=== PATIENT | female | born 1950 | race Caucasian/White ===

== ENCOUNTER 2022-09-18 12:42 | Outpatient (CLI) | payer MEDICARE, SELFPAY ==
--- NOTE | ~2022-09-18 | XR_ITS ---
EXAMINATION: XR lumbar spine 2-3V DATE: 09/18/2022 13:12 INDICATION: Dorsalgia and right sciatic pain TECHNIQUE: Anteroposterior and lateral views of the lumbar spine, and cone-down lateral view of the l umbosacral junction were obtained. COMPARISON: None. FINDINGS: Bone alignment is normal. There is no fracture. The vertebral body heights are maintained. There is mild loss of intervertebral disc space height at L4-5 and L5-S1. Small degenerative osteophy donnie project from the anterior endplates of multiple vertebral bodies. There is moderate facet joint o steoarthritis of the lower lumbar spine. The bowel gas pattern is normal. Surgical clips in the right upper quadrant are likely from prior cholecystectomy. IMPRESSION: 1. Mild to moderate lumbar spondylosis without acute findings. Reviewed, dictated and finalized at location L. IO ASSOCIATE
[2022-09-18 13:16] LABS: Basophils Percent Auto 0.6 % (0.2-1.2); Eosinophils Absolute Auto 0.1 K/mm3 (0-0.3); Eosinophils Percent Auto 2.2 % (0-4.4); Hematocrit 42.9 % (37.0-47.0); Hemoglobin 13.5 g/dL (12.0-15.0); Immature Granulocyte Absolute 0.01 K/mm3 (0.00-0.031); Immature Granulocyte Percent A 0.2 % (0-0.5); Lymphocytes Absolute Auto 2.17 K/mm3 (0.9-3.2); Lymphocytes Percent Auto 33.5 % (18.3-44.2); Mean Corpuscular HGB Conc 31.5 g/dl (32-36); Mean Corpuscular Hemoglobin 27.9 pg (26-34); Mean Corpuscular Volume 88.6 fl (80-100); Mean Platelet Volume 8.8 fl (7.4-10.4); Monocytes Absolute Auto 0.5 K/mm3 (0.1-0.6); Neutrophils Absolute Auto 3.7 K/mm3 (1.3-6.7); Neutrophils Percent Auto 56.5 % (45.5-73.1); Platelet Count Result 268 k/mm3 (150-375); Red Blood Count 4.84 M/mm3 (4.2-5.4); Red Cell Distribution Width 12.4 % (11.5-14.5); White Blood Count 6.5 K/mm3 (4.5-10.0)
[2022-09-18 13:30] LABS: Alanine Aminotransferase 17 U/L (6-35); Albumin Level 4.2 g/dL (3.5-5.1); Alkaline Phosphatase 131 U/L (38-126); Anion Gap 6 mmol/L (8-16); Aspartate Amino Transferase 22 U/L (14-36); Bilirubin,Total 0.3 mg/dL (0.2-1.3); Blood Urea Nitrogen 12 mg/dL (7-17); Calcium 9.2 mg/dL (8.4-10.2); Carbon Dioxide 29 mmol/L (22-30); Chloride 106 mmol/L (98-107); Estimated Glomerular Filt Rate 44; Glucose 86 mg/dL (65-110); Potassium 4.2 mmol/L (3.4-5.0); Sodium 141 mmol/L (137-145)
== END 2022-09-18 12:43 | disposition home or self-care (01) ==
PROVIDERS: PCP Family Medicine; Visit Provider Nurse Practitioner Family
DX: F41.9 Anxiety disorder, unspecified (principal); K52.9 Noninfective gastroenteritis and colitis, unspecified; K31.84 Gastroparesis; K57.92 Diverticulitis of intestine, part unspecified, without perforation or abscess without bleeding; M47.896 Other spondylosis, lumbar region
CPT/HCPCS: 36415; 72100; 80053; 84443; 85025

== ENCOUNTER 2022-09-28 09:35 | Outpatient (CLI) | payer MEDICARE, SELFPAY ==
--- NOTE | ~2022-09-28 | MR_ITS ---
MRI of the lumbar spine Clinical History: Back pain Technique: Axial T2-weighted images, and sagittal T1-weighted, T2-weighted, and T2 fat-sat images wer e acquired. Findings: There is no fracture or subluxation of the lumbar spine. Vertebral bodies maintain normal h eight and alignment. No bone marrow signal abnormality identified. At L1-L2, there is no disc bulge or herniation. There is mild facet arthropathy. No spinal canal sten osis or neural foraminal narrowing. At L2-L3, there is facet arthropathy with minimal disc bulge. No spinal canal stenosis or definite ne ural foraminal narrowing. At L3-L4, there is minimal disc bulge and mild facet arthropathy. No spinal canal stenosis. There is mild bilateral neural foraminal narrowing. At L4-L5, there is mild disc bulge and facet arthropathy. Lateral recess stenosis. There is severe le ft neural foraminal narrowing and moderate to severe right neural foraminal narrowing. At L5-S1, there is disc bulge and facet arthropathy. No spinal canal stenosis. There is moderate bila teral neural foraminal narrowing. Paravertebral soft tissues are unremarkable. Impression: Mild degenerative spondylosis overall, as detailed above. Findings are probably worst at L4-L5. Reviewed, dictated and finalized at [facility]. DOWN NURSE Impression: Mild degenerative spondylosis overall, as detailed above. Findings are probably worst at L4-L5.
== END 2022-09-28 09:36 | disposition home or self-care (01) ==
PROVIDERS: PCP Family Medicine; Visit Provider Nurse Practitioner Family
DX: R32 Unspecified urinary incontinence (principal); M47.896 Other spondylosis, lumbar region
CPT/HCPCS: 72148

== ENCOUNTER 2022-10-01 15:34 | Outpatient (CLI) | payer MEDICARE, SELFPAY ==
[2022-10-01 16:11] LABS: Appearance Urine Clear (Clear); Bilirubin Urine Negative (Negative); Blood Urine Trace-intact (Negative); Color Urine Light Yellow (Yellow); Glucose Urine UA Negative (Negative); Ketones Urine Negative (Negative); Leukocyte Esterase Ur Negative LEU/UL (Negative); Nitrate Urine Negative (Negative); Protein Urine Negative (Negative); Urobilinogen Urine 0.2 mg/dL (<2.0); pH Urine 6.5 (5.0-9.0)
[2022-10-01 16:15] LABS: Cholesterol 262 mg/dL (0-200); HDL Direct 53 mg/dL; Triglycerides 236 mg/dL (<150)
[2022-10-01 16:17] LABS: RBC Urine 0-2 /hpf (0-2); WBC Urine 0-3 /hpf
[2022-10-01 16:25] LABS: Add Urine Microscopic? YES
[2022-10-01 16:26] LABS: LDL Cholesterol Direct 134 mg/dL
== END 2022-10-01 15:35 | disposition home or self-care (01) ==
PROVIDERS: PCP Family Medicine; Visit Provider Family Medicine
DX: I10 Essential (primary) hypertension (principal); R32 Unspecified urinary incontinence
CPT/HCPCS: 36415; 80061; 81001

== ENCOUNTER 2022-10-11 11:08 | Outpatient (CLI) | payer MEDICARE, SELFPAY ==
[2022-10-11 13:15] LABS: Creatine Kinase 39 U/L (30-135)
[2022-10-11 13:19] LABS: Alanine Aminotransferase 18 U/L (6-35)
[2022-10-12 16:54] LABS: Appearance Urine Clear (Clear); Bilirubin Urine Negative (Negative); Blood Urine Trace-intact (Negative); Color Urine Yellow (Yellow); Glucose Urine UA Negative (Negative); Ketones Urine Negative (Negative); Leukocyte Esterase Ur Trace LEU/UL (NEGATIVE); Nitrate Urine Negative (Negative); Protein Urine Negative (Negative); Urobilinogen Urine 0.2 mg/dL (<2.0)
[2022-10-12 17:02] LABS: Bacteria Urine Trace /hpf; WBC Urine 0-3 /hpf (0-3)
[2022-10-12 17:16] LABS: Add Urine Microscopic? YES
== END 2022-10-11 11:09 | disposition home or self-care (01) ==
PROVIDERS: PCP Family Medicine; Visit Provider Nurse Practitioner Family
DX: E78.5 Hyperlipidemia, unspecified (principal)
CPT/HCPCS: 36415; 81001; 82550; 84460

== ENCOUNTER 2023-01-08 07:25 | Outpatient (CLI) | payer MEDICARE, SELFPAY ==
--- NOTE | ~2023-01-08 | NM_ITS ---
EXAM: NM gastric emptying study DATE: 01/08/2023 12:05 INDICATION: Nausea and vomiting. TECHNIQUE: A gastric emptying study was performed using the methodology of Ad DILLON, et al. J Nucl Med 2007; 48:568-572. The patient was given a meal consisting of 2 scrambled eggs labeled with 1.019 mCi Tc-99m sulfur colloid, 2 slices of toast, two packages of jam, and approximately 120 mL of water . Simultaneous anterior and posterior 1-min images of the abdomen were obtained with the patient supi ne at multiple time points over a total period of 4 hours. The geometric mean of anterior and posteri or views was determined, and the percentage retention was calculated for each time point. COMPARISON: None. FINDINGS: Gastric retention of the radiotracer-labeled meal was 46%, 28%, and 6% at the 1-hour, 2-ho ur, and 4-hour time points, respectively. With this technique, apparent rapid gastric emptying is sug gested by <30% gastric retention at 1 hour. Delayed gastric emptying is defined by gastric retention of >90% at 1 hour, >60% retention at 2 hours, or >10% retention at 4 hours. IMPRESSION: 1. Normal gastric emptying. Reviewed, dictated and finalized at location A. IMPRESSION: 1. Normal gastric emptying.
== END 2023-01-08 07:26 | disposition home or self-care (01) ==
PROVIDERS: PCP Family Medicine; Visit Provider Family Medicine
DX: K31.84 Gastroparesis (principal)
CPT/HCPCS: 78264; A9541

== ENCOUNTER 2023-02-13 13:47 | Outpatient (CLI) | payer MEDICARE, SELFPAY ==
--- NOTE | ~2023-02-13 | XR_ITS ---
XR foot LT min 3V DATE: 02/13/2023 14:14 INDICATION: Foot pain TECHNIQUE: 4 views COMPARISON: None FINDINGS: There is osteopenia. There is mild posterior and prominent plantar calcaneal enthesopathy. There is mild to moderate osteoarthritis at the first metatarsophalangeal joint. Mild hallux valgus a nd bunion deformity. No recent fracture or dislocation, periosteal reaction or bone destruction is detected. IMPRESSION: Osteopenia Calcaneal enthesopathy Osteoarthritis at first metatarsophalangeal joint Hallux valgus and bunion deformity Reviewed, dictated and finalized at location []
--- NOTE | ~2023-02-13 | XR_ITS ---
XR foot RT min 3V DATE: 02/13/2023 14:14 INDICATION: Fall. Right foot pain. TECHNIQUE: 4 views COMPARISON: None FINDINGS: Osteopenia. Mild plantar and posterior calcaneal enthesopathy. Mild osteoarthritis at the first metatarsophalangeal joint. Mild hallux valgus and bunion deformity. No recent fracture or dislocation, periosteal reaction or bone destruction is detected. IMPRESSION: Mild plantar and posterior calcaneal enthesopathy Hallux valgus and bunion deformity Mild osteophyte is at first metatarsophalangeal joint Osteopenia Reviewed, dictated and finalized at location []
== END 2023-02-13 13:48 | disposition home or self-care (01) ==
LOC: ANHIMG 13:52
PROVIDERS: PCP Family Medicine; Visit Provider Physician Assistant Medical
DX: M85.872 Other specified disorders of bone density and structure, left ankle and foot (principal); M77.32 Calcaneal spur, left foot; M19.072 Primary osteoarthritis, left ankle and foot; M20.12 Hallux valgus (acquired), left foot; M19.071 Primary osteoarthritis, right ankle and foot; M77.31 Calcaneal spur, right foot; M85.871 Other specified disorders of bone density and structure, right ankle and foot
CPT/HCPCS: 73630

== ENCOUNTER 2023-02-21 14:59 | Outpatient (CLI) | payer MEDICARE, SELFPAY ==
[2023-02-21 17:53] LABS: Vitamin D 25 Hydroxy 31.1 ng/mL
[2023-02-21 18:25] LABS: Alanine Aminotransferase 25 U/L (6-35); Albumin Level 4.5 g/dL (3.5-5.1); Alkaline Phosphatase 107 U/L (38-126); Anion Gap 6 mmol/L (8-16); Aspartate Amino Transferase 33 U/L (14-36); Bilirubin,Total 0.4 mg/dL (0.2-1.3); Blood Urea Nitrogen 12 mg/dL (7-17); Calcium 9.5 mg/dL (8.4-10.2); Carbon Dioxide 32 mmol/L (22-30); Chloride 102 mmol/L (98-107); Estimated Glomerular Filt Rate 49; Glucose 92 mg/dL (65-110); Magnesium 2.4 mg/dL (1.6-2.3); Sodium 140 mmol/L (137-145)
== END 2023-02-21 15:00 | disposition home or self-care (01) ==
LOC: ANHLAB 15:02
PROVIDERS: PCP Family Medicine; Visit Provider Nurse Practitioner Family
DX: E78.5 Hyperlipidemia, unspecified (principal); R94.4 Abnormal results of kidney function studies; G25.81 Restless legs syndrome; M62.838 Other muscle spasm; E55.9 Vitamin D deficiency, unspecified
CPT/HCPCS: 36415; 80053; 82306; 82607; 83735

== ENCOUNTER 2023-05-16 08:00 | Outpatient (NON) | payer MEDICARE, SELFPAY | END 2023-05-16 08:01 | disposition home or self-care (01) | PROVIDERS: PCP Family Medicine; Visit Provider Internal Medicine Gastroenterology | DX: R13.10 Dysphagia, unspecified (principal) | CPT/HCPCS: 88305 ==

== ENCOUNTER 2023-05-16 10:20 | Day surgery (SDC) | payer MEDICARE, SELFPAY ==
[2023-05-01 11:36] VITALS: BMI 25.6
[2023-05-09 14:00] VITALS: BMI 25.2
[2023-05-09 15:14] VITALS: BMI 25.2
--- NOTE | 2023-05-16 07:31 | WPDANESEPPF ---
Anes - Initial Pre Proc Eval Procedure: Operation Date: 05/16/23 14:00 Proposed Procedures p Esophagogastroduodenoscopy - Reno Ricketts MD Date/Time: 05/16/23 07:31 Surgeon: Reno Ricketts MD Pre Op Diagnosis: Dysphagia Patient Data Age: 72 Gender: F Height: 1.7 m Weight: 73 kg Allergies Allergy/AdvReac Type Severity Reaction Status Date / Time metronidazole [From Flagyl] AdvReac Intermediate Vomiting Verified 05/16/23 10:43 nitrofurantoin AdvReac Intermediate Vomiting Verified 05/16/23 10:43 [From Macrobid] amoxicillin [From Augmentin] AdvReac Mild Vomiting Verified 05/16/23 10:43 clavulanic acid AdvReac Mild Vomiting Verified 05/16/23 10:43 [From Augmentin] Home Medications Medication Instructions Recorded Confirmed Type rosuvastatin 20 mg tablet (Crestor) 20 mg PO DAILY #90 tabs 01/28/23 05/16/23 Rx alprazolam 0.5 mg tablet (Xanax) 0.5 mg PO QHS PRN Anxiety 02/21/23 05/16/23 History loperamide 2 mg tablet (Imodium 2 mg PO QID PRN Diarrhea 02/21/23 05/16/23 History A-D) amitriptyline 25 mg tablet 25 mg PO QHS #30 tabs 02/26/23 05/16/23 Rx dicyclomine 10 mg capsule 10 - 20 mg PO .every 6 hours #120 02/27/23 05/16/23 Rx caps olanzapine 2.5 mg tablet 2.5 mg PO DAILY 04/24/23 05/16/23 History ropinirole 0.5 mg tablet 0.5 mg PO QHS #30 tabs 04/24/23 05/16/23 Rx fluvoxamine 25 mg tablet 25 mg PO HS 05/09/23 05/16/23 History Patient hx anesthesia problems: none Family hx anesthesia problems: none Results Review: All pre-operative results and documents have been reviewed as part of the pre-operative evaluation. [facility] Past Medical History Medical History Anxiety BMI 25.0-25.9,adult Cholecystectomy planned Depression Duodenal diverticulum Functional abdominal pain syndrome GERD (gastroesophageal reflux disease) History of depression Hx of migraines Hyperlipidemia IBS (irritable bowel syndrome) Surgical History Surgical History History of cholecystectomy Family History Family History Father Leukemia Anemia Hypertension Mother Heart disease Leukemia Sibling Heart disease Social History Social History Smoking status: Never smoker Second hand tobacco smoke exposure: No Alcohol intake: never Substance use: never Substance use type: does not use Lack of Transportation: No Lack of Food: Never True Current Housing: I Have Housing Concerned About Future Housing: No Difficulty Paying Gas/Electric Bills: No Difficulty Paying for Meds: No Currently Unemployed: No Education: High School Diploma/GED Difficulty w/ Childcare or Family Care: No Living arrangements: with family Occupation/Education: retired 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 Informed Consent: The patient's anesthetic plan and its attendant risks and benefits were discussed with the patient/family/POA. Questions were solicited and answers provided to the satisfaction of the patient/family/POA.
[2023-05-16 10:46] VITALS: BP 177/104; PULSE 91; RESP 16; TEMP 36.4; O2SAT 98
--- NOTE | 2023-05-16 11:35 | PM.HPGS ---
History of Present Illness History of Present Illness Consent: Risks, benefits, and alternatives have been discussed and questions answered. Patient agrees to proceed with procedure. Chief complaint: Dysphagia Narrative: Lucy Peña is a 72 year old female with increasing episodes of dysphagia over the last few months. Review of Systems Review of Systems: All systems reviewed & are unremarkable except as noted in HPI and below PMFSH Past Medical History Medical History Anxiety BMI 25.0-25.9,adult Cholecystectomy planned Depression Duodenal diverticulum Functional abdominal pain syndrome GERD (gastroesophageal reflux disease) History of depression Hx of migraines Hyperlipidemia IBS (irritable bowel syndrome) Surgical History Surgical History History of cholecystectomy Family History Family History Father Leukemia Anemia Hypertension Mother Heart disease Leukemia Sibling Heart disease Social History Social History Smoking status: Never smoker Second hand tobacco smoke exposure: No Alcohol intake: never Substance use: never Substance use type: does not use Lack of Transportation: No Lack of Food: Never True Current Housing: I Have Housing Concerned About Future Housing: No Difficulty Paying Gas/Electric Bills: No Difficulty Paying for Meds: No Currently Unemployed: No Education: High School Diploma/GED Difficulty w/ Childcare or Family Care: No Living arrangements: with family Occupation/Education: retired 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 Gender identity (if verbalized by the patient): Female Spiritual care concerns: No Meds Home Medications and Allergies Home Medications Medication Instructions Recorded Confirmed Type rosuvastatin 20 mg tablet (Crestor) 20 mg PO DAILY #90 tabs 01/28/23 05/16/23 Rx alprazolam 0.5 mg tablet (Xanax) 0.5 mg PO QHS PRN Anxiety 02/21/23 05/16/23 History loperamide 2 mg tablet (Imodium 2 mg PO QID PRN Diarrhea 02/21/23 05/16/23 History A-D) amitriptyline 25 mg tablet 25 mg PO QHS #30 tabs 02/26/23 05/16/23 Rx dicyclomine 10 mg capsule 10 - 20 mg PO .every 6 hours #120 02/27/23 05/16/23 Rx caps olanzapine 2.5 mg tablet 2.5 mg PO DAILY 04/24/23 05/16/23 History ropinirole 0.5 mg tablet 0.5 mg PO QHS #30 tabs 04/24/23 05/16/23 Rx fluvoxamine 25 mg tablet 25 mg PO HS 05/09/23 05/16/23 History Allergies Allergy/AdvReac Type Severity Reaction Status Date / Time metronidazole [From Flagyl] AdvReac Intermediate Vomiting Verified 05/16/23 10:43 nitrofurantoin AdvReac Intermediate Vomiting Verified 05/16/23 10:43 [From Macrobid] amoxicillin [From Augmentin] AdvReac Mild Vomiting Verified 05/16/23 10:43 clavulanic acid AdvReac Mild Vomiting Verified 05/16/23 10:43 [From Augmentin] Vital Signs Vital Signs - 24 hr 05/16/23 10:46 Temperature 36.4 C Pulse Rate 91 Respiratory Rate 16 Blood Pressure 177/104 H Pulse Oximetry 98 Oxygen Delivery Room Air Exam Const: General: alert Orientation/consciousness: patient oriented x3 Resp: Auscultation: clear to auscultation bilaterally Cardio: Rhythm: regular rhythm GI: GI Palp: Yes Soft to palpation and No Tenderness to palpation present (GI) Neuro: General: patient oriented x3 Assessment and Plan Assessment and plan (1) Dysphagia: Code(s): R13.10 - Dysphagia, unspecified Status: Acute Assessment and Plan: EGD with possible biopsy or dilatation or cautery.
[2023-05-16] MEDS: LACTATED RINGERS 1,000 ML 150 ML IV CONT (12:14)
[2023-05-16 12:30] VITALS: BP 121/63; PULSE 80; RESP 15; O2SAT 98
[2023-05-16 12:40] VITALS: BP 136/92; PULSE 67; RESP 14; O2SAT 99
[2023-05-16 12:50] VITALS: BP 99/67; PULSE 65; RESP 14; O2SAT 98
--- NOTE | 2023-05-16 13:09 | WPDANESPN ---
Anes - Prog Note Post-Op Date/Time: 05/16/23 13:09 Cardiovascular status: normal Respiratory status: normal Airway patency: baseline Mental status: baseline Post-Op hydration status: normal Vital Signs: Last Vital Signs Temp 36.4 C 05/16/23 10:46 Pulse 65 05/16/23 12:50 Resp 14 05/16/23 12:50 BP 99/67 L 05/16/23 12:50 Pulse Ox 98 05/16/23 12:50 O2 Del Method Room Air 05/16/23 12:50 Pain Score (VAS): 0 I/O: Intake & Output 05/15/23 05/16/23 05/16/23 23:59 07:59 15:59 Intake Total 800 Balance 800 Post-procedural complaints: none Patient Feedback: Patient satisfied with anesthetic care. Other Findings: Patient vital signs back to baseline. Patient denies nausea and vomiting. Patient's pain under control. Patient OK for discharge.
== END 2023-05-16 13:12 | disposition home or self-care (01) ==
PROVIDERS: PCP Family Medicine; Visit Provider Internal Medicine Gastroenterology
PROC: 0DJ08ZZ Inspection of Upper Intestinal Tract, Via Natural or Artificial Opening Endoscopic (ICD-10-PCS; CPT 43235; principal; 2023-05-16 12:00)
DX: K22.2 Esophageal obstruction (principal); R13.19 Other dysphagia; K29.70 Gastritis, unspecified, without bleeding; K44.9 Diaphragmatic hernia without obstruction or gangrene
CPT/HCPCS: 43249; 43239

== ENCOUNTER → 2023-06-10 13:53 | Outpatient (CLI) | payer MEDICARE, SELFPAY ==
--- NOTE | ~2023-06-10 | MM_ITS ---
EXAMINATION: MM diagnostic becca BI w cresencio HISTORY: Left breast mass TECHNIQUE: Craniocaudal, mediolateral, and mediolateral oblique 3-D tomosynthesis images of the breas ts were performed and synthetic 2-D images were generated. CAD analysis was submitted and interpreted . COMPARISON: 01/30/2022, 08/15/2020, 08/18/2019; ultrasound, 02/09/2022 FINDINGS: No suspicious mass, calcification, or architectural distortion are identified in either zacarias ast to suggest malignancy. There has been no suspicious interval change. A low-density mass of the l ower inner left breast has been previously characterized as a cyst. IMPRESSION: 1. No mammographic evidence of malignancy. 2. Recommend routine screening mammography in one year. BI-RADS Category 2: Benign finding(s). Reviewed, dictated and finalized at location A.
== END ==
PROVIDERS: PCP Family Medicine; Visit Provider Nurse Practitioner Family
DX: R92.8 Other abnormal and inconclusive findings on diagnostic imaging of breast (principal)
CPT/HCPCS: 77062; 77066; G0279

== ENCOUNTER 2023-06-20 12:40 | Outpatient (CLI) | payer MEDICARE, SELFPAY ==
[2023-06-20 15:21] LABS: Vitamin D 25 Hydroxy 26.6 ng/mL
[2023-06-20 19:30] LABS: Anion Gap 6 mmol/L (8-16); Blood Urea Nitrogen 15 mg/dL (7-17); Calcium 10.1 mg/dL (8.4-10.2); Carbon Dioxide 29 mmol/L (22-30); Chloride 104 mmol/L (98-107); Cholesterol 177 mg/dL (0-200); Estimated Glomerular Filt Rate 55; Glucose 86 mg/dL (65-110); HDL Direct 90 mg/dL; Potassium 4.5 mmol/L (3.4-5.0); Sodium 139 mmol/L (137-145); Triglycerides 112 mg/dL (<150)
[2023-06-20 19:41] LABS: LDL Cholesterol Direct 65 mg/dL
[2023-06-20 20:45] LABS: Vitamin B12 > 1000.0 pg/mL (239-931)
== END 2023-06-20 12:41 | disposition home or self-care (01) ==
PROVIDERS: PCP Family Medicine; Visit Provider Nurse Practitioner Family
DX: R94.4 Abnormal results of kidney function studies (principal); E55.9 Vitamin D deficiency, unspecified; E53.8 Deficiency of other specified B group vitamins; E78.5 Hyperlipidemia, unspecified
CPT/HCPCS: 36415; 80048; 80061; 82306; 82607

== ENCOUNTER 2023-08-26 07:21 | Outpatient (CLI) | payer MEDICARE, SELFPAY ==
--- NOTE | ~2023-08-26 | CT_ITS ---
EXAMINATION: CT abdomen pelvis w con INDICATION: Left lower quadrant pain TECHNIQUE: Computed tomographic images of the abdomen and pelvis were obtained after the administrati on of 100 cc of Omnipaque 350 intravenous contrast. The dose-length product (DLP) was 521.25 mGy-cm. Automated exposure control and iterative reconstruction technique were employed. COMPARISON: None available FINDINGS: Minimal dependent atelectasis is present in the lung bases. The heart size is normal. There is a sliding hiatal hernia containing fat The gallbladder is surgically absent. There is mild enlarg ement of the common bile duct and central intrahepatic ducts which is likely due to post cholecystect zuleyka state. A small calcification in the otherwise normal liver likely represents old granulomatous di sease. The spleen, pancreas, and adrenal glands are normal. There are peripelvic cysts of the otherwi se normal kidneys. Colonic diverticulosis is present without evidence of diverticulitis. No pathologi nikunj enlarged abdominal or pelvic lymph nodes are identified. No free intraperitoneal gas or evidenc e of bowel obstruction. There is severe lumbar spondylosis. There is a tiny umbilical hernia containi ng fat. IMPRESSION: 1. No CT correlate for the patient's symptoms. 2. Diverticulosis without evidence of diverticulitis. Reviewed, dictated and finalized at location B. PTURE CONSERVATOR
[2023-08-26 07:54] LABS: Estimated Glomerular Filt Rate 49
== END 2023-08-26 07:22 | disposition home or self-care (01) ==
PROVIDERS: PCP Family Medicine; Visit Provider Internal Medicine Gastroenterology
DX: K57.92 Diverticulitis of intestine, part unspecified, without perforation or abscess without bleeding (principal)
CPT/HCPCS: 74177; Q9967

== ENCOUNTER 2023-10-11 10:23 | Outpatient (CLI) | payer MEDICARE, SELFPAY ==
[2023-10-11 11:03] LABS: Basophils Percent Auto 0.4 % (0.2-1.2); Eosinophils Absolute Auto 0.1 K/mm3 (0-0.3); Eosinophils Percent Auto 0.6 % (0-4.4); Hematocrit 50.5 % (37.0-47.0); Hemoglobin 16.3 g/dL (12.0-15.0); Immature Granulocyte Absolute 0.03 K/mm3 (0.00-0.031); Immature Granulocyte Percent A 0.3 % (0-0.5); Lymphocytes Absolute Auto 2.38 K/mm3 (0.9-3.2); Lymphocytes Percent Auto 21.5 % (18.3-44.2); Mean Corpuscular HGB Conc 32.3 g/dl (32-36); Mean Corpuscular Hemoglobin 29.2 pg (26-34); Mean Corpuscular Volume 90.5 fl (80-100); Mean Platelet Volume 9.1 fl (7.4-10.4); Monocytes Absolute Auto 0.6 K/mm3 (0.1-0.6); Monocytes Percent Auto 5.6 % (2.6-8.5); Neutrophils Absolute Auto 7.9 K/mm3 (1.3-6.7); Neutrophils Percent Auto 71.6 % (45.5-73.1); Platelet Count Result 331 k/mm3 (150-375); Red Blood Count 5.58 M/mm3 (4.2-5.4); Red Cell Distribution Width 12.2 % (11.5-14.5); White Blood Count 11.1 K/mm3 (4.5-10.0)
[2023-10-11 11:20] LABS: Alanine Aminotransferase 38 U/L (6-35); Albumin Level 4.3 g/dL (3.5-5.1); Alkaline Phosphatase 122 U/L (38-126); Anion Gap 6 mmol/L (8-16); Aspartate Amino Transferase 38 U/L (14-36); Bilirubin,Total 0.5 mg/dL (0.2-1.3); Blood Urea Nitrogen 15 mg/dL (7-17); Calcium 10.5 mg/dL (8.4-10.2); Carbon Dioxide 29 mmol/L (22-30); Chloride 100 mmol/L (98-107); Estimated Glomerular Filt Rate 40; Glucose 147 mg/dL (65-110); Hemoglobin A1C 6.2 % (<5.7); Potassium 4.4 mmol/L (3.4-5.0); Sodium 135 mmol/L (137-145)
[2023-10-11 11:37] LABS: Free T4 Free Thyroxine 1.71 ng/mL (0.78-2.19)
[2023-10-11 13:42] LABS: Folic Acid 5.7 ng/mL (2.76->20)
== END 2023-10-11 10:24 | disposition home or self-care (01) ==
PROVIDERS: PCP Family Medicine
DX: F33.2 Major depressive disorder, recurrent severe without psychotic features (principal); Z79.899 Other long term (current) drug therapy
CPT/HCPCS: 36415; 80053; 82607; 82746; 83036; 84439; 84443; 85025

== ENCOUNTER 2023-10-29 13:56 | Outpatient (CLI) | payer MEDICARE, SELFPAY ==
[2023-10-29 14:25] LABS: Basophils Percent Auto 0.5 % (0.2-1.2); Eosinophils Absolute Auto 0.1 K/mm3 (0-0.3); Eosinophils Percent Auto 1.1 % (0-4.4); Hematocrit 44.6 % (37.0-47.0); Immature Granulocyte Absolute 0.02 K/mm3 (0.00-0.031); Immature Granulocyte Percent A 0.3 % (0-0.5); Lymphocytes Absolute Auto 1.68 K/mm3 (0.9-3.2); Lymphocytes Percent Auto 22.5 % (18.3-44.2); Mean Corpuscular HGB Conc 31.4 g/dl (32-36); Mean Corpuscular Hemoglobin 29.3 pg (26-34); Mean Corpuscular Volume 93.3 fl (80-100); Monocytes Absolute Auto 0.5 K/mm3 (0.1-0.6); Monocytes Percent Auto 7.1 % (2.6-8.5); Neutrophils Absolute Auto 5.1 K/mm3 (1.3-6.7); Neutrophils Percent Auto 68.5 % (45.5-73.1); Platelet Count Result 309 k/mm3 (150-375); Red Blood Count 4.78 M/mm3 (4.2-5.4); Red Cell Distribution Width 12.7 % (11.5-14.5); White Blood Count 7.5 K/mm3 (4.5-10.0)
[2023-10-29 14:35] LABS: Alanine Aminotransferase 30 U/L (6-35); Albumin Level 4.1 g/dL (3.5-5.1); Alkaline Phosphatase 89 U/L (38-126); Anion Gap 6 mmol/L (8-16); Aspartate Amino Transferase 39 U/L (14-36); Bilirubin,Total 0.4 mg/dL (0.2-1.3); Blood Urea Nitrogen 13 mg/dL (7-17); Carbon Dioxide 26 mmol/L (22-30); Chloride 105 mmol/L (98-107); Estimated Glomerular Filt Rate 55; Glucose 115 mg/dL (65-110); Potassium 4.1 mmol/L (3.4-5.0); Sodium 137 mmol/L (137-145)
== END 2023-10-29 13:57 | disposition home or self-care (01) ==
PROVIDERS: PCP Family Medicine; Visit Provider Family Medicine
DX: D72.829 Elevated white blood cell count, unspecified (principal); R74.8 Abnormal levels of other serum enzymes; N18.30 Chronic kidney disease, stage 3 unspecified
CPT/HCPCS: 36415; 80048; 80076; 85025

== ENCOUNTER 2023-11-06 09:04 | Day surgery (SDC) | payer MEDICARE, SELFPAY ==
[2023-10-29 06:14] VITALS: BMI 25.9
[2023-10-29 11:37] VITALS: BMI 24.8
--- NOTE | 2023-10-29 11:51 | PC.NURSE ---
DURING PREOP INTERVIEW, PT STATES SHE'S BEEN HAVING CHEST PAIN OFF AND ON. DENIES SOB WITH CP. INSTRUCTED PT TO CALL HER PCP TODAY REGARDING CP. I WILL CALL ANESTHESIOLOGIST REGARDING PT C/O CP.
--- NOTE | 2023-10-29 12:03 | SUR.PREOP ---
CALLED DR REECE REGARDING PT'S C/O OF INTERMITTENT CP. DR REECE STATED PT TO HAVE CP INVESTIGATED PRIOR TO EGD BEING PERFORMED. CALLED PT BACK, SHE IS ON HER WAY TO DR PORTILLO'S OFFICE NOW FOR AN EKG. WILL FOLLOW UP.
--- NOTE | 2023-10-30 13:42 | PC.NURSE ---
SPOKE WITH DR CHOI REGARDING PT'S RECENT C/O CP. HE REVIEWED PT'S CHART. OK TO PROCEED WITH EGD. PT NOTIFIED.
[2023-11-06 10:18] VITALS: BP 165/103; PULSE 80; RESP 18; TEMP 36.8; O2SAT 99; BMI 25.9
--- NOTE | 2023-11-06 10:36 | PM.HPGS ---
History of Present Illness History of Present Illness Consent: Risks, benefits, and alternatives have been discussed and questions answered. Patient agrees to proceed with procedure. Chief complaint: Dysphagia unspecified Narrative: Lucy Peña is a 73 year old female presents for EGD. Patient has a history of acid reflux. Found to have rather severe stricture ring at the time of previous EGD in May 2023. Advised to take pantoprazole. It is uncertain if she continue this medication. She did not have heart several weeks ago which time Prilosec 20mg p.o. daily was started. Patient has recurrent difficulty swallowing with food catching the substernal portion the chest. This occurs more frequently with solid foods such as chicken. Is any weight loss. Family history is noncontributory. Patient returns today for follow-up EGD and additional dilatation. Review of Systems Review of Systems: Review of systems noncontributory. [facility] Past Medical History Medical History (Updated 11/06/23 @ 10:38 by Zeferino Del Toro MD) Anxiety BMI 25.0-25.9,adult Cholecystectomy planned CKD (chronic kidney disease) stage 3, GFR 30-59 ml/min Depression Duodenal diverticulum Elevated liver enzymes Elevated white blood cell count Epigastric pain Functional abdominal pain syndrome GERD (gastroesophageal reflux disease) History of depression Hx of migraines Hyperlipidemia IBS (irritable bowel syndrome) Surgical History Surgical History History of cholecystectomy Family History Family History Father Leukemia Anemia Hypertension Mother Heart disease Leukemia Sibling Heart disease Social History Social History Smoking status: Never smoker Second hand tobacco smoke exposure: No Alcohol intake: never Substance use: never Substance use type: does not use Do You Feel Safe in your Home?: Yes Lack of Transportation: No Lack of Food: Never True Current Housing: I Have Housing Concerned About Future Housing: No Difficulty Paying Gas/Electric Bills: No Difficulty Paying for Meds: No Currently Unemployed: No Education: Trade/Vocational Certificate Difficulty w/ Childcare or Family Care: No Living arrangements: with family Occupation/Education: retired 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 Gender identity (if verbalized by the patient): Female Spiritual care concerns: No Meds Home Medications and Allergies Home Medications Medication Instructions Recorded Confirmed Type alprazolam 0.5 mg tablet (Xanax) 0.5 mg PO QHS PRN Anxiety 02/21/23 11/06/23 History loperamide 2 mg tablet (Imodium 2 mg PO QID PRN Diarrhea 02/21/23 11/06/23 History A-D) olanzapine 2.5 mg tablet 2.5 mg PO DAILY 04/24/23 11/06/23 History fluvoxamine 25 mg tablet 25 mg PO HS 05/09/23 11/06/23 History dicyclomine 10 mg capsule See Rx Instructions .Route 08/16/23 11/06/23 Rx .COMPLEX #720 caps ropinirole 0.5 mg tablet 0.5 mg PO QHS #90 tabs 08/16/23 11/06/23 Rx rosuvastatin 20 mg tablet (Crestor) 20 mg PO DAILY #90 tabs 08/16/23 11/06/23 Rx lisinopril 5 mg tablet See Rx Instructions .Route 10/03/23 11/06/23 Rx .COMPLEX #90 tabs ondansetron HCl 4 mg tablet 4 mg PO Q8H PRN nausea and 10/30/23 11/06/23 Rx vomiting #20 tabs Allergies Allergy/AdvReac Type Severity Reaction Status Date / Time Sulfa (Sulfonamide Allergy Intermediate Swelling Verified 11/06/23 10:16 Antibiotics) metronidazole [From Flagyl] AdvReac Intermediate Vomiting Verified 11/06/23 10:16 nitrofurantoin AdvReac Intermediate Vomiting Verified 11/06/23 10:16 [From Macrobid] amoxicillin [From Augmentin] AdvReac Mild Vomiting Verified 11/06/23 10:16 clavulanic acid AdvReac Mild Vomiting Verified 11/06/23 10:16 [From Augmen
[2023-11-06] MEDS: LACTATED RINGERS 1,000 ML 150 ML IV CONT (10:37)
[2023-11-06 11:19] VITALS: BP 98/55; PULSE 71; RESP 18; O2SAT 99
[2023-11-06 11:29] VITALS: BP 116/67; PULSE 68; RESP 16; O2SAT 100
--- NOTE | 2023-11-06 11:37 | WPDANESPN ---
Anes - Prog Note Post-Op Date/Time: 11/06/23 11:37 Cardiovascular status: normal Respiratory status: normal Airway patency: baseline Mental status: baseline Post-Op hydration status: normal Vital Signs: Last Vital Signs Temp 36.8 C 11/06/23 10:18 Pulse 68 11/06/23 11:29 Resp 16 11/06/23 11:29 BP 116/67 11/06/23 11:29 Pulse Ox 100 11/06/23 11:29 O2 Del Method Room Air 11/06/23 11:29 Pain Score (VAS): 0 I/O: Intake & Output 11/05/23 11/06/23 11/06/23 23:59 07:59 15:59 Intake Total 350 Balance 350 Patient Feedback: Patient satisfied with anesthetic care.
[2023-11-06 11:39] VITALS: BP 161/83; PULSE 67; RESP 16; O2SAT 99
== END 2023-11-06 11:48 | disposition home or self-care (01) ==
PROVIDERS: PCP Family Medicine; Visit Provider Internal Medicine Gastroenterology
PROC: 0DJ08ZZ Inspection of Upper Intestinal Tract, Via Natural or Artificial Opening Endoscopic (ICD-10-PCS; CPT 43235; principal; 2023-11-06 11:30)
DX: K22.2 Esophageal obstruction (principal); K57.10 Diverticulosis of small intestine without perforation or abscess without bleeding
CPT/HCPCS: 43450

== ENCOUNTER 2023-11-11 07:12 | Outpatient (CLI) | payer MEDICARE, SELFPAY ==
--- NOTE | ~2023-11-11 | US_ITS ---
EXAMINATION: US abdomen complete DATE: 11/11/2023 09:22 INDICATION: Abnormal levels of other serum enzymes TECHNIQUE: Multiple grayscale and Doppler ultrasound images of the abdomen were obtained. COMPARISON: CT, 08/26/2023 FINDINGS: Bowel gas obscures visualization of the pancreas. The visualized portions of the pancreas a re unremarkable. The liver is normal with normal echogenicity and echotexture. No surface nodularity. Normal hepatopetal flow in the main portal vein. Changes of cholecystectomy are noted. The common bi le duct is chronically dilated, likely due to post cholecystectomy state, and measures 1.4 cm. The vi sualized portions of the aorta and inferior vena cava are normal. The spleen is normal in appearance and measures 9.9 cm. The right kidney measures 9.5 x 4.3 x 5.2 cm. The left kidney measures 10.4 x 5.0 x 4.8 cm. The kidneys demonstrate normal parenchymal echogenicit y. There is no hydronephrosis. IMPRESSION: 1. No sonographic correlate for the patient's symptoms. Reviewed, dictated and finalized at location B. S RECORD CLERK
== END 2023-11-11 07:13 | disposition home or self-care (01) ==
PROVIDERS: PCP Family Medicine; Visit Provider Family Medicine
DX: R74.8 Abnormal levels of other serum enzymes (principal); R10.11 Right upper quadrant pain
CPT/HCPCS: 76700

== ENCOUNTER 2024-04-01 10:17 | Outpatient (CLI) | payer MEDICARE, SELFPAY ==
--- NOTE | ~2024-04-01 | MR_ITS ---
EXAMINATION: MR brain/brain stem wo con DATE: 04/01/2024 11:14 INDICATION: R42 - Dizziness and giddiness TECHNIQUE: Magnetic resonance imaging (MRI) of the brain and brainstem was performed without intraven ous contrast. Sequences included sagittal and axial T1-weighted SE, axial diffusion-weighted FS EPI A SSET, axial T2*-weighted GRE, axial T2-weighted FLAIR Propeller, and axial T2-weighted Propeller. Maricel arent diffusion coefficient (ADC) maps were created. COMPARISON: None. FINDINGS: No abnormal restricted diffusion to suggest acute ischemic infarct. No MRI evidence of hemorrhage or extra-axial collection. No suspicious foci of susceptibility to suggest prior intraparenchymal hemorr oliver. Scattered foci of white matter hyperintensity, likely representing mild small vessel ischemic d isease. No evidence of advanced or lobar predominant parenchymal volume loss. The basilar cisterns ar e patent. Flow voids are preserved. Paranasal sinuses are within normal limits. Globes and orbital co ntents are within normal limits. IMPRESSION: Unremarkable MR brain findings. Reviewed, dictated and finalized at location K.
== END 2024-04-01 10:18 | disposition home or self-care (01) ==
LOC: ANHIMG 10:20
PROVIDERS: PCP Family Medicine; Visit Provider Nurse Practitioner Adult Health
DX: R42 Dizziness and giddiness (principal); R41.3 Other amnesia
CPT/HCPCS: 70551

== ENCOUNTER 2024-04-29 06:46 | Outpatient (CLI) | payer MEDICARE, SELFPAY ==
--- NOTE | ~2024-04-29 | US_ITS ---
EXAMINATION: US carotid duplex BI DATE: 04/29/2024 08:13 INDICATION: Dizziness and giddiness. TECHNIQUE: Grayscale, color Doppler, and pulsed Doppler images of the cervical carotid arteries were obtained. The degree of vessel stenosis is placed in one of the following categories: normal, <50%, 5 0-69%, >=70% but less than near-occlusion, near-occlusion, or total occlusion. Note that percent sten osis relative to normal distal artery lumen diameter is indirectly measured from velocity measurement s as described by Guru, et al. Radiology 2003; 229:340-346. COMPARISON: None. FINDINGS: RIGHT: The right common carotid artery (CCA) peak systolic velocity (PSV) is 57 cm/s. The right internal car otid artery (ICA) PSV is 73 cm/s. The right ICA end-diastolic velocity (EDV) is 30 cm/s. The right IC A/CCA PSV ratio is 1.3. Grayscale and color Doppler images yield an estimate of <50% diameter reducti on from plaque in the ICA. There is antegrade flow in the right vertebral artery. LEFT: The left CCA PSV is 64 cm/s. The left ICA PSV is 58 cm/s. The left ICA EDV is 25 cm/s. The left ICA/C CA PSV ratio is 0.9. Grayscale and color Doppler images yield an estimate of <50% diameter reduction from plaque in the ICA. There is antegrade flow in the left vertebral artery. IMPRESSION: 1. <50% stenosis in the right internal carotid artery. 2. <50% stenosis in the left internal carotid artery. Reviewed, dictated and finalized at location A.
--- NOTE | ~2024-04-29 | XR_ITS ---
XR hip RT min 2V 04/29/2024 07:38 Indication: Right hip pain Procedure: 2 views right hip Comparison: No prior studies for comparison. Findings: Moderate osteoarthritis of the right hip. No fracture, subluxation or dislocation. There is a loose body adjacent to the joint space. No foreign bodies. No acute fracture. Impression: 1: Moderate osteoarthritis of the right hip. Reviewed, dictated and finalized at location B. Impression: 1: Moderate osteoarthritis of the right hip.
--- NOTE | ~2024-04-29 | MR_ITS ---
EXAMINATION: MR lumbar spine wo con DATE: 04/29/2024 07:17 INDICATION: Spondylosis without myelopathy or radiculopathy. TECHNIQUE: Magnetic resonance imaging (MRI) of the lumbar spine was performed without intravenous con trast. Sequences included sagittal T2-weighted FSE, sagittal T2-weighted FS FSE, sagittal T1-weighted FSE, and axial T2-weighted FSE. COMPARISON: Lumbar spine MRI 09/28/2022 FINDINGS: There is 2 mm retrolisthesis of L2 on L3 and L3 on L4. There are Schmorl's nodes at most le vels. There is mild chronic anterior wedging of T11-L1 vertebral bodies. There is mildly decreased di sc height at L2-L3, moderately decreased disc height at L3-L4, and severely decreased disc height at L4-L5 and L5-S1. The distal spinal cord signal intensity is normal. The conus medullaris is at L1. Th e following disc levels are specifically discussed: L1-L2: The disc is bulging. There is moderate right and mild left facet joint osteoarthritis. There i s mild bilateral neural foraminal stenosis. There is mild central canal stenosis. L2-L3: The disc is bulging. There is severe bilateral facet joint osteoarthritis. There is mild bilat eral neural foraminal stenosis. There is mild central canal stenosis. L3-L4: The disc is bulging. There is severe bilateral facet joint osteoarthritis. There is moderate r ight and mild left neural foraminal stenosis. There is mild central canal stenosis. L4-L5: The disc is bulging with superimposed left subarticular zone extrusion. There is severe bilate ral facet joint osteoarthritis. There is moderate bilateral neural foraminal stenosis. There is mild central canal stenosis. There is severe stenosis of left lateral recess. L5-S1: The disc is bulging and has an annular fissure. There is severe bilateral facet joint osteoart hritis. There is mild bilateral neural foraminal stenosis. There is mild central canal stenosis. IMPRESSION: 1. Severe lumbar spondylosis, stable from 09/28/2022. Reviewed, dictated and finalized at location A.
--- NOTE | ~2024-04-29 | XR_ITS ---
EXAMINATION: XR lumbar spine 6V w bending DATE: 04/29/2024 07:38 INDICATION: Spondylosis without myelopathy or radiculopathy. TECHNIQUE: 7 views of lumbar spine including upright and flexion and extension views were obtained. COMPARISON: Lumbar spine MRI 04/29/2024 FINDINGS: There is 4 degrees levocurvature of thoracolumbar spine. The spine is hypermobile with flex ion. There is mild chronic anterior wedging of T12-L2 vertebral bodies. There is mildly decreased dis c height at L2-L3, moderately decreased disc height at L3-L4, severely decreased disc height at L4-L5 , and moderately decreased disc height at L5-S1. There is multilevel severe facet joint osteoarthriti s. IMPRESSION: 1. Severe lumbar spondylosis. Reviewed, dictated and finalized at location A.
== END 2024-04-29 06:47 | disposition home or self-care (01) ==
PROVIDERS: PCP Family Medicine; Visit Provider Neurological Surgery
DX: R42 Dizziness and giddiness (principal); M47.816 Spondylosis without myelopathy or radiculopathy, lumbar region; M25.559 Pain in unspecified hip; M16.11 Unilateral primary osteoarthritis, right hip; I65.23 Occlusion and stenosis of bilateral carotid arteries
CPT/HCPCS: 72114; 72148; 73502; 93880

== ENCOUNTER 2024-07-16 11:14 | Observation (INO) | payer MEDICARE, SELFPAY ==
[2024-07-16] VITALS (16 sets, daily range): BP systolic 135–165; BP diastolic 71–90; PULSE 77–100; RESP 11–21; TEMP 36.4–37.1; O2SAT 93–100; BMI 25.0
--- NOTE | ~2024-07-16 | CT_ITS ---
EXAMINATION: CTA brain carotid DATE: 07/17/2024 09:59 INDICATION: Slurred speech. Dizziness. TECHNIQUE: Computed tomographic angiography (CTA) of the head was performed without and with 100 mL O mnipaque-350 intravenous contrast. CTA of the neck was performed with intravenous contrast. Automated exposure control and iterative reconstruction technique were employed. The dose-length product was 1 384.53 mGy-cm. Maximum intensity projection and volume rendered 3D-reconstructions were created by rivera lucero technologist on a separate workstation. COMPARISON: Head CT 07/16/2024, brain MRI 07/17/2024 FINDINGS: HEAD CTA: There is diffuse brain volume loss. There are scattered areas of low attenuation in the cer ebral white matter, which is within normal limits for the patient's age. There is no intracranial hem orrhage, acute infarction, or abnormal intracranial mass lesion. The ventricles are normal in size. T he paranasal sinuses are clear. The orbits are normal. The mastoid air cells are normal. Left vertebr al artery is dominant. There is no significant stenosis of basilar artery or the posterior cerebral a rteries. The posterior communicating arteries are normal. There is no significant stenosis of the int racranial internal carotid arteries or anterior or middle cerebral arteries. Anterior communicating a rtery is normal. There is no aneurysm. NECK CTA: There is mild scarring at the lung apices. There are no pathologically enlarged lymph nodes . There is no significant stenosis of the vertebral arteries. There is plaque in the proximal interna l carotid. There is undulation of the wall of right cervical internal carotid artery which may be fib romuscular dysplasia. There is 0% stenosis of the proximal right internal carotid artery relative to normal distal artery lumen diameter (NASCET criteria). There is 0% stenosis of the proximal left inte rnal carotid artery relative to normal distal artery lumen diameter. There is moderate cervical spond ylosis. IMPRESSION: 1. Normal aging brain. No aneurysm or significant intracranial arterial stenosis. 2. 0% stenosis of the proximal internal carotid arteries relative to normal distal artery lumen diame ters (NASCET criteria). Reviewed, dictated and finalized at location A. C LEADER IMPRESSION: 1. Normal aging brain. No aneurysm or significant intracranial arterial stenosi s. 2. 0% stenosis of the proximal internal carotid arteries relative to normal dis jelani artery lumen diameters (NASCET criteria).
--- NOTE | ~2024-07-16 | XR_ITS ---
XR chest 1V portable 07/16/2024 12:05 Indication: Dizziness and weakness Procedure: AP portable chest Comparison: . No prior studies for comparison. Findings: Heart size normal. No focal air space disease, pulmonary edema, pleural effusion or suspect ed pneumothorax. There is left basilar atelectasis. Impression: 1: Left basilar atelectasis. Reviewed, dictated and finalized at location B. ICS INSTRUCTOR Impression: 1: Left basilar atelectasis.
--- NOTE | ~2024-07-16 | CT_ITS ---
EXAMINATION: CT cervical spine wo con DATE: 07/16/2024 12:14 INDICATION: Neck injury. Fall. TECHNIQUE: Computed tomography (CT) of the cervical spine was performed without intravenous contrast. Automated exposure control and iterative reconstruction technique were employed. The dose-length pro duct was 150.54 mGy-cm. COMPARISON: None FINDINGS: Alignment is normal. Vertebral body heights are normal. There is severely decreased disc he ight at C5-C6 and C6-C7. The following disc levels are specifically discussed: C2-C3: There is no uncovertebral joint osteoarthritis. There is mild right facet joint osteoarthritis . There is no neural foraminal stenosis. There is no central canal stenosis. C3-C4: There is no uncovertebral joint osteoarthritis. There is no facet joint osteoarthritis. There is no neural foraminal stenosis. There is no central canal stenosis. C4-C5: There is no uncovertebral joint osteoarthritis. There is moderate right and mild left facet alessandra int osteoarthritis. There is no neural foraminal stenosis. There is no central canal stenosis. C5-C6: There is severe bilateral uncovertebral joint osteoarthritis. There is moderate right and mild left facet joint osteoarthritis. There is mild bilateral neural foraminal stenosis. There is mild ce ntral canal stenosis. C6-C7: There is severe bilateral uncovertebral joint osteoarthritis. There is mild bilateral facet alessandra int osteoarthritis. There is mild bilateral neural foraminal stenosis. There is mild central canal st enosis. C7-T1: There is no uncovertebral joint osteoarthritis. There is severe right and moderate left facet joint osteoarthritis. There is mild bilateral neural foraminal stenosis. There is no central canal st enosis. IMPRESSION: 1. No fracture. 2. Severe cervical spondylosis. Reviewed, dictated and finalized at location A. RVISOR METER REPAIR SHOP
--- NOTE | ~2024-07-16 | MR_ITS ---
EXAMINATION: MR brain/brain stem wo/w con DATE: 07/17/2024 09:45 INDICATION: Slurred speech. Weakness. TECHNIQUE: Magnetic resonance imaging (MRI) of the brain and brainstem was performed without and with 14 mL MultiHance intravenous contrast. COMPARISON: Brain MRI 04/01/2024, head CT 07/16/2024 FINDINGS: There is diffuse brain volume loss. There are scattered areas of nonspecific increased T2-w eighted signal intensity in the cerebral white matter, which is within normal limits for the patient' s age. There is no intracranial hemorrhage, acute infarction, or abnormal intracranial mass lesion. T he ventricles are normal in size. The orbits are normal. The paranasal sinuses are clear. The mastoid air cells are normal. IMPRESSION: 1. Normal aging brain. Reviewed, dictated and finalized at location A. OR STORE MANAGER IMPRESSION: 1. Normal aging brain.
--- NOTE | ~2024-07-16 | CT_ITS ---
EXAMINATION: CT brain wo con DATE: 07/16/2024 12:14 INDICATION: Head injury. Fall. TECHNIQUE: Computed tomography (CT) of the head was performed without intravenous contrast. The mA wa s adjusted according to patient size. Iterative reconstruction technique was employed. The dose-lengt h product was 605.33 mGy-cm. COMPARISON: Brain MRI 04/01/2024 FINDINGS: There is no intracranial hemorrhage, acute infarction, or abnormal intracranial mass lesion . There are scattered areas of low attenuation in the cerebral white matter, which is within normal l imits for the patient's age. The ventricles are normal in size. The paranasal sinuses are clear. The orbits are normal. The mastoid air cells are normal. IMPRESSION: 1. Normal aging brain. Reviewed, dictated and finalized at location A. NSED MARRIAGE AND FAMILY THERAPIST IMPRESSION: 1. Normal aging brain.
--- NOTE | ~2024-07-16 | XR_ITS ---
XR hip RT 2V w AP pelvis 07/16/2024 12:22 Indication: Hip pain Procedure: AP pelvis and 2 views each hip Comparison: 04/29/2024 Findings: There is osteoarthritis of the hips, right greater than left. Pelvic rings intact. There is lower lumbar spondylosis. No significant soft tissue abnormality. No foreign bodies. Impression: 1: Bilateral osteoarthritis of the hips, right greater than left. Reviewed, dictated and finalized at location B. SON INSPECTION LABORATORY ASSISTANT Impression: 1: Bilateral osteoarthritis of the hips, right greater than left.
--- NOTE | 2024-07-16 11:40 | ECG_ITS ---
Test Date: 2024-07-16 12:28:51 Measurements Intervals [place] Rate: 84 P: 14 NE: 151 QRS: 15 QRSD: 86 T: 40 QT: 375 QTc: 445 Interpretive Statements SINUS RHYTHM EARLY PRECORDIAL R/S TRANSITION NONSPECIFIC ST-T WAVE ABNORMALITY- DIFFUSE LEADS BORDERLINE ECG No previous ECG available for comparison Electronically Signed On 07-16-2024 12:47:35 SERVICE STATION MANAGER by Kofi Borges D.O.
[2024-07-16 11:50] LABS: Basophils Percent Auto 0.4 % (0.2-1.2); Eosinophils Absolute Auto 0.1 K/mm3 (0-0.3); Eosinophils Percent Auto 1.1 % (0-4.4); Hematocrit 42.8 % (37.0-47.0); Hemoglobin 13.8 g/dL (12.0-15.0); Immature Granulocyte Absolute 0.02 K/mm3 (0.00-0.031); Immature Granulocyte Percent A 0.3 % (0-0.5); Lymphocytes Absolute Auto 1.46 K/mm3 (0.9-3.2); Lymphocytes Percent Auto 20.8 % (18.3-44.2); Mean Corpuscular HGB Conc 32.2 g/dl (32-36); Mean Corpuscular Hemoglobin 28.7 pg (26-34); Mean Platelet Volume 8.9 fl (7.4-10.4); Monocytes Absolute Auto 0.5 K/mm3 (0.1-0.6); Monocytes Percent Auto 7.7 % (2.6-8.5); Neutrophils Absolute Auto 4.9 K/mm3 (1.3-6.7); Neutrophils Percent Auto 69.7 % (45.5-73.1); Platelet Count Result 273 k/mm3 (150-375); Red Blood Count 4.81 M/mm3 (4.2-5.4); Red Cell Distribution Width 12.4 % (11.5-14.5)
[2024-07-16 12:00] LABS: Alanine Aminotransferase 75 U/L (6-35); Albumin Level 4.2 g/dL (3.5-5.1); Alkaline Phosphatase 219 U/L (38-126); Anion Gap 8 mmol/L (4-12); Aspartate Amino Transferase 63 U/L (14-36); Bilirubin,Total 0.4 mg/dL (0.2-1.3); Blood Urea Nitrogen 8 mg/dL (7-17); Calcium 9.6 mg/dL (8.4-10.2); Carbon Dioxide 27 mmol/L (22-30); Chloride 101 mmol/L (98-107); Estimated CRCL calculation 34 ml/min; Estimated Glomerular Filt Rate 40; Glucose 96 mg/dL (65-110); Potassium 4.1 mmol/L (3.4-5.0); Sodium 136 mmol/L (137-145)
[2024-07-16 12:23] LABS: Add Urine Microscopic? YES; Appearance Urine Clear (Clear); Bacteria Urine None Seen /hpf; Bilirubin Urine Negative (Negative); Blood Urine Negative (Negative); Color Urine Yellow (Yellow); Glucose Urine UA Negative (Negative); Ketones Urine Negative (Negative); Leukocyte Esterase Ur Trace LEU/UL (Negative); Need Manual Microscopic Reviewed; Nitrate Urine Negative (Negative); Protein Urine Negative (Negative); RBC Urine 0-2 /hpf (0-2); Specific Grav Ur 1.016 (1.001-1.035); Squamous Epithelial Cell Urine Occasional /hpf (Few); Urobilinogen Urine 0.2 mg/dL (<2.0); WBC Urine 0-5 /hpf (0-3); pH Urine 5.5 (5.0-9.0)
--- NOTE | 2024-07-16 15:00 | ADMGEN ---
This patient, Lucy Peña, was admitted to Medical Room 340-01. Patient/family oriented to hospital policies and general routines including ID bracelet, bed and alarms, visiting hours, pain management, procedures, bathroom and other care routines, personal items, smoking policy, room service/diet, and visiting hours. Information on how to activate the Rapid Response Team has been discussed. Patient/Family are encouraged to report perceived risks to care and to ask questions if they do not understand what they are told or what they should do.
--- NOTE | 2024-07-16 16:16 | PM.IMHP ---
H&P: HPI History of Present Illness Date/Time: 07/16/24 16:16 Chief Complaint: Frequent Falls, Dizziness Narrative: 73 y/o F presents here with dizziness and frequent falls with PMH of chronic pain, anxiety, CKD, depression, GERD, migraines, HLD, IBS, and vertigo. The patient presents here from home for further evaluation of frequent falls and dizziness. Patient initially started having dizziness early summer for which she sought evaluation through her PCP. She was started on PT and meclizine with no relief from the dizziness. Then had a brain MRI done on 04/01 which showed no CVA. PCP concern for polypharmacy given patient is on gabapentin, Xanax, amitriptyline, Flexeril, and ropinirole. Patient attributes frequent falls that have been ongoing since onset of dizziness to the dizziness and the right hip pain. She is also following with neuro surgery due to initial belief hip pain was related to her spine. Imaging has previously showed right hip moderate osteoarthritis on XR and lumbar spondylosis on an MRI of the lumbar spine. Neurosurgery does not believe the lumbar spine are in is the etiology of her symptoms and more so attributes it to her hip. Neurosurgery referred her to Ortho, however she has previously seen them for this issue without relief. Previously underwent steroid injections and they would help for 1-2 days and then pain would return. She is currently seeing pain management. She is not currently prescribed narcotics given volume of sedatives she is prescribed. Her last PCP visit was on 07/09/2024. At visit on 07/08 and the patient and her were advised to go to the ER for a more efficient evaluation of her leg given the severity of the pain, however they forewent an evaluation at that time. Patient and her requested to see Dr. Barrett for a 2nd opinion on prescription narcotics, current PCP not willing to prescribe given she is seeing pain management. During this visit the patient reported that she was having new slurred speech, repeat MRI outpatient was ordered but not completed. Patient then had an appointment with Nena VYAS on 07/09. At this visit they discovered possible correlation of initiation of gabapentin and dizziness, they are attempting to discontinue this medication post visit. Last dose of gabapentin was evening. Most recent fall was this morning. She reports 2 due to dizziness/RLE giving out . No head strike or LOC. No significant pain post-fall. Patient also is reporting slurred speech - first noted a month to 1.5 months ago, has been intermittent. No new numbness, vision changes, worsening dysphagia (has moderate amount at baseline), or headache. Family currently uncomfortable with patient being sent home. Initial VS at presentation: 90.7? F, HR 100, RR 18, 136/78, and 97% on RA. ED workup showed: No leukocytosis, no anemia, sodium 136, creatinine 1.3 and GFR 40 (previously 1.0 and GFR 55 on 10/29/2023), and UA showed trace leuk esterase. Review of Systems Review of Systems: All systems reviewed & are unremarkable except as noted in HPI and below PMFSH Past Medical History Medical History Anxiety Cholecystectomy planned CKD (chronic kidney disease) stage 3, GFR 30-59 ml/min Depression Duodenal diverticulum Elevated liver enzymes Elevated white blood cell count Encounter for Medicare annual wellness exam Epigastric pain Functional abdominal pain syndrome GERD (gastroesophageal reflux disease) History of depression Hx of migraines Hyperlipidemia IBS (irritable bowel syndrome) Lumbar back pain with radiculopathy affecting right lower extremity Memory loss RLS (restless legs syndrome) Screening for malignant neoplasm of skin Slurred speech Vertigo Surgical History Surgical History History of cholecystectomy Hx of colonoscopy Family History Family History Father Leukemia Anemia Hypertension Mother Heart disease Leukemia Sibling Heart disease Social History Social History Smoking status: Never smoker Second hand tobacco smoke exposure: No Alcohol intake: never Substance use: never Substance use type: does not use Do You Feel Safe in your Home?: Yes Lack of Transportation: No Lack of Food: Never True Current Housing: I Have Housing Concerned About Future Housing: No Difficulty Paying Gas/Electric Bills: No Difficulty Paying for Meds: No Currently Unemployed: No Education: High School Diploma/GED Difficulty w/ Childcare or Family Care: No Living arrangements: with family Occupation/Education: retired 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 Gender identity (if verbalized by the patient): Female Spiritual care concerns: No Meds Home Medications and Allergies Home Medications Medication Instructions Recorded Confirmed Type alprazolam 0.5 mg tablet (Xanax) 0.5 mg PO QHS PRN Anxiety 02/21/23 07/16/24 History loperamide 2 mg tablet (Imodium 2 mg PO QID PRN Diarrhea 02/21/23 07/16/24 History A-D) olanzapine 2.5 mg tablet 2.5 mg PO DAILY 04/24/23 07/16/24 History fluvoxamine 25 mg tablet 25 mg PO HS 05/09/23 07/16/24 History rosuvastatin 20 mg tablet (Crestor) 20 mg PO DAILY #90 tabs 01/16/24 07/16/24 Rx meclizine 25 mg tablet 25 mg PO BID PRN dizziness #60 tabs 03/24/24 07/16/24 Rx vonoprazan 20 mg tablet (Voquezna) 20 mg PO DAILY #90 tabs 04/29/24 07/16/24 Rx ondansetron HCl 4 mg tablet 4 mg PO Q8H PRN nausea and 05/27/24 07/16/24 Rx vomiting #20 tabs ropinirole 0.5 mg tablet 0.5 mg PO QHS #90 tabs 06/28/24 07/16/24 Rx cyclobenzaprine 10 mg tablet 10 mg PO TID PRN muscle spasm #30 06/29/24 07/16/24 Rx tabs amitriptyline 50 mg tablet See Rx Instructions PO QHS #30 tabs 07/08/24 07/16/24 Rx lisinopril 5 mg tablet 5 mg PO DAILY 07/16/24 07/16/24 History Allergies Allergy/AdvReac Type Severity Reaction Status Date / Time Sulfa (Sulfonamide Allergy Intermediate Swelling Verified 07/16/24 15:47 Antibiotics) metronidazole [From Flagyl] AdvReac Intermediate Vomiting Verified 07/16/24 15:47 nitrofurantoin AdvReac Intermediate Vomiting Verified 07/16/24 15:47 [From Macrobid] amoxicillin [From Augmentin] AdvReac Mild Vomiting Verified 07/16/24 15:47 clavulanic acid AdvReac Mild Vomiting Verified 07/16/24 15:47 [From Augmentin] Vital Signs Vital Signs - 24 hr 07/16/24 11:21 07/16/24 11:35 07/16/24 11:48 Temperature 98.7 F Pulse Rate 100 93 Respiratory Rate 18 20 Blood Pressure 136/78 Pulse Oximetry 97 96 Oxygen Delivery Room Air 07/16/24 12:26 07/16/24 12:32 07/16/24 12:45 Temperature Pulse Rate 83 Respiratory Rate 17 15 21 H Blood Pressure Pulse Oximetry 96 95 93 Oxygen Delivery 07/16/24 12:46 07/16/24 13:13 07/16/24 13:21 Temperature Pulse Rate 84 82 Respiratory Rate 11 L 14 14 Blood Pressure 135/85 Pulse Oximetry 97 94 94 Oxygen Delivery 07/16/24 13:30 07/16/24 13:30 07/16/24 13:45 Temperature Pulse Rate 89 81 81 Respiratory Rate 21 H 14 11 L Blood Pressure 139/77 161/85 H Pulse Oximetry 96 95 98 Oxygen Delivery 07/16/24 13:46 07/16/24 14:34 07/16/24 15:18 Temperature 97.5 F L Pulse Rate 81 86 82 Respiratory Rate 12 16 16 Blood Pressure 165/90 H Pulse Oximetry 100 100 96 Oxygen Delivery 07/16/24 15:22 Temperature Pulse Rate Respiratory Rate Blood Pressure Pulse Oximetry Oxygen Delivery Room Air Exam Const: General: comfortable and no acute distress Other: , female, nontoxic appearance HENMT: Face/Nose/Sinus: Normal nares present Mouth: Yes moist mucous membranes Eyes: General: appearance normal, both eyes and all related structures Sclera: sclerae normal Pupils: Equal, round and reactive pupils present EOM: EOMs intact bilaterally Resp: Effort & Inspection: normal respiratory effort Auscultation: clear to auscultation bilaterally Cardio: Rate: regular rate Rhythm: regular rhythm Other: S1-S2 present without murmur, rub, ectopy GI: Other: Abdomen soft, nondistended, nontender. Skin: General skin exam: normal color and no rashes or lesions noted Wounds: no wounds Neuro: Speech: normal speech Motor exam (neuro): 5/5 motor strength present throughout Sensory Exam: normal sensation Other: A&O x4. No discernible dysarthria. No focal weakness on exam, no facial droop, no gaze deviation. Extrem: General: normal to inspection Psych: Mental Status: mental status grossly normal Affect: normal affect Other: Good insight and judgment, pleasant H&P: Results Labs Labs: Short CBC 07/16/24 Range/Units 11:44 WBC 7.0 (4.5-10.0) K/mm3 Hgb 13.8 (12.0-15.0) g/dL Hct 42.8 (37.0-47.0) % Plt Count 273 (150-375) k/mm3 BMP 07/16/24 11:44 Sodium 136 L Potassium 4.1 Chloride 101 Carbon Dioxide 27 BUN 8 D Creatinine 1.30 H Glucose 96 Calcium 9.6 Liver Function 07/16/24 Range/Units 11:44 Total Bilirubin 0.4 (0.2-1.3) mg/dL AST 63 H (14-36) U/L ALT 75 H (6-35) U/L Alkaline Phosphatase 219 H (38-126) U/L Albumin 4.2 (3.5-5.1) g/dL Urine 07/16/24 Range/Units 11:59 Urine Color Yellow (Yellow) Urine Appearance Clear (Clear) Urine pH 5.5 (5.0-9.0) Ur Specific [place] 1.016 (1.001-1.035) Urine Protein Negative (Negative) mg/dL Urine Glucose (UA) Negative (Negative) mg/dL Assessment and Plan Assessment and plan (1) Slurred speech: Code(s): R47.81 - Slurred speech Status: Acute Assessment and Plan: Ongoing dizziness since early summer with normal brain MRI in March of 2024. Now accompanied by slurred speech that started 1-1.5 months ago, intermittent. Also reports long standing hx of dysphagia (has not worsened) but has never been evaluated, speech evaluation ordered. - Head CT: normal aging brain - C-spine CT: severe cervical spondylosis - currently A/Ox4 with no focal deficits on exam - MRI brain w/ and w/o - will continue to hold gabapentin and no additional narcotics given concern for polypharmacy (2) Arthritis of right hip: Code(s): M16.11 - Unilateral primary osteoarthritis, right hip Status: Chronic Assessment and Plan: - hip/pelvis XR: Bilateral osteoarthritis of the hips, right greater than left. - plan for outpatient follow-up with ortho - PT/OT eval and treat (3) CKD (chronic kidney disease) stage 3, GFR 30-59 ml/min: Qualifiers: Chronic kidney disease stage 3 subtype: stage 3a (GFR 45-59) Qualified Code(s): N18.31 - Chronic kidney disease, stage 3a Code(s): N18.30 - Chronic kidney disease, stage 3 unspecified Status: Chronic Assessment and Plan: - creatinine 1.3 and GFR 40, previously 1.0 and GFR 55. - creatinine range in 2023: 1-1.3 - hx of CKD stage 3 - trend renal function - trend electrolytes, correct as needed (4) Hypertension: Qualifiers: Hypertension type: primary hypertension Qualified Code(s): I10 - Essential (primary) hypertension Code(s): I10 - Essential (primary) hypertension Status: Chronic Assessment and Plan: - chronic, currently 165/90 - continue home medications: Lisinopril 5 mg - monitor Plan Diet: Heart healthy GI Prophylaxis: Not currently indicated DVT Prophylaxis: SCDs Lines: Peripheral Code Status: Full code Quality VTE Prophylaxis VTE prophylaxis: mechanical ordered Hospitalist MIPS Advance Care Plan I have confirmed that the patient's Advanced Care Plan is present, code status is documented, or surrogate decision maker is listed in patient medical record.: Yes Medication Reconciliation I have utilized all available resources to obtain, update and review the patients current medications (includes all prescriptions, OTC, herbals, cannabis, and nutritional supplements).: Yes
--- NOTE | 2024-07-16 18:26 | ED_ITS ---
HPI - Fall General Chief Complaint: Fall Stated Complaint: frequent fall, dizzy, and headache x 2 weeks Time Seen by Provider: 07/16/24 11:41 History of Present Illness HPI Narrative: Patient has had vertigo essentially for months, has seen a doctor for this who tried taking her off of medication as he suspects polypharmacy, has also tried meclizine without improvement, while at rest here she is not having any dizziness but it is worse when she tries to get up and walk. D this she has fallen multiple times, including twice yesterday. She has also had had issues with bad right hip which contributes to Related Data Home Medications Medication Instructions Recorded Confirmed alprazolam 0.5 mg tablet (Xanax) 0.5 mg PO QHS PRN Anxiety 02/21/23 07/16/24 loperamide 2 mg tablet (Imodium 2 mg PO QID PRN Diarrhea 02/21/23 07/16/24 A-D) olanzapine 2.5 mg tablet 2.5 mg PO DAILY 04/24/23 07/16/24 fluvoxamine 25 mg tablet 25 mg PO HS 05/09/23 07/16/24 lisinopril 5 mg tablet 5 mg PO DAILY 07/16/24 07/16/24 Allergies Allergy/AdvReac Type Severity Reaction Status Date / Time Sulfa (Sulfonamide Allergy Intermediate Swelling Verified 07/16/24 15:47 Antibiotics) metronidazole [From Flagyl] AdvReac Intermediate Vomiting Verified 07/16/24 15:47 nitrofurantoin AdvReac Intermediate Vomiting Verified 07/16/24 15:47 [From Macrobid] amoxicillin [From Augmentin] AdvReac Mild Vomiting Verified 07/16/24 15:47 clavulanic acid AdvReac Mild Vomiting Verified 07/16/24 15:47 [From Augmentin] Review of Systems 2 Review of Systems: All systems reviewed & are unremarkable except as noted in HPI and below PMFSH Past Medical History Medical History (Updated 07/16/24 @ 18:39 by Claritza Becker MD) Anxiety Cholecystectomy planned CKD (chronic kidney disease) stage 3, GFR 30-59 ml/min Depression Duodenal diverticulum Elevated liver enzymes Elevated white blood cell count Encounter for Medicare annual wellness exam Epigastric pain Functional abdominal pain syndrome GERD (gastroesophageal reflux disease) History of depression Hx of migraines Hyperlipidemia IBS (irritable bowel syndrome) Lumbar back pain with radiculopathy affecting right lower extremity Memory loss RLS (restless legs syndrome) Screening for malignant neoplasm of skin Slurred speech Vertigo Surgical History Surgical History History of cholecystectomy Hx of colonoscopy Family History Family History Father Leukemia Anemia Hypertension Mother Heart disease Leukemia Sibling Heart disease Social History Social History Smoking status: Never smoker Second hand tobacco smoke exposure: No Alcohol intake: never Substance use: never Substance use type: does not use Do You Feel Safe in your Home?: Yes Lack of Transportation: No Lack of Food: Never True Current Housing: I Have Housing Concerned About Future Housing: No Difficulty Paying Gas/Electric Bills: No Difficulty Paying for Meds: No Currently Unemployed: No Education: High School Diploma/GED Difficulty w/ Childcare or Family Care: No Living arrangements: with family Occupation/Education: retired 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 EYES: EOMI, conjunctiva normal ENT: Hearing grossly intact LUNGS: Nonlabored breathing. HEART: [Regular rate and rhythm] ABD: [Soft], [nontender to palpation] EXT: Some pain with motion of right hip SKIN: [No rashes or lesions.] NEURO: [Alert and oriented x 3. No gross focal sensory or strength deficits. Clear speech, symmetrical face, antalgic gait] PSYCH: Normal affect Course Vital Signs Vital signs: Vital Signs Temperature 98.7 F 07/16/24 11:21 Pulse Rate 100 07/16/24 11:21 Respiratory Rate 18 07/16/24 11:21 Blood Pressure 136/78 07/16/24 11:21 Pulse Oximetry 97 07/16/24 11:21 Oxygen Delivery Room Air 07/16/24 11:21 Temperature 97.5 F L 07/16/24 15:18 Pulse Rate 82 07/16/24 15:18 Respiratory Rate 16 07/16/24 15:18 Blood Pressure 165/90 H 07/16/24 15:18 Pulse Oximetry 96 07/16/24 15:18 Oxygen Delivery Room Air 07/16/24 15:22 MDM - Fall MDM Narrative Medical decision making narrative: Patient presents with chronic dizziness and right hip pain, however this has been worsened to the point where she is falling more often, and yesterday had fallen twice and hit her head. CT head/C-spine thankfully without acute abnormality, I did also obtain hip in chest x-rays which are also unremarkable for acute abnormality. Basic labs are normal, I did discuss with the patient as the symptoms are chronic I do not know admitting her would be beneficial, after some discussion given her many falls, did feel she may need to come in for possible PT/OT and review to see Neurology. Will also obtain MRI brain. I did discuss this with the neurologist. Discussed this with the hospitalist for admission. Lab Data 07/16/24 11:44 07/16/24 11:44 Labs: Lab Results 07/16/24 07/16/24 Range/Units 11:44 11:59 WBC 7.0 (4.5-10.0) K/mm3 RBC 4.81 (4.2-5.4) M/mm3 Hgb 13.8 (12.0-15.0) g/dL Hct 42.8 (37.0-47.0) % MCV 89.0 (80-100) fl MCH 28.7 (26-34) pg MCHC 32.2 (32-36) g/dl RDW 12.4 (11.5-14.5) % Plt Count 273 (150-375) k/mm3 MPV 8.9 (7.4-10.4) fl Immature Gran % (Auto) 0.3 (0-0.5) % Neut % (Auto) 69.7 (45.5-73.1) % Lymph % (Auto) 20.8 (18.3-44.2) % Cecil % (Auto) 7.7 (2.6-8.5) % Eos % (Auto) 1.1 (0-4.4) % Baso % (Auto) 0.4 (0.2-1.2) % Lymph # (Auto) 1.46 (0.9-3.2) K/mm3 Cecil # (Auto) 0.5 (0.1-0.6) K/mm3 Eos # (Auto) 0.1 (0-0.3) K/mm3 Baso # (Auto) 0.0 (0.0-0.1) K/mm3 Abs Immat Gran (auto) 0.02 (0.00-0.031) K/mm3 Absolute Neuts (auto) 4.9 (1.3-6.7) K/mm3 Absolute Nucleated RBC 0.000 (0.0-0.012) K/mm3 Nucleated RBC % 0.0 (0.0-0.2) % Sodium 136 L (137-145) mmol/L Potassium 4.1 (3.4-5.0) mmol/L Chloride 101 (98-107) mmol/L Carbon Dioxide 27 (22-30) mmol/L Anion Gap 8 (4-12) mmol/L BUN 8 D (7-17) mg/dL Creatinine 1.30 H (0.7-1.0) mg/dL Estim Creat Clear Calc 34 ml/min Estimated GFR 40 L (59 - ) Glucose 96 (65-110) mg/dL Calcium 9.6 (8.4-10.2) mg/dL Total Bilirubin 0.4 (0.2-1.3) mg/dL AST 63 H (14-36) U/L ALT 75 H (6-35) U/L Alkaline Phosphatase 219 H (38-126) U/L Total Protein 8.0 (6.3-8.2) g/dL Albumin 4.2 (3.5-5.1) g/dL Urine Color Yellow (Yellow) Urine Appearance Clear (Clear) Urine pH 5.5 (5.0-9.0) Ur Specific Jordan 1.016 (1.001-1.035) Urine Protein Negative (Negative) mg/dL Urine Glucose (UA) Negative (Negative) mg/dL Urine Ketones Negative (Negative) mg/dL Ur Blood (Man) Negative (Negative) Urine Nitrate Negative (Negative) Urine Bilirubin Negative (Negative) Urine Urobilinogen 0.2 (<2.0) mg/dL Add Ur Microanalysis Reviewed Leukocyte Esterase Rfl Trace H (Negative) KEVIN/UL Urine RBC 0-2 (0-2) /hpf Urine WBC 0-5 (0-3) /hpf Ur Squamous Epith Cells Occasional (Few) /hpf Urine Bacteria None seen /hpf Urine Casts 11-20 Discharge Plan Discharge Clinical Impression: Falls frequently, Dizziness Patient Disposition: Still a Patient Condition: Stable
[2024-07-16] MEDS: AMITRIPTYLINE HCL 25 MG TABLET PO (20:36)
[2024-07-16] MEDS: rOPINIRole HCL 0.5 MG TABLET PO (20:36)
--- NOTE | 2024-07-17 | ECHO_ITS ---
Patient Info Name: Lucy Peña Age: 73 years : 1950 Gender: Female Ht: 67 in Wt: 160 lbs BSA: 1.86 m2 HR: 74 bpm BP: 115 / 68 mmHg Heart Rhythm: Sinus Rhythm Technical Quality: Good Exam Date: 07/17/2024 11:24 AM Exam Location: Echo Lab Patient Status: Outpatient Admit Date: 07/16/2024 Staff Ordering Physician: Chitra Masters APRN Streetcar Repairer Helper: Nenita Osorio RDCS Attending Provider: Chitra Masters APRN Referring Physician: Guerrero LANDIS; Exam Type: CA echo doppler color flow Study Info Indications - dizziness/falls Complete two-dimensional, color flow and Doppler transthoracic echocardiogram is performed. Summary 1. Left ventricular chamber dimension is normal. 2. Left ventricular systolic function is normal, estimated at 60-65%. 3. There is mildly increased left ventricular wall thickness. 4. The left ventricular diastolic function is grade I diastolic dysfunction. 5. Right ventricular systolic function is normal. 6. No significant valvular disease. Left Ventricle Left ventricular chamber dimension is normal. Left ventricular systolic function is normal, estimated at 60-65%. There is mildly increased left ventricular wall thickness. The left ventricular diastolic function is grade I diastolic dysfunction. Right Ventricle Right ventricular chamber dimension is normal. Right ventricular systolic function is normal. Left Atria Left atrial chamber dimension is normal. Right Atria Right atrial chamber dimension is normal. Atrial Septum Intact interatrial septum visualized by color flow imaging. Aortic Valve The aortic valve is probable trileaflet. There is no aortic valve stenosis. There is no aortic valve regurgitation. Pulmonic Valve The pulmonic valve is not well visualized. Mitral Valve There is trace mitral valve regurgitation. Tricuspid Valve There is trace tricuspid valve regurgitation. Pericardium/Pleural There is no pericardial effusion. Inferior Vena Cava Inferior vena cava is not well visualized. Aorta The aortic root size at the sinus of Valsalva is normal. Left Ventricular Outflow Tract Name Value Normal LVOT 2D LVOT Diameter 1.9 cm LVOT Doppler LVOT Peak Gradient 3 mmHg LVOT Mean Gradient 2 mmHg LVOT VTI 17 cm LVOT VTI/AV VTI Ratio 1.3 LVOT Stroke Volume 50 ml LVOT CO 3.7 l/min LVOT CI 2.0 l/min/m2 Mitral Valve Name Value Normal MV Doppler MV Decel Alpine 193 cm/s2 MV PHT 60 ms MV Area (PHT) 3.7 cm2 4.0-5.0 MV Diastolic Function MV E Peak Velocity 40 cm/s MV A Peak Velocity 83 cm/s MV E/A 0.5 MV Decel Time 206 ms MV Annular TDI MV E/e' (Septal) 13.3 <=8.0 MV E/e' (Lateral) 8.1 <=8.0 MV E/e' (Average) 10.7 Tricuspid Valve Name Value Normal TV Regurgitation Doppler TR Peak Velocity 276 cm/s TR Peak Gradient 30 mmHg Estimated PAP/RSVP RV Systolic Pressure 40 mmHg <36 Aortic Valve Name Value Normal AV Doppler AV Peak Velocity 75 cm/s AV Peak Gradient 2 mmHg AV Mean Gradient 1 mmHg AV VTI 14 cm AV Area (Cont Eq VTI) 3.7 cm2 >=3.0 AV Area (Cont Eq Cooper) 3.2 cm2 AV Regurgitation 2D LVOT Area 2.9 cm2 Ventricles Name Value Normal LV Dimensions 2D/MM IVS Diastolic Thickness (2D) 0.9 cm 0.6-1.0 LVID Diastole (2D) 3.7 cm 3.8-5.2 LVIW Diastolic Thickness (2D) 1.0 cm 0.6-0.9 LVID Systole (2D) 2.4 cm 2.2-3.5 LVOT Diameter 1.9 cm LV Mass (2D Cubed) 102.57 g 67.00-162.00 LV Mass Index (2D Cubed) 55 g/m2 43-95 Relative Wall Thickness (2D) 0.54 LV Fractional Shortening/Ejection Fraction 2D/MM LV Fractional Shortening (2D) 36 % 27-45 LV EF (2D Teicholz) 67 % 54-74 LV Diastolic Volume (4C MOD) 50 ml LV EF (4C MOD) 63 % LV Diastolic Volume (2C MOD) 59 ml LV EF (2C MOD) 60 % LV Diastolic Volume (BP MOD) 54 ml 46-106 LV Diastolic Volume Index (BP MOD) 29 ml/m2 29-61 LV Systolic Volume (BP MOD) 21 ml 14-42 LV Systolic Volume Index (BP MOD) 11 ml/m2 8-24 LV EF (BP MOD) 61 % 54-74 LV Diastolic Length (4C) 6.7 cm LV Systolic Length (4C) 5.1 cm LV Stroke Volume (4C MOD) 32 ml Atria Name Value Normal LA Dimensions LA Volume (4C A-L) 31 ml LA Volume (BP A-L) 31 ml RA Dimensions RA Area (4C) 6.2 cm2 <=18.0 Report Signatures
[2024-07-17 05:28] VITALS: BP 115/68; PULSE 73; RESP 16; TEMP 36.1; O2SAT 94
[2024-07-17 06:17] LABS: Hemoglobin 12.8 g/dL (12.0-15.0); Mean Corpuscular HGB Conc 31.2 g/dl (32-36); Mean Corpuscular Hemoglobin 28.3 pg (26-34); Mean Corpuscular Volume 90.7 fl (80-100); Platelet Count Result 234 k/mm3 (150-375); Red Blood Count 4.52 M/mm3 (4.2-5.4); Red Cell Distribution Width 12.5 % (11.5-14.5); White Blood Count 6.2 K/mm3 (4.5-10.0)
[2024-07-17 06:38] LABS: Anion Gap 6 mmol/L (4-12); Blood Urea Nitrogen 5 mg/dL (7-17); Calcium 9.1 mg/dL (8.4-10.2); Carbon Dioxide 29 mmol/L (22-30); Chloride 103 mmol/L (98-107); Estimated CRCL calculation 40 ml/min; Estimated Glomerular Filt Rate 49; Glucose 95 mg/dL (65-110); Potassium 3.8 mmol/L (3.4-5.0); Sodium 138 mmol/L (137-145)
[2024-07-17 07:47] VITALS: O2SAT 94
[2024-07-17] MEDS: LOPERAMIDE HCL 2 MG CAPSULE PO ×2 (08:18→14:59)
[2024-07-17] MEDS: OLANZapine 2.5 MG TABLET PO (08:18)
[2024-07-17] MEDS: ROSUVASTATIN 20 MG TABLET PO (08:18)
[2024-07-17] MEDS: MECLIZINE HCL 25 MG TABLET PO (08:18)
[2024-07-17] MEDS: lisinopriL 5 MG TABLET PO (08:18)
--- NOTE | 2024-07-17 12:07 | PCSTNOTE ---
Patient sitting independently on the side of her bed upon clinician arrival. She was alert and cooperative for this bedside swallow evaluation. Patient voiced her primary concern is that she is having trouble with her memory and keeping her train of thought. She denies any trouble with swallowing, although indicated she had esophageal stretch (a couple times). Patient observed with several drinks from straw with water, coke from a can, bites of applesauce and jello and one saltine cracker. Shraddha demonstrated no coughing throughout this evaluation time. Clear voice quality noted post swallows and she reports no history of upper respiratory congestion or pneumonia. No further treatment from is recommended. As can be judged by bedside evaluation, patient presents with normal swallow function. Please refer to the Bedside Swallow Evaluation in the EMR. Please note, silent aspiration cannot be ruled out at bedside.
[2024-07-17 12:27] LABS: Hepatitis B Surface Antigen Negative (Negative)
[2024-07-17 12:32] LABS: HAV RESULT Negative (Negative); Hepatitis B Core IgM Result Negative (Negative)
[2024-07-17 12:44] LABS: Hepatitis C Virus Antibody Negative (Negative)
[2024-07-17 13:59] VITALS: BP 121/68; PULSE 82; RESP 18; TEMP 35.9; O2SAT 91
--- NOTE | 2024-07-17 14:08 | P.DS_ITS ---
DS: Admitting Diagnosis Discharge Date 07/17/2024 Admitting Diagnosis Dizziness/Falls/Vertigo DS: Discharge Diagnosis Discharge Diagnosis (1) Slurred speech: Code(s): R47.81 - Slurred speech Status: Acute (2) Arthritis of right hip: Code(s): M16.11 - Unilateral primary osteoarthritis, right hip Status: Chronic (3) CKD (chronic kidney disease) stage 3, GFR 30-59 ml/min: Qualifiers: Chronic kidney disease stage 3 subtype: stage 3a (GFR 45-59) Qualified Code(s): N18.31 - Chronic kidney disease, stage 3a Code(s): N18.30 - Chronic kidney disease, stage 3 unspecified Status: Chronic (4) Hypertension: Qualifiers: Hypertension type: primary hypertension Qualified Code(s): I10 - Essential (primary) hypertension Code(s): I10 - Essential (primary) hypertension Status: Chronic Plan disposition: discharged home DS: Summary Hospital Course Reason for hospitalization: Dizziness/Falls/Vertigo Hospital Course: Medical Chart admission information 73 y/o F presents here with dizziness and frequent falls with PMH of chronic pain, anxiety, CKD, depression, GERD, migraines, HLD, IBS, and vertigo. The patient was admitted for further evaluation of frequent falls and dizziness. Patient initially started having dizziness early summer for which she sought evaluation through her PCP. She was started on PT and meclizine with no relief from the dizziness. Then had a brain MRI done on 04/01 which showed no CVA. PCP concern for polypharmacy given patient is on gabapentin, Xanax, amitriptyline, Flexeril, and ropinirole. Patient attributes frequent falls that have been ongoing since onset of dizziness to the dizziness and the right hip pain. She is also following with neuro surgery due to initial belief hip pain was related to her spine. Imaging has previously showed right hip moderate osteoarthritis on XR and lumbar spondylosis on an MRI of the lumbar spine. Neurosurgery does not believe the lumbar spine are in is the etiology of her symptoms and more so attributes it to her hip. Neurosurgery referred her to Ortho, however she has previously seen them for this issue without relief. Previously underwent steroid injections and they would help for 1-2 days and then pain would return. She is currently seeing pain management. She is not currently prescribed narcotics given volume of sedatives she is prescribed. Her last PCP visit was on 07/09/2024. At visit on 07/08 and the patient and her were advised to go to the ER for a more efficient evaluation of her leg given the severity of the pain, however they forewent an evaluation at that time. Assumed Care/Discharged: patient negative chest x-ray, CT head showing normal aging brain as well as MRI, CT head showing normal aging brain with no aneurysms or intracranial arterial stenosis, hip x-ray did show bilateral osteoarthritis of hips right greater than the left, and cervical spine CT with no fracture but severe cervical spondylosis. an echocardiogram was performed to rule out any cardiac involvement which showed grade 1 diastolic dysfunction with LVEF 60-65%. no significant findings and patient's labs vitals remained stable orthostatics negative, during the admission no acute findings patient with no further events overnight encouraged to continue to use her meclizine and ordered her vestibular therapy outpatient recommended she follow-up with Neurosurgery and possibly ENT. she was ambulatory on own with no need for PT/ OT at this time was discharged home with recommended continued follow-up primary care physician. Status at Discharge Functional status at discharge: independent ambulation Overall status at discharge: patient is back to baseline Time Spent with Patient Time attestation: Total time spent providing and/or coordinating discharge services: Time spent: Greater than 30 minutes Exam Const: General: comfortable and no acute distress Other: , female, nontoxic appearance HENMT: Face/Nose/Sinus: Normal nares present Mouth: Yes moist mucous membranes Eyes: General: appearance normal, both eyes and all related structures Sclera: sclerae normal Pupils: Equal, round and reactive pupils present EOM: EOMs intact bilaterally Resp: Effort & Inspection: normal respiratory effort Auscultation: clear to auscultation bilaterally Cardio: Rate: regular rate Rhythm: regular rhythm Other: S1-S2 present without murmur, rub, ectopy GI: Other: Abdomen soft, nondistended, nontender. Skin: General skin exam: normal color and no rashes or lesions noted Wounds: no wounds Neuro: Cranial nerves: Yes Equal, round and reactive pupils present Speech: normal speech Motor exam (neuro): 5/5 motor strength present throughout Sensory Exam: normal sensation Other: A&O x4. No discernible dysarthria. No focal weakness on exam, no facial droop, no gaze deviation. Extrem: General: normal to inspection Psych: Mental Status: mental status grossly normal Affect: normal affect Other: Good insight and judgment, pleasant DS: Data Data Completed and Pending Labs on day of discharge: Labs from last 24 hours 07/17/24 05:34 WBC 6.2 RBC 4.52 Hgb 12.8 Hct 41.0 MCV 90.7 MCH 28.3 MCHC 31.2 L RDW 12.5 Plt Count 234 MPV 9.0 Sodium 138 Potassium 3.8 Chloride 103 Carbon Dioxide 29 Anion Gap 6 BUN 5 L Creatinine 1.10 H Estim Creat Clear Calc 40 Estimated GFR 49 L Glucose 95 Calcium 9.1 Lipase Pending Hepatitis A IgM Ab Negative Hep Bs Antigen Negative Hep B Core IgM Ab Negative Hepatitis C Ab Screen Negative Imaging Radiologist's impression: EXAMINATION: MR brain/brain stem wo/w con DATE: 07/17/2024 09:45 INDICATION: Slurred speech. Weakness. TECHNIQUE: Magnetic resonance imaging (MRI) of the brain and brainstem was performed without and with 14 mL MultiHance intravenous contrast. COMPARISON: Brain MRI 04/01/2024, head CT 07/16/2024 FINDINGS: There is diffuse brain volume loss. There are scattered areas of nonspecific increased T2-weighted signal intensity in the cerebral white matter, which is within normal limits for the patient's age. There is no intracranial hemorrhage, acute infarction, or abnormal intracranial mass lesion. The ventricles are normal in size. The orbits are normal. The paranasal sinuses are clear. The mastoid air cells are normal. IMPRESSION: 1. Normal aging brain. XR hip RT 2V w AP pelvis 07/16/2024 12:22 Indication: Hip pain Procedure: AP pelvis and 2 views each hip Comparison: 04/29/2024 Findings: There is osteoarthritis of the hips, right greater than left. Pelvic rings intact. There is lower lumbar spondylosis. No significant soft tissue abnormality. No foreign bodies. Impression: 1: Bilateral osteoarthritis of the hips, right greater than left. EXAMINATION: CT cervical spine wo con DATE: 07/16/2024 12:14 INDICATION: Neck injury. Fall. TECHNIQUE: Computed tomography (CT) of the cervical spine was performed without intravenous contrast. Automated exposure control and iterative reconstruction technique were employed. The dose-length product was 150.54 mGy-cm. COMPARISON: None FINDINGS: Alignment is normal. Vertebral body heights are normal. There is severely decreased disc height at C5-C6 and C6-C7. The following disc levels are specifically discussed: C2-C3: There is no uncovertebral joint osteoarthritis. There is mild right facet joint osteoarthritis. There is no neural foraminal stenosis. There is no central canal stenosis. C3-C4: There is no uncovertebral joint osteoarthritis. There is no facet joint osteoarthritis. There is no neural foraminal stenosis. There is no central canal stenosis. C4-C5: There is no uncovertebral joint osteoarthritis. There is moderate right and mild left facet joint osteoarthritis. There is no neural foraminal stenosis. There is no central canal stenosis. C5-C6: There is severe bilateral uncovertebral joint osteoarthritis. There is moderate right and mild left facet joint osteoarthritis. There is mild bilateral neural foraminal stenosis. There is mild central canal stenosis. C6-C7: There is severe bilateral uncovertebral joint osteoarthritis. There is mild bilateral facet joint osteoarthritis. There is mild bilateral neural foraminal stenosis. There is mild central canal stenosis. C7-T1: There is no uncovertebral joint osteoarthritis. There is severe right and moderate left facet joint osteoarthritis. There is mild bilateral neural foraminal stenosis. There is no central canal stenosis. IMPRESSION: 1. No fracture. 2. Severe cervical spondylosis. Discharge Plan Discharge Attending physician on discharge: David Stevens Discharging Clinician: Chitra Masters Anticipated Discharge Date/Time: 07/17/24 13:54 Patient Disposition: Home, Self-Care Activity: may shower and as tolerated Diet: as tolerated and regular Discharge Instructions: You are being discharged after evaluation for worsening dizziness and falls. A MRI and CT scan was performed that show a normal aging brain and no indication for stroke or masses. I would recommend continued use of meclizine as needed for vertigo. Certain medications including narcotics, sedatives, anti- depressants/anxiety and anti-psychotics can interact causing severe dizziness, loss of balance and lethargy I would recommend monitor medications and discontinue those if not needed. I have provided an order for Vestibular therapy that can be scheduled outpatient for time that is convenient for you but may help with your vertigo. Please follow-up with your primary care physician and if symptoms persist seek referral to neurology for further evaluation. An echo was performed which is ultrasound of your heart that showed no acute issues. How can you care for yourself at home? ? Keep track of any new symptoms or changes in your symptoms. ? Rest until you feel better. ? Be safe with medicines. Take your medicines exactly as prescribed. Call your doctor if you think you are having a problem with your medicine. ? Do not drive after taking a prescription pain medicine. ? Ensure to follow-up with primary care physician as indicated and provide updated medication list provided to you at discharge. When should you call for help? Call 911 anytime you think you may need emergency care. For example, call if: ? You passed out (lost consciousness). Call your doctor now or seek immediate medical care if: ? You have new symptoms like fever, difficulty breathing, Chest pain, vomiting, or rash. ? You have new or different pain. ? You are confused and are having trouble thinking clearly. ? Your symptoms are getting worse. Watch closely for changes in your health, and be sure to contact your doctor if: ? You do not get better as expected. Patient Instructions: Meclizine (By mouth), Fall Prevention for Older Adults (DC) Stand Alone Forms: General Discharge Information Follow-up/Referrals: Bc Barrett MD [Primary Care Provider] - 2 Weeks Discharge Medications: Continued olanzapine 2.5 mg tablet 2.5 mg PO DAILY meclizine 25 mg tablet 25 mg PO BID PRN (Reason: dizziness) Qty: 60 2RF amitriptyline 50 mg tablet See Rx Instructions PO QHS Qty: 30 6RF Rx Instructions: Take 1 orally every day at bedtime; loperamide [Imodium A-D] 2 mg tablet 2 mg PO QID PRN (Reason: Diarrhea) alprazolam [Xanax] 0.5 mg tablet 0.5 mg PO QHS PRN (Reason: Anxiety) lisinopril 5 mg tablet 5 mg PO DAILY rosuvastatin [Crestor] 20 mg tablet 20 mg PO DAILY Qty: 90 1RF Voquezna 20 mg tablet 20 mg PO DAILY Qty: 90 0RF ondansetron HCl 4 mg tablet 4 mg PO Q8H PRN (Reason: nausea and vomiting) Qty: 20 0RF ropinirole 0.5 mg tablet 0.5 mg PO QHS Qty: 90 0RF cyclobenzaprine 10 mg tablet 10 mg PO TID PRN (Reason: muscle spasm) Qty: 30 0RF fluvoxamine 25 mg tablet 25 mg PO HS Other Ambulatory Orders: PT Outpatient Eval and Treat (ONCE) Timeframe: 20240724 Location: Determined by Patient Ordered By: Chitra Masters Date of admission: 07/16/24 14:06 Primary Care Provider: Bc Barrett Admitting Provider: David Stevens Attending physician on admission: Chitra Masters Condition: Stable Quality VTE Prophylaxis VTE prophylaxis: mechanical ordered -Patient's previous records reviewed on admission -ER notes reviewed in detail on admission -discussed all findings and current treatment plan with patient/Family/POA -Consultations reviewed for recommendations -Patient's disposition for safe discharge discussed with heel caser Dictation performed by [employer] direct speech recognition software, t herefore sanitation worker cleaning machinery variants and typographical errors may occur. Hospitalist MIPS Heart Failure (Exclusion) Patient has history of Heart Transplant or Left Ventricular Assistive Device?: No IF YES, STOP HERE Heart Failure (Qualifier) Patient has current or prior documentation of LVEF less than or equal to 40%, or mod/servere depressed LVSF?: No IF NO, STOP HERE
[2024-07-17 16:35] LABS: Lipase 41 U/L (23-300)
== END 2024-07-17 16:45 | disposition home or self-care (01) ==
LOC: ANHED 14:44 → ANH3MED 14:51
PROVIDERS: Student in an Organized Health Care Education/Training Program; Admitting Provider Internal Medicine; Emergency Provider Emergency Medicine; PCP Family Medicine; Visit Provider Nurse Practitioner Family
DX: R42 Dizziness and giddiness (principal); R47.81 Slurred speech; R29.6 Repeated falls; M16.12 Unilateral primary osteoarthritis, left hip; I12.9 Hypertensive chronic kidney disease with stage 1 through stage 4 chronic kidney disease, or unspecified chronic kidney disease; N18.31 Chronic kidney disease, stage 3a; G89.29 Other chronic pain; F41.9 Anxiety disorder, unspecified; F32.A Depression, unspecified; K21.9 Gastro-esophageal reflux disease without esophagitis; G43.909 Migraine, unspecified, not intractable, without status migrainosus; E78.5 Hyperlipidemia, unspecified; R74.8 Abnormal levels of other serum enzymes; K58.9 Irritable bowel syndrome, unspecified; G25.81 Restless legs syndrome; Z79.899 Other long term (current) drug therapy
CPT/HCPCS: 36415; 70450; 70496; 70498; 70553; 71045; 72125; 73502; 80048; 80053; 80074; 81001; 83690; 85025; 85027; 92610; 93005; 93306; 97161; 97165; 99285; A9270; A9577; G0378; Q9967

== ENCOUNTER 2024-07-28 14:25 | Outpatient (CLI) | payer MEDICARE, SELFPAY ==
[2024-07-28 15:32] LABS: Alanine Aminotransferase 26 U/L (6-35); Albumin Level 4.4 g/dL (3.5-5.1); Alkaline Phosphatase 159 U/L (38-126); Anion Gap 7 mmol/L (4-12); Aspartate Amino Transferase 39 U/L (14-36); Bilirubin,Total 0.5 mg/dL (0.2-1.3); Blood Urea Nitrogen 10 mg/dL (7-17); Calcium 9.8 mg/dL (8.4-10.2); Carbon Dioxide 29 mmol/L (22-30); Chloride 101 mmol/L (98-107); Estimated Glomerular Filt Rate 40; Glucose 105 mg/dL (65-110); Potassium 4.9 mmol/L (3.4-5.0); Sodium 137 mmol/L (137-145)
[2024-07-28 16:00] LABS: Vitamin D 25 Hydroxy 35.6 ng/mL
== END 2024-07-28 14:26 | disposition home or self-care (01) ==
PROVIDERS: PCP Family Medicine; Visit Provider Family Medicine
DX: E55.9 Vitamin D deficiency, unspecified (principal); R74.8 Abnormal levels of other serum enzymes; I12.9 Hypertensive chronic kidney disease with stage 1 through stage 4 chronic kidney disease, or unspecified chronic kidney disease; N18.31 Chronic kidney disease, stage 3a
CPT/HCPCS: 36415; 80048; 80076; 82306; 84443

== ENCOUNTER 2024-09-10 14:05 | Outpatient (CLI) | payer MEDICARE, SELFPAY ==
--- NOTE | 2024-09-10 14:18 | ECG_ITS ---
Test Date: 2024-09-10 14:26:36 Measurements Intervals [place] Rate: 91 P: 31 MT: 127 QRS: 5 QRSD: 80 T: 22 QT: 355 QTc: 439 Interpretive Statements SINUS RHYTHM WITH OCCASIONAL VENTRICULAR PREMATURE COMPLEXES NONSPECIFIC T-WAVE ABNORMALITY Compared to ECG 07/16/2024 12:28:51 Ventricular premature complex(es) now present T-wave abnormality now present Electronically Signed On 09-14-2024 14:31:38 [employer]ENTER SUPERVISOR by Rajinder Dominguez M.D.
[2024-09-10 14:33] LABS: Albumin Level 4.2 g/dL (3.5-5.1); Estimated Glomerular Filt Rate 54; Glucose 126 mg/dL (65-110)
[2024-09-10 15:11] LABS: Hematocrit 44.4 % (37.0-47.0); Hemoglobin 14.4 g/dL (12.0-15.0)
== END 2024-09-10 14:06 | disposition home or self-care (01) ==
LOC: ANHLAB 14:07
PROVIDERS: PCP Family Medicine; Visit Provider Orthopaedic Surgery
DX: I12.9 Hypertensive chronic kidney disease with stage 1 through stage 4 chronic kidney disease, or unspecified chronic kidney disease (principal); N18.31 Chronic kidney disease, stage 3a; I49.3 Ventricular premature depolarization; E78.5 Hyperlipidemia, unspecified; E53.8 Deficiency of other specified B group vitamins; R74.8 Abnormal levels of other serum enzymes
CPT/HCPCS: 36415; 82040; 82565; 82947; 85014; 85018; 93005

== ENCOUNTER 2024-11-09 10:54 | Outpatient (CLI) | payer MEDICARE, SELFPAY ==
[2024-11-09 12:14] LABS: Basophils Percent Auto 0.5 % (0.2-1.2); Eosinophils Absolute Auto 0.1 K/mm3 (0-0.3); Eosinophils Percent Auto 1.2 % (0-4.4); Hematocrit 41.4 % (37.0-47.0); Hemoglobin 13.3 g/dL (12.0-15.0); Immature Granulocyte Absolute 0.02 K/mm3 (0.00-0.031); Immature Granulocyte Percent A 0.2 % (0-0.5); Lymphocytes Absolute Auto 2.43 K/mm3 (0.9-3.2); Lymphocytes Percent Auto 28.2 % (18.3-44.2); Mean Corpuscular HGB Conc 32.1 g/dl (32-36); Mean Corpuscular Hemoglobin 28.1 pg (26-34); Mean Corpuscular Volume 87.5 fl (80-100); Mean Platelet Volume 9.2 fl (7.4-10.4); Monocytes Absolute Auto 0.6 K/mm3 (0.1-0.6); Monocytes Percent Auto 6.4 % (2.6-8.5); Neutrophils Absolute Auto 5.5 K/mm3 (1.3-6.7); Neutrophils Percent Auto 63.5 % (45.5-73.1); Platelet Count Result 249 k/mm3 (150-375); Red Blood Count 4.73 M/mm3 (4.2-5.4); Red Cell Distribution Width 11.8 % (11.5-14.5); White Blood Count 8.6 K/mm3 (4.5-10.0)
[2024-11-09 12:25] LABS: Urine Cotinine NEGATIVE
[2024-11-09 12:28] LABS: Albumin Level 4.3 g/dL (3.5-5.1); Estimated Glomerular Filt Rate 40; Glucose 103 mg/dL (65-110)
--- OUTSIDE RECORDS SUMMARY | 2024-11-09 12:34 | XMS_ITS | CONTINUITY OF CARE DOCUMENT ---
Author Name reinaldo najera Address Unknown Organization [facility] Address [address] [place] [address] [address] [place] [address] Phone [phone] Care Team Providers Care Segmental Paver Installer Name Role Phone LISSETTE HAYNES MD Unavailable [phone] LISSETTE HAYNES MD Unavailable [phone] INSURANCE PROVIDERS Payer name Policy type / Coverage type [place] [employer] [facility] [id number]
--- OUTSIDE RECORDS SUMMARY | 2024-11-09 12:34 | XMS_ITS | Patient Health Record ---
Author Organization [facility] [employer] Address [address] [place] [address] Care Team Providers Care Documentation Supervisor Name Role Phone Parth Kumar Unavailable [phone] Migration, Provider Unavailable Unavailable Allergies No Known Allergies Reason For Referral No Information Medications Medication SIG (Take, Route, Frequency, Duration) Notes Start Date End Date Status Meclizine HCl 25 MG TAKE 1 TABLET BY VANNESA TH TWICE A DAY NEEDED FOR DIZZINESS Oral for 30 Days Active rOPINIRole HCl 0.5 MG TAKE 1 TABLET BY M OUTH AT BEDTIME Oral for 90 Days Active fluvoxaMINE Maleate 100 MG TAKE 1 TABLET BY MOUTH EVERY DAY Oral Once a day for 90 days Active Rosuvastatin Calcium 20 MG TAKE 1 TABLET BY MOUTH EVERY DAY Oral for 90 Days Active Voquezna 20 MG TAKE 1 TABLET BY VANNSEA TH EVERY DAY Oral for 30 Days Active ALPRAZolam 0.25 MG TAKE 1 TABLET BY VANNESA TH TWICE A DAY for 15 10/29/2024 Active Ondansetron HCl 4 MG TAKE 1 TABLET BY MO UTH EVERY 8 HOURS NEEDED FOR NAUSEA AND VOMITING Oral for 7 Days Active Amitriptyline HCl 25 MG TAKE 1-2 TABLETS BY MOUTH DAILY AT BEDTIME Oral for 90 Days Active OLANZapine 2.5 MG TAKE 1 TABLET BY VANNESA TH EVERY DAY WITH DINNER for 90 Active Lisinopril 5 MG TAKE 1 TABLET BY VANNESA TH EVERY DAY FOR HIGH BLOOD PRESSURE Oral for 90 Days Active Immunizations Vaccine Route Administration Date Status Comme nts Influenza, unspecified formulation Unknown 07/15/2023 A dministered Moderna Covid-19 Vaccine 1st dose Unknown 12/06/2020 Ad ministered Moderna Covid-19 Vaccine 1st dose Unknown 01/03/2021 Ad ministered Pfizer Biontech Covid-19 Vac cine 2nd dose Unknown 08/15/2021 Administered Social History Sex Assigned At : Social History Observation Description Sex Assigned At Female Problems Problem Type SNOMED Code ICD Code Onset Dates Problem Status W/U Status Risk Notes Problem Moderate recurrent major depression (36288801) Major depressive disorder, recurrent, moderate (F33.1) Active confirmed Problem Generalized anxiety disorder (62809673) Generalized anxiety disorder (F41.1) Active confirmed Vital Signs Heart Rate 106 /min 04/27/2024 Height-cm 170.18 cm 04/27/2024 Blood pressure diastolic 96 mm Hg 04/27/2024 Weight-kg 75.48 kg 04/27/2024 Height 67.00 in 04/27/2024 Blood pressure systolic 135 mm Hg 04/27/2024 Weight 166.4 lbs 04/27/2024 BMI 26.06 kg/m2 04/27/2024 Encounters Encounter Location Date Provider Diagnosis [place] [address] [address] 12/10/2023 Thena Stacy [place] [address] [address] 01/06/2024 Provider Migration Major depressive disorder, recurrent severe without psychotic features F33.2 [place] [address] [address] 04/27/[address] Generalized anxiety disorder F41.1 ; Major depressive disorder, recurrent, moderate F33.1 and Obsessive-compulsive disorder, unspecified F42.9 [place] [address] [address] 11/12/2023 Provider Migration [facility] [address] [address] 11/15/2023 Provider Migration [facility] [address] [address] 11/18/2023 Provider Migration [facility] [address] [address] 12/15/2023 Provider Migration [facility] [address] [place] [address] 01/25/2024 Provider Migration [facility] [email or web address] [facility] [address] [facility] [address] [place] [address] 01/26/2024 Provider Migration [facility] [employer] [facility] [address] [facility] [address] [facility] [address] [place] [address] 05/04/2024 Parth Kumar Assessments Encounter Date Diagnosis (ICD Code) Assessment Notes Treatment Notes Treatment Clinical Notes Section Notes 04/27/2024 Generalized anxiety disorder (ICD-10 - F41.1) 01/06/2024 Major depressive disorder, recurrent severe without psychotic features (ICD-10 - F33.2) 04/27/2024 Major depressive disorder, recurrent, moderate (ICD-10 - F33.1) 04/27/2024 Obsessive-compul sive disorder, unspecified (ICD-10 - F42.9) Plan Of Treatment No Information Insurance Providers Payer Name Payer Address Payer Phone Subscriber Number Group Number Insured Name Patient Relationship to Insured Coverage Start Date Coverage End Date [employer] Medicare Replacement/ Advantage - [employer]mo [address] [address] [place] [address] [id number] BRANDI VALERO Self - patient is the insured Medical (General) History Medical History History ICD Code Problems: Gastroesophageal reflux diseas e Generalized anxiety disorder Long-term drug therapy Mild memory disturbance Moderate recurrent major depression Severe recurrent major depression withou t psychotic features , Surgical History Surgery Date(Month/Year) Tonsilectomy/adenoids 09/09/1955 Removal of gallbladder (66628) 5
--- OUTSIDE RECORDS SUMMARY | 2024-11-09 12:34 | XMS_ITS | Continuity of Care Document ---
Author Organization [facility] Address [address] [facility] [address] [place] [address] Phone Care Team Providers Care Motor Vehicle Salesperson Name Role Phone Ruiz OD, Zeferino Unavailable Unavailable Advance Directives Directive Yes / No Effective Date File Name No Information Encounters Encounter Description Practice Location Reason(s) For Visit Diagnoses Date Provider Providers Copied on Encounter [facility], [address], [place], [place], [id number], [place] tel:[phone] [facility] No Information 1-200 5 Ruiz OD Zeferino. [address] , [address], [place], [address], [place]. tel:[phone] Family History Family Member Type Diagnosis Age At Onset No Information Payers Payer name Insurance type Covered constitution party ID Authoriza tion(s) No Information Social [...]
[2024-11-09 13:28] LABS: MRSA (PCR) NOT DETECTED (NOT DETECTE)
[2024-11-09 14:56] LABS: Hemoglobin A1C 5.8 % (<5.7)
== END 2024-11-09 10:55 | disposition home or self-care (01) ==
LOC: ANHSURGERY 11:01
PROVIDERS: PCP Family Medicine; Visit Provider Orthopaedic Surgery
DX: Z01.812 Encounter for preprocedural laboratory examination (principal); M16.11 Unilateral primary osteoarthritis, right hip
CPT/HCPCS: 80307; 82040; 82565; 82947; 83036; 85025; 87641

== ENCOUNTER 2024-11-25 12:32 | Outpatient (CLI) | payer MEDICARE, SELFPAY ==
--- NOTE | ~2024-11-25 | XR_ITS ---
AP view of the pelvis and AP and lateral views of the bilateral hips Clinical history: Pain Findings: No acute fracture or dislocation is seen. Osseous alignment is anatomic. There is moderate to advanced degenerative change of the right hip joint, joint space narrowing, sclerosis, osteophyte information. There is mild degenerative change of the left hip joint. Soft tissues are unremarkable. Impression: Moderate to advanced degenerative change of the right hip joint. Mild degenerative change of the left hip joint. Reviewed, dictated and finalized at location M. Impression: Moderate to advanced degenerative change of the right hip joint. Mild degenerative change of the left hip joint.
--- OUTSIDE RECORDS SUMMARY | 2024-11-25 13:58 | XMS_ITS | Continuity of Care Document ---
Author Organization [facility] Address [address] [place] [address] Phone Care Team Providers Care Post Production Assistant Name Role Phone Ruiz OD, Zeferino Unavailable Unavailable Advance Directives Directive Yes / No Effective Date File Name No Information Encounters Encounter Description Practice Location Reason(s) For Visit Diagnoses Date Provider Providers Copied on Encounter [facility], [address], [place], [place], [id number], [place] tel:[phone] [facility] No Information 1-200 5 Ruiz OD Zeferino. [address] , [address], [place], [address], [place]. tel:[phone] Family History Family Member Type Diagnosis Age [...]
--- OUTSIDE RECORDS SUMMARY | 2024-11-25 13:58 | XMS_ITS ---
Author Organization [facility] [employer] Address [address] [facility] [address] [place] [address] Care Team Providers Care Administrative Nursing Supervisor Name Role Phone Parth Dang Unavailable [phone] Allergies No Known Allergies REASON FOR VISIT follow up visit, medication evaluation, MIPS elevated BP, MIPS elevated BP, PSYCHOTHERAPY W/PATIENTW/E M Medications Medication SIG (Take, Route, Frequency, Duration) Notes Start Date End Date Status Voquezna 20 MG TAKE 1 TABLET BY VANNESA TH EVERY DAY Oral for 30 Days Active Ondansetron HCl 4 MG TAKE 1 TABLET BY MO UTH EVERY 8 HOURS NEEDED FOR NAUSEA AND VOMITING Oral for 7 Days Active Amitriptyline HCl 25 MG TAKE 1-2 TABLETS BY MOUTH DAILY AT BEDTIME Oral for 90 Days Active Meclizine HCl 25 MG TAKE 1 TABLET BY VANNESA TH TWICE A DAY NEEDED FOR DIZZINESS Oral for 30 Days Active rOPINIRole HCl 0.5 MG TAKE 1 TABLET BY M OUTH AT BEDTIME Oral for 90 Days Active Rosuvastatin Calcium 20 MG TAKE 1 TABLET BY MOUTH EVERY DAY Oral for 90 Days Active Lisinopril 5 MG TAKE 1 TABLET BY VANNESA TH EVERY DAY FOR HIGH BLOOD PRESSURE Oral for 90 Days Active fluvoxaMINE Maleate 100 MG TAKE 1 TABLET BY MOUTH EVERY DAY Oral Once a day for 90 days Active ALPRAZolam 0.25 MG TAKE 1 TABLET BY VANNESA TH TWICE A DAY Oral once a day for 30 days 04/27/2024 Active Social History Sex Assigned At : Social History Observation Description Sex Assigned At Female Problems Problem Type SNOMED Code ICD Code Onset Dates Problem Status W/U Status Risk Notes Problem Generalized anxiety disorder (65542306) Generalized anxiety disorder (F41.1) Active confirmed Problem Moderate recurrent major depression (02350069) Major depressive disorder, recurrent, moderate (F33.1) Active confirmed Vital Signs Blood pressure systolic 135 mm Hg 04/27/20 24 Blood pressure diastolic 96 mm Hg 024 Heart Rate 106 /min 04/27/2024 Height 67.00 in 04/27/2024 Weight 166.4 lbs 04/27/2024 BMI 26.06 kg/m2 04/27/2024 Height-cm 170.18 cm 04/27/2024 Weight-kg 75.48 kg 04/27/2024 Encounters Encounter Location Date Provider Diagnosis [facility] [place] [id number] [address] 04/27/2024 Parth Dang Generalized anxiety disorder F41.1 ; Major depressive disorder, recurrent, moderate F33.1 and Obsessive-compulsive disorder, unspecified F42.9 Assessments Encounter Date Diagnosis (ICD Code) Assessment Notes Treatment Notes Treatment Clinical Notes Section Notes 04/27/2024 Generalized anxiety disorder (ICD-10 - F41.1) 04/27/2024 Major depressive disorder, recurrent, moderate (ICD-10 - F33.1) 04/27/2024 Obsessive-compul sive disorder, unspecified (ICD-10 - F42.9) Plan Of Treatment Medication Medication Name Sig Start Date Stop Date Notes fluvoxaMINE Maleate 100 MG TAKE 1 TABLET BY MOUTH EVERY DAY Oral Once a day for 90 days ALPRAZolam 0.25 MG TAKE 1 TABLET BY VANNESA TH TWICE A DAY Oral once a day for 30 days 04/27/2024 Next Appt Details Follow Up: 6 Months, Reason: mdd, mahesh Progress Notes * BRANDI VALERO KDOB:1949 (74 yo F)Acc No.[id number]:04/27/2024 Patient: BRANDI ARELLANO Provider: Nataliia DANG MD :1950 A ge:73 Y S ex:Female Date:04/27/2024 Address:[address] [place], [place] [address] Subjective: * Chief Complaints: * 1 . Follow up visit, medication evaluation. 2. MIPS elevated BP. 3. MIPS elevated BP. 4. PSYCHOTHERAPY W/PATIENT W/E M. * HPI: D epression screening: PHQ-9 L ittle interest or pleasure in doing things S everal days, F eeling down, depressed, or hopeless S everal days, T rouble falling or staying asleep, or sleeping too much M ore than half the days, F eeling tired or having little energy M ore than half the days, P oor appetite or overeating S everal days, F eeling bad about yourself or that you are a failure, or have let yourself or your family down N ot at all, T rouble concentrating on things, such as reading the newspaper or watching television N ot at all, M oving or speaking so slowly that other people could have noticed; or the opposite, being so fidgety or restless that you have been moving around a lot more than usual N ot at all, T houghts that you would be better off or of hurting yourself in some way N ot at all, T otal Score 7 , I nterpretation M ild Depression. I ntervention D epression Screening Findings P ositve, F ollow-Up for Depression E motional support assessment, Management of mental health treatment, Psychiatric follow-up, S uicide Risk Assessment Performed 0 04/27/2024, A dditional Evaluation for Depression P sychiatric interview and evaluation, N blair of the standardized tool used for adult depression screening: P atient Health Questionnaire (PHQ-9). D epression Screening: MAHESH-7 (2018 Edition) F eeling nervous, anxious, or on edge?More than half the days, N ot being able to stop or control worrying S everal days,?Worrying too much about different things N ot at all, T rouble relaxing N ot at all, Being so restless that it is hard to sit still N ot at all, B ecoming easily annoyed or irritable S everal days, F eeling afraid as if something awful might happen N ot at all, Total MAHESH-7 Score 4 , I f you checked any problems, how difficult have they made it for you to do your work, take care of things at home, or get along with other people? N ot difficult at all, I nterpretation of Total ( 0 to 4) No Anxiety. C [place]-Suicide Severity Rating Scale: Suicide Risk (CSRS-screener) i n the past one month Have you wished you were or wished you could go to sleep and not wake up? N o, i n the past one month Have you actually had any thoughts of killing yourself? N o. H istory of Presenting Problem: having trouble walking due to pain right side hip and upper leg, unclear source of intermittent sharp shooting pain, is having x-rays and MRI on 04/29/24 to try to determine cause; has been an issue for over a year at this point, had imaging done about 1.5 years ago which did not show anything; saw a neurosurgeon who recommended new imagining; pt has difficulty getting into the truck, has not stopped doing things, but often has to cut activities short due to pain; has fallen 3 times because of the issue--her brother put up a handrail by the stairs, pt does not think that the falls are related to sedation is having pain pump implanted on 04/30/24 85 yo friend was just diagnosed with metastatic, pancreatic cancer; pt doesn't drive but her takes the friend places; would like to see son and his family more often (they live only 5 blocks away)--grandkids ages 21, 18, and 11 yo. P sychotherapy with Med eval: Therapy with Med eval P sychotherapy with Medication management Y es, P sychotherapy done Time Spent Minute 1 6 Min, T ype of therapy done S upportive Therapy. * Medical History: P tae: Gastroesophageal reflux disease, Generalized anxiety disorder, Long- term drug therapy, Mild memory disturbance, Moderate recurrent major depression, Severe recurrent major depression without psychotic features, ,. * Medications: T aking Lisinopril 5 MG Tablet TAKE 1 TABLET BY MOUTH EVERY DAY FOR HIGH BLOOD PRESSURE Oral , Taking Rosuvastatin Calcium 20 MG Tablet TAKE 1 TABLET BY MOUTH EVERY DAY Oral , Taking ALPRAZolam 0.25 MG Tablet TAKE 1 TABLET BY MOUTH TWICE A DAY Oral , Notes to Pharmacist: takes 0.5 mg qhs, Taking rOPINIRole HCl 0.5 MG Tablet TAKE 1 TABLET BY MOUTH AT BEDTIME Oral , Taking Meclizine HCl 25 MG Tablet TAKE 1 TABLET BY MOUTH TWICE A DAY NEEDED FOR DIZZINESS Oral , Taking Voquezna 20 MG Tablet TAKE 1 TABLET BY MOUTH EVERY DAY Oral , Taking Amitriptyline HCl 25 MG Tablet TAKE 1-2 TABLETS BY MOUTH DAILY AT BEDTIME Oral , Taking Ondansetron HCl 4 MG Tablet TAKE 1 TABLET BY MOUTH EVERY 8 HOURS NEEDED FOR NAUSEA AND VOMITING Oral , Taking fluvoxaMINE Maleate 100 MG Tablet TAKE 1 TABLET BY MOUTH EVERY DAY Oral , Discontinued OLANZapine 2.5 MG Tablet TAKE 1 TABLET BY MOUTH EVERY DAY WITH DINNER Oral , Discontinued Amoxicillin-Pot Clavulanate 875-125 MG Tablet Oral , Discontinued Mirtazapine 15 MG Tablet Oral , Discontinued Atorvastatin Calcium 10 MG Tablet Oral , Discontinued Ondansetron HCl 4 MG Tablet Oral , Discontinued Dicyclomine HCl 10 MG Capsule Oral , Discontinued Lisinopril 5 MG Tablet Oral , Discontinued Amitriptyline HCl 10 MG Tablet Oral , Discontinued Amitriptyline HCl 25 MG Tablet Oral , Discontinued VOQUEZNA 20 MG TABLET , Notes to Pharmacist: *Reorder from [facility] for eRx and Interaction Alerts*, Discontinued Dicyclomine HCl 20 MG Tablet Oral , Discontinued OLANZapine 2.5 MG Tablet Oral , Discontinued Metoclopramide HCl 10 MG Tablet Oral , Discontinued rOPINIRole HCl 0.25 MG Tablet Oral , Discontinued Pantoprazole Sodium 40 MG Tablet Delayed Release Oral , Discontinued Rosuvastatin Calcium 20 MG Tablet Oral , Discontinued Hjpsphfv-Nbxnyielg-Zhpeqijy 3.5-16295-9.1 Suspension Ophthalmic , Discontinued busPIRone HCl 5 MG Tablet Oral , Discontinued Colestipol HCl 1 GM Tablet Oral , Discontinued fluvoxaMINE Maleate 50 MG Tablet Oral , Discontinued rOPINIRole HCl 0.5 MG Tablet Oral , Discontinued buPROPion HCl ER (SR) 150 MG Tablet Extended Release 12 Hour Oral , Discontinued Sucralfate 1 GM Tablet Oral , Discontinued ALPRAZolam 0.25 MG Tablet TAKE 1 TABLET BY MOUTH TWICE A DAY , Discontinued fluvoxaMINE Maleate 100 MG Tablet TAKE 1 TABLET BY MOUTH EVERY DAY , Medication List reviewed and reconciled with the patient * Allergies: N .K.D.A. Objective: * Vitals: B P:135/96mm Hg, HR:106/min, Wt:166.4lbs, Wt-k.48 kg, Ht: 67.00 in, Ht-cm: 170.18 cm, BMI:26.06Index, Body Surface Area: 1.89. * Examination: P sychiatry: Appearance: w ell-groomed, well-nourished, .... Affect / mood: a ppropriate, full range. Attention: g ood. Attitude: c ooperative. Suicidal ideation: n one. Memory status: n o impairment noted. Degree of awareness of surroundings: w ithin normal limits.? Delusions: n o. Hallucinations: n o. Insight: g ood. Intellectual functioning: n o impairment noted. Judgement: g ood. Orientation: a wake, alert and oriented x 3. Perceptual disorders: n o perceptual disorder noted. Psychomotor activity: w ithin normal range. Speech / language: a ppropriate pitch/modulation, clear and coherent, normal rate, volume, and articulation (RVR), proper grammar used. Thought content: a ppropriate. Thought process: i ntact. Assessment: * Assessment: 1. G eneralized anxiety disorder - F41.1 (Primary) 2 . M ajor depressive disorder, recurrent, moderate - F33.1 3 . O bsessive-compulsive disorder, unspecified - F42.9 Plan: * Treatment: 2. M ajor depressive disorder, recurrent, moderate Refill fluvoxaMINE Maleate Tablet, 100 MG, TAKE 1 TABLET BY MOUTH EVERY DAY, Oral, Once a day, 90 days, 90, Refills 1. * Procedure Codes: 9 0833 PSYCHOTHERAPY W/PATIENT W/E&M SRVCS 30 MIN, 98976 BEHAV ASSMT W/SCORE & DOCD/STAND INSTRUMENT * Preventive Medicine: Counseling: B P Management: F IRST HYPERTENSIVE BP READING FOLLOW-UP PLAN: F ollow-up 1 month Follow up with your PCP, Sara TOVAR RECOMMENDATION: Sara tovar education, REFERRAL TO ALTERNATIVE / PRIMARY CARE PROVIDER: R eferral to general medical service Pt is already treated for hypertension by PCP, recommended f/u with PCP re: elevated bp. * Follow Up: 6 Months (Reason: mdd, mahesh) * Billing Information: * Visit Code: 72028 OFFICE OUTPATIENT VISIT 25 MINUTES DETAILED HISTORY AND EXAM/MODERATE MEDICAL DECISION MAKING. * Procedure Codes: 33982 PSYCHOTHERAPY W/PATIENT W/E&M SRVCS 30 MIN. 86239 BEHAV ASSMT W/SCORE & DOCD/STAND INSTRUMENT. * CER Sign off status: Completed true * Provider: Nataliia DANG MD Date: 0 04/27/2024 Generated for Piperi derrek/Darren/eTransmitting on: 0 11/25/2024 01:58 PM CDT History and Physical Notes * HPI (History of Present Illness) Category Sub-Category Detail Notes Category Not es History of Presenting Problem having trouble walking due to pain right side hip and upper leg, unclear source of intermittent sharp shooting pain, is having x-rays and MRI on 04/29/24 to try to determine cause; has been an issue for over a year at this point, had imaging done about 1.5 years ago which did not show anything; saw a neurosurgeon who recommended new imagining; pt has difficulty getting into the truck, has not stopped doing things, but often has to cut activities short due to pain; has fallen 3 times because of the issue--her brother put up a handrail by the stairs, pt does not think that the falls are related to sedation is having pain pump implanted on 04/30/24 85 yo friend was just diagnosed with metastatic, pancreatic cancer; pt doesn't drive but her takes the friend places; would like to see son and his family more often (they live only 5 blocks away)--grandkids ages 21, 18, and 11 yo Depression screening PHQ-9 Little interest or pleasure in doing things: Several days Feeling down, depressed, or hopeless: Se veral days Trouble falling or staying a sleep, or sleeping too much: More than half the days Feeling tired or having little energy: M ore than half the days Poor appetite or overeating: Several day s Feeling bad about yourself o r that you are a failure, or have let yourself or your family down: Not at all Trouble concentrating on thi ngs, such as reading the newspaper or watching television: Not at all Moving or speaking so slowly that other people could have noticed; or the opposite, being so fidgety or restless that you have been moving around a lot more than usual: Not at all Thoughts that you would be b rachel off or of hurting yourself in some way: Not at all Total Score: 7 Interpretation: Mild Depression Intervention Depression Screening Findings: P cass Follow-Up for Depression: Em otional support assessment, Management of mental health treatment, Psychiatric follow-up Suicide Risk Assessment Performed: 04/27 Additional Evaluation for Depression: Ps ychiatric interview and evaluation Name of the standardized too l used for adult depression screening:: Patient Health Questionnaire (PHQ-9) Depression Screening MAHESH-7 (2018 Edition) Feelin g nervous, anxious, or on edge: More than half the days Not being able to stop or control worryi ng: Several days Worrying too much about different things : Not at all Trouble relaxing: Not at all Being so restless that it is hard to sit still: Not at all Becoming easily annoyed or irritable: Se veral days Feeling afraid as if something awful gaston ht happen: Not at all Total MAHESH-7 Score: 4 If you checked any problems, how difficult have they made it for you to do your work, take care of things at home, or get along with other people?: Not difficult at all Interpretation of Total: (0 to 4) No Anx iety Psychotherapy with Med eval Therapy with Med jen l Psychotherapy with Medication management: Yes Psychotherapy done Time Spent Minute: 16 Min Type of therapy done: Supportive Therapy [place]-Suicide Severity Rating Scale Suicide Risk (CSRS-screener) in the past one month Have you wished you were or wished you could go to sleep and not wake up?: No in the past one month Have y ou actually had any thoughts of killing yourself?: No Examination Category Sub-Category Detail Notes Category Not es Psychiatry Appearance: well-groomed, well-nourished , ... Attitude: cooperative Psychomotor activity: within normal rang e Attention: good Degree of awareness of surroundings: wit hin normal limits Orientation: awake, alert and onofre ented x 3 Affect / mood: appropriate, full ra nge Speech / language: appropriate pitch/mo dulation, clear and coherent, normal rate, volume, and articulation (RVR), proper grammar used Insight: good Judgement: good Thought process: intact Thought content: appropriate Perceptual disorders: no perceptual diso rder noted Suicidal ideation: none Intellectual functioning: no impairment noted Memory status: no impairment noted Delusions: no Hallucinations: no
--- OUTSIDE RECORDS SUMMARY | 2024-11-25 13:58 | XMS_ITS | Patient Health Record ---
Author Organization [facility] [employer] Address [address] [place] [address] Care Team Providers Care Phototypesetter Operator Name Role Phone Parth Kumar Unavailable [phone] Migration, Provider Unavailable Unavailable Allergies No Known [...] Risk Notes Problem Moderate recurrent major depression (60801899) Major depressive disorder, recurrent, moderate (F33.1) Active confirmed Problem Generalized anxiety disorder (87658118) Generalized anxiety disorder (F41.1) Active confirmed Vital Signs Heart Rate 106 /min 04/27/2024 Height-cm 170.18 cm 04/27/2024 Blood pressure diastolic 96 mm Hg 04/27/2024 Weight-kg 75.48 kg 04/27/2024 Height 67.00 in 04/27/2024 Blood pressure systolic 135 mm Hg 04/27/2024 Weight 166.4 lbs 04/27/2024 BMI 26.06 kg/m2 04/27/2024 Encounters Encounter Location Date Provider Diagnosis [facility] [employer] [place] [address] [address] 12/10/2023 Thena Stacy [facility] [place] [address] [address] 01/06/2024 Provider Migration Major depressive disorder, recurrent severe without psychotic features F33.2 [facility] [place] [address] [address] 04/27/2024 Thena Stacy Generalized anxiety disorder F41.1 ; Major depressive disorder, recurrent, moderate F33.1 and Obsessive-compulsive disorder, unspecified F42.9 [facility] [place] [address] [address] 12/15/2023 Provider Migration [facility] [place] [address] [address] 01/25/2024 Provider Migration [facility] [place] [address] [facility] [address] [address] 01/26/2024 Provider Migration [facility] [place] [address] [address] 05/04/2024 Thena Stacy Assessments Encounter Date Diagnosis (ICD Code) Assessment [...] Medicare Replacement/ Advantage - Hmo [address] [address] [place] [address] [id number] BRANDI VALERO Self - patient is the insured Medical (General) History Medical History History ICD Code Problems: Gastroesophageal reflux diseas e Generalized anxiety disorder Long-term drug therapy Mild memory disturbance Moderate recurrent major depression Severe recurrent major depression withou t psychotic features , Surgical History Surgery Date(Month/Year) Tonsilectomy/adenoids 09/09/1955 Removal of gallbladder (79438) 5
--- OUTSIDE RECORDS SUMMARY | 2024-11-25 13:58 | XMS_ITS ---
Author Organization [facility] Address [address] [place] [address] Care Team Providers Care Manager Fine Name Role Phone StacyParth Unavailable [phone] REASON FOR VISIT Alprazolam Social History Sex Assigned At : Social History Observation Description Sex Assigned At Female Encounters Encounter Location Date Provider Diagnosis [facility] [place] [address] [facility] [address] [place] [address] 05/04/2024 Thena Stacy Plan Of Treatment No Information Progress Notes * BRANDI VALERO KDOB:1949 (73 yo F)Acc No.[id number]:05/04/2024 Patient: Nataliia GUZMANBRANDI BANDA :1950 A ge:73 Y S ex:Female Address:[place], [address] * true * Date: Generated for Printi ng/Faxing/eTransmitting on: 0 11/25/2024 01:58 PM CDT
--- OUTSIDE RECORDS SUMMARY | 2024-11-25 13:59 | XMS_ITS | Patient Health Record ---
Author Organization [facility] Address [address] [place] [address] Care Team Providers Care Thermoscrew Operator Name Role Phone Alexy VYAS, Oliver Primary Care Provider Last [employer] PARTNER, LISA Unavailable ALLERGIES Allergen (clinical drug ingredient) Drug/Non Drug Allergy documented on EMR Reaction Allergy Type Onset Date Status Substance with sulfonamide structure and antibacterial mechanism of action (substance) Sulfa Antibiotics Unknown Drug Allergy Active REASON FOR REFERRAL No Information MEDICATIONS Medication SIG (Take, Route, Frequency, Duration) Notes Start Date End Date Status OLANZapine 2.5 MG 1 tablet Orally Once a day Active Famotidine 40 MG TAKE 1 TABLET BY VANNESA TH EVERYDAY AT BEDTIME for 90 Active Colestipol HCl 1 GM TAKE 2 TABLETS BY ON CE DAILY FOR 30 DAYS for 90 Active Imodium A-D Active NexIUM Active Atorvastatin Calcium 10 MG 1 tablet Oral ly Once a day Active Xanax 0.5 MG 1 tablet Orally Twic e a day Active Sertraline HCl 100 MG 1 tablet Orally On ce a day Active Pepcid 20 MG 1 tablet at bedtime as needed Orally Once a day Active Zofran 4 MG 1 tablet Orally Once a day Active PLAN OF TREATMENT No Information Insurance Providers Payer Name Payer Address Payer Phone Subscriber Number Group Number Insured Name Patient Relationship to Insured Coverage Start Date Coverage End Date [employer] Medicare Advantage HMO-POS [address] [address] [place], [place] [id number] Lucy Peña Self - patient is the insured MEDICAL (GENERAL) HISTORY Medical History History ICD Code anxiety hypercholesterolemia gastroesophageal reflux disease (GERD) gallstones diverticulosis migraine headaches Surgical History Surgery Date(Month/Year) cholecystectomy 1995
--- OUTSIDE RECORDS SUMMARY | 2024-11-25 13:59 | XMS_ITS | CONTINUITY OF CARE DOCUMENT ---
Author Name reinaldo najera Address Unknown Organization [facility] Address [address] [place] [address] [address] [place] [address] Phone [phone] Care Team Providers Care Environmental Services Specialist Name Role Phone LISSETTE HAYNES MD Unavailable LISSETTE HAYNES MD Unavailable [phone] INSURANCE PROVIDERS Payer name Policy type / Coverage type [place] red republican ID [facility] [id number]
--- OUTSIDE RECORDS SUMMARY | 2024-11-25 13:59 | XMS_ITS ---
Author Organization [facility] As [facility] Address [address] [place] [address] Care Team Providers Care Converting Operator Name Role Phone Parth Kumar Unavailable [phone] Migration, Provider Unavailable Unavailable REASON FOR VISIT EMR-Epifanio Medications Medication SIG (Take, Route, Frequency, Duration) Notes Start Date End Date Status buPROPion HCl ER (SR) 150 MG Oral 12/10/2023 Active Amitriptyline HCl 10 MG Oral 12/10/2023 Active Amitriptyline HCl 25 MG Oral 12/10/2023 Active Amoxicillin-Pot Clavulanate 875-125 MG Oral 12/10/2023 Activ e VOQUEZNA 20 MG TABLET *Reorder f rom Medispan for eRx and Interaction Alerts* 12/10/2023 Active ALPRAZolam 0.25 MG Oral 12/10/2023 Active busPIRone HCl 5 MG Oral 12/10/2023 Active fluvoxaMINE Maleate 50 MG Oral 12/10/2023 Active Colestipol HCl 1 GM Oral 12/10/2023 Active rOPINIRole HCl 0.5 MG Oral 12/10/2023 Active rOPINIRole HCl 0.25 MG Oral 12/10/2023 Active Metoclopramide HCl 10 MG Oral 12/10/2023 Active fluvoxaMINE Maleate 100 MG Oral 12/10/2023 Active Watjcwwf-Frilafheq-Lep ameth 3.5-65925-5.1 Ophthalmic 12/10/2023 Active Sucralfate 1 GM Oral 12/10/2023 Act sharon Dicyclomine HCl 10 MG Oral 12/10/2023 Active Lisinopril 5 MG Oral 12/10/2023 Act sharon Ondansetron HCl 4 MG Oral 12/10/2023 Active Mirtazapine 15 MG Oral 12/10/2023 A ctive Atorvastatin Calcium 10 MG Oral 12/10/2023 Active Pantoprazole Sodium 40 MG Oral 12/10/2023 Active Dicyclomine HCl 20 MG Oral 12/10/2023 Active Rosuvastatin Calcium 20 MG Oral 12/10/2023 Active OLANZapine 2.5 MG Oral 12/10/2023 A ctive Social History Sex Assigned At : Social History Observation Description Sex Assigned At Female Encounters En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 * Surgical History: T onsilectomy/adenoids 09/09/1955Removal of gallbladder (40850) 09/09/1994 * Hospitalization/Major Diagno stic Procedure: * Family History: U nspecified Relation: Anxiety disorder , Alcohol abuse, Notes: Spouse , Depressive disorder , Substance abuse . M other: Depressive disorder . * Social History: M igrated Social History: M igrated Social History: Alcohol Intake: None 07/13/2021,Tobacco Years: Never smoker 07/13/2021. * Medications: T akingAmoxicillin-Pot Clavulanate 875-125 MG Tablet Oral ALPRAZolam 0.25 MG Tablet Oral Mirtazapine 15 MG Tablet Oral Atorvastatin Calcium 10 MG Tablet Oral Ondansetron HCl 4 MG Tablet Oral Dicyclomine HCl 10 MG Capsule Oral Lisinopril 5 MG Tablet Oral Amitriptyline HCl 10 MG Tablet Oral Amitriptyline HCl 25 MG Tablet Oral VOQUEZNA 20 MG TABLET , Notes to Pharmacist: *Reorder from [facility] for eRx and Interaction Alerts*Dicyclomine HCl 20 MG Tablet Oral OLANZapine 2.5 MG Tablet Oral Metoclopramide HCl 10 MG Tablet Oral rOPINIRole HCl 0.25 MG Tablet Oral fluvoxaMINE Maleate 100 MG Tablet Oral Pantoprazole Sodium 40 MG Tablet Delayed Release Oral Rosuvastatin Calcium 20 MG Tablet Oral Psahwvoj-Xdnglqzja-Kioazhrh 3.5-91716-9.1 Suspension Ophthalmic busPIRone HCl 5 MG Tablet Oral Colestipol HCl 1 GM Tablet Oral fluvoxaMINE Maleate 50 MG Tablet Oral rOPINIRole HCl 0.5 MG Tablet Oral buPROPion HCl ER (SR) 150 MG Tablet Extended Release 12 Hour Oral Sucralfate 1 GM Tablet Oral Taking Amoxicillin-Pot Clavulanate 875-125 MG Tablet Oral Taking ALPRAZolam 0.25 MG Tablet Oral Taking Mirtazapine 15 MG Tablet Oral Taking Atorvastatin Calcium 10 MG Tablet Oral Taking Ondansetron HCl 4 MG Tablet Oral Taking Dicyclomine HCl 10 MG Capsule Oral Taking Lisinopril 5 MG Tablet Oral Taking Amitriptyline HCl 10 MG Tablet Oral Taking Amitriptyline HCl 25 MG Tablet Oral Taking VOQUEZNA 20 MG TABLET , Notes to Pharmacist: *Reorder from [facility] for eRx and Interaction Alerts*Taking Dicyclomine HCl 20 MG Tablet Oral Taking OLANZapine 2.5 MG Tablet Oral Taking Metoclopramide HCl 10 MG Tablet Oral Taking rOPINIRole HCl 0.25 MG Tablet Oral Taking fluvoxaMINE Maleate 100 MG Tablet Oral Taking Pantoprazole Sodium 40 MG Tablet Delayed Release Oral Taking Rosuvastatin Calcium 20 MG Tablet Oral Taking Resvykit-Bmfviaalu-Dvfvekgo 3.5-96905-0.1 Suspension Ophthalmic Taking busPIRone HCl 5 MG Tablet Oral Taking Colestipol HCl 1 GM Tablet Oral Taking fluvoxaMINE Maleate 50 MG Tablet Oral Taking rOPINIRole HCl 0.5 MG Tablet Oral Taking buPROPion HCl ER (SR) 150 MG Tablet Extended Release 12 Hour Oral Taking Sucralfate 1 GM Tablet Oral Objective: * Vitals: * Physical Examination: Assessment: Plan: * Treatment: PDMP report request complete d on 03/31/2024 09:41:36 AM - Parth Kumar * Procedure Codes: * true * Date: Generated for Wiley anglin/Darren/Mian on: 0 11/25/2024 01:58 PM CDT
== END 2024-11-25 12:33 | disposition home or self-care (01) ==
PROVIDERS: PCP Family Medicine; Visit Provider Orthopaedic Surgery
DX: M16.0 Bilateral primary osteoarthritis of hip (principal)
CPT/HCPCS: 73521

== ENCOUNTER 2024-12-01 02:02 | Day surgery (SDC) | payer MEDICARE, SELFPAY ==
--- NOTE | 2024-11-09 10:52 | PC.NURSE ---
Report to the Outpatient Waiting Room, entrance under the green pavilion located off [facility], at time _8 am on date _12/01/24 . Planned Procedure Time: __10 am .? Time changes happen often and if your time is changed the preop area will call you the afternoon before. - You and your visitor will be asked to self-screen and do not enter if you have any COVID symptoms. Please call surgeon if you need to reschedule. - A mask is optional within the hospital at this time. Patients may have clear liquids (water, carbonated beverages, clear teas, apple juice) until 3 hours prior to surgery ( 7 am) with a maximum of 20 ounces. - No food from midnight until time of surgery and no smoking, or chewing tobacco (or any form of nicotine). No chewing gum, candy or mints. Take only the following medications with a SIP of water on the morning of surgery: __ALPRAZOLAM DO NOT STOP ANY OF YOUR OTHER PRESCRIPTION MEDICATIONS PRIOR TO SURGERY EXCEPT THE FOLLOWING Hold all vitamins and supplements for 3 days per anesthesiologist. Medications to discontinue per physician IBUPROFEN 7 DAYS PRE OP PER DR PATEL Date to take last dose___11/23/24 MAY TAKE TYLENOL IF NEEDED FOR PAIN Please no make-up, nail lao, hairspray, perfume, deodorant, or body powder the day of surgery.? No jewelry (including any body piercings) or valuables the day of surgery, leave them at home.? Please take a shower or bath the night before, or the morning of, surgery with an antibacterial soap.? Wear comfortable, loose fitting clothing.? Children are encouraged to wear pajamas. - Jewelry must be removed prior to entering the operating room.? Rings and piercings that are not removed may be cut off. - The hospital will not accept responsibility for valuables.? - Please leave all valuables, including medications, at home the day of surgery. If you are going home after surgery, a licensed special needs bus driver must drive you home.? - NO public transportation without another adult if you receive anesthesia. - We recommend that an adult stay with you for 24 hours following discharge. - We also recommend that you do not drive, make important decision, drink alcoholic beverages, or take any drugs that were not prescribed by your health care provider for at least 24 hours after your discharge time. Follow any additional instructions given to you from your surgeon. verbal and written instructions given to ___PATIENT and asked if any additional questions and then verbalized understanding. Patient advised to call surgeon office or pre surgery nurse liaison [phone] if any additional questions.
[2024-11-09 11:04] VITALS: BMI 24.0
[2024-11-09 11:45] VITALS: BP 151/90; PULSE 77; RESP 18; TEMP 36.8; O2SAT 99
[2024-12-01] VITALS (17 sets, daily range): BP systolic 93–152; BP diastolic 52–98; PULSE 75–100; RESP 12–24; TEMP 36.1–37; O2SAT 92–100; BMI 26.1
--- NOTE | ~2024-12-01 | XR_ITS ---
EXAMINATION: XR hip RT min 2V DATE: 12/01/2024 12:06 INDICATION: Total right hip arthroplasty. Postop. TECHNIQUE: 2 views of right hip were obtained. COMPARISON: Right hip radiographs 11/25/2024 FINDINGS: There is a total right hip arthroplasty in near-anatomic alignment. No fracture. There is g as in the soft tissues, consistent with recent surgery. IMPRESSION: 1. Total right hip arthroplasty in near-anatomic alignment. Reviewed, dictated and finalized at location A.
--- OUTSIDE RECORDS SUMMARY | 2024-12-01 02:06 | XMS_ITS ---
Author Organization [facility] [employer] Address [address] [place] [address] Care Team Providers Care Editorial Clerk Name Role Phone StacyParth Unavailable [phone] REASON FOR VISIT Alprazolam Social History Sex Assigned At : Social History Observation Description Sex Assigned At Female Encounters Encounter Location Date Provider Diagnosis [facility] [place] [address] [facility] [address] [place] [address] 05/04/2024 Thena Stacy Plan Of Treatment No Information Progress Notes * BRANDI VALERO KDOB:1949 (73 yo F)Acc No.[id number]:05/04/2024 Patient: Nataliia GUZMANBRANDI BANDA :1950 A ge:73 Y S ex:Female Address:[place], [address] * true * Date: Generated for Printi ng/Faxing/eTransmitting on: 0 12/01/2024 02:06 AM CDT
--- OUTSIDE RECORDS SUMMARY | 2024-12-01 02:07 | XMS_ITS | Patient Health Record ---
Author Organization [facility] Address [address] [place] [address] Care Team Providers Care Hosiery Mater Name Role Phone Alexy VYAS, Oliver Primary Care Provider Last WEBER SLUBBER HAND, LISA Unavailable [phone] ALLERGIES Allergen (clinical drug ingredient) Drug/Non Drug [...] [employer] Medicare Advantage HMO-POS [address] [address] [place], [place] [id number] Lucy Peña Self - patient is the insured MEDICAL (GENERAL) HISTORY Medical History History ICD Code anxiety hypercholesterolemia gastroesophageal reflux disease (GERD) gallstones diverticulosis migraine headaches Surgical History Surgery Date(Month/Year) cholecystectomy 1995
--- OUTSIDE RECORDS SUMMARY | 2024-12-01 02:07 | XMS_ITS ---
Author Organization [facility] [employer] Address [address] [place] [address] Care Team Providers Care Ladler Name Role Phone Parth Kumar Unavailable [phone] Migration, Provider Unavailable Unavailable REASON FOR VISIT [...] fluvoxaMINE Maleate 100 MG Oral 12/10/2023 Active Mapqtlvb-Xpokgkymb-Mib ameth 3.5-98557-6.1 Ophthalmic 12/10/2023 Active Sucralfate 1 GM Oral [...] Female Encounters Encounter [facility] Date [facility] [place] [address] [address] 01/26/2024 Provider Migration Plan Of Treatment No Information Progress Notes * BRANDI VALERO KDOB:1949 (73 yo F)Acc No.[id number]:01/26/2024 Patient: Nataliia BRANDI READ Benja :1950 A ge:73 Y S ex:Female Address:[address] [place] [address], [address] Subjective: * Chief Complaints: * E MR-Epifanio * Medical History: * 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 * Surgical History: T onsilectomy/adenoids 09/09/1955Removal of gallbladder (82297) 09/09/1994 * Hospitalization/Major Diagno stic Procedure: * [...] TABLET , Notes to Pharmacist: *Reorder from [facility] for eRx and Interaction Alerts*Dicyclomine HCl 20 MG Tablet Oral OLANZapine 2.5 MG Tablet Oral Metoclopramide HCl 10 MG Tablet Oral rOPINIRole HCl 0.25 MG Tablet Oral fluvoxaMINE Maleate 100 MG Tablet Oral Pantoprazole Sodium 40 MG Tablet Delayed Release Oral Rosuvastatin Calcium 20 MG Tablet Oral Jbybsznd-Zvtbjgaxr-Bbqpaixu 3.5-25496-5.1 Suspension Ophthalmic busPIRone HCl 5 MG Tablet [...] TABLET , Notes to Pharmacist: *Reorder from [facility] for eRx and Interaction Alerts*Taking Dicyclomine HCl 20 MG Tablet Oral Taking OLANZapine 2.5 MG Tablet Oral Taking Metoclopramide HCl 10 MG Tablet Oral Taking rOPINIRole HCl 0.25 MG Tablet Oral Taking fluvoxaMINE Maleate 100 MG Tablet Oral Taking Pantoprazole Sodium 40 MG Tablet Delayed Release Oral Taking Rosuvastatin Calcium 20 MG Tablet Oral Taking Jdfpaujt-Jafijdjbq-Cplwtoxx 3.5-23818-7.1 Suspension Ophthalmic Taking busPIRone HCl 5 MG [...] * Date: Generated for Wiley anglin/Darren/Mian on: 12/01/2024 02:06 AM CDT
--- OUTSIDE RECORDS SUMMARY | 2024-12-01 02:07 | XMS_ITS | CONTINUITY OF CARE DOCUMENT ---
Author Name reinaldo najera Address Unknown Organization [facility] Address [address] [place] [address] [address] [place] [address] Phone [phone] Care Team Providers Care Knife Setter Grinder Machine Name Role Phone LISSETTE HAYNES MD Unavailable [phone] LISSETTE HAYNES MD Unavailable INSURANCE PROVIDERS Payer name Policy type / Coverage type [place] red alliance party ID [facility] [id number]
--- OUTSIDE RECORDS SUMMARY | 2024-12-01 02:07 | XMS_ITS | Continuity of Care Document ---
Author Organization [facility] Address [address] [facility] [address] [place] [address] Phone Care Team Providers Care Belt And Link Assembly Supervisor Name Role Phone Ruiz OD, Zeferino Unavailable Unavailable Advance Directives Directive Yes / No Effective Date File Name No Information Encounters Encounter Description Practice Location Reason(s) For Visit Diagnoses Date Provider Providers Copied on Encounter [facility], [address], [place], [place], [id number], [place] tel:[phone] [facility] No Information 1-200 5 Ruiz OD Zeferino. [address] , [address], [place], [address], [place]. tel:[phone] Family History Family Member Type Diagnosis Age [...]
[2024-12-01] MEDS: ACETAMINOPHEN 500 MG TABLET 1000 MG PO (09:00)
[2024-12-01] MEDS: LACTATED RINGERS 1,000 ML 30 ML IV CONT ×2 (09:00→11:44)
[2024-12-01] MEDS: TRANEXAMIC ACID 1,000MG/ISO100 1,000 MG/100 ML BAG 200 MG IVPB (09:00)
--- NOTE | 2024-12-01 09:16 | WPDHPUPDATE1 ---
History and Physical Update Update Date/Time: 12/01/24 09:16 History and Physical has been reviewed, including an updated exam of the patient. There are NO changes in the patient's condition. Risks, benefits, and alternatives have been discussed and questions answered. Patient agrees to proceed with procedure.
--- NOTE | 2024-12-01 09:29 | P.PNAN_ITS ---
Anes - Initial Pre Proc Eval Procedure: Operation Date: 12/01/24 10:00 Proposed Procedures p Right Total Hip Arthroplasty - Nilo Song MD Date/Time: 12/01/24 09:29 Surgeon: Nilo Song MD Pre Op Diagnosis: primary oa right hip Patient Data Age: 74 Gender: F Height: 1.7 m Weight: 69.6 kg Last Vital Signs Temp 98.2 F 11/09/24 11:45 Pulse 77 11/09/24 11:45 Resp 18 11/09/24 11:45 BP 151/90 H 11/09/24 11:45 Pulse Ox 99 11/09/24 11:45 O2 Del Method Room Air 11/09/24 11:45 Allergies Allergy/AdvReac Type Severity Reaction Status Date / Time Sulfa (Sulfonamide Allergy Intermediate Swelling Verified 11/25/24 13:19 Antibiotics) metronidazole (From Flagyl) AdvReac Intermediate Vomiting Verified 11/25/24 13:19 nitrofurantoin (From AdvReac Intermediate Vomiting Verified 11/25/24 13:19 Macrobid) amoxicillin (From Augmentin) AdvReac Mild Vomiting Verified 11/25/24 13:19 clavulanic acid (From AdvReac Mild Vomiting Verified 11/25/24 13:19 Augmentin) Home Medications ?Medication ?Instructions ?Recorded ?Confirmed ?Type alprazolam 0.5 mg tablet (Xanax) 0.5 mg PO QHS PRN Anxiety 02/21/23 11/26/24 History loperamide 2 mg tablet (Imodium 2 mg PO QID PRN Diarrhea 02/21/23 11/26/24 History A-D) rosuvastatin 20 mg tablet (Crestor) 20 mg PO DAILY #90 tabs 07/28/24 11/26/24 Rx olanzapine 2.5 mg tablet 2.5 mg PO QHS 08/20/24 11/26/24 History lisinopril 5 mg tablet See Rx Instructions .Route 10/22/24 11/26/24 Rx .COMPLEX #90 tabs ondansetron HCl 4 mg tablet 4 mg PO Q8H PRN nausea and 10/22/24 11/26/24 Rx vomiting #20 tabs ibuprofen 400 mg tablet (IBU) 400 mg PO PRN PAIN 11/09/24 11/26/24 History ropinirole 0.5 mg tablet 0.5 mg PO QHS #90 tabs 11/12/24 11/26/24 Rx aspirin 81 mg tablet,delayed 81 mg PO BID 14 days #28 tabs 12/01/24 Rx release meloxicam 15 mg tablet 15 mg PO DAILY #30 tabs 12/01/24 Rx oxycodone-acetaminophen 5 mg-325 1 - 2 tablet PO Q4-6H PRN pain 7 12/01/24 Rx mg tablet days #30 tabs Laboratory Tests 12/01/24 08:39 Blood Type Pending Antibody Screen Pending ECG: Test Date: 2024-09-10 14:26:36 Measurements Intervals Shirley Rate: 91 P: 31 SD: 127 QRS: 5 QRSD: 80 T: 22 QT: 355 QTc: 439 Interpretive Statements SINUS RHYTHM WITH OCCASIONAL VENTRICULAR PREMATURE COMPLEXES NONSPECIFIC T-WAVE ABNORMALITY Compared to ECG 07/16/2024 12:28:51 Ventricular premature complex(es) now present T-wave abnormality now present Electronically Signed On 09-14-2024 14:31:38 FORGE SHOP SUPERVISOR by Rajinder Dominguez M.D. Patient hx anesthesia problems: none Family hx anesthesia problems: none Results Review: All pre-operative results and documents have been reviewed as part of the pre-operative evaluation. [facility] Past Medical History Medical History Lumbar back pain with radiculopathy affecting right lower extremity Slurred speech Memory loss Vertigo Elevated white blood cell count Elevated liver enzymes CKD (chronic kidney disease) stage 3, GFR 30-59 ml/min Epigastric pain Encounter for Medicare annual wellness exam IBS (irritable bowel syndrome) GERD (gastroesophageal reflux disease) Screening for malignant neoplasm of skin Duodenal diverticulum Functional abdominal pain syndrome RLS (restless legs syndrome) Hyperlipidemia Cholecystectomy planned History of depression Hx of migraines Depression Anxiety Surgical History Surgical History Hx of colonoscopy History of cholecystectomy Family History Family History Father Leukemia Anemia Hypertension Mother Heart disease Leukemia Sibling Heart disease Social History Social History Smoking status: Never smoker Second hand tobacco smoke exposure: No Additional smoking assessment comments: DENIES ANY FORM OF TOBACCO USE Alcohol intake: never Substance use: never Substance use type: does not use Do You Feel Safe in your Home?: Yes Lack of Transportation: No Lack of Food: Never True Current Housing: I Have Housing Concerned About Future Housing: No Difficulty Paying Gas/Electric Bills: No Difficulty Paying for Meds: No Currently Unemployed: No Education: High School Diploma/GED Difficulty w/ Childcare or Family Care: No Living arrangements: with family Occupation/Education: retired 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 Gender identity (if verbalized by the patient): Female Spiritual care concerns: No Anes - Eval Final PreProcedure Day of Procedure 12/01/24 09:29 Patient weight: normal Heart: regular rate and rhythm Lungs: clear to auscultation Airway: Mallampati scale class III (<3 thryomental distance) Neurological: alert and oriented Last oral intake: >/= 8 hours (solids) and 4 hours (liquid) ASA classification: III Emergent: no Anesthetic plan: proceed Anesthesia type and monitoring: general and standard monitoring Results Review: All pre-operative results and documents have been reviewed as part of the pre- operative evaluation. Informed Consent: The patient's anesthetic plan and its attendant risks and benefits were discussed with the patient/family/POA. Questions were solicited and answers provided to the satisfaction of the patient/family/POA.
[2024-12-01] MEDS: ceFAZolin 2 GM/D5W 50 ML 2 GM/50 ML BAG IVPB ×2 (09:58→17:00)
[2024-12-01] MEDS: SODIUM CHLORIDE 0.9% IV 37.7 ML, MORPHINE SULFATE INJ (*CRX) 2 MG, ROPivacaine HCL 1% 2... INFILTRATE (10:30)
[2024-12-01] MEDS: TRANEXAMIC ACID 1,000 MG/10 ML AMPUL 1000 MG IV PUSH (11:14)
[2024-12-01] MEDS: fentaNYL CITRATE INJ (*CRX) 100 MCG/2 ML VIAL 25 MCG IV PUSH ×4 (12:14→12:32)
--- NOTE | 2024-12-01 12:15 | P.OP_ITS ---
Procedure Note - Detailed Date of Procedure 12/01/24 Pre-op Diagnosis Right hip degenerative arthritis. Post-op Diagnosis Other (1. Degenerative arthritis right hip 2. Partial-thickness abductor muscle repair of the gluteus medius) Procedure Performed 1. Right Total Hip Arthroplasty 2. Abductor muscle repair Surgeon Nilo Song MD Blending Tank Tender Phoebe Vazquez PA-C Anesthesia General Findings The central partial tear of the gluteus medius repaired with Ethibond suture. Severe degenerative arthritis of the hip. Bone quality good. Less than 5? upper skagit femoral anteversion. Description of Procedure The patient was given preoperative antibiotics. A general anesthetic was administered. The patient was carefully placed in the lateral decubitus position on the PEG board. The shoulders and hips were carefully positioned for component and leg length positioning reference. The hip was prepped and draped in the usual sterile fashion. A longitudinal incision was created over the posterior aspect of the greater trochanter. Careful dissection was brought down through the deep fascia with electrocautery. A minimally invasive optimized posterior approach to the hip was performed. The short external rotators and capsule were taken down in an L-shaped capsulotomy. The tissue was tagged for later repair using number 2 high strength suture. The femoral neck was measured and taken in situ. The femoral head was removed. The acetabulum was carefully exposed. The inferior capsule was released. The labrum was resected. The acetabulum was sequentially reamed to one over the intended cup size. The cup was impacted into position with excellent press-fit. Typical anatomic landmarks, including the bony contact points as well as the inferior transverse acetabular ligament were used to confirm cup positioning with preoperative templating. Attention was turned to the femur, which was carefully exposed. The hip was reamed and then broached sequentially. Excellent press-fit was obtained with the broach. The hip was trialed. Measurements were utilized, including the lesser trochanter as well as the center of the femoral head and the tip of the trochanter, and excellent assessment of the offset and leg lengths were confirmed. The real component was impacted into position. Trialing confirmed appropriate leg length and offset with soft tissue balancing as well apparent feel of the leg, both at the knee and the heel. Soft tissues were assessed using the the iliotibial band. Reduction of the posterior capsule and external rotators were also used as a secondary assessment. The hip was copiously irrigated with pulsatile lavage periodically throughout the procedure. The real components were then assembled and reduced. The hip was stable throughout typical maneuvers, including extension, external rotation to 70 degrees, the position of sleep as well as flexion to 90 degrees with internal rotation past 35 degrees. The shake test confirmed stability without impingement. Osteophytes were removed as necessary. The short external rotators and capsule were repaired back to the posterior trochanter through drill holes. The deep fascia was repaired with running number 2 barbed suture, followed by 2-0 Stratafix suture and 3-0 Stratafix suture in the dermis. Steri-Strips were placed on the skin, followed by a sterile occlusive dressing. There were no complications. Meticulous hemostasis was maintained with the AquaMantys device. The patient was brought to the recovery room in stable condition. There were no complications. Physician transport assistant, Phoebe Vazquez PA-C, required for surgery; including patient positioning, draping, tissue retraction, maintaining instrument position, hip dislocation/ relocation, wound closure, and dressing placement. Implants The Hussain Insignia hip stem, high offset size 3 , was utilized with excellent press-fit. The 52 mm Trident II acetabular component was impacted with excellent press-fit stability. Standard polyethylene liner the +2.5, 36 mm Biolox ceramic femoral head was utilized. Estimated Blood Loss 150 Drains No Packing No Pathology None sent Complications No immediate complications Condition Stable Disposition PACU [facility] Billing Surgery - Charge Forward: Surgery Billing
--- NOTE | 2024-12-01 14:22 | ADMGEN ---
This patient, Lucy Peña, was admitted to 3 [facility] Surg Room 312-01. Patient/family oriented to hospital policies and general routines including ID bracelet, bed and alarms, visiting hours, pain management, procedures, bathroom and other care routines, personal items, smoking policy, room service/diet, and visiting hours. Information on how to activate the Rapid Response Team has been discussed. Patient/Family are encouraged to report perceived risks to care and to ask questions if they do not understand what they are told or what they should do.
[2024-12-01] MEDS: oxyCODONE/ACETAMINOPHEN (*CRX) 5-325 MG TABLET 1 TABLET PO ×2 (16:29→22:23)
[2024-12-01] MEDS: ACETAMINOPHEN 325 MG TABLET 650 MG PO ×2 (16:29→22:24)
[2024-12-01] MEDS: MELOXICAM 7.5 MG TABLET PO (16:30)
[2024-12-01] MEDS: ASPIRIN 81 MG ENTERIC TABLET PO (20:02)
[2024-12-01] MEDS: FAMOTIDINE 20 MG TABLET PO (20:02)
[2024-12-01] MEDS: OLANZapine 2.5 MG TABLET PO (20:02)
[2024-12-01] MEDS: ALPRAZolam (*CRX) 0.5 MG TABLET PO (22:23)
[2024-12-02] MEDS: ceFAZolin 2 GM/D5W 50 ML 2 GM/50 ML BAG IVPB (00:49)
[2024-12-02 03:23] VITALS: BP 162/75; PULSE 87; RESP 18; TEMP 36.4; O2SAT 100
[2024-12-02] MEDS: ACETAMINOPHEN 325 MG TABLET 650 MG PO (05:01)
[2024-12-02 05:56] LABS: Basophils Percent Auto 0.1 % (0.2-1.2); Hematocrit 30.1 % (37.0-47.0); Hemoglobin 9.8 g/dL (12.0-15.0); Immature Granulocyte Absolute 0.06 K/mm3 (0.00-0.031); Immature Granulocyte Percent A 0.5 % (0-0.5); Lymphocytes Absolute Auto 0.86 K/mm3 (0.9-3.2); Lymphocytes Percent Auto 7.6 % (18.3-44.2); Mean Corpuscular HGB Conc 32.6 g/dl (32-36); Mean Corpuscular Hemoglobin 28.5 pg (26-34); Mean Corpuscular Volume 87.5 fl (80-100); Mean Platelet Volume 9.4 fl (7.4-10.4); Monocytes Absolute Auto 0.8 K/mm3 (0.1-0.6); Monocytes Percent Auto 6.6 % (2.6-8.5); Neutrophils Absolute Auto 9.7 K/mm3 (1.3-6.7); Neutrophils Percent Auto 85.2 % (45.5-73.1); Platelet Count Result 171 k/mm3 (150-375); Red Blood Count 3.44 M/mm3 (4.2-5.4); Red Cell Distribution Width 12.1 % (11.5-14.5); White Blood Count 11.4 K/mm3 (4.5-10.0)
[2024-12-02 06:08] LABS: Anion Gap 8 mmol/L (4-12); Blood Urea Nitrogen 10 mg/dL (7-17); Calcium 8.9 mg/dL (8.4-10.2); Carbon Dioxide 23 mmol/L (22-30); Chloride 106 mmol/L (98-107); Estimated CRCL calculation 44 ml/min; Estimated Glomerular Filt Rate 56; Glucose 117 mg/dL (65-110); Potassium 4.3 mmol/L (3.4-5.0); Sodium 137 mmol/L (137-145)
[2024-12-02 07:23] VITALS: BP 143/79; PULSE 80; RESP 16; TEMP 37; O2SAT 97
--- NOTE | 2024-12-02 08:44 | PCPTNOTE ---
Attempted to see patient for PT, however patient was working with OT
[2024-12-02] MEDS: FAMOTIDINE 20 MG TABLET PO (09:08)
[2024-12-02] MEDS: ASPIRIN 81 MG ENTERIC TABLET PO (09:08)
[2024-12-02] MEDS: SENNA/DOCUSATE SODIUM TABLET 2 TAB PO (09:08)
[2024-12-02] MEDS: ROSUVASTATIN 20 MG TABLET PO (09:08)
[2024-12-02] MEDS: MELOXICAM 7.5 MG TABLET PO (09:08)
[2024-12-02] MEDS: lisinopriL 5 MG TABLET PO (09:08)
== END 2024-12-02 10:35 | disposition home or self-care (01) ==
LOC: ANHSURGERY 07:45 → ANH3MEDSUR 13:39
PROVIDERS: Physician Assistant Surgical; PCP Family Medicine; Visit Provider Orthopaedic Surgery
PROC: (CPT 27130; principal; 2024-12-01 10:00)
DX: M16.11 Unilateral primary osteoarthritis, right hip (principal); N18.30 Chronic kidney disease, stage 3 unspecified; E78.5 Hyperlipidemia, unspecified; Z79.899 Other long term (current) drug therapy
CPT/HCPCS: 27130; 36415; 73502; 80048; 85025; 86850; 86900; 86901; 97110; 97116; 97161; 97165; 97530; 97535; A9270; C1776; J0171; J0690; J1100; J1171; J1885; J2003; J2250; J2270; J2371; J2405; J2704; J2710; J2795; J3010; J7120

== ENCOUNTER 2024-12-14 11:44 | Emergency (ER) | payer MEDICARE, SELFPAY ==
[2024-12-14] VITALS (16 sets, daily range): BP systolic 124–173; BP diastolic 63–79; PULSE 83; RESP 18; TEMP 36.9; O2SAT 98–100
--- NOTE | ~2024-12-14 | CT_ITS ---
CT abdomen pelvis w con Ordering provider: Cj Iraheta MD History: 74 years Female with . colitis . Comparison: August 26, 2023 Technique: CT abdomen and pelvis with IV and without oral contrast. Automated exposure control and it erative reconstruction technique were employed. The dose-length product was 451.58 mGy-cm. 100 mL Omn ipaque 350 was given IV. Findings: VISUALIZED LOWER CHEST: Normal. UPPER ABDOMINAL ORGANS: Liver: Normal. Dilated intrahepatic bile ducts is noted. CBD measures 1.3 cm. Gallbladder: Status post cholecystectomy. Spleen: Normal. Stomach/duodenum: Normal. Pancreas: Atrophic. Adrenals: Normal. Kidneys: Normal. PELVIC ORGANS: The bladder is underfilled. Slightly thickened wall is seen. BOWEL AND MESENTERY: Colon: No evidence of diverticulitis. Slight thickening of the wall of the sigmoid colon is seen whic h may indicate colitis. Follow-up and further evaluation advised. No evidence of appendicitis. Small Bowel: Normal. No obstruction. Peritoneum/mesentery: No free air or free fluid. No mesenteric lymphadenopathy. RETROPERITONEUM: Mild atheromatous disease of the abdominal aorta. No retroperitoneal lymphadenopat hy. MUSCULOSKELETAL: Superficial soft tissues: The superficial soft tissues are normal. Bones: Age appropriate degenerative changes of the spine. Right hip arthroplasty. IMPRESSION: 1. No evidence of appendicitis, diverticulitis or intestinal obstruction. Slightly thickened wall of the sigmoid colon which may indicate colitis. Further evaluation advised. 2. Intrahepatic biliary dilatation with dilated CBD. Reviewed, dictated and finalized at location A. IMPRESSION: 1. No evidence of appendicitis, diverticulitis or intestinal obstruction. Slig htly thickened wall of the sigmoid colon which may indicate colitis. Further ev aluation advised. 2. Intrahepatic biliary dilatation with dilated CBD.
--- NOTE | 2024-12-14 12:43 | PC.NURSE ---
attempted to obtain iv access with appropriate size for CT w contrast, and lab work. unsuccessful attempt.
--- NOTE | 2024-12-14 12:57 | PC.NURSE ---
Regi DALY with vascular access at bedside at this time
[2024-12-14 13:29] LABS: Basophils Percent Auto 0.4 % (0.2-1.2); Eosinophils Percent Auto 0.3 % (0-4.4); Hemoglobin 11.5 g/dL (12.0-15.0); Immature Granulocyte Absolute 0.05 K/mm3 (0.00-0.031); Immature Granulocyte Percent A 0.5 % (0-0.5); Lymphocytes Absolute Auto 1.44 K/mm3 (0.9-3.2); Lymphocytes Percent Auto 14.6 % (18.3-44.2); Mean Corpuscular HGB Conc 31.9 g/dl (32-36); Mean Corpuscular Hemoglobin 27.8 pg (26-34); Mean Corpuscular Volume 87.2 fl (80-100); Mean Platelet Volume 9.4 fl (7.4-10.4); Monocytes Absolute Auto 0.5 K/mm3 (0.1-0.6); Monocytes Percent Auto 5.5 % (2.6-8.5); Neutrophils Absolute Auto 7.8 K/mm3 (1.3-6.7); Neutrophils Percent Auto 78.7 % (45.5-73.1); Platelet Count Result 423 k/mm3 (150-375); Red Blood Count 4.13 M/mm3 (4.2-5.4); Red Cell Distribution Width 12.9 % (11.5-14.5); White Blood Count 9.9 K/mm3 (4.5-10.0)
[2024-12-14 13:46] LABS: Lactic Acid Reflex 1.6 mmol/L (0.7-2.0)
[2024-12-14 13:49] LABS: Alanine Aminotransferase 15 U/L (6-35); Albumin Level 3.7 g/dL (3.5-5.1); Alkaline Phosphatase 120 U/L (38-126); Anion Gap 14 mmol/L (4-12); Aspartate Amino Transferase 24 U/L (14-36); Bilirubin,Total 0.5 mg/dL (0.2-1.3); Blood Urea Nitrogen 13 mg/dL (7-17); Calcium 9.7 mg/dL (8.4-10.2); Carbon Dioxide 20 mmol/L (22-30); Chloride 109 mmol/L (98-107); Estimated CRCL calculation 48 ml/min; Estimated Glomerular Filt Rate > 60; Glucose 102 mg/dL (65-110); Potassium 3.8 mmol/L (3.4-5.0); Sodium 143 mmol/L (137-145)
--- OUTSIDE RECORDS SUMMARY | 2024-12-14 14:10 | XMS_ITS | Patient Health Record ---
Author Organization [facility] Address [address] [place] [address] Care Team Providers Care Director Of Investigations Name Role Phone Alexy VYAS, Oliver Primary Care Provider Last WEBER TYPISTS SUPERVISOR, LISA Unavailable ALLERGIES Allergen (clinical drug ingredient) [...] [employer] Medicare Advantage HMO-POS [address] [address] [place], [place] [phone] [id number] Lucy Peña Self - patient is the insured MEDICAL (GENERAL) HISTORY Medical History History ICD Code anxiety hypercholesterolemia gastroesophageal reflux disease (GERD) gallstones diverticulosis migraine headaches Surgical History Surgery Date(Month/Year) cholecystectomy 1995
--- OUTSIDE RECORDS SUMMARY | 2024-12-14 14:10 | XMS_ITS | CONTINUITY OF CARE DOCUMENT ---
Author Name reinaldo najera Address Unknown Organization [facility] Address [address] [place] [address] [address] [place] [address] Phone [phone] Care Team Providers Care Manager Treasury Name Role Phone LISSETTE HAYNES MD Unavailable [phone] LISSETTE HAYNES MD Unavailable [phone] INSURANCE PROVIDERS Payer name Policy type / Coverage type [place] red republican ID [facility] [id number]
--- OUTSIDE RECORDS SUMMARY | 2024-12-14 14:10 | XMS_ITS | Continuity of Care Document ---
Author Organization [facility] Address [address] [facility] [address] [place] [address] Phone Care Team Providers Care Windows Server Administrator Name Role Phone Ruiz OD, Zeferino Unavailable Unavailable Advance Directives Directive Yes / No Effective Date File Name No Information Encounters Encounter Description Practice Location Reason(s) For Visit Diagnoses Date Provider Providers Copied on Encounter [facility], [address], [place], [place], [id number], [place] tel:[phone] [facility] No Information 1-200 5 Ruiz OD Zeferino. [address] , [address], [place], [address], [place]. tel:[phone] Family History Family Member Type Diagnosis Age [...]
--- NOTE | 2024-12-14 14:34 | PC.NURSE ---
patient used bedside commode and didn't collect a urine sample. patient educated that a urine sample is needed next time she is able to void.
[2024-12-14] MEDS: MORPHINE SULFATE (*CRX) 2 MG/ML INJ IV PUSH (14:40)
[2024-12-14] MEDS: ONDANSETRON INJ 4 MG/2 ML VIAL IV PUSH (14:41)
[2024-12-14 14:55] LABS: Add Urine Microscopic? YES; Appearance Urine Clear (Clear); Bacteria Urine None Seen /hpf; Bilirubin Urine Negative (Negative); Blood Urine Negative (Negative); Color Urine Yellow (Yellow); Glucose Urine UA Negative (Negative); Ketones Urine 2+ mg/dL (Negative); Leukocyte Esterase Ur Trace LEU/UL (Negative); Nitrate Urine Negative (Negative); Non Pathogenic Casts 0-2; Protein Urine Negative (Negative); RBC Urine 0-2 /hpf (0-2); Specific Grav Ur 1.013 (1.001-1.035); Squamous Epithelial Cell Urine None Seen /hpf (Few); pH Urine 8.5 (5.0-9.0)
--- NOTE | 2024-12-14 15:08 | ED.WEAKNESS ---
HPI - Weakness General Chief complaint: Weakness Stated complaint: weakness Time Seen by Provider: 12/14/24 11:58 Source: patient Mode of arrival: ambulatory Limitations: no limitations History of Present Illness HPI Narrative: 74-year-old with a history of irritable bowel syndrome, status post hip replacement 2 weeks ago here with the complaints of feeling extremely weak, she also states that she has been having diarrhea nonstop for last several days. She denies any recent antibiotic use. No history of fever or chills under denies any blood in the stool MD Complaint: generalized weakness Onset (ago): week(s) (2) Duration: constant Location: generalized Relieving factors: none Exacerbating factors: none Related Data Home Medications ?Medication ?Instructions ?Recorded ?Confirmed ?Last Taken ?Type alprazolam 0.5 mg tablet (Xanax) 0.5 mg PO QHS PRN Anxiety 02/21/23 12/01/24 12/01/24 History loperamide 2 mg tablet (Imodium 2 mg PO QID PRN Diarrhea 02/21/23 11/26/24 11/03/23 History A-D) olanzapine 2.5 mg tablet 2.5 mg PO QHS 08/20/24 11/26/24 Unknown History ibuprofen 400 mg tablet (IBU) 400 mg PO PRN PAIN 11/09/24 11/26/24 Unknown History Allergies Allergy/AdvReac Type Severity Reaction Status Date / Time Sulfa (Sulfonamide Allergy Intermediate Swelling Verified 12/01/24 14:31 Antibiotics) metronidazole (From Flagyl) AdvReac Intermediate Vomiting Verified 12/01/24 14:31 nitrofurantoin (From AdvReac Intermediate Vomiting Verified 12/01/24 14:31 Macrobid) amoxicillin (From Augmentin) AdvReac Mild Vomiting Verified 12/01/24 14:31 clavulanic acid (From AdvReac Mild Vomiting Verified 12/01/24 14:31 Augmentin) Review of Systems Review of Systems: All systems reviewed & are unremarkable except as noted in HPI and below Constitutional: Constitutional: Reports no additional constitutional complaints Eyes: Eyes: Reports no additional eye complaints ENT: Reports system reviewed and no additional complaints, except as documented Cardiovascular: Cardiovascular: Reports no additional cardiovascular complaints Respiratory: Respiratory: Reports no additional respiratory complaints Gastrointestinal: Gastrointestinal: Reports as per HPI Musculoskeletal: Musculoskeletal: Reports no additional musculoskeletal complaints Neurologic: Reports system reviewed and no additional complaints, except as documented [facility] Past Medical History Medical History Lumbar back pain with radiculopathy affecting right lower extremity Slurred speech Memory loss Vertigo Elevated white blood cell count Elevated liver enzymes CKD (chronic kidney disease) stage 3, GFR 30-59 ml/min Epigastric pain Encounter for Medicare annual wellness exam IBS (irritable bowel syndrome) GERD (gastroesophageal reflux disease) Screening for malignant neoplasm of skin Duodenal diverticulum Functional abdominal pain syndrome RLS (restless legs syndrome) Hyperlipidemia Cholecystectomy planned History of depression Hx of migraines Depression Anxiety Surgical History Surgical History Hx of colonoscopy History of cholecystectomy Family History Family History Father Leukemia Anemia Hypertension Mother Heart disease Leukemia Sibling Heart disease Social History Social History Smoking status: Never smoker Second hand tobacco smoke exposure: No Additional smoking assessment comments: DENIES ANY FORM OF TOBACCO USE Alcohol intake: never Substance use: never Substance use type: does not use Do You Feel Safe in your Home?: Yes Lack of Transportation: No Lack of Food: Never True Current Housing: I Have Housing Concerned About Future Housing: No Difficulty Paying Gas/Electric Bills: No Difficulty Paying for Meds: No Currently Unemployed: No Education: Decline to Answer Difficulty w/ Childcare or Family Care: No Living arrangements: with family Occupation/Education: retired 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 HEAD: Normocephalic, atraumatic. EYES: PERRLA and EOMI. ENT: Nares clear, no rhinorrhea or epistaxis. Mucous membranes moist. NECK: Supple. CHEST: Clear to auscultation. No respiratory distress. HEART: Regular rate and rhythm. No murmur heard. Normal peripheral pulses. ABDOMEN: Soft, mild tenderness in the mid abdomen , nondistended, normal active bowel sounds. EXTREMITIES: Normal range of motion. No edema. SKIN: Warm, dry, no rash. NEURO: No focal deficits. Alert and oriented x3. PSYCH: Normal mood and affect. Resume Course Course Emergency Course: Patient comfortably resting on stretcher in no discomfort she did receive 1 L of normal saline. I did inform her about her lab work, CT findings. Advised her to take antibiotic as prescribed. Vital Signs Vital signs: Vital Signs Temperature 36.9 C 12/14/24 11:44 Pulse Rate 83 12/14/24 11:44 Respiratory Rate 18 12/14/24 11:44 Blood Pressure 173/79 H 12/14/24 11:44 Pulse Oximetry 100 12/14/24 11:44 Temperature 36.9 C 12/14/24 11:44 Pulse Rate 83 12/14/24 11:44 Respiratory Rate 18 12/14/24 11:44 Blood Pressure 129/72 12/14/24 14:15 Pulse Oximetry 100 12/14/24 15:00 MDM - Weakness Differential Diagnosis Differential diagnosis: Likely hypoglycemia and sepsis Medical Records Attestation: I reviewed the patient's medical records. Lab Data Attestation: I reviewed the patient's lab results. 12/14/24 13:13 12/14/24 13:12 Labs: Lab Results 12/14/24 12/14/24 12/14/24 Range/Units 13:12 13:13 14:39 WBC 9.9 (4.5-10.0) K/mm3 RBC 4.13 L (4.2-5.4) M/mm3 Hgb 11.5 L (12.0-15.0) g/dL Hct 36.0 L (37.0-47.0) % MCV 87.2 (80-100) fl MCH 27.8 (26-34) pg MCHC 31.9 L (32-36) g/dl RDW 12.9 (11.5-14.5) % Plt Count 423 H D (150-375) k/mm3 MPV 9.4 (7.4-10.4) fl Immature Gran % (Auto) 0.5 (0-0.5) % Neut % (Auto) 78.7 H (45.5-73.1) % Lymph % (Auto) 14.6 L (18.3-44.2) % Swain % (Auto) 5.5 (2.6-8.5) % Eos % (Auto) 0.3 (0-4.4) % Baso % (Auto) 0.4 (0.2-1.2) % Lymph # (Auto) 1.44 (0.9-3.2) K/mm3 Swain # (Auto) 0.5 (0.1-0.6) K/mm3 Eos # (Auto) 0.0 (0-0.3) K/mm3 Baso # (Auto) 0.0 (0.0-0.1) K/mm3 Abs Immat Gran (auto) 0.05 H (0.00-0.031) K/mm3 Absolute Neuts (auto) 7.8 H (1.3-6.7) K/mm3 Absolute Nucleated RBC 0.000 (0.0-0.012) K/mm3 Nucleated RBC % 0.0 (0.0-0.2) % Sodium 143 (137-145) mmol/L Potassium 3.8 (3.4-5.0) mmol/L Chloride 109 H (98-107) mmol/L Carbon Dioxide 20 L (22-30) mmol/L Anion Gap 14 H (4-12) mmol/L BUN 13 (7-17) mg/dL Creatinine 0.90 (0.7-1.0) mg/dL Estim Creat Clear Calc 48 ml/min Estimated GFR > 60 (59 - ) Glucose 102 (65-110) mg/dL Lactic Acid 1.6 (0.7-2.0) mmol/L Calcium 9.7 (8.4-10.2) mg/dL Total Bilirubin 0.5 (0.2-1.3) mg/dL AST 24 (14-36) U/L ALT 15 (6-35) U/L Alkaline Phosphatase 120 (38-126) U/L Total Protein 7.0 (6.3-8.2) g/dL Albumin 3.7 (3.5-5.1) g/dL Urine Color Yellow (Yellow) Urine Appearance Clear (Clear) Urine pH 8.5 (5.0-9.0) Ur Specific [place] 1.013 (1.001-1.035) Urine Protein Negative (Negative) mg/dL Urine Glucose (UA) Negative (Negative) mg/dL Urine Ketones 2+ H (Negative) mg/dL Ur Blood (Man) Negative (Negative) Urine Nitrate Negative (Negative) Urine Bilirubin Negative (Negative) Urine Urobilinogen 1.0 (<2.0) mg/dL Leukocyte Esterase Rfl Trace H (Negative) KEVIN/UL Urine RBC 0-2 (0-2) /hpf Urine WBC 6-10 H (0-3) /hpf Ur Squamous Epith Cells None seen (Few) /hpf Urine Bacteria None seen /hpf Urine Casts 0-2 Imaging Data Radiologist's impression: ITS Impressions Abdomen/Pelvis CT 12/14/24 14:52 IMPRESSION: 1. No evidence of appendicitis, diverticulitis or intestinal obstruction. Slightly thickened wall of the sigmoid colon which may indicate colitis. Further evaluation advised. 2. Intrahepatic biliary dilatation with dilated CBD. Discharge Plan Discharge Clinical Impression: Colitis Patient Disposition: Home Condition: Stable Instructions: Colitis (ED) Patient Language: Syriac Prescriptions: New ciprofloxacin HCl 500 mg tablet 500 mg PO Q12H Qty: 14 0RF metronidazole 500 mg tablet 500 mg PO Q8H 7 Days Qty: 21 0RF ondansetron 4 mg tablet,disintegrating 4 mg PO Q6-8H PRN (Reason: nausea and vomiting) Qty: 14 0RF No Action loperamide [Imodium A-D] 2 mg tablet 2 mg PO QID PRN (Reason: Diarrhea) alprazolam [Xanax] 0.5 mg tablet 0.5 mg PO QHS PRN (Reason: Anxiety) olanzapine 2.5 mg tablet 2.5 mg PO QHS ibuprofen [IBU] 400 mg tablet 400 mg PO PRN aspirin 81 mg tablet,delayed release (DR/EC) 81 mg PO BID 14 Days Qty: 28 0RF meloxicam 15 mg tablet 15 mg PO DAILY Qty: 30 0RF Rx Instructions: Cut in half. Take 1/2 in morning and 1/2 at night. Take with food. Stop if stomach upset. rosuvastatin [Crestor] 20 mg tablet 20 mg PO DAILY Qty: 90 1RF ondansetron HCl 4 mg tablet 4 mg PO Q8H PRN (Reason: nausea and vomiting) Qty: 20 0RF lisinopril 5 mg tablet See Rx Instructions .ROUTE .COMPLEX Qty: 90 0RF Dose Instruction: TAKE 1 TABLET BY MOUTH EVERY DAY FOR HIGH BLOOD PRESSURE Rx Instructions: TAKE 1 TABLET BY MOUTH EVERY DAY FOR HIGH BLOOD PRESSURE ropinirole 0.5 mg tablet 0.5 mg PO QHS Qty: 90 2RF oxycodone-acetaminophen 5-325 mg tablet 1 - 2 tablet PO Q4-6H PRN (Reason: pain) 7 Days Qty: 30 0RF Follow-up/Referrals: Bc Barrett MD [Primary Care Provider] - Time of Disposition: 15:19
--- NOTE | 2024-12-14 15:38 | PC.NURSE ---
spoke with Damon, patients spouse about discharge and he will be here shortly to pick the patient up
== END 2024-12-14 16:04 | disposition home or self-care (01) ==
PROVIDERS: Emergency Provider Family Medicine; PCP Family Medicine
DX: K52.9 Noninfective gastroenteritis and colitis, unspecified (principal); Z98.890 Other specified postprocedural states; N18.30 Chronic kidney disease, stage 3 unspecified; E78.5 Hyperlipidemia, unspecified; K21.9 Gastro-esophageal reflux disease without esophagitis; K58.9 Irritable bowel syndrome, unspecified; G25.81 Restless legs syndrome; F32.A Depression, unspecified; F41.9 Anxiety disorder, unspecified; Z96.649 Presence of unspecified artificial hip joint; Z90.49 Acquired absence of other specified parts of digestive tract; R93.2 Abnormal findings on diagnostic imaging of liver and biliary tract
CPT/HCPCS: 36415; 74177; 80053; 81001; 83605; 85025; 87086; 87181; 96374; 96375; 99284; J2270; J2405; Q9967

== ENCOUNTER 2024-12-17 13:49 | Inpatient (IN) | payer MEDICARE, SELFPAY ==
--- NOTE | ~2024-12-17 | XR_ITS ---
XR hip RT 2V w AP pelvis 12/18/2024 16:29 Indication: Recent hip arthroplasty Procedure: AP pelvis and 2 views right hip Comparison: 12/01/2024 Findings: There is a right total hip arthroplasty. Prosthesis well seated. No underlying fracture or traumatic malalignment. No evidence for loosening. Pelvic rings are intact. Moderate lower lumbar spo ndylosis. Mild osteoarthritis of the left hip. Impression: 1: No acute bone or joint abnormality. Reviewed, dictated and finalized at location A. Impression: 1: No acute bone or joint abnormality.
--- NOTE | ~2024-12-17 | CT_ITS ---
CT abdomen pelvis w con Ordering provider: Sierra Juan PA-C History: 74 years Female with . colitis, worsening pain, n/v . Comparison: December 14, 2024 Technique: CT abdomen and pelvis with IV and without oral contrast. Automated exposure control and it erative reconstruction technique were employed. The dose-length product was 391.37 mGy-cm. 100 mL Omn ipaque 350 was given IV. Findings: VISUALIZED LOWER CHEST: Dependent atelectatic changes. UPPER ABDOMINAL ORGANS: Liver: Normal. CBD is dilated measuring 1.7 cm. Minimal dilatation of the intrahepatic bile ducts is noted. Gallbladder: Status post cholecystectomy. Spleen: Normal. Stomach/duodenum: Normal. Pancreas: Atrophic. Adrenals: Normal. Kidneys: Normal. PELVIC ORGANS: The bladder is normal. BOWEL AND MESENTERY: Colon: Mild sigmoid diverticulosis without diverticulitis. Slight thickening of the wall of the sigmo id colon is seen which may indicate colitis. Clinical correlation and follow-up advised. Residual con trast is seen in the colon. Normal appendix. Small Bowel: Normal. No obstruction. Peritoneum/mesentery: No free air or free fluid. No mesenteric lymphadenopathy. RETROPERITONEUM: Mild atheromatous disease of the abdominal aorta. Slight narrowing of the celiac ar tessa origin. No retroperitoneal lymphadenopathy. MUSCULOSKELETAL: Superficial soft tissues: The superficial soft tissues are normal. Bones: Age appropriate degenerative changes of the spine. Right hip arthroplasty. IMPRESSION: 1. No evidence of appendicitis, diverticulitis or intestinal obstruction. 2. Slight thickening of the sigmoid colon which may indicate colitis. Clinical correlation and follo w-up advised. Reviewed, dictated and finalized at location A. IMPRESSION: 1. No evidence of appendicitis, diverticulitis or intestinal obstruction. 2. Slight thickening of the sigmoid colon which may indicate colitis. Clinical correlation and follow-up advised.
[2024-12-17 13:50] VITALS: BP 185/105; PULSE 102; RESP 16; TEMP 36.4; O2SAT 100
--- OUTSIDE RECORDS SUMMARY | 2024-12-17 14:19 | XMS_ITS | CONTINUITY OF CARE DOCUMENT ---
Author Name reinaldo najera Address Unknown Organization [facility] Address [address] [place] [address] [address] [place] [address] Phone [phone] Care Team Providers Care Nutrition Program Instructor Name Role Phone LISSETTE HAYNES MD Unavailable [phone] LISSETTE HAYNES MD Unavailable [phone] INSURANCE PROVIDERS Payer name Policy type / Coverage type [place] red green party ID [facility] [id number]
--- OUTSIDE RECORDS SUMMARY | 2024-12-17 14:19 | XMS_ITS | Continuity of Care Document ---
Author Organization [facility] Address [address] [place] [address] Phone Care Team Providers Care Computer Tester Name Role Phone Ruiz OD, Zeferino Unavailable Unavailable Advance Directives Directive Yes / No Effective Date File Name No Information Encounters Encounter Description Practice Location Reason(s) For Visit Diagnoses Date Provider Providers Copied on Encounter [facility], [address], [place], [place], [address], [place] tel:[phone] [facility] No Information 1-200 5 Ruiz OD Zeferino. [address] , [address], [place], [address], [place]. tel:[phone] Family History Family Member Type Diagnosis Age [...]
[2024-12-17] MEDS: SODIUM CHLORIDE 0.9% IV 1,000 ML 999 ML IV CONT ×2 (14:32→15:21)
[2024-12-17 14:47] LABS: Basophils Absolute Auto 0.1 K/mm3 (0.0-0.1); Basophils Percent Auto 0.5 % (0.2-1.2); Eosinophils Absolute Auto 0.1 K/mm3 (0-0.3); Eosinophils Percent Auto 0.5 % (0-4.4); Hemoglobin 13.4 g/dL (12.0-15.0); Immature Granulocyte Absolute 0.05 K/mm3 (0.00-0.031); Immature Granulocyte Percent A 0.5 % (0-0.5); Lymphocytes Absolute Auto 2.03 K/mm3 (0.9-3.2); Lymphocytes Percent Auto 18.5 % (18.3-44.2); Mean Corpuscular HGB Conc 32.7 g/dl (32-36); Mean Corpuscular Hemoglobin 28.5 pg (26-34); Mean Corpuscular Volume 87.2 fl (80-100); Mean Platelet Volume 9.6 fl (7.4-10.4); Monocytes Absolute Auto 0.7 K/mm3 (0.1-0.6); Monocytes Percent Auto 6.7 % (2.6-8.5); Neutrophils Absolute Auto 8.1 K/mm3 (1.3-6.7); Neutrophils Percent Auto 73.3 % (45.5-73.1); Platelet Count Result 436 k/mm3 (150-375); Red Cell Distribution Width 13.6 % (11.5-14.5)
[2024-12-17 15:00] LABS: Alanine Aminotransferase 37 U/L (6-35); Albumin Level 4.8 g/dL (3.5-5.1); Alkaline Phosphatase 243 U/L (38-126); Anion Gap 19 mmol/L (4-12); Aspartate Amino Transferase 38 U/L (14-36); Bilirubin,Total 0.6 mg/dL (0.2-1.3); Blood Urea Nitrogen 10 mg/dL (7-17); Calcium 10.5 mg/dL (8.4-10.2); Carbon Dioxide 18 mmol/L (22-30); Chloride 106 mmol/L (98-107); Estimated CRCL calculation 38 ml/min; Estimated Glomerular Filt Rate 47; Glucose 110 mg/dL (65-110); Lactic Acid Reflex 1.9 mmol/L (0.7-2.0); Lipase 50 U/L (23-300); Potassium 3.4 mmol/L (3.4-5.0); Sodium 143 mmol/L (137-145)
--- OUTSIDE RECORDS SUMMARY | 2024-12-17 15:14 | XMS_ITS | Continuity of Care Document ---
Author Organization [facility] Address [address] [place] [address] Phone Care Team Providers Care Employee Relations Director Name Role Phone Ruiz OD, Zeferino Unavailable Unavailable Advance Directives Directive Yes / No Effective Date File Name No Information Encounters Encounter Description Practice Location Reason(s) For Visit Diagnoses Date Provider Providers Copied on Encounter [facility], [address], [place], [place], [address], [place] tel:[phone] [facility] No Information 1-200 5 Ruiz OD Zeferino. [address] , [address], [place], [address], [place]. tel:[phone] Family History Family Member Type Diagnosis Age [...]
--- OUTSIDE RECORDS SUMMARY | 2024-12-17 15:14 | XMS_ITS | CONTINUITY OF CARE DOCUMENT ---
Author Name reinaldo najera Address Unknown Organization [facility] Address [address] [place] [address] [address] [place] [address] Phone [phone] Care Team Providers Care Associate Financial Advisor Name Role Phone LISSETTE HAYNES MD Unavailable [phone] LISSETTE HAYNES MD Unavailable [phone] INSURANCE PROVIDERS Payer name Policy type / Coverage type [place] red constitution party ID [facility] [id number]
[2024-12-17] MEDS: ONDANSETRON INJ 4 MG/2 ML VIAL IV PUSH ×2 (15:21→17:15)
[2024-12-17] MEDS: FAMOTIDINE 20 MG/2 ML VIAL IV PUSH ×2 (15:22→22:14)
--- NOTE | 2024-12-17 15:22 | ED_ITS ---
HPI - Nausea/Vomiting/Diarrhea General Chief complaint: Nausea/Vomiting/Diarrhea Stated complaint: Vomiting, Diarrhea-Diagnosed Colitis Time Seen by Provider: 12/17/24 14:22 Source: patient Mode of arrival: ambulatory Limitations: no limitations History of Present Illness HPI Narrative: Patient is a 74-year-old female who presents the ED with report of generalized weakness, nausea, vomiting. Patient reports she had her right hip replaced [address] Song. She has been doing well with this. Scheduled to follow-up next week. Reports over last several days, she has been having nausea, vomiting, diarrhea, abdominal pain. She was seen in the ED here on 12/14 and diagnosed with colitis. Started on Cipro/Flagyl. Patient reports she has not been able to keep down the antibiotics at home as she has been having persistent nausea, vomiting. Has been having persistent diarrhea as well. Difficulty keeping down any food or drink. Reports worsening pain. Reports feeling very weak and dehydrated, having difficulty caring for herself at home. Went to see her primary care doctor today and was referred to the ED for further evaluation. Patient denies fevers. Denies rectal bleeding or melena. Denies urinary complaints. Denies focal weakness or numbness. Related Data Home Medications ?Medication ?Instructions ?Recorded ?Confirmed ?Last Taken ?Type alprazolam 0.5 mg tablet (Xanax) 0.5 mg PO QHS PRN Anxiety 02/21/23 12/01/24 12/01/24 History loperamide 2 mg tablet (Imodium 2 mg PO QID PRN Diarrhea 02/21/23 11/26/24 11/03/23 History A-D) olanzapine 2.5 mg tablet 2.5 mg PO QHS 08/20/24 11/26/24 Unknown History ibuprofen 400 mg tablet (IBU) 400 mg PO PRN PAIN 11/09/24 11/26/24 Unknown History Allergies Allergy/AdvReac Type Severity Reaction Status Date / Time Sulfa (Sulfonamide Allergy Intermediate Swelling Verified 12/17/24 14:36 Antibiotics) metronidazole (From Flagyl) AdvReac Intermediate Vomiting Verified 12/17/24 14:36 nitrofurantoin (From AdvReac Intermediate Vomiting Verified 12/17/24 14:36 Macrobid) amoxicillin (From Augmentin) AdvReac Mild Vomiting Verified 12/17/24 14:36 clavulanic acid (From AdvReac Mild Vomiting Verified 12/17/24 14:36 Augmentin) Review of Systems 2 Review of Systems: All systems reviewed & are unremarkable except as noted in HPI. All systems reviewed & are unremarkable except as noted in HPI and below PMFSH Past Medical History Medical History Skin lesion Other spondylosis, lumbosacral region Confusion Contusion of left hip Acute thigh pain Muscle spasm Muscle pain Hip pain Bilateral foot pain Back pain Diverticulitis Gastroparesis Chest pain Weakness generalized Lumbar back pain with radiculopathy affecting right lower extremity Slurred speech Memory loss Vertigo Elevated white blood cell count Elevated liver enzymes CKD (chronic kidney disease) stage 3, GFR 30-59 ml/min Epigastric pain Encounter for Medicare annual wellness exam IBS (irritable bowel syndrome) GERD (gastroesophageal reflux disease) Screening for malignant neoplasm of skin Duodenal diverticulum Functional abdominal pain syndrome RLS (restless legs syndrome) Hyperlipidemia Cholecystectomy planned History of depression Hx of migraines Depression Anxiety Surgical History Surgical History Hx of colonoscopy History of cholecystectomy Family History Family History Father Leukemia Anemia Hypertension Mother Heart disease Leukemia Sibling Heart disease Social History Social History Smoking status: Never smoker Second hand tobacco smoke exposure: No Additional smoking assessment comments: DENIES ANY FORM OF TOBACCO USE Alcohol intake: never Substance use: never Substance use type: does not use Do You Feel Safe in your Home?: Yes Lack of Transportation: No Lack of Food: Never True Current Housing: I Have Housing Concerned About Future Housing: No Difficulty Paying Gas/Electric Bills: No Difficulty Paying for Meds: No Currently Unemployed: No Education: Decline to Answer Difficulty w/ Childcare or Family Care: No Living arrangements: with family Occupation/Education: retired 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 HEAD: Normocephalic, atraumatic. ENT: MMs dry RESPIRATORY: Airway patent, respirations nonlabored. Clear to auscultation bilaterally, no rales, rhonchi, wheezing. CARDIOVASCULAR: Regular rate and rhythm without murmurs, rubs, or gallops. ABDOMINAL: Soft, diffuse tenderness in lower abdomen, no rebound, nondistended. Normoactive BS. MUSCULOSKELETAL: Moves all extremities. No gross deformities. SKIN: Warm, dry, normal color. NEURO: A&O X3. Speech clear. Cranial nerves II-XII grossly intact. Steady gait. No ataxic movements. PSYCHIATRIC: Appropriate mood and affect. Normal interaction. Course Vital Signs Vital signs: Vital Signs Temperature 97.5 F L 12/17/24 13:50 Pulse Rate 102 H 12/17/24 13:50 Respiratory Rate 16 12/17/24 13:50 Blood Pressure 185/105 H 12/17/24 13:50 Pulse Oximetry 100 12/17/24 13:50 Oxygen Delivery Room Air 12/17/24 13:50 Temperature 97.5 F L 12/17/24 13:50 Pulse Rate 84 12/17/24 18:29 Respiratory Rate 16 12/17/24 18:29 Blood Pressure 145/68 H 12/17/24 18:29 Pulse Oximetry 98 12/17/24 18:29 Oxygen Delivery Room Air 12/17/24 13:50 MDM - Nausea/Vomiting/Diarrhea MDM Narrative Medical decision making narrative: Patient presented to ED with persistent nausea, vomiting, weakness. Diagnosed with colitis a few days ago, having difficulty keeping down antibiotics. Reporting worsening symptoms, weakness, difficulty caring for self at home. Patient mildly tachycardic upon arrival. Afebrile. Cbc with blood cell count of 11. CMP with bicarb 18, anion gap of 19. Blood sugar within normal range. Lactic acid 1.9. Minimal ZEINA. Creatinine today 1.13. Baseline around 0.9. Fluids are ongoing. Normal magnesium. Very minimal transaminitis. Normal lipase. UA with 1+ ketones, no signs of infection. CT scan of abdomen/pelvis was obtained and showing persistent colitis. Patient given 2 L of fluid in the ED, in addition to to pain and nausea medicine, Pepcid. Patient reporting ongoing pain, ongoing nausea. States she still feels very weak, does not feel comfortable going home. At this point, will start maintenance fluids, discuss with hospitalist team for admission for continued hydration and IV antibiotics. Zosyn started in the ED. Discussed case with Dr. Herzog, hospitalist, accepted patient for admission. Patient and family in agreement with plan. Medical Records Attestation: I reviewed the patient's medical records. Lab Data Attestation: I reviewed the patient's lab results. 12/17/24 14:37 12/17/24 14:37 Labs: Lab Results 12/17/24 12/17/24 12/17/24 Range/Units 14:37 14:37 16:45 WBC 11.0 H (4.5-10.0) K/mm3 RBC 4.70 (4.2-5.4) M/mm3 Hgb 13.4 (12.0-15.0) g/dL Hct 41.0 (37.0-47.0) % MCV 87.2 (80-100) fl MCH 28.5 (26-34) pg MCHC 32.7 (32-36) g/dl RDW 13.6 (11.5-14.5) % Plt Count 436 H (150-375) k/mm3 MPV 9.6 (7.4-10.4) fl Immature Gran % (Auto) 0.5 (0-0.5) % Neut % (Auto) 73.3 H (45.5-73.1) % Lymph % (Auto) 18.5 (18.3-44.2) % [place] % (Auto) 6.7 (2.6-8.5) % Eos % (Auto) 0.5 (0-4.4) % Baso % (Auto) 0.5 (0.2-1.2) % Lymph # (Auto) 2.03 (0.9-3.2) K/mm3 [place] # (Auto) 0.7 H (0.1-0.6) K/mm3 Eos # (Auto) 0.1 (0-0.3) K/mm3 Baso # (Auto) 0.1 (0.0-0.1) K/mm3 Abs Immat Gran (auto) 0.05 H (0.00-0.031) K/mm3 Absolute Neuts (auto) 8.1 H (1.3-6.7) K/mm3 Absolute Nucleated RBC 0.000 (0.0-0.012) K/mm3 Nucleated RBC % 0.0 (0.0-0.2) % Sodium 143 (137-145) mmol/L Potassium 3.4 (3.4-5.0) mmol/L Chloride 106 (98-107) mmol/L Carbon Dioxide 18 L (22-30) mmol/L Anion Gap 19 H (4-12) mmol/L BUN 10 (7-17) mg/dL Creatinine 1.13 H (0.7-1.0) mg/dL Estim Creat Clear Calc 38 ml/min Estimated GFR 47 L (59 - ) Glucose 110 (65-110) mg/dL Lactic Acid 1.9 (0.7-2.0) mmol/L Calcium 10.5 H (8.4-10.2) mg/dL Magnesium 2.0 Cancelled (1.6-2.3) mg/dL Total Bilirubin 0.6 (0.2-1.3) mg/dL AST 38 H (14-36) U/L ALT 37 H (6-35) U/L Alkaline Phosphatase 243 H (38-126) U/L Total Protein 8.0 (6.3-8.2) g/dL Albumin 4.8 (3.5-5.1) g/dL Lipase 50 (23-300) U/L Urine Color Yellow (Yellow) Urine Appearance Clear (Clear) Urine pH 6.0 (5.0-9.0) Ur Specific [place] 1.008 (1.001-1.035) Urine Protein Negative (Negative) mg/dL Urine Glucose (UA) Negative (Negative) mg/dL Urine Ketones 1+ H (Negative) mg/dL Ur Blood (Man) Negative (Negative) Urine Nitrate Negative (Negative) Urine Bilirubin Negative (Negative) Urine Urobilinogen 0.2 (<2.0) mg/dL Leukocyte Esterase Rfl Negative (Negative) KEVIN/UL Imaging Data Attestation: I personally reviewed and interpreted this imaging study as follows: Radiologist's impression: ITS Impressions Abdomen/Pelvis CT 12/17/24 18:47 IMPRESSION: 1. No evidence of appendicitis, diverticulitis or intestinal obstruction. 2. Slight thickening of the sigmoid colon which may indicate colitis. Clinical correlation and follow-up advised. Discharge Plan Discharge Clinical Impression: Colitis, Dehydration, Generalized weakness Nausea and vomiting Qualifiers: Vomiting type: unspecified Qualified Code(s): R11.2 - Nausea with vomiting, unspecified Patient Disposition: Still a Patient Condition: Stable Patient Language: Kosovan Prescriptions: No Action loperamide [Imodium A-D] 2 mg tablet 2 mg PO QID PRN (Reason: Diarrhea) alprazolam [Xanax] 0.5 mg tablet 0.5 mg PO QHS PRN (Reason: Anxiety) olanzapine 2.5 mg tablet 2.5 mg PO QHS ibuprofen [IBU] 400 mg tablet 400 mg PO PRN aspirin 81 mg tablet,delayed release (DR/EC) 81 mg PO BID 14 Days Qty: 28 0RF meloxicam 15 mg tablet 15 mg PO DAILY Qty: 30 0RF Rx Instructions: Cut in half. Take 1/2 in morning and 1/2 at night. Take with food. Stop if stomach upset. ciprofloxacin HCl 500 mg tablet 500 mg PO Q12H Qty: 14 0RF metronidazole 500 mg tablet 500 mg PO Q8H 7 Days Qty: 21 0RF ondansetron 4 mg tablet,disintegrating 4 mg PO Q6-8H PRN (Reason: nausea and vomiting) Qty: 14 0RF rosuvastatin [Crestor] 20 mg tablet 20 mg PO DAILY Qty: 90 1RF ondansetron HCl 4 mg tablet 4 mg PO Q8H PRN (Reason: nausea and vomiting) Qty: 20 0RF lisinopril 5 mg tablet See Rx Instructions .ROUTE .COMPLEX Qty: 90 0RF Dose Instruction: TAKE 1 TABLET BY MOUTH EVERY DAY FOR HIGH BLOOD PRESSURE Rx Instructions: TAKE 1 TABLET BY MOUTH EVERY DAY FOR HIGH BLOOD PRESSURE ropinirole 0.5 mg tablet 0.5 mg PO QHS Qty: 90 2RF oxycodone-acetaminophen 5-325 mg tablet 1 - 2 tablet PO Q4-6H PRN (Reason: pain) 7 Days Qty: 30 0RF Follow-up/Referrals: Bc Barrett MD [Primary Care Provider] -
[2024-12-17 16:55] LABS: Add Urine Microscopic? NO; Appearance Urine Clear (Clear); Bilirubin Urine Negative (Negative); Blood Urine Negative (Negative); Color Urine Yellow (Yellow); Glucose Urine UA Negative (Negative); Ketones Urine 1+ mg/dL (Negative); Leukocyte Esterase Ur Negative LEU/UL (Negative); Nitrate Urine Negative (Negative); Protein Urine Negative (Negative); Specific Grav Ur 1.008 (1.001-1.035); Urobilinogen Urine 0.2 mg/dL (<2.0)
[2024-12-17] MEDS: MORPHINE SULFATE (*CRX) 2 MG/ML INJ IV PUSH (17:15)
[2024-12-17] MEDS: diphenhydrAMINE HCl INJ 50 MG/ML VIAL 25 MG IV PUSH (17:16)
[2024-12-17 18:29] VITALS: BP 145/68; PULSE 84; RESP 16; O2SAT 98
[2024-12-17] MEDS: MORPHINE SULFATE (*CRX) 4 MG/ML INJ 2 MG IV PUSH (19:05)
[2024-12-17] MEDS: PIPERACILLN/TAZ 3.375GM/NS50ML 3.375 GM/50 ML BAG IVPB (19:05)
[2024-12-17] MEDS: SODIUM CHLORIDE 0.9% IV 1,000 ML 100 ML IV CONT (20:35)
[2024-12-17 20:38] VITALS: PULSE 73; RESP 16; O2SAT 99
--- NOTE | 2024-12-17 20:42 | PC.NURSE ---
Requested pt home medication list. Pt verbalized she does not have one and does not know them.
[2024-12-17 21:49] VITALS: BMI 23.8
--- NOTE | 2024-12-17 21:50 | ADMGEN ---
This patient, Lucy Peña, was admitted to [facility] Surg Room 314-02. Patient/family oriented to hospital policies and general routines including ID bracelet, bed and alarms, visiting hours, pain management, procedures, bathroom and other care routines, personal items, smoking policy, room service/diet, and visiting hours. Information on how to activate the Rapid Response Team has been discussed. Patient/Family are encouraged to report perceived risks to care and to ask questions if they do not understand what they are told or what they should do.
[2024-12-17 22:00] VITALS: BP 166/68; PULSE 72; RESP 16; TEMP 36.7; O2SAT 100
[2024-12-18] MEDS: PIPERACILLIN/TAZ 2.25G/NS 50ML 2.25 GM/50 ML BAG IVPB ×4 (01:07→18:06)
[2024-12-18] MEDS: ONDANSETRON INJ 4 MG/2 ML VIAL IV PUSH ×5 (02:51→18:07)
[2024-12-18] MEDS: MORPHINE SULFATE (*CRX) 2 MG/ML INJ IV PUSH ×2 (02:51→17:17)
[2024-12-18 05:46] VITALS: BP 136/69; PULSE 71; RESP 12; TEMP 36.4; O2SAT 98
[2024-12-18] MEDS: SODIUM CHLORIDE 0.9% IV 1,000 ML 100 ML IV CONT ×2 (06:35→20:04)
--- NOTE | 2024-12-18 06:41 | P.HP_ITS ---
H&P: HPI History of Present Illness Date/Time: 12/18/24 06:41 Chief Complaint: 1. Fatigue 2.. Malaise Narrative: Lucy Peña there is asymmetry of female with a medical history significant for anxiety, hypertension, depression, restless leg syndrome, dyslipidemia Shortly after undergoing a right total hip arthroplasty 2/2 right hip degenerative arthritis, she developed symptoms of abdominal pain, which we do more for infected skin to be associated with nonbloody diarrhea, anorexia, malaise, and a restriction of ADLs Under Section of ADLs. For the outpatient setting, she was placed on a regimen of ciprofloxacin and Flagyl; despite taking her medications religiously she returns to the ED with concerns for increased fatigue, anorexia, nausea, unresectable abdominal pain. Patient denies fevers, chills, dizziness, flank pain, dysuria, hematuria or LOC She does not smoke she does chew tobacco, drink alcohol or consume recreational/illicit drugs Work-up findings: WBC 11; HGB 13; MCV 87; pCO2 46 Na 143; K 3.4; Cl 106; CO2 18; HGB 19 BUN 10, CR 1.13 and GFR 47 AST 38, ALT 37, ALP 243, lipase 50 UA: Unremarkable CTAP: 1. No evidence of appendicitis, diverticulitis or intestinal obstruction. 2. Slight thickening of the sigmoid colon which may indicate colitis Lucy Peña will be admitted, evaluated, and managed for malaise, fatigue and colitis Review of Systems Review of Systems: All systems reviewed & are unremarkable except as noted in HPI and below PMFSH Past Medical History Medical History Skin lesion Other spondylosis, lumbosacral region Confusion Contusion of left hip Acute thigh pain Muscle spasm Muscle pain Hip pain Bilateral foot pain Back pain Diverticulitis Gastroparesis Chest pain Weakness generalized Lumbar back pain with radiculopathy affecting right lower extremity Slurred speech Memory loss Vertigo Elevated white blood cell count Elevated liver enzymes CKD (chronic kidney disease) stage 3, GFR 30-59 ml/min Epigastric pain Encounter for Medicare annual wellness exam IBS (irritable bowel syndrome) GERD (gastroesophageal reflux disease) Screening for malignant neoplasm of skin Duodenal diverticulum Functional abdominal pain syndrome RLS (restless legs syndrome) Hyperlipidemia Cholecystectomy planned History of depression Hx of migraines Depression Anxiety Surgical History Surgical History Hx of colonoscopy History of cholecystectomy Family History Family History Father Leukemia Anemia Hypertension Mother Heart disease Leukemia Sibling Heart disease Social History Social History Smoking status: Never smoker Second hand tobacco smoke exposure: No Additional smoking assessment comments: DENIES ANY FORM OF TOBACCO USE Alcohol intake: never Substance use: never Substance use type: does not use Do You Feel Safe in your Home?: Yes Lack of Transportation: No Lack of Food: Never True Current Housing: I Have Housing Concerned About Future Housing: No Difficulty Paying Gas/Electric Bills: No Difficulty Paying for Meds: YES Currently Unemployed: No Education: High School Diploma/GED Difficulty w/ Childcare or Family Care: No Living arrangements: with family Occupation/Education: retired 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 Gender identity (if verbalized by the patient): Female Spiritual care concerns: No Meds Home Medications and Allergies Home Medications ?Medication ?Instructions ?Recorded ?Confirmed ?Type alprazolam 0.5 mg tablet (Xanax) 0.5 mg PO QHS PRN Anxiety 02/21/23 12/17/24 History loperamide 2 mg tablet (Imodium 2 mg PO QID PRN Diarrhea 02/21/23 12/17/24 History A-D) rosuvastatin 20 mg tablet (Crestor) 20 mg PO DAILY #90 tabs 07/28/24 12/17/24 Rx olanzapine 2.5 mg tablet 2.5 mg PO QHS 08/20/24 12/17/24 History lisinopril 5 mg tablet See Rx Instructions .Route 10/22/24 12/17/24 Rx .COMPLEX #90 tabs ondansetron HCl 4 mg tablet 4 mg PO Q8H PRN nausea and 10/22/24 12/17/24 Rx vomiting #20 tabs ibuprofen 400 mg tablet (IBU) 400 mg PO PRN PAIN 11/09/24 12/17/24 History ropinirole 0.5 mg tablet 0.5 mg PO QHS #90 tabs 11/12/24 12/17/24 Rx meloxicam 15 mg tablet 15 mg PO DAILY #30 tabs 12/01/24 12/17/24 Rx ciprofloxacin HCl 500 mg tablet 500 mg PO Q12H #14 tabs 12/14/24 12/17/24 Rx metronidazole 500 mg tablet 500 mg PO Q8H 7 days #21 tabs 12/14/24 12/17/24 Rx Allergies Allergy/AdvReac Type Severity Reaction Status Date / Time Sulfa (Sulfonamide Allergy Intermediate Swelling Verified 12/17/24 14:36 Antibiotics) metronidazole (From Flagyl) AdvReac Intermediate Vomiting Verified 12/17/24 14:36 nitrofurantoin (From AdvReac Intermediate Vomiting Verified 12/17/24 14:36 Macrobid) amoxicillin (From Augmentin) AdvReac Mild Vomiting Verified 12/17/24 14:36 clavulanic acid (From AdvReac Mild Vomiting Verified 12/17/24 14:36 Augmentin) Vital Signs Vital Signs - 24 hr 12/17/24 13:50 12/17/24 18:29 12/17/24 20:38 Temperature 97.5 F L Pulse Rate 102 H 84 73 Respiratory Rate 16 16 16 Blood Pressure 185/105 H 145/68 H Pulse Oximetry 100 98 99 Oxygen Delivery Room Air 12/17/24 21:49 12/17/24 22:00 12/18/24 05:46 Temperature 98.1 F 97.6 F Pulse Rate 72 71 Respiratory Rate 16 12 Blood Pressure 166/68 H 136/69 Pulse Oximetry 100 98 Oxygen Delivery Room Air Exam Const: General: comfortable HENMT: Ears: TM's normal bilaterally Face/Nose/Sinus: Normal nares present Eyes: General: appearance normal, both eyes and all related structures Sclera: sclerae normal Pupils: Equal, round and reactive pupils present Neck: Neck: supple Resp: Effort & Inspection: normal respiratory effort Cardio: Rate: regular rate GI: Inspection: distended GI Palp: Yes Soft to palpation Skin: General skin exam: normal color Neuro: General: gait normal Motor exam (neuro): 5/5 motor strength present throughout Extrem: General: normal to inspection Psych: Mental Status: mental status grossly normal Affect: Anxious affect present H&P: Results Labs Labs: Short CBC 12/17/24 Range/Units 14:37 WBC 11.0 H (4.5-10.0) K/mm3 Hgb 13.4 (12.0-15.0) g/dL Hct 41.0 (37.0-47.0) % Plt Count 436 H (150-375) k/mm3 BMP 12/17/24 14:37 Sodium 143 Potassium 3.4 Chloride 106 Carbon Dioxide 18 L BUN 10 Creatinine 1.13 H Glucose 110 Calcium 10.5 H Liver Function 12/17/24 Range/Units 14:37 Total Bilirubin 0.6 (0.2-1.3) mg/dL AST 38 H (14-36) U/L ALT 37 H (6-35) U/L Alkaline Phosphatase 243 H (38-126) U/L Albumin 4.8 (3.5-5.1) g/dL Urine 12/17/24 Range/Units 16:45 Urine Color Yellow (Yellow) Urine Appearance Clear (Clear) Urine pH 6.0 (5.0-9.0) Ur Specific [place] 1.008 (1.001-1.035) Urine Protein Negative (Negative) mg/dL Urine Glucose (UA) Negative (Negative) mg/dL Assessment and Plan Assessment and plan (1) Anxiety and depression: Code(s): F41.9 - Anxiety disorder, unspecified; F32.A - Depression, unspecified Status: Acute (2) Hypertension: Qualifiers: Hypertension type: primary hypertension Qualified Code(s): I10 - Essential (primary) hypertension Code(s): I10 - Essential (primary) hypertension Status: Chronic (3) Hyperlipidemia: Code(s): E78.5 - Hyperlipidemia, unspecified Status: Acute (4) Malaise and fatigue: Code(s): R53.81 - Other malaise; R53.83 - Other fatigue Status: Acute Plan Acute and principal conditions 1. Colitis 2. Dehydration 3. Acute renal insufficiency 4. Elevated liver enzymes 5. Intra-hepatic biliary dilatation, dilated CBD Rx: A. Zosyn; anti-emetics; IVFs B. Monitor renal and liver functions C. Advance diet as tolerated D. GI consult if failed to improved Chronic and stable condition 1. Dyslipidemia. 2. RLS 3. Depression with anxiety 4. Hypertension Miscellaneous care 1. Code status. Full 2. Nutrition. SCDs; advance as tolerated 3. VTE prophylaxis. sCDs; [facility] VTE Prophylaxis VTE prophylaxis: mechanical ordered and pharmacologic ordered Hospitalist [facility] Advance Care Plan I have confirmed that the patient's Advanced Care Plan is present, code status is documented, or surrogate decision maker is listed in patient medical record.: Yes Medication Reconciliation I have utilized all available resources to obtain, update and review the patients current medications (includes all prescriptions, OTC, herbals, can nabis, and nutritional supplements).: Yes The patient is not eligible for med reconciliation; the patient is in a emergent medical situation where delaying treatment would jeopardize the patients health.: Yes
[2024-12-18 07:48] LABS: Basophils Absolute Auto 0.1 K/mm3 (0.0-0.1); Basophils Percent Auto 0.6 % (0.2-1.2); Eosinophils Absolute Auto 0.2 K/mm3 (0-0.3); Eosinophils Percent Auto 2.1 % (0-4.4); Hematocrit 35.2 % (37.0-47.0); Hemoglobin 10.9 g/dL (12.0-15.0); Immature Granulocyte Absolute 0.03 K/mm3 (0.00-0.031); Immature Granulocyte Percent A 0.4 % (0-0.5); Lymphocytes Absolute Auto 2.29 K/mm3 (0.9-3.2); Lymphocytes Percent Auto 28.7 % (18.3-44.2); Mean Corpuscular Hemoglobin 28.2 pg (26-34); Mean Corpuscular Volume 91.2 fl (80-100); Monocytes Absolute Auto 0.7 K/mm3 (0.1-0.6); Monocytes Percent Auto 9.1 % (2.6-8.5); Neutrophils Absolute Auto 4.7 K/mm3 (1.3-6.7); Neutrophils Percent Auto 59.1 % (45.5-73.1); Platelet Count Result 276 k/mm3 (150-375); Red Blood Count 3.86 M/mm3 (4.2-5.4)
[2024-12-18 07:57] LABS: Alanine Aminotransferase 25 U/L (6-35); Albumin Level 3.5 g/dL (3.5-5.1); Alkaline Phosphatase 166 U/L (38-126); Anion Gap 10 mmol/L (4-12); Aspartate Amino Transferase 29 U/L (14-36); Bilirubin,Total 0.5 mg/dL (0.2-1.3); Blood Urea Nitrogen 6 mg/dL (7-17); Calcium 8.7 mg/dL (8.4-10.2); Carbon Dioxide 19 mmol/L (22-30); Chloride 112 mmol/L (98-107); Estimated CRCL calculation 44 ml/min; Estimated Glomerular Filt Rate 56; Glucose 94 mg/dL (65-110); Potassium 3.4 mmol/L (3.4-5.0); Sodium 141 mmol/L (137-145)
[2024-12-18 08:00] VITALS: BP 154/82; PULSE 73; RESP 18; TEMP 36.2; O2SAT 100
[2024-12-18] MEDS: ACETAMINOPHEN 325 MG TABLET 650 MG PO (08:17)
[2024-12-18] MEDS: FAMOTIDINE 20 MG/2 ML VIAL IV PUSH ×2 (08:17→20:04)
[2024-12-18] MEDS: ROSUVASTATIN 20 MG TABLET PO (08:17)
[2024-12-18] MEDS: HEPARIN SODIUM 5,000 UNITS/ML VIAL 5000 UNITS SUB-Q ×2 (08:17→20:05)
--- NOTE | 2024-12-18 12:00 | PM.IMPN ---
Progress Note: A&P Assessment and Plan (1) Colitis: Code(s): K52.9 - Noninfective gastroenteritis and colitis, unspecified Status: Acute Assessment and Plan: CT of the abdomen/pelvis shown colitis Continue Zosyn Continue pain and nausea medications Continue IVF for now (2) Dehydration: Code(s): E86.0 - Dehydration Status: Acute Assessment and Plan: Patient 2L NS while in the ER (3) Malaise and fatigue: Code(s): R53.81 - Other malaise; R53.83 - Other fatigue Status: Acute Assessment and Plan: see above plan of care (4) Hypertension: Qualifiers: Hypertension type: primary hypertension Qualified Code(s): I10 - Essential (primary) hypertension Code(s): I10 - Essential (primary) hypertension Status: Chronic Assessment and Plan: Blood pressure ranging 136/69 to 166/68 Continue Lisinopril (5) Hyperlipidemia: Code(s): E78.5 - Hyperlipidemia, unspecified Status: Acute Assessment and Plan: Continue rosuvastatin (6) Anxiety and depression: Code(s): F41.9 - Anxiety disorder, unspecified; F32.A - Depression, unspecified Status: Acute Assessment and Plan: Continue Xanax Time Spent With Patient Time with patient: 25 - 35 minutes Subjective Date/time seen: 12/18/24 12:00 Interval history: Interval history: This is a 74 year old female with significant past medical history of anxiety, hypertension, depression, restless leg syndrome, dyslipidemia who presented to the hospital with complaints of fatigue and malaise. She recently had a right total hip replacement and started having diarrhea shortly after. She was placed on Cipro and flagyl in the outpatient setting. She started to notice increased fatigue, nausea, abdominal pain and presented for further evaluation. Work up in the hospital included an abdomen pelvis CT which shown slight thickening of the sigmoid colon suggestive of colitis, no evidence of appendicitis, diverticulitis or intestinal obstruction. Initial labs showed a white blood cell count of 11.0, creatinine 1.13, EGFR 47, anion gap 19, bicarb 18, lactic acid was normal at 1.9, AST 38, ALT 37, alkaline phosphate 243. UA showed 1+ urine ketones otherwise negative. Patient was given 2 L of normal saline, Zofran, Benadryl, Pepcid, morphine, Zosyn while in the ED. Subjective: Patient reports nausea and vomiting today. She states that her diarrhea has subsided. She still reports epigastric abdominal pain. Labs reviewed. Review of Systems Review of Systems: All systems reviewed & are unremarkable except as noted in HPI and below Exam Narrative: General: In no acute distress, well nourished Head: atraumatic, no encephalopathy Eyes: PERRLA, sclera clear ENT: moist mucous membranes, nasal passages clear Neck: supple, no JVD, no adenopathy, trachea midline Cardiac: Normal S1 and S2. No murmur, gallops or friction rubs, peripheral pulses intact. Respiratory: Lungs clear to auscultation, no adventitious lung sounds, currently on room air Gastrointestinal: soft, non-distended, non-tender, normoactive bowel sounds. : voiding without difficulty. Extremities: moves all extremities well, no edema Skin: clean, dry, intact. No wounds or lesions. Neuro: Alert and oriented x4, cranial nerves intact, no neuro deficits. Psych: normal mood, normal affect, interactive Objective Data Vital Signs Vital Signs: Vital Signs - 24 hr 12/17/24 13:50 12/17/24 18:29 12/17/24 20:38 Temperature 97.5 F L Pulse Rate 102 H 84 73 Respiratory Rate 16 16 16 Blood Pressure 185/105 H 145/68 H Pulse Oximetry 100 98 99 Oxygen Delivery Room Air 12/17/24 21:49 12/17/24 22:00 12/18/24 05:46 Temperature 98.1 F 97.6 F Pulse Rate 72 71 Respiratory Rate 16 12 Blood Pressure 166/68 H 136/69 Pulse Oximetry 100 98 Oxygen Delivery Room Air Intake/Output Intake/Output: Intake & Output 12/15/24 12/16/24 12/17/24 12/18/24 23:59 23:59 23:59 23:59 Intake Total 2049 1099 Balance 2049 1100 Meds/Results Medications: Active Medications Generic Name Dose Route Start Last Admin Trade Name Freq PRN Reason Stop Dose Admin Acetaminophen 650 mg 12/17/24 19:17 12/18/24 08:17 Acetaminophen 325 Mg Tablet PO 650 mg Q4H PRN Administration Mild Pain (1-3) or Fever Alprazolam 0.5 mg 12/18/24 06:40 Alprazolam (*Crx) 0.5 Mg Tablet PO QHS PRN Anxiety Dextrose 12.5 gm 12/17/24 19:17 Dextrose 50% 25 Gm/50 Ml Syringe IV PUSH PRN PRN Hypoglycemia Protocol Famotidine 20 mg 12/17/24 21:00 12/18/24 08:17 Famotidine 20 Mg/2 Ml Vial IV PUSH 20 mg Q12HR EMILIANO Administration Glucagon 1 mg 12/17/24 19:17 Glucagon For Inj 1 Mg Vial IM PRN PRN Hypoglycemia Protocol Glucose 15 gm 12/17/24 19:17 Glucose Oral Gel 15 Gm Of Glucse In 37.5 Gm Tube PO PRN PRN Hypoglycemia Protocol Heparin Sodium (Porcine) 5,000 units 12/18/24 09:00 12/18/24 08:17 Heparin Sodium 5,000 Units/Ml Vial SUB-Q 5,000 units Q12HR EMILIANO Administration Sodium Chloride 1,000 mls @ 100 mls/hr 12/17/24 18:55 12/18/24 06:35 Normal Saline Iv IV CONT 100 mls/hr .Q10H EMILIANO Administration Dextrose 1,000 mls @ 100 mls/hr 12/17/24 19:17 Dextrose 5% 1,000 Ml IVPB PRN PRN Hypoglycemia Protocol Piperacillin Sod/Tazobactam Sod 2.25 gm in 50 mls @ 100 mls/hr 12/18/24 01:00 12/18/24 06:36 Zosyn 2.25 Gm/Ns 50 Ml IVPB 100 mls/hr Q6H EMILIANO Administration Sodium Chloride 1,000 mls @ 100 mls/hr 12/18/24 06:40 Normal Saline Iv IV CONT .Q10H EMILIANO Morphine Sulfate 2 mg 12/17/24 19:17 12/18/24 02:51 Morphine Sulfate (*Crx) 2 Mg/Ml Inj IV PUSH 2 mg Q2H PRN Administration Pain Rated 7-10 Ondansetron HCl 4 mg 12/17/24 19:17 12/18/24 09:57 Ondansetron Inj 4 Mg/2 Ml Vial IV PUSH 4 mg Q4H PRN Administration Nausea Ropinirole HCl 0.5 mg 12/18/24 21:00 Ropinirole Hcl 0.5 Mg Tablet PO QHS [facility] Rosuvastatin Calcium 20 mg 12/18/24 09:00 12/18/24 08:17 Rosuvastatin 20 Mg Tablet PO 20 mg DAILY EMILIANO Administration Radiology Results: ITS Impressions Abdomen/Pelvis CT 12/17/24 18:47 IMPRESSION: 1. No evidence of appendicitis, diverticulitis or intestinal obstruction. 2. Slight thickening of the sigmoid colon which may indicate colitis. Clinical correlation and follow-up advised. Labs Labs: Laboratory Results - last 24 hr 12/17/24 12/17/24 12/17/24 14:37 14:37 16:45 WBC 11.0 H RBC 4.70 Hgb 13.4 Hct 41.0 MCV 87.2 MCH 28.5 MCHC 32.7 RDW 13.6 Plt Count 436 H MPV 9.6 Immature Gran % (Auto) 0.5 Neut % (Auto) 73.3 H Lymph % (Auto) 18.5 [place] % (Auto) 6.7 Eos % (Auto) 0.5 Baso % (Auto) 0.5 Lymph # (Auto) 2.03 [place] # (Auto) 0.7 H Eos # (Auto) 0.1 Baso # (Auto) 0.1 Abs Immat Gran (auto) 0.05 H Absolute Neuts (auto) 8.1 H Absolute Nucleated RBC 0.000 Nucleated RBC % 0.0 Sodium 143 Potassium 3.4 Chloride 106 Carbon Dioxide 18 L Anion Gap 19 H BUN 10 Creatinine 1.13 H Estim Creat Clear Calc 38 Estimated GFR 47 L Glucose 110 Lactic Acid 1.9 Calcium 10.5 H Magnesium 2.0 Cancelled Total Bilirubin 0.6 AST 38 H ALT 37 H Alkaline Phosphatase 243 H Total Protein 8.0 Albumin 4.8 Lipase 50 Urine Color Yellow Urine Appearance Clear Urine pH 6.0 Ur Specific [place] 1.008 Urine Protein Negative Urine Glucose (UA) Negative Urine Ketones 1+ H Ur Blood (Man) Negative Urine Nitrate Negative Urine Bilirubin Negative Urine Urobilinogen 0.2 Leukocyte Esterase Rfl Negative 12/18/24 07:06 WBC 8.0 RBC 3.86 L Hgb 10.9 L Hct 35.2 L MCV 91.2 MCH 28.2 MCHC 31.0 L RDW 14.0 Plt Count 276 MPV 10.0 Immature Gran % (Auto) 0.4 Neut % (Auto) 59.1 Lymph % (Auto) 28.7 [place] % (Auto) 9.1 H Eos % (Auto) 2.1 Baso % (Auto) 0.6 Lymph # (Auto) 2.29 [place] # (Auto) 0.7 H Eos # (Auto) 0.2 Baso # (Auto) 0.1 Abs Immat Gran (auto) 0.03 Absolute Neuts (auto) 4.7 Absolute Nucleated RBC 0.000 Nucleated RBC % 0.0 Sodium 141 Potassium 3.4 Chloride 112 H Carbon Dioxide 19 L Anion Gap 10 BUN 6 L Creatinine 0.98 Estim Creat Clear Calc 44 Estimated GFR 56 L Glucose 94 Lactic Acid Calcium 8.7 Magnesium Total Bilirubin 0.5 AST 29 ALT 25 Alkaline Phosphatase 166 H Total Protein 6.0 L Albumin 3.5 Lipase Urine Color Urine Appearance Urine pH Ur Specific [place] Urine Protein Urine Glucose (UA) Urine Ketones Ur Blood (Man) Urine Nitrate Urine Bilirubin Urine Urobilinogen Leukocyte Esterase Rfl Quality VTE Prophylaxis VTE prophylaxis: mechanical ordered and pharmacologic ordered
[2024-12-18 12:49] VITALS: BMI 23.8
[2024-12-18] MEDS: POTASSIUM CHLORIDE 20 MEQ ER TABLET 40 MEQ PO (12:50)
--- NOTE | 2024-12-18 14:11 | P.PNOP_ITS ---
Progress Note: A&P Assessment and Plan (1) Status post total hip replacement, right: Onset Date: ~12/01/24 Code(s): Z96.641 - Presence of right artificial hip joint Status: Acute Assessment and Plan: 2.5 weeks after total hip arthroplasty. Patient hospitalized for dehydration and colitis. She has been having nausea, vomiting, and diarrhea since the surgery. She is no longer taking NSAIDs. Notes no pain in the hip. She is using her walker and partial weight bearing. PT/OT as needed. Patient is very weak and may not tolerate it at this time witch is okay. Questions answered. Continue walker and partial weight bearing due to abductor tendon repair. Stop NSAIDs due to bleeding. We will cancel her next appointment that was scheduled for Saturday. Patient is currently on antibiotics. No signs of infection at the hip joint. Will order a routine hip xray. Will continue to follow. Okay for discharge from orthopedic standpoint once patient is medically stable and cleared. Subjective Subjective Date/Time Seen: 12/18/24 14:11 Interval history: Patient was hospitalized due to colitis and dehydration. She had total hip arthroplasty on 12/01/24. She also had a Partial-thickness abductor muscle repair of the gluteus medius. She has been using a walker. No pain in the hip. She states she has had N/V/D since the surgery. She cannot keep anything down. She has been to the ER twice and her PCP once since surgery. We were not aware she was having any issues. Patient states she thought it was just her IBS flaring up on her. Review of Systems Review of Systems: All systems reviewed & are unremarkable except as noted in HPI and below Exam Narrative: Pleasant thin 74 y/o female. A&O x3. No clinical deformity. Uses a walker. Wound well healed. No drainage, erythema, ecchymosis, warmth. No rash or lesions. Slight swelling. No distal edema. Good early ROM. Light touch sensation intact. Dorsalis pedis pulse normal. Leg length appear equal. Objective Data Vital Signs Vital Signs: Vital Signs - 24 hr 12/17/24 18:29 12/17/24 20:38 12/17/24 21:49 Temperature Pulse Rate 84 73 Respiratory Rate 16 16 Blood Pressure 145/68 H Pulse Oximetry 98 99 Oxygen Delivery Room Air 12/17/24 22:00 12/18/24 05:46 12/18/24 08:00 Temperature 98.1 F 97.6 F Pulse Rate 72 71 Respiratory Rate 16 12 Blood Pressure 166/68 H 136/69 Pulse Oximetry 100 98 Oxygen Delivery Room Air Intake/Output Intake/Output: Intake & Output 12/15/24 12/16/24 12/17/24 12/18/24 23:59 23:59 23:59 23:59 Intake Total 2049 1149 Balance 2049 1149 Meds/Results Medications: Active Medications Generic Name Dose Route Start Last Admin Trade Name Freq PRN Reason Stop Dose Admin Acetaminophen 650 mg 12/17/24 19:17 12/18/24 08:17 Acetaminophen 325 Mg Tablet PO 650 mg Q4H PRN Administration Mild Pain (1-3) or Fever Alprazolam 0.5 mg 12/18/24 06:40 Alprazolam (*Crx) 0.5 Mg Tablet PO QHS PRN Anxiety Dextrose 12.5 gm 12/17/24 19:17 Dextrose 50% 25 Gm/50 Ml Syringe IV PUSH PRN PRN Hypoglycemia Protocol Famotidine 20 mg 12/17/24 21:00 12/18/24 08:17 Famotidine 20 Mg/2 Ml Vial IV PUSH 20 mg Q12HR EMILIANO Administration Glucagon 1 mg 12/17/24 19:17 Glucagon For Inj 1 Mg Vial IM PRN PRN Hypoglycemia Protocol Glucose 15 gm 12/17/24 19:17 Glucose Oral Gel 15 Gm Of Glucse In 37.5 Gm Tube PO PRN PRN Hypoglycemia Protocol Heparin Sodium (Porcine) 5,000 units 12/18/24 09:00 12/18/24 08:17 Heparin Sodium 5,000 Units/Ml Vial SUB-Q 5,000 units Q12HR EMILIANO Administration Dextrose 1,000 mls @ 100 mls/hr 12/17/24 19:17 Dextrose 5% 1,000 Ml IVPB PRN PRN Hypoglycemia Protocol Piperacillin Sod/Tazobactam Sod 2.25 gm in 50 mls @ 100 mls/hr 12/18/24 01:00 12/18/24 12:31 Zosyn 2.25 Gm/Ns 50 Ml IVPB 100 mls/hr Q6H EMILIANO Administration Sodium Chloride 1,000 mls @ 100 mls/hr 12/18/24 06:40 Normal Saline Iv IV CONT .Q10H [facility] Lisinopril 5 mg 12/19/24 09:00 Lisinopril 5 Mg Tablet PO QAM [facility] Loperamide HCl 2 mg 12/18/24 12:27 Loperamide Hcl 2 Mg Capsule PO PRN PRN Diarrhea Morphine Sulfate 2 mg 12/17/24 19:17 12/18/24 02:51 Morphine Sulfate (*Crx) 2 Mg/Ml Inj IV PUSH 2 mg Q2H PRN Administration Pain Rated 7-10 Olanzapine 2.5 mg 12/18/24 21:00 Olanzapine 2.5 Mg Tablet PO QHS EMILIANO Ondansetron HCl 4 mg 12/17/24 19:17 12/18/24 14:08 Ondansetron Inj 4 Mg/2 Ml Vial IV PUSH 4 mg Q4H PRN Administration Nausea Ropinirole HCl 0.5 mg 12/18/24 21:00 Ropinirole Hcl 0.5 Mg Tablet PO QHS [facility] Rosuvastatin Calcium 20 mg 12/18/24 09:00 12/18/24 08:17 Rosuvastatin 20 Mg Tablet PO 20 mg DAILY EMILIANO Administration Radiology Results: ITS Impressions Abdomen/Pelvis CT 12/17/24 18:47 IMPRESSION: 1. No evidence of appendicitis, diverticulitis or intestinal obstruction. 2. Slight thickening of the sigmoid colon which may indicate colitis. Clinical correlation and follow-up advised. Labs Labs: Laboratory Results - last 24 hr 12/17/24 12/17/24 12/17/24 14:37 14:37 16:45 WBC 11.0 H RBC 4.70 Hgb 13.4 Hct 41.0 MCV 87.2 MCH 28.5 MCHC 32.7 RDW 13.6 Plt Count 436 H MPV 9.6 Immature Gran % (Auto) 0.5 Neut % (Auto) 73.3 H Lymph % (Auto) 18.5 [place] % (Auto) 6.7 Eos % (Auto) 0.5 Baso % (Auto) 0.5 Lymph # (Auto) 2.03 [place] # (Auto) 0.7 H Eos # (Auto) 0.1 Baso # (Auto) 0.1 Abs Immat Gran (auto) 0.05 H Absolute Neuts (auto) 8.1 H Absolute Nucleated RBC 0.000 Nucleated RBC % 0.0 Sodium 143 Potassium 3.4 Chloride 106 Carbon Dioxide 18 L Anion Gap 19 H BUN 10 Creatinine 1.13 H Estim Creat Clear Calc 38 Estimated GFR 47 L Glucose 110 Lactic Acid 1.9 Calcium 10.5 H Magnesium 2.0 Cancelled Total Bilirubin 0.6 AST 38 H ALT 37 H Alkaline Phosphatase 243 H Total Protein 8.0 Albumin 4.8 Lipase 50 Urine Color Yellow Urine Appearance Clear Urine pH 6.0 Ur Specific [place] 1.008 Urine Protein Negative Urine Glucose (UA) Negative Urine Ketones 1+ H Ur Blood (Man) Negative Urine Nitrate Negative Urine Bilirubin Negative Urine Urobilinogen 0.2 Leukocyte Esterase Rfl Negative 12/18/24 07:06 WBC 8.0 RBC 3.86 L Hgb 10.9 L Hct 35.2 L MCV 91.2 MCH 28.2 MCHC 31.0 L RDW 14.0 Plt Count 276 MPV 10.0 Immature Gran % (Auto) 0.4 Neut % (Auto) 59.1 Lymph % (Auto) 28.7 [place] % (Auto) 9.1 H Eos % (Auto) 2.1 Baso % (Auto) 0.6 Lymph # (Auto) 2.29 [place] # (Auto) 0.7 H Eos # (Auto) 0.2 Baso # (Auto) 0.1 Abs Immat Gran (auto) 0.03 Absolute Neuts (auto) 4.7 Absolute Nucleated RBC 0.000 Nucleated RBC % 0.0 Sodium 141 Potassium 3.4 Chloride 112 H Carbon Dioxide 19 L Anion Gap 10 BUN 6 L Creatinine 0.98 Estim Creat Clear Calc 44 Estimated GFR 56 L Glucose 94 Lactic Acid Calcium 8.7 Magnesium Total Bilirubin 0.5 AST 29 ALT 25 Alkaline Phosphatase 166 H Total Protein 6.0 L Albumin 3.5 Lipase Urine Color Urine Appearance Urine pH Ur Specific [place] Urine Protein Urine Glucose (UA) Urine Ketones Ur Blood (Man) Urine Nitrate Urine Bilirubin Urine Urobilinogen Leukocyte Esterase Rfl
[2024-12-18 16:00] VITALS: BP 154/82; PULSE 73; RESP 18; TEMP 36.2; O2SAT 100
[2024-12-18] MEDS: ALPRAZolam (*CRX) 0.5 MG TABLET PO (20:04)
[2024-12-18] MEDS: rOPINIRole HCL 0.5 MG TABLET PO (20:04)
[2024-12-18] MEDS: OLANZapine 2.5 MG TABLET PO (20:04)
[2024-12-18 21:26] VITALS: BP 177/82; PULSE 75; RESP 18; TEMP 36.4; O2SAT 100
[2024-12-19] MEDS: PIPERACILLIN/TAZ 2.25G/NS 50ML 2.25 GM/50 ML BAG IVPB ×3 (01:47→12:31)
[2024-12-19] MEDS: SODIUM CHLORIDE 0.9% IV 1,000 ML 100 ML IV CONT (06:19)
[2024-12-19 06:45] LABS: Basophils Absolute Auto 0.1 K/mm3 (0.0-0.1); Basophils Percent Auto 0.7 % (0.2-1.2); Eosinophils Absolute Auto 0.2 K/mm3 (0-0.3); Eosinophils Percent Auto 2.2 % (0-4.4); Hematocrit 31.3 % (37.0-47.0); Hemoglobin 10.2 g/dL (12.0-15.0); Immature Granulocyte Absolute 0.03 K/mm3 (0.00-0.031); Immature Granulocyte Percent A 0.4 % (0-0.5); Lymphocytes Absolute Auto 1.87 K/mm3 (0.9-3.2); Lymphocytes Percent Auto 27.1 % (18.3-44.2); Mean Corpuscular HGB Conc 32.6 g/dl (32-36); Mean Corpuscular Hemoglobin 29.1 pg (26-34); Mean Corpuscular Volume 89.4 fl (80-100); Mean Platelet Volume 9.8 fl (7.4-10.4); Monocytes Absolute Auto 0.6 K/mm3 (0.1-0.6); Monocytes Percent Auto 8.1 % (2.6-8.5); Neutrophils Absolute Auto 4.2 K/mm3 (1.3-6.7); Neutrophils Percent Auto 61.5 % (45.5-73.1); Platelet Count Result 248 k/mm3 (150-375); White Blood Count 6.9 K/mm3 (4.5-10.0)
[2024-12-19 06:59] LABS: Alanine Aminotransferase 18 U/L (6-35); Alkaline Phosphatase 130 U/L (38-126); Anion Gap 8 mmol/L (4-12); Aspartate Amino Transferase 23 U/L (14-36); Bilirubin,Total 0.4 mg/dL (0.2-1.3); Blood Urea Nitrogen 4 mg/dL (7-17); Calcium 8.6 mg/dL (8.4-10.2); Carbon Dioxide 21 mmol/L (22-30); Chloride 111 mmol/L (98-107); Estimated CRCL calculation 43 ml/min; Estimated Glomerular Filt Rate 55; Glucose 88 mg/dL (65-110); Potassium 3.5 mmol/L (3.4-5.0); Sodium 140 mmol/L (137-145)
[2024-12-19 08:00] VITALS: BP 164/86; PULSE 78; RESP 16; TEMP 36.4; O2SAT 100
[2024-12-19] MEDS: FAMOTIDINE 20 MG/2 ML VIAL IV PUSH (09:11)
[2024-12-19] MEDS: ONDANSETRON INJ 4 MG/2 ML VIAL IV PUSH (09:11)
[2024-12-19] MEDS: ROSUVASTATIN 20 MG TABLET PO (09:11)
[2024-12-19] MEDS: ALPRAZolam (*CRX) 0.5 MG TABLET PO (09:11)
[2024-12-19] MEDS: lisinopriL 5 MG TABLET PO (09:11)
[2024-12-19] MEDS: HEPARIN SODIUM 5,000 UNITS/ML VIAL 5000 UNITS SUB-Q (09:11)
[2024-12-19] MEDS: LOPERAMIDE HCL 2 MG CAPSULE PO ×2 (12:30→13:41)
[2024-12-19 16:00] VITALS: BP 170/90; PULSE 70; RESP 16; TEMP 36.7; O2SAT 100
--- NOTE | 2024-12-19 16:32 | P.PNIM_ITS ---
Progress Note: A&P Assessment and Plan (1) Colitis: Code(s): K52.9 - Noninfective gastroenteritis and colitis, unspecified Status: Acute Assessment and Plan: * CT of the abdomen/pelvis shown colitis * Continue Zosyn * Continue pain and nausea medications * Continue IVF for now (2) Dehydration: Code(s): E86.0 - Dehydration Status: Acute Assessment and Plan: * Patient 2L NS while in the ER (3) Malaise and fatigue: Code(s): R53.81 - Other malaise; R53.83 - Other fatigue Status: Acute Assessment and Plan: * see above plan of care (4) Hypertension: Qualifiers: Hypertension type: primary hypertension Qualified Code(s): I10 - Essential (primary) hypertension Code(s): I10 - Essential (primary) hypertension Status: Chronic Assessment and Plan: * Blood pressure ranging 136/69 to 166/68 * Continue Lisinopril (5) Hyperlipidemia: Code(s): E78.5 - Hyperlipidemia, unspecified Status: Acute Assessment and Plan: * Continue rosuvastatin (6) Anxiety and depression: Code(s): F41.9 - Anxiety disorder, unspecified; F32.A - Depression, unspecified Status: Acute Assessment and Plan: * Continue Xanax Subjective Date/time seen: 12/19/24 16:32 Interval history: Interval history: This is a 74 year old female with significant past medical history of anxiety, hypertension, depression, restless leg syndrome, dyslipidemia who presented to the hospital with complaints of fatigue and malaise. She recently had a right total hip replacement and started having diarrhea shortly after. She was placed on Cipro and flagyl in the outpatient setting. She started to notice increased fatigue, nausea, abdominal pain and presented for further evaluation. Work up in the hospital included an abdomen pelvis CT which shown slight thickening of the sigmoid colon suggestive of colitis, no evidence of appendicitis, diverticulitis or intestinal obstruction. Initial labs showed a white blood cell count of 11.0, creatinine 1.13, EGFR 47, anion gap 19, bicarb 18, lactic acid was normal at 1.9, AST 38, ALT 37, alkaline phosphate 243. UA showed 1+ urine ketones otherwise negative. Patient was given 2 L of normal saline, Zofran, Benadryl, Pepcid, morphine, Zosyn while in the ED. Subjective: Patient reports nausea and vomiting today. She states that her diarrhea has subsided. She still reports epigastric abdominal pain. Labs reviewed. Review of Systems Review of Systems: All systems reviewed & are unremarkable except as noted in HPI and below Exam Narrative: General: In no acute distress, well nourished Cardiac: Normal S1 and S2. No murmur, gallops or friction rubs, peripheral pulses intact. Respiratory: Lungs clear to auscultation, no adventitious lung sounds, currently on room air Gastrointestinal: soft, non-distended, non-tender, normoactive bowel sounds. : voiding without difficulty. Extremities: moves all extremities well, no edema Skin: clean, dry, intact. No wounds or lesions. Neuro: Alert and oriented x4 Objective Data Vital Signs Vital Signs: Vital Signs - 24 hr 12/18/24 20:00 12/18/24 21:26 12/19/24 08:00 Temperature 97.6 F 97.6 F Pulse Rate 75 78 Respiratory Rate 18 16 Blood Pressure 177/82 H 164/86 H Pulse Oximetry 100 100 Oxygen Delivery Room Air 12/19/24 08:00 12/19/24 08:32 Temperature Pulse Rate Respiratory Rate Blood Pressure Pulse Oximetry Oxygen Delivery Room Air Room Air Intake/Output Intake/Output: Intake & Output 12/16/24 12/17/24 12/18/24 12/19/24 23:59 23:59 23:59 23:59 Intake Total 2049 1250 1340 Output Total 10 Balance 2049 1240 1340 Meds/Results Medications: Active Medications Generic Name Dose Route Start Last Admin Trade Name Cliffordq PRN Reason Stop Dose Admin Acetaminophen 650 mg 12/17/24 19:17 12/18/24 08:17 Acetaminophen 325 Mg Tablet PO 650 mg Q4H PRN Administration Mild Pain (1-3) or Fever Alprazolam 0.5 mg 12/18/24 21:00 12/19/24 09:11 Alprazolam (*Crx) 0.5 Mg Tablet PO 0.5 mg Q12HR EMILIANO Administration Dextrose 12.5 gm 12/17/24 19:17 Dextrose 50% 25 Gm/50 Ml Syringe IV PUSH PRN PRN Hypoglycemia Protocol Famotidine 20 mg 12/17/24 21:00 12/19/24 09:11 Famotidine 20 Mg/2 Ml Vial IV PUSH 20 mg Q12HR EMILIANO Administration Glucagon 1 mg 12/17/24 19:17 Glucagon For Inj 1 Mg Vial IM PRN PRN Hypoglycemia Protocol Glucose 15 gm 12/17/24 19:17 Glucose Oral Gel 15 Gm Of Glucse In 37.5 Gm Tube PO PRN PRN Hypoglycemia Protocol Heparin Sodium (Porcine) 5,000 units 12/18/24 09:00 12/19/24 09:11 Heparin Sodium 5,000 Units/Ml Vial SUB-Q 5,000 units Q12HR EMILIANO Administration Dextrose 1,000 mls @ 100 mls/hr 12/17/24 19:17 Dextrose 5% 1,000 Ml IVPB PRN PRN Hypoglycemia Protocol Piperacillin Sod/Tazobactam Sod 2.25 gm in 50 mls @ 100 mls/hr 12/18/24 01:00 12/19/24 12:31 Zosyn 2.25 Gm/Ns 50 Ml IVPB 100 mls/hr Q6H EMILIANO Administration Sodium Chloride 1,000 mls @ 100 mls/hr 12/18/24 06:40 12/19/24 06:19 Normal Saline Iv IV CONT 100 mls/hr .Q10H EMILIANO Administration Lisinopril 5 mg 12/19/24 09:00 12/19/24 09:11 Lisinopril 5 Mg Tablet PO 5 mg QAM EMILIANO Administration Loperamide HCl 2 mg 12/18/24 12:27 12/19/24 13:41 Loperamide Hcl 2 Mg Capsule PO 2 mg PRN PRN Administration Diarrhea Morphine Sulfate 2 mg 12/17/24 19:17 12/18/24 17:17 Morphine Sulfate (*Crx) 2 Mg/Ml Inj IV PUSH 2 mg Q2H PRN Administration Pain Rated 7-10 Olanzapine 2.5 mg 12/18/24 21:00 12/18/24 20:04 Olanzapine 2.5 Mg Tablet PO 2.5 mg QHS EMILIANO Administration Ondansetron HCl 4 mg 12/17/24 19:17 12/19/24 09:11 Ondansetron Inj 4 Mg/2 Ml Vial IV PUSH 4 mg Q4H PRN Administration Nausea Ropinirole HCl 0.5 mg 12/18/24 21:00 12/18/24 20:04 Ropinirole Hcl 0.5 Mg Tablet PO 0.5 mg QHS EMILIANO Administration Rosuvastatin Calcium 20 mg 12/18/24 09:00 12/19/24 09:11 Rosuvastatin 20 Mg Tablet PO 20 mg DAILY EMILIANO Administration Radiology Results: ITS Impressions Abdomen/Pelvis CT 12/17/24 18:47 IMPRESSION: 1. No evidence of appendicitis, diverticulitis or intestinal obstruction. 2. Slight thickening of the sigmoid colon which may indicate colitis. Clinical correlation and follow-up advised. Hip/Pelvis X-Ray 12/18/24 16:39 Impression: 1: No acute bone or joint abnormality. Labs Labs: Laboratory Results - last 24 hr 12/19/24 06:23 WBC 6.9 RBC 3.50 L Hgb 10.2 L Hct 31.3 L MCV 89.4 MCH 29.1 MCHC 32.6 RDW 14.0 Plt Count 248 MPV 9.8 Immature Gran % (Auto) 0.4 Neut % (Auto) 61.5 Lymph % (Auto) 27.1 [place] % (Auto) 8.1 Eos % (Auto) 2.2 Baso % (Auto) 0.7 Lymph # (Auto) 1.87 [place] # (Auto) 0.6 Eos # (Auto) 0.2 Baso # (Auto) 0.1 Abs Immat Gran (auto) 0.03 Absolute Neuts (auto) 4.2 Absolute Nucleated RBC 0.000 Nucleated RBC % 0.0 Sodium 140 Potassium 3.5 Chloride 111 H Carbon Dioxide 21 L Anion Gap 8 BUN 4 L Creatinine 0.99 Estim Creat Clear Calc 43 Estimated GFR 55 L Glucose 88 Calcium 8.6 Total Bilirubin 0.4 AST 23 ALT 18 Alkaline Phosphatase 130 H Total Protein 6.0 L Albumin 3.0 L Quality VTE Prophylaxis VTE prophylaxis: mechanical ordered and pharmacologic ordered
--- NOTE | 2024-12-19 16:48 | P.DS_ITS ---
DS: Admitting Diagnosis Discharge Date 12/19/24 Admitting Diagnosis malaise and fatigue colitis dehydration acute renal insufficiency elevated liver enzymes intra-hepatic biliary dilatation, dilated CBD DS: Discharge Diagnosis Discharge Diagnosis (1) Colitis: Code(s): K52.9 - Noninfective gastroenteritis and colitis, unspecified Status: Acute (2) Dehydration: Code(s): E86.0 - Dehydration Status: Acute (3) Malaise and fatigue: Code(s): R53.81 - Other malaise; R53.83 - Other fatigue Status: Acute (4) Hypertension: Qualifiers: Hypertension type: primary hypertension Qualified Code(s): I10 - Essential (primary) hypertension Code(s): I10 - Essential (primary) hypertension Status: Chronic (5) Hyperlipidemia: Code(s): E78.5 - Hyperlipidemia, unspecified Status: Acute (6) Anxiety and depression: Code(s): F41.9 - Anxiety disorder, unspecified; F32.A - Depression, unspecified Status: Acute (7) Mild protein-calorie malnutrition: Code(s): E44.1 - Mild protein-calorie malnutrition Status: Acute DS: Summary Hospital Course Reason for hospitalization: malaise and fatigue colitis dehydration acute renal insufficiency elevated liver enzymes intra-hepatic biliary dilatation, dilated CBD Hospital Course: Final diagnosis: Non infectious colitis, dehydration, transaminitis, mild protein calorie malnutrition Status at Discharge Cognitive/behavioral status at discharge: Alert oriented x4 Functional status at discharge: independent ambulation Overall status at discharge: patient is progressing back to baseline Time Spent with Patient Time attestation: Total time spent providing and/or coordinating discharge services: Time spent: Greater than 30 minutes Exam Narrative: General: In no acute distress, well nourished Cardiac: Normal S1 and S2. No murmur, gallops or friction rubs, peripheral pulses intact. Respiratory: Lungs clear to auscultation, no adventitious lung sounds, currently on room air Gastrointestinal: soft, non-distended, non-tender, normoactive bowel sounds. Reports nausea and diarrhea. Denies vomiting : voiding without difficulty. Extremities: moves all extremities well, no edema Skin: clean, dry, intact. No wounds or lesions. Neuro: Alert and oriented x4 DS: Data Data Completed and Pending Completed studies during hospitalization: Hip/pelvis x-ray Abdomen/pelvis CT Pending studies at discharge: None Labs on day of discharge: Labs from last 24 hours 12/19/24 06:23 WBC 6.9 RBC 3.50 L Hgb 10.2 L Hct 31.3 L MCV 89.4 MCH 29.1 MCHC 32.6 RDW 14.0 Plt Count 248 MPV 9.8 Immature Gran % (Auto) 0.4 Neut % (Auto) 61.5 Lymph % (Auto) 27.1 [place] % (Auto) 8.1 Eos % (Auto) 2.2 Baso % (Auto) 0.7 Lymph # (Auto) 1.87 [place] # (Auto) 0.6 Eos # (Auto) 0.2 Baso # (Auto) 0.1 Abs Immat Gran (auto) 0.03 Absolute Neuts (auto) 4.2 Absolute Nucleated RBC 0.000 Nucleated RBC % 0.0 Sodium 140 Potassium 3.5 Chloride 111 H Carbon Dioxide 21 L Anion Gap 8 BUN 4 L Creatinine 0.99 Estim Creat Clear Calc 43 Estimated GFR 55 L Glucose 88 Calcium 8.6 Total Bilirubin 0.4 AST 23 ALT 18 Alkaline Phosphatase 130 H Total Protein 6.0 L Albumin 3.0 L Procedures/Treatments: None Discharge Plan Discharge Attending physician on discharge: Juancarlos Miner Consulting providers: Hank Arriola; Phoebe Vazquez; Jv Powers; Steven Rodas Discharging Clinician: Darline Sanchez Anticipated Discharge Date/Time: 12/19/24 16:40 Patient Disposition: Home Activity: as tolerated Diet: as tolerated, bland and high fiber Discharge Instructions: * Continue to take Imodium for your diarrhea * Stay hydrated * Advance diet as tolerated. Start with bland foods that are high in fiber until you get back to your regular foods. * Continue taking your Cipro until finished with prescription. Take this medication with food. * Stop taking Flagyl * Follow up with your primary care doctor in 1 week. * Use Zofran as needed for nausea Patient Instructions: Antibiotic Form, Ciprofloxacin (By mouth), Ondansetron (By mouth), Dehydration (DC), High Fiber Diet (DC), Colitis (ED) Patient Language: Telugu Stand Alone Forms: General Discharge Information Follow-up/Referrals: Bc Barrett MD [Primary Care Provider] - 1 Week Discharge Medications: New ondansetron 4 mg tablet,disintegrating 4 mg PO Q6H PRN (Reason: nausea and vomiting) Qty: 30 0RF Continued loperamide [Imodium A-D] 2 mg tablet 2 mg PO QID PRN (Reason: Diarrhea) olanzapine 2.5 mg tablet 2.5 mg PO QHS ibuprofen [IBU] 400 mg tablet 400 mg PO PRN rosuvastatin [Crestor] 20 mg tablet 20 mg PO DAILY Qty: 90 1RF lisinopril 5 mg tablet See Rx Instructions .ROUTE .COMPLEX Qty: 90 0RF Dose Instruction: TAKE 1 TABLET BY MOUTH EVERY DAY FOR HIGH BLOOD PRESSURE Rx Instructions: TAKE 1 TABLET BY MOUTH EVERY DAY FOR HIGH BLOOD PRESSURE ropinirole 0.5 mg tablet 0.5 mg PO QHS Qty: 90 2RF Discontinued metronidazole 500 mg tablet 500 mg PO Q8H 7 Days Qty: 21 0RF No Action alprazolam [Xanax] 0.5 mg tablet 0.5 mg PO QHS PRN (Reason: Anxiety) Qty: 30 0RF sucralfate [Carafate] 1 gram tablet 1 g PO QID 30 Days Qty: 120 0RF pantoprazole 40 mg tablet,delayed release (DR/EC) 40 mg PO BID 30 Days Qty: 60 1RF Date of admission: 12/18/24 08:38 Primary Care Provider: Bc Barrett Admitting Provider: Bobby Herzog Attending physician on admission: Darline Sanchez Condition: Improved Quality VTE Prophylaxis VTE prophylaxis: mechanical ordered and pharmacologic ordered Hospitalist MIPS Heart Failure (Exclusion) Patient has history of Heart Transplant or Left Ventricular Assistive Device?: No IF YES, STOP HERE Heart Failure (Qualifier) Patient has current or prior documentation of LVEF less than or equal to 40%, or mod/servere depressed LVSF?: No IF NO, STOP HERE
--- NOTE | 2024-12-21 08:58 | P.CDI_ITS ---
CDI Query Clarification Request BMI: 23.8 Nutritional Diagnostic Statement: Please refer to the comprehensive nutrition assessment for further information. If you agree with diagnosis of Severe protein calorie malnutrition related to acute colitis, nausea, vomiting and diarrhea as evidenced by minimal PO intake >1 week; weight loss 8%/2 weeks. Please specify severity if known: * Mild * Moderate * Severe * Other/Unknown <Carola Michel RN - Last Filed: 12/21/24 08:59> Clarified Diagnosis Clarified Diagnosis: Mild <Darline Sanchez APRN - Last Filed: 12/24/24 16:33>
== END 2024-12-19 18:05 | disposition home or self-care (01) | DRG 392 ==
LOC: ANHED 19:17 → ANH3MEDSUR 20:20
PROVIDERS: Student in an Organized Health Care Education/Training Program; Admitting Provider Internal Medicine; Emergency Provider Physician Assistant; PCP Family Medicine; Visit Provider Nurse Practitioner Acute Care
DX: K52.9 Noninfective gastroenteritis and colitis, unspecified (principal); E86.0 Dehydration; E78.5 Hyperlipidemia, unspecified; M47.26 Other spondylosis with radiculopathy, lumbar region; I12.9 Hypertensive chronic kidney disease with stage 1 through stage 4 chronic kidney disease, or unspecified chronic kidney disease; N18.30 Chronic kidney disease, stage 3 unspecified; K21.9 Gastro-esophageal reflux disease without esophagitis; G25.81 Restless legs syndrome; F32.A Depression, unspecified; F41.9 Anxiety disorder, unspecified; Z90.49 Acquired absence of other specified parts of digestive tract; Z96.641 Presence of right artificial hip joint
CPT/HCPCS: 36415; 73502; 74177; 80053; 81003; 83605; 83690; 83735; 85025; 96361; 96365; 96366; 96375; 96376; 97161; 99285; A9270; G0378; J1200; J1644; J2270; J2405; J2543; J7030; Q9967

== ENCOUNTER 2024-12-24 10:38 | Outpatient (CLI) | payer MEDICARE, SELFPAY ==
[2024-12-24 11:22] LABS: Hematocrit 39.6 % (37.0-47.0); Mean Corpuscular HGB Conc 32.8 g/dl (32-36); Mean Corpuscular Hemoglobin 28.6 pg (26-34); Mean Platelet Volume 10.9 fl (7.4-10.4); Platelet Count Result 245 k/mm3 (150-375); Red Blood Count 4.55 M/mm3 (4.2-5.4); Red Cell Distribution Width 14.6 % (11.5-14.5); White Blood Count 10.1 K/mm3 (4.5-10.0)
--- OUTSIDE RECORDS SUMMARY | 2024-12-24 11:28 | XMS_ITS | Continuity of Care Document ---
Author Organization [facility] Address [address] [place] [address] Phone Care Team Providers Care Athletic Shoe Designer Name Role Phone Ruiz OD, Zeferino Unavailable Unavailable Advance Directives Directive Yes / No Effective Date File Name No Information Encounters Encounter Description Practice Location Reason(s) For Visit Diagnoses Date Provider Providers Copied on Encounter [facility], [address], [place], [place], [id number], [place] tel:[phone] [facility] No Information 1-200 5 Ruiz OD Zeferino. [address] , [address], [place], [address], [place]. tel:[phone] Family History Family Member Type Diagnosis Age [...]
--- OUTSIDE RECORDS SUMMARY | 2024-12-24 11:28 | XMS_ITS | CONTINUITY OF CARE DOCUMENT ---
Author Name reinaldo najera Address Unknown Organization [facility] Address [address] [place] [address] [address] [place] [address] Phone [phone] Care Team Providers Care Insurance Clerk Name Role Phone LISSETTE HAYNES MD Unavailable [phone] LISSETTE HAYNES MD Unavailable [phone] INSURANCE PROVIDERS Payer name Policy type / Coverage type [place] red republican ID [facility] [id number]
[2024-12-24 11:30] LABS: Alanine Aminotransferase 16 U/L (6-35); Albumin Level 4.2 g/dL (3.5-5.1); Alkaline Phosphatase 171 U/L (38-126); Anion Gap 14 mmol/L (4-12); Aspartate Amino Transferase 27 U/L (14-36); Bilirubin,Total 0.6 mg/dL (0.2-1.3); Blood Urea Nitrogen 14 mg/dL (7-17); Calcium 9.8 mg/dL (8.4-10.2); Carbon Dioxide 19 mmol/L (22-30); Chloride 107 mmol/L (98-107); Estimated Glomerular Filt Rate 12; Glucose 118 mg/dL (65-110); Potassium 3.7 mmol/L (3.4-5.0); Sodium 140 mmol/L (137-145)
== END 2024-12-24 10:39 | disposition home or self-care (01) ==
LOC: ANHLAB 10:40
PROVIDERS: PCP Family Medicine; Visit Provider Nurse Practitioner Family
DX: R11.2 Nausea with vomiting, unspecified (principal); K52.9 Noninfective gastroenteritis and colitis, unspecified
CPT/HCPCS: 36415; 80053; 85027

== ENCOUNTER 2024-12-24 13:04 | Inpatient (IN) | payer MEDICARE, SELFPAY ==
[2024-12-24] VITALS (10 sets, daily range): BP systolic 149–195; BP diastolic 65–92; PULSE 73–87; RESP 12–18; TEMP 36.4–37.3; O2SAT 97–100; BMI 23.0
--- NOTE | ~2024-12-24 | CT_ITS ---
Non-contrast CT scan of the Abdomen and Pelvis Clinical indication: Abdominal pain Technique: 2.5 mm axial scans were obtained through the abdomen and pelvis without intravenous or or al contrast. Dose reduction technique was used on this scan by utilizing automated exposure control a nd iterative reconstruction technique. The dose-length product (DLP) was 402.22 mGy-cm. COMPARISON: 12/17/2024 Findings: Images through the lung bases reveal no abnormalities. There is no evidence of renal or ureteral calculi. The kidneys and the ureters are nondilated. The liver, spleen, pancreas, and adrenals appear normal. Cholecystectomy clips are present. There is no aortic aneurysm. There is no evidence of bowel obstruction. Images through the pelvis were performed. There is no evidence of ascites or lymphadenopathy. Urinary bladder unremarkable. No pelvic mass evident. Impression: No significant abnormality seen. Reviewed, dictated and finalized at [facility]. Impression: No significant abnormality seen.
--- OUTSIDE RECORDS SUMMARY | 2024-12-24 13:23 | XMS_ITS | Continuity of Care Document ---
Author Organization formerly [facility] Address [address] [place] [address] Phone Care Team Providers Care Leasing Property Manager Name Role Phone Ruiz OD, Zeferino Unavailable Unavailable Advance Directives Directive Yes / No Effective Date File Name No Information Encounters Encounter Description Practice Location Reason(s) For Visit Diagnoses Date Provider Providers Copied on Encounter [facility], [address], [place], [place], [id number], [place] tel:[phone] [facility] No Information 1-200 5 Ruiz OD Zeferino. [address] , [address], [place], [address], [place]. tel:[phone] Family History Family Member Type Diagnosis Age [...]
--- OUTSIDE RECORDS SUMMARY | 2024-12-24 13:23 | XMS_ITS | CONTINUITY OF CARE DOCUMENT ---
Author Name reinaldo najera Address Unknown Organization [facility] Address [address] [place] [address] [address] [place] [address] Phone [phone] Care Team Providers Care Senior Managing Director Name Role Phone LISSETTE HAYNES MD Unavailable [phone] LISSETTE HAYNES MD Unavailable [phone] INSURANCE PROVIDERS Payer name Policy type / Coverage type [place] red democrat ID [facility] [id number]
--- OUTSIDE RECORDS SUMMARY | 2024-12-24 16:19 | XMS_ITS | CONTINUITY OF CARE DOCUMENT ---
Author Name reinaldo najera Address Unknown Organization [facility] Address [address] [place] [address] [address] [place] [address] Phone [phone] Care Team Providers Care Market Research Analyst Name Role Phone LISSETTE HAYNES MD Unavailable LISSETTE HAYNES MD Unavailable [phone] INSURANCE PROVIDERS Payer name Policy type / Coverage type [place] red republican ID [facility] [id number]
--- OUTSIDE RECORDS SUMMARY | 2024-12-24 16:19 | XMS_ITS | Continuity of Care Document ---
Author Organization [facility] Address [address] [place] [address] Phone Care Team Providers Care Rehabilitation Aide/Scheduler Name Role Phone Ruiz OD, Zeferino Unavailable Unavailable Advance Directives Directive Yes / No Effective Date File Name No Information Encounters Encounter Description Practice Location Reason(s) For Visit Diagnoses Date Provider Providers Copied on Encounter [facility], [address], [place], [place], [address], [place] tel:[phone] [facility] No Information 1-200 5 Ruiz OD Zeferino. [address] , [address], [place], [address], [place]. tel:[phone] Family History Family Member Type Diagnosis Age [...]
[2024-12-24 16:29] LABS: Basophils Percent Auto 0.3 % (0.2-1.2); Eosinophils Absolute Auto 0.1 K/mm3 (0-0.3); Eosinophils Percent Auto 0.7 % (0-4.4); Hemoglobin 12.2 g/dL (12.0-15.0); Immature Granulocyte Absolute 0.04 K/mm3 (0.00-0.031); Immature Granulocyte Percent A 0.4 % (0-0.5); Lymphocytes Percent Auto 15.6 % (18.3-44.2); Mean Corpuscular Hemoglobin 28.6 pg (26-34); Mean Corpuscular Volume 86.9 fl (80-100); Mean Platelet Volume 10.1 fl (7.4-10.4); Monocytes Absolute Auto 0.9 K/mm3 (0.1-0.6); Monocytes Percent Auto 8.4 % (2.6-8.5); Neutrophils Absolute Auto 7.6 K/mm3 (1.3-6.7); Neutrophils Percent Auto 74.6 % (45.5-73.1); Platelet Count Result 222 k/mm3 (150-375); Red Blood Count 4.26 M/mm3 (4.2-5.4); Red Cell Distribution Width 14.6 % (11.5-14.5); White Blood Count 10.2 K/mm3 (4.5-10.0)
--- NOTE | 2024-12-24 16:35 | ED_ITS ---
HPI - General Adult General Chief complaint: Recheck/Abnormal Lab/Rx Stated complaint: abnormal lab Time Seen by Provider: 12/24/24 15:54 History of Present Illness HPI narrative: 74-year-old female present to the emergency department for evaluation for nausea vomiting and soft stools. Patient was diagnosed with colitis few weeks ago but states she is still having persistent nausea and vomiting. Patient has had decreased p.o. intake over the course of this week. Patient states really since Saturday she has had almost nothing to eat or drink. Patient denies any current abdominal pain. Patient did have follow-up with primary care physician today was found to have a creatinine of 3.79. Patient's typical baseline is closer to 1. Patient has history of transaminitis, high cholesterol, anxiety depression, CKD Related Data Home Medications ?Medication ?Instructions ?Recorded ?Confirmed ?Last Taken ?Type loperamide 2 mg tablet (Imodium 2 mg PO QID PRN Diarrhea 02/21/23 12/24/24 11/03/23 History A-D) olanzapine 2.5 mg tablet 2.5 mg PO QHS 08/20/24 12/24/24 12/16/24 History ibuprofen 400 mg tablet (IBU) 400 mg PO PRN PAIN 11/09/24 12/24/24 Unknown History Allergies Allergy/AdvReac Type Severity Reaction Status Date / Time Sulfa (Sulfonamide Allergy Intermediate Swelling Verified 12/24/24 13:17 Antibiotics) metronidazole (From Flagyl) AdvReac Intermediate Vomiting Verified 12/24/24 13:17 nitrofurantoin (From AdvReac Intermediate Vomiting Verified 12/24/24 13:17 Macrobid) amoxicillin (From Augmentin) AdvReac Mild Vomiting Verified 12/24/24 13:17 clavulanic acid (From AdvReac Mild Vomiting Verified 12/24/24 13:17 Augmentin) Review of Systems 2 Review of Systems: All systems reviewed & are unremarkable except as noted in HPI and below PMFSH Past Medical History Medical History Skin lesion Other spondylosis, lumbosacral region Confusion Contusion of left hip Acute thigh pain Muscle spasm Muscle pain Hip pain Bilateral foot pain Back pain Diverticulitis Gastroparesis Chest pain Weakness generalized Lumbar back pain with radiculopathy affecting right lower extremity Slurred speech Memory loss Vertigo Elevated white blood cell count Elevated liver enzymes CKD (chronic kidney disease) stage 3, GFR 30-59 ml/min Epigastric pain Encounter for Medicare annual wellness exam IBS (irritable bowel syndrome) GERD (gastroesophageal reflux disease) Screening for malignant neoplasm of skin Duodenal diverticulum Functional abdominal pain syndrome RLS (restless legs syndrome) Hyperlipidemia Cholecystectomy planned History of depression Hx of migraines Depression Anxiety Surgical History Surgical History History of total right hip arthroplasty (~12/01/24) w/Abductor Muscle Repair Hx of colonoscopy History of cholecystectomy Family History Family History Father Leukemia Anemia Hypertension Mother Heart disease Leukemia Sibling Heart disease Social History Social History Smoking status: Never smoker Second hand tobacco smoke exposure: No Additional smoking assessment comments: DENIES ANY FORM OF TOBACCO USE Alcohol intake: never Substance use: never Substance use type: does not use Do You Feel Safe in your Home?: Yes Lack of Transportation: No Lack of Food: Never True Current Housing: I Have Housing Concerned About Future Housing: No Difficulty Paying Gas/Electric Bills: No Difficulty Paying for Meds: YES Currently Unemployed: No Education: High School Diploma/GED Difficulty w/ Childcare or Family Care: No Living arrangements: with family Occupation/Education: retired 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 HEAD: normocephalic, atraumatic. EYES: PERRLA/EOMI, conjunctivae clear. NOSE: Normal no drainage EARS:TMS clear with good light reflex. THROAT: Pharynx clear, no exudate. NECK: Supple. No adenopathy, no masses. RESPIRATORY: Airway patent, respirations nonlabored. Clear to auscultation bilaterally, no rales, rhonchi, wheezing. CARDIOVASCULAR: Regular rate and rhythm without murmurs rubs or gallops. ABDOMINAL: Soft, nontender, nondistended, normal bowel sounds MUSCULOSKELETAL: Moves all extremities. Strength/ROM intact, No edema, No calf tenderness. NEURO: Alert. Cranial nerves II through XII intact. Grossly intact SKIN: Warm, dry. Normal Color Course Vital Signs Vital signs: Vital Signs Temperature 97.5 F L 12/24/24 13:14 Pulse Rate 84 12/24/24 13:14 Respiratory Rate 18 12/24/24 13:14 Blood Pressure 151/90 H 12/24/24 13:14 Pulse Oximetry 100 12/24/24 13:14 Oxygen Delivery Room Air 12/24/24 13:14 Temperature 97.5 F L 12/24/24 13:14 Pulse Rate 84 12/24/24 21:28 Respiratory Rate 16 12/24/24 21:28 Blood Pressure 149/72 H 12/24/24 20:15 Pulse Oximetry 98 12/24/24 21:28 Oxygen Delivery Room Air 12/24/24 13:14 Medical Decision Making MDM Narrative Medical decision making narrative: 74-year-old female presents emergency department for evaluation for 3-4 days a decreased p.o. intake with associated nausea and vomiting. Patient had no retained urine in her bladder scan. Patient is currently afebrile but does have a leukocytosis of 10.2 and hemoglobin of 12.2. Patient does have a creatinine today at 3.53 which is higher than her baseline 1.0. UA was negative for infection but did have 6-10 white blood cells. Patient was treated with a L of IV fluids and started on maintenance fluids. Case was discussed with hospitalist patient was admitted for acute kidney injury. Differential Diagnosis Differential Diagnosis: Obstructive uropathy, acute kidney injury, dehydration Vital Signs Vital Signs: Vital Signs Temperature 97.5 F L 12/24/24 13:14 Pulse Rate 84 12/24/24 13:14 Respiratory Rate 18 12/24/24 13:14 Blood Pressure 151/90 H 12/24/24 13:14 Pulse Oximetry 100 12/24/24 13:14 Oxygen Delivery Room Air 12/24/24 13:14 Temperature 97.5 F L 12/24/24 13:14 Pulse Rate 84 12/24/24 21:28 Respiratory Rate 16 12/24/24 21:28 Blood Pressure 149/72 H 12/24/24 20:15 Pulse Oximetry 98 12/24/24 21:28 Oxygen Delivery Room Air 12/24/24 13:14 Lab Data Lab results reviewed: Yes I reviewed the patient's lab results. 12/24/24 16:19 12/24/24 16:19 Labs: Lab Results 12/24/24 Range/Units 16:19 WBC 10.2 H (4.5-10.0) K/mm3 RBC 4.26 (4.2-5.4) M/mm3 Hgb 12.2 (12.0-15.0) g/dL Hct 37.0 (37.0-47.0) % MCV 86.9 (80-100) fl MCH 28.6 (26-34) pg MCHC 33.0 (32-36) g/dl RDW 14.6 H (11.5-14.5) % Plt Count 222 (150-375) k/mm3 MPV 10.1 (7.4-10.4) fl Immature Gran % (Auto) 0.4 (0-0.5) % Neut % (Auto) 74.6 H (45.5-73.1) % Lymph % (Auto) 15.6 L (18.3-44.2) % [place] % (Auto) 8.4 (2.6-8.5) % Eos % (Auto) 0.7 (0-4.4) % Baso % (Auto) 0.3 (0.2-1.2) % Lymph # (Auto) 1.60 (0.9-3.2) K/mm3 [place] # (Auto) 0.9 H (0.1-0.6) K/mm3 Eos # (Auto) 0.1 (0-0.3) K/mm3 Baso # (Auto) 0.0 (0.0-0.1) K/mm3 Abs Immat Gran (auto) 0.04 H (0.00-0.031) K/mm3 Absolute Neuts (auto) 7.6 H (1.3-6.7) K/mm3 Absolute Nucleated RBC 0.000 (0.0-0.012) K/mm3 Nucleated RBC % 0.0 (0.0-0.2) % Sodium 140 (137-145) mmol/L Potassium 3.7 (3.4-5.0) mmol/L Chloride 107 (98-107) mmol/L Carbon Dioxide 21 L (22-30) mmol/L Anion Gap 12 (4-12) mmol/L BUN 15 (7-17) mg/dL Creatinine 3.53 H (0.7-1.0) mg/dL Estim Creat Clear Calc 13 ml/min Estimated GFR 13 L (59 - ) Glucose 107 (65-110) mg/dL Calcium 9.4 (8.4-10.2) mg/dL Magnesium 2.2 (1.6-2.3) mg/dL Total Bilirubin 0.5 (0.2-1.3) mg/dL AST 25 (14-36) U/L ALT 15 (6-35) U/L Alkaline Phosphatase 155 H (38-126) U/L Total Protein 7.0 (6.3-8.2) g/dL Albumin 3.8 (3.5-5.1) g/dL Discharge Plan Discharge Clinical Impression: Acute kidney injury superimposed on CKD Patient Disposition: Still a Patient Condition: Stable
[2024-12-24 16:42] LABS: Alanine Aminotransferase 15 U/L (6-35); Albumin Level 3.8 g/dL (3.5-5.1); Alkaline Phosphatase 155 U/L (38-126); Anion Gap 12 mmol/L (4-12); Aspartate Amino Transferase 25 U/L (14-36); Bilirubin,Total 0.5 mg/dL (0.2-1.3); Blood Urea Nitrogen 15 mg/dL (7-17); Calcium 9.4 mg/dL (8.4-10.2); Carbon Dioxide 21 mmol/L (22-30); Chloride 107 mmol/L (98-107); Estimated CRCL calculation 13 ml/min; Estimated Glomerular Filt Rate 13; Glucose 107 mg/dL (65-110); Potassium 3.7 mmol/L (3.4-5.0); Sodium 140 mmol/L (137-145)
[2024-12-24 17:10] LABS: Magnesium 2.2 mg/dL (1.6-2.3)
[2024-12-24] MEDS: ONDANSETRON INJ 4 MG/2 ML VIAL IV PUSH ×2 (17:31→21:42)
[2024-12-24] MEDS: LACTATED RINGERS 1,000 ML 999 ML IV CONT (17:31)
[2024-12-24] MEDS: hydrALAZINE HCL 20 MG/ML VIAL 10 MG IV PUSH (18:36)
[2024-12-24] MEDS: lisinopriL 5 MG TABLET PO (18:48)
[2024-12-24 19:35] LABS: Add Urine Microscopic? YES; Appearance Urine Clear (Clear); Bacteria Urine None Seen /hpf; Bilirubin Urine Negative (Negative); Blood Urine Negative (Negative); Color Urine Yellow (Yellow); Glucose Urine UA Negative (Negative); Ketones Urine 1+ mg/dL (Negative); Leukocyte Esterase Ur Negative LEU/UL (Negative); Need Manual Microscopic Reviewed; Nitrate Urine Negative (Negative); Protein Urine Trace mg/dL (Negative); RBC Urine 0-2 /hpf (0-2); Specific Grav Ur 1.012 (1.001-1.035); Squamous Epithelial Cell Urine Few /hpf (Few); Urobilinogen Urine 0.2 mg/dL (<2.0); pH Urine 5.5 (5.0-9.0)
[2024-12-24] MEDS: LACTATED RINGERS 1,000 ML 125 ML IV CONT (21:16)
--- NOTE | 2024-12-24 21:47 | ADMGEN ---
This patient, Lucy Peña, was admitted to 3 [facility] Surg Room 304-01. Patient/family oriented to hospital policies and general routines including ID bracelet, bed and alarms, visiting hours, pain management, procedures, bathroom and other care routines, personal items, smoking policy, room service/diet, and visiting hours. Information on how to activate the Rapid Response Team has been discussed. Patient/Family are encouraged to report perceived risks to care and to ask questions if they do not understand what they are told or what they should do.
[2024-12-24] MEDS: BELLADONNA ALK/PHENOB ELIX 10 ML, MAG HYDROX/ALUMINUM HYD/SIMETH 30 ML, LIDOCAINE 2% VI... PO (23:42)
[2024-12-24] MEDS: PANTOPRAZOLE SODIUM IV 40 MG VIAL IV PUSH (23:42)
[2024-12-25] MEDS: ONDANSETRON INJ 4 MG/2 ML VIAL IV PUSH ×4 (02:50→17:41)
[2024-12-25 05:20] VITALS: BP 173/81; PULSE 83; RESP 18; TEMP 36.6; O2SAT 99
[2024-12-25] MEDS: LACTATED RINGERS 1,000 ML 125 ML IV CONT (05:35)
[2024-12-25] MEDS: PANTOPRAZOLE SODIUM IV 40 MG VIAL IV PUSH ×2 (10:32→20:26)
[2024-12-25 11:38] VITALS: BMI 23.0
--- NOTE | 2024-12-25 13:28 | P.HP_ITS ---
H&P: HPI History of Present Illness Date/Time: 12/25/24 13:28 Chief Complaint: Abdominal pain Narrative: 74-year-old female past medical history of hypertension hyperlipidemia presented to the ER uncomfortable pain. Patient was managed for colitis and discharged from this hospital about 6 days ago however she reported she has been having constant vomiting possibly some, noted about 10 episodes in last 3 days has not able to eat keep anything down 2 per. Noted abdominal pain and described as sharp upper region radiation. Denies any chest pain or shortness of breath no diarrhea no dysuria no focal symptoms or lightheadedness or loss of consciousness. ER evaluation notable vital signs blood pressure 154/65, lateral WBC 10.2, creatinine 3.79, CT abdomen no acute changes. Patient was admitted for further evaluation and care. Review of Systems Review of Systems: All other systems reviewed and negative except as noted in history above. [facility] Past Medical History Medical History Skin lesion Other spondylosis, lumbosacral region Confusion Contusion of left hip Acute thigh pain Muscle spasm Muscle pain Hip pain Bilateral foot pain Back pain Diverticulitis Gastroparesis Chest pain Weakness generalized Lumbar back pain with radiculopathy affecting right lower extremity Slurred speech Memory loss Vertigo Elevated white blood cell count Elevated liver enzymes CKD (chronic kidney disease) stage 3, GFR 30-59 ml/min Epigastric pain Encounter for Medicare annual wellness exam IBS (irritable bowel syndrome) GERD (gastroesophageal reflux disease) Screening for malignant neoplasm of skin Duodenal diverticulum Functional abdominal pain syndrome RLS (restless legs syndrome) Hyperlipidemia Cholecystectomy planned History of depression Hx of migraines Depression Anxiety Surgical History Surgical History History of total right hip arthroplasty (~12/01/24) w/Abductor Muscle Repair Hx of colonoscopy History of cholecystectomy Family History Family History Father Leukemia Anemia Hypertension Mother Heart disease Leukemia Sibling Heart disease Social History Social History Smoking status: Never smoker Second hand tobacco smoke exposure: No Alcohol intake: never Substance use: never Substance use type: does not use Do You Feel Safe in your Home?: Yes Lack of Transportation: No Lack of Food: Never True Current Housing: I Have Housing Concerned About Future Housing: No Difficulty Paying Gas/Electric Bills: No Difficulty Paying for Meds: No Currently Unemployed: No Education: High School Diploma/GED Difficulty w/ Childcare or Family Care: No Living arrangements: with family Occupation/Education: retired 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 Gender identity (if verbalized by the patient): Female Spiritual care concerns: No Meds Home Medications and Allergies Home Medications ?Medication ?Instructions ?Recorded ?Confirmed ?Type loperamide 2 mg tablet (Imodium 2 mg PO QID PRN Diarrhea 02/21/23 12/24/24 History A-D) rosuvastatin 20 mg tablet (Crestor) 20 mg PO DAILY #90 tabs 07/28/24 12/24/24 Rx olanzapine 2.5 mg tablet 2.5 mg PO QHS 08/20/24 12/24/24 History lisinopril 5 mg tablet See Rx Instructions .Route 10/22/24 12/24/24 Rx .COMPLEX #90 tabs ibuprofen 400 mg tablet (IBU) 400 mg PO PRN PAIN 11/09/24 12/24/24 History ropinirole 0.5 mg tablet 0.5 mg PO QHS #90 tabs 11/12/24 12/24/24 Rx ondansetron 4 mg disintegrating 4 mg PO Q6H PRN nausea and 12/19/24 12/24/24 Rx tablet vomiting #30 tabs alprazolam 0.5 mg tablet (Xanax) 0.5 mg PO QHS PRN Anxiety #30 tabs 12/23/24 12/24/24 Rx pantoprazole 40 mg tablet,delayed 40 mg PO BID 1 month #60 tabs 12/24/24 12/24/24 Rx release sucralfate 1 gram tablet (Carafate) 1 g PO QID 1 month #120 tabs 12/24/24 0 12/24/24 Rx Allergies Allergy/AdvReac Type Severity Reaction Status Date / Time Sulfa (Sulfonamide Allergy Intermediate Swelling Verified 12/24/24 13:17 Antibiotics) metronidazole (From Flagyl) AdvReac Intermediate Vomiting Verified 12/24/24 13:17 nitrofurantoin (From AdvReac Intermediate Vomiting Verified 12/24/24 13:17 Macrobid) amoxicillin (From Augmentin) AdvReac Mild Vomiting Verified 12/24/24 13:17 clavulanic acid (From AdvReac Mild Vomiting Verified 12/24/24 13:17 Augmentin) Vital Signs Vital Signs - 24 hr 12/24/24 16:25 12/24/24 16:28 12/24/24 16:30 Temperature Pulse Rate 78 73 Respiratory Rate 14 16 Blood Pressure 195/92 H Pulse Oximetry 100 100 Oxygen Delivery 12/24/24 16:32 12/24/24 16:33 12/24/24 20:11 Temperature Pulse Rate 76 73 87 Respiratory Rate 12 14 15 Blood Pressure 179/88 H Pulse Oximetry 100 100 99 Oxygen Delivery 12/24/24 20:15 12/24/24 21:28 12/24/24 22:02 Temperature Pulse Rate 86 84 Respiratory Rate 15 16 Blood Pressure 149/72 H Pulse Oximetry 98 98 Oxygen Delivery Room Air 12/24/24 22:10 12/25/24 05:20 Temperature 99.1 F 97.9 F Pulse Rate 80 83 Respiratory Rate 18 18 Blood Pressure 154/65 H 173/81 H Pulse Oximetry 97 99 Oxygen Delivery Exam Narrative: General: alert and comfortable Eyes: EOMI, PERRLA ENNT External ears normal, Neck is supple, no masses, Respiratory systems: Clear to auscultation Cardiovascular S1, S2, normal rhythm, no murmur, rub, or gallop; no thrill or palpable murmurs on palpation. Gastrointestinal: soft, epigastric tenderness, and non-distended abdomen with no masses; BS present Skin: no rash, lesions, ulcerations, subcutaneous nodules or induration Musculoskeletal: no abnormality and no tenderness, normal ROM Neurologic: Alert and oriented x3, non focal Mental Status Exam: normal affect H&P: Results Labs Labs: Short CBC 12/24/24 Range/Units 16:19 WBC 10.2 H (4.5-10.0) K/mm3 Hgb 12.2 (12.0-15.0) g/dL Hct 37.0 (37.0-47.0) % Plt Count 222 (150-375) k/mm3 BMP 12/24/24 16:19 Sodium 140 Potassium 3.7 Chloride 107 Carbon Dioxide 21 L BUN 15 Creatinine 3.53 H Glucose 107 Calcium 9.4 Liver Function 12/24/24 Range/Units 16:19 Total Bilirubin 0.5 (0.2-1.3) mg/dL AST 25 (14-36) U/L ALT 15 (6-35) U/L Alkaline Phosphatase 155 H (38-126) U/L Albumin 3.8 (3.5-5.1) g/dL Urine 12/24/24 Range/Units 18:58 Urine Color Yellow (Yellow) Urine Appearance Clear (Clear) Urine pH 5.5 (5.0-9.0) Ur Specific [place] 1.012 (1.001-1.035) Urine Protein Trace (Negative) mg/dL Urine Glucose (UA) Negative (Negative) mg/dL Assessment and Plan Assessment and plan (1) Acute kidney injury superimposed on CKD: Code(s): N17.9 - Acute kidney failure, unspecified; N18.9 - Chronic kidney disease, unspecified Status: Acute Plan ZEINA on CKD Cr 3.79 baseline is normal from dehydration as patient has been vomiting profusely Continue IVF monitor Creatinine Abd pain with intractable vomiting PUD vs Esophageal stricture Patient has a history of esophageal stricture Continue PPI and Sucrafate NPO for now GI consulted HTN Hold Lisinopril, started on Amlodipine monitor and adjust with clinical course HLD continue Crestor DVT prophylaxis on Sq Lovenox Full code Surrogate decision maker [facility] Advance Care Plan I have confirmed that the patient's Advanced Care Plan is present, code status is documented, or surrogate decision maker is listed in patient medical record.: Yes Medication Reconciliation I have utilized all available resources to obtain, update and review the patients current medications (includes all prescriptions, OTC, herbals, cannabis, and nutritional supplements).: Yes
[2024-12-25] MEDS: SODIUM CHLORIDE 0.9% IV 1,000 ML 100 ML IV CONT (13:49)
[2024-12-25] MEDS: amLODIPine BESYLATE 5 MG TABLET PO (13:49)
[2024-12-25 14:30] VITALS: BP 174/70; PULSE 69; RESP 18; TEMP 36.1; O2SAT 100
[2024-12-25] MEDS: SUCRALFATE 1 GM TABLET PO ×2 (16:34→20:24)
[2024-12-25 16:51] LABS: Lipase 20 U/L (23-300)
[2024-12-25] MEDS: rOPINIRole HCL 0.5 MG TABLET PO (18:34)
[2024-12-25] MEDS: OLANZapine 2.5 MG TABLET PO (20:24)
[2024-12-25] MEDS: ALPRAZolam (*CRX) 0.5 MG TABLET PO (20:25)
[2024-12-25 22:00] VITALS: BP 172/79; PULSE 88; RESP 16; TEMP 36.5; O2SAT 100
[2024-12-26 05:19] VITALS: BP 161/77; PULSE 80; RESP 12; TEMP 37.2; O2SAT 95
[2024-12-26] MEDS: SUCRALFATE 1 GM TABLET PO ×4 (06:11→20:36)
[2024-12-26 06:48] LABS: Basophils Percent Auto 0.5 % (0.2-1.2); Eosinophils Absolute Auto 0.3 K/mm3 (0-0.3); Hematocrit 32.9 % (37.0-47.0); Hemoglobin 10.8 g/dL (12.0-15.0); Immature Granulocyte Absolute 0.03 K/mm3 (0.00-0.031); Immature Granulocyte Percent A 0.4 % (0-0.5); Lymphocytes Absolute Auto 1.84 K/mm3 (0.9-3.2); Mean Corpuscular HGB Conc 32.8 g/dl (32-36); Mean Corpuscular Volume 88.4 fl (80-100); Mean Platelet Volume 10.9 fl (7.4-10.4); Monocytes Absolute Auto 0.8 K/mm3 (0.1-0.6); Monocytes Percent Auto 9.7 % (2.6-8.5); Neutrophils Absolute Auto 5.4 K/mm3 (1.3-6.7); Neutrophils Percent Auto 64.4 % (45.5-73.1); Platelet Count Result 181 k/mm3 (150-375); Red Blood Count 3.72 M/mm3 (4.2-5.4); Red Cell Distribution Width 14.7 % (11.5-14.5); White Blood Count 8.4 K/mm3 (4.5-10.0)
[2024-12-26 07:04] LABS: Alanine Aminotransferase 11 U/L (6-35); Albumin Level 3.3 g/dL (3.5-5.1); Alkaline Phosphatase 138 U/L (38-126); Anion Gap 11 mmol/L (4-12); Aspartate Amino Transferase 24 U/L (14-36); Bilirubin,Total 0.5 mg/dL (0.2-1.3); Blood Urea Nitrogen 14 mg/dL (7-17); Carbon Dioxide 22 mmol/L (22-30); Chloride 109 mmol/L (98-107); Estimated CRCL calculation 14 ml/min; Estimated Glomerular Filt Rate 15; Glucose 85 mg/dL (65-110); Magnesium 1.9 mg/dL (1.6-2.3); Potassium 3.8 mmol/L (3.4-5.0); Sodium 142 mmol/L (137-145)
[2024-12-26] MEDS: ACETAMINOPHEN 325 MG TABLET 650 MG PO (08:34)
[2024-12-26] MEDS: amLODIPine BESYLATE 5 MG TABLET PO (08:37)
--- NOTE | 2024-12-26 09:55 | PM.IMPN ---
Progress Note: A&P Assessment and Plan (1) Acute kidney injury superimposed on CKD: Code(s): N17.9 - Acute kidney failure, unspecified; N18.9 - Chronic kidney disease, unspecified Status: Acute Plan ZEINA on CKD Cr 3.79 --> 3.14, baseline is normal from dehydration as patient has been vomiting profusely Continue IVF monitor Creatinine Abd pain with intractable vomiting PUD vs Esophageal stricture Patient has a history of esophageal stricture Continue PPI and Sucralfate NPO for now pending GI eval GI consulted HTN Hold Lisinopril, started on Amlodipine monitor and adjust with clinical course HLD continue Crestor DVT prophylaxis on Sq Lovenox Subjective Date/time seen: 12/26/24 09:55 Interval history: Patient noted she is still vomiting but noted improved abdominal pain GI eval pending Review of Systems Review of Systems: All other systems reviewed and negative except as noted in history above. Exam Narrative: General: alert and comfortable Eyes: EOMI, PERRLA ENNT External ears normal, Neck is supple, no masses, Respiratory systems: Clear to auscultation Cardiovascular S1, S2, normal rhythm, no murmur, rub, or gallop; no thrill or palpable murmurs on palpation. Gastrointestinal: soft, epigastric tenderness, and non-distended abdomen with no masses; BS present Skin: no rash, lesions, ulcerations, subcutaneous nodules or induration Musculoskeletal: no abnormality and no tenderness, normal ROM Neurologic: Alert and oriented x3, non focal Mental Status Exam: normal affect Objective Data Vital Signs Vital Signs: Vital Signs - 24 hr 12/25/24 14:30 12/25/24 22:00 12/26/24 05:19 Temperature 97.0 F L 97.7 F 98.9 F Pulse Rate 69 88 80 Respiratory Rate 18 16 12 Blood Pressure 174/70 H 172/79 H 161/77 H Pulse Oximetry 100 100 95 Intake/Output Intake/Output: Intake & Output 12/23/24 12/24/24 12/25/24 12/26/24 23:59 23:59 23:59 23:59 Intake Total 1000 1914.6 350 Output Total 110 Balance 890 1914.6 350 Meds/Results Medications: Active Medications Generic Name Dose Route Start Last Admin Trade Name Freq PRN Reason Stop Dose Admin Acetaminophen 650 mg 12/26/24 08:24 12/26/24 08:34 Acetaminophen 325 Mg Tablet PO 650 mg Q4H PRN Administration Pain Rated 1-3 Alprazolam 0.5 mg 12/25/24 13:23 12/25/24 20:25 Alprazolam (*Crx) 0.5 Mg Tablet PO 0.5 mg QHS PRN Administration Anxiety Amlodipine Besylate 5 mg 12/25/24 13:35 12/26/24 08:37 Amlodipine Besylate 5 Mg Tablet PO 5 mg DAILY EMILIANO Administration Enoxaparin Sodium 30 mg 12/26/24 09:00 Enoxaparin 30 Mg/0.3 Ml Syringe SUB-Q DAILY EMILIANO Sodium Chloride 1,000 mls @ 100 mls/hr 12/25/24 13:25 12/26/24 08:41 Normal Saline Iv IV CONT 0 mls/hr .Q10H EMILIANO Infusion Olanzapine 2.5 mg 12/25/24 21:00 12/25/24 20:24 Olanzapine 2.5 Mg Tablet PO 2.5 mg QHS EMILIANO Administration Ondansetron HCl 4 mg 12/24/24 17:39 12/25/24 17:41 Ondansetron Inj 4 Mg/2 Ml Vial IV PUSH 4 mg Q4H PRN Administration Nausea Pantoprazole Sodium 40 mg 12/26/24 09:20 Pantoprazole 40 Mg Tablet PO Q12HR EMILIANO Ropinirole HCl 0.5 mg 12/25/24 21:00 12/25/24 18:34 Ropinirole Hcl 0.5 Mg Tablet PO 0.5 mg QHS EMILIANO Administration Sucralfate 1 gm 12/25/24 16:30 12/26/24 06:11 Sucralfate 1 Gm Tablet PO 1 gm ACHS EMILIANO Administration Radiology Results: ITS Impressions Abdomen/Pelvis CT 12/25/24 11:03 Impression: No significant abnormality seen. Labs Labs: Laboratory Results - last 24 hr 12/25/24 12/26/24 16:20 05:36 WBC 8.4 RBC 3.72 L Hgb 10.8 L Hct 32.9 L MCV 88.4 MCH 29.0 MCHC 32.8 RDW 14.7 H Plt Count 181 MPV 10.9 H Immature Gran % (Auto) 0.4 Neut % (Auto) 64.4 Lymph % (Auto) 22.0 [place] % (Auto) 9.7 H Eos % (Auto) 3.0 Baso % (Auto) 0.5 Lymph # (Auto) 1.84 [place] # (Auto) 0.8 H Eos # (Auto) 0.3 Baso # (Auto) 0.0 Abs Immat Gran (auto) 0.03 Absolute Neuts (auto) 5.4 Absolute Nucleated RBC 0.000 Nucleated RBC % 0.0 Sodium 142 Potassium 3.8 Chloride 109 H Carbon Dioxide 22 Anion Gap 11 BUN 14 Creatinine 3.14 H Estim Creat Clear Calc 14 Estimated GFR 15 L Glucose 85 Calcium 9.0 Magnesium 1.9 Total Bilirubin 0.5 AST 24 ALT 11 Alkaline Phosphatase 138 H Total Protein 6.0 L Albumin 3.3 L Lipase 20 L
[2024-12-26] MEDS: PANTOPRAZOLE 40 MG TABLET PO ×2 (10:37→20:36)
[2024-12-26] MEDS: SODIUM CHLORIDE 0.9% IV 1,000 ML 100 ML IV CONT (13:17)
[2024-12-26] MEDS: busPIRone HCL 5 MG TABLET PO (13:17)
[2024-12-26 14:00] VITALS: BP 156/71; PULSE 80; RESP 12; TEMP 36.2; O2SAT 98
--- NOTE | 2024-12-26 14:26 | WPDGICN ---
Assessment and Plan Assessment and plan (1) Dysphagia: Qualifiers: Dysphagia type: esophageal phase Qualified Code(s): R13.19 - Other dysphagia Code(s): R13.10 - Dysphagia, unspecified Status: Acute Assessment and Plan: unable to eat much of anything for almost 2 weeks, this has caused weight loss, zeina and dehydration we need to assess with EGD to see if stricture, ulcer, etc will try to accommodate tomorrow if anesthesia is available fluids and medical treatment for now npo after midnight (2) Epigastric pain: Code(s): R10.13 - Epigastric pain Status: Acute (3) Nausea and vomiting: Qualifiers: Vomiting type: unspecified Qualified Code(s): R11.2 - Nausea with vomiting, unspecified Code(s): R11.2 - Nausea with vomiting, unspecified Status: Acute (4) Chronic diarrhea: Code(s): K52.9 - Noninfective gastroenteritis and colitis, unspecified Status: Acute Assessment and Plan: recent abx treatment ? colitis last colonoscopy 2019 (5) Acute kidney injury superimposed on CKD: Code(s): N17.9 - Acute kidney failure, unspecified; N18.9 - Chronic kidney disease, unspecified Status: Acute (6) History of esophageal stricture: Code(s): Z87.19 - Personal history of other diseases of the digestive system Status: Acute (7) Dehydration: Code(s): E86.0 - Dehydration Status: Acute (8) Weight loss: Code(s): R63.4 - Abnormal weight loss Status: Acute GI Consult Note Consult date/time: 12/26/24 14:26 Reason for consult: unable to eat, dehydration HPI: Lucy Peña is a 74 year old female with past medical surgical history of GERD, esophageal strictures s/p esophageal dilation last time about 1 year ago with [address] Ruelas (bx showed chronic esophagitis), chronic diarrhea. Recent visit to office with almost 2 weeks of unable to eath much of anything, also had ER visit where CT scan showed possible colitis and treated with abx. Her main problem is that she has not been able to keep almost anything down, she is having discomfort epigastric area and feeling like not even liquids going down. She came to ER and noted to be dehydrated with ZEINA, creatinine 3.7. Finally she was admitted to hospital but still can hold food down. She lost about 10 lb weight. Last colonoscopy 2019. Family member at bedside and asking if we could do EGD tong. Review of Systems Constitutional: Constitutional: Reports lethargy and Reports weight loss Eyes: Eyes: Denies blurry vision ENT: Reports Normal hearing present Cardiovascular: Cardiovascular: Denies chest pain Respiratory: Respiratory: Denies cough Gastrointestinal: Gastrointestinal: Reports abdominal pain, Reports nausea and Reports vomiting Genitourinary: Genitourinary: Denies dysuria Musculoskeletal: Musculoskeletal: Denies neck pain Integumentary/Breasts: Skin/Breast: Denies rash Neurologic: Denies Abnormal speech present Psychiatric: Psychiatric: Denies behavioral changes [facility] Past Medical History Medical History (Updated 12/26/24 @ 14:31 by Richmond Miranda MD) Weight loss Dehydration History of esophageal stricture Skin lesion Other spondylosis, lumbosacral region Confusion Contusion of left hip Acute thigh pain Muscle spasm Muscle pain Hip pain Bilateral foot pain Back pain Diverticulitis Gastroparesis Chest pain Weakness generalized Lumbar back pain with radiculopathy affecting right lower extremity Slurred speech Memory loss Vertigo Elevated white blood cell count Elevated liver enzymes CKD (chronic kidney disease) stage 3, GFR 30-59 ml/min Epigastric pain Encounter for Medicare annual wellness exam IBS (irritable bowel syndrome) GERD (gastroesophageal reflux disease) Screening for malignant neoplasm of skin Duodenal diverticulum Functional abdominal pain syndrome RLS (restless legs syndrome) Hyperlipidemia Cholecystectomy planned History of depression Hx of migraines Depression Anxiety Surgical History Surgical History History of total right hip arthroplasty (~12/01/24) w/Abductor Muscle Repair Hx of colonoscopy History of cholecystectomy Family History Family History Father Leukemia Anemia Hypertension Mother Heart disease Leukemia Sibling Heart disease Social History Social History Smoking status: Never smoker Second hand tobacco smoke exposure: No Alcohol intake: never Substance use: never Substance use type: does not use Do You Feel Safe in your Home?: Yes Lack of Transportation: No Lack of Food: Never True Current Housing: I Have Housing Concerned About Future Housing: No Difficulty Paying Gas/Electric Bills: No Difficulty Paying for Meds: No Currently Unemployed: No Education: High School Diploma/GED Difficulty w/ Childcare or Family Care: No Living arrangements: with family Occupation/Education: retired 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 Gender identity (if verbalized by the patient): Female Spiritual care concerns: No Meds Home Medications and Allergies Home Medications ?Medication ?Instructions ?Recorded ?Confirmed ?Type loperamide 2 mg tablet (Imodium 2 mg PO QID PRN Diarrhea 02/21/23 12/24/24 History A-D) rosuvastatin 20 mg tablet (Crestor) 20 mg PO DAILY #90 tabs 07/28/24 12/24/24 Rx olanzapine 2.5 mg tablet 2.5 mg PO QHS 08/20/24 12/24/24 History lisinopril 5 mg tablet See Rx Instructions .Route 10/22/24 12/24/24 Rx .COMPLEX #90 tabs ibuprofen 400 mg tablet (IBU) 400 mg PO PRN PAIN 11/09/24 12/24/24 History ropinirole 0.5 mg tablet 0.5 mg PO QHS #90 tabs 11/12/24 12/24/24 Rx ondansetron 4 mg disintegrating 4 mg PO Q6H PRN nausea and 12/19/24 12/24/24 Rx tablet vomiting #30 tabs alprazolam 0.5 mg tablet (Xanax) 0.5 mg PO QHS PRN Anxiety #30 tabs 12/23/24 12/24/24 Rx pantoprazole 40 mg tablet,delayed 40 mg PO BID 1 month #60 tabs 12/24/24 12/24/24 Rx release sucralfate 1 gram tablet (Carafate) 1 g PO QID 1 month #120 tabs 12/24/24 12/24/24 Rx Allergies Allergy/AdvReac Type Severity Reaction Status Date / Time Sulfa (Sulfonamide Allergy Intermediate Swelling Verified 12/24/24 13:17 Antibiotics) metronidazole (From Flagyl) AdvReac Intermediate Vomiting Verified 12/24/24 13:17 nitrofurantoin (From AdvReac Intermediate Vomiting Verified 12/24/24 13:17 Macrobid) amoxicillin (From Augmentin) AdvReac Mild Vomiting Verified 12/24/24 13:17 clavulanic acid (From AdvReac Mild Vomiting Verified 12/24/24 13:17 Augmentin) Vital Signs Vital Signs - 24 hr 12/25/24 14:30 12/25/24 22:00 12/26/24 05:19 Temperature 97.0 F L 97.7 F 98.9 F Pulse Rate 69 88 80 Respiratory Rate 18 16 12 Blood Pressure 174/70 H 172/79 H 161/77 H Pulse Oximetry 100 100 95 12/26/24 14:00 Temperature 97.1 F L Pulse Rate 80 Respiratory Rate 12 Blood Pressure 156/71 H Pulse Oximetry 98 Exam Const: General: comfortable and no acute distress HENMT: Face/Nose/Sinus: Normal nares present Eyes: General: appearance normal, both eyes and all related structures Neck: Neck: supple Resp: Auscultation: clear to auscultation bilaterally Cardio: Rate: regular rate Rhythm: regular rhythm GI: Inspection: non-distended GI Palp: Yes Soft to palpation and No Guarding due to palpation present (GI) Auscultation: normal bowel sounds Skin: General skin exam: normal color Neuro: Speech: normal speech Extrem: General: normal to inspection Psych: Mental Status: mental status grossly normal Results Labs 12/26/24 05:36 12/26/24 05:36 Labs: Short CBC 12/26/24 Range/Units 05:36 WBC 8.4 (4.5-10.0) K/mm3 Hgb 10.8 L (12.0-15.0) g/dL Hct 32.9 L (37.0-47.0) % Plt Count 181 (150-375) k/mm3 BMP 12/26/24 05:36 Sodium 142 Potassium 3.8 Chloride 109 H Carbon Dioxide 22 BUN 14 Creatinine 3.14 H Glucose 85 Calcium 9.0 Liver Function 12/26/24 Range/Units 05:36 Total Bilirubin 0.5 (0.2-1.3) mg/dL AST 24 (14-36) U/L ALT 11 (6-35) U/L Alkaline Phosphatase 138 H (38-126) U/L Albumin 3.3 L (3.5-5.1) g/dL
[2024-12-26] MEDS: ONDANSETRON INJ 4 MG/2 ML VIAL IV PUSH (17:21)
[2024-12-26] MEDS: rOPINIRole HCL 0.5 MG TABLET PO (20:36)
[2024-12-26] MEDS: ALPRAZolam (*CRX) 0.5 MG TABLET PO (20:36)
[2024-12-26] MEDS: OLANZapine 2.5 MG TABLET PO (20:36)
[2024-12-26 21:24] VITALS: PULSE 85; RESP 20; O2SAT 95
[2024-12-26 21:41] VITALS: BP 181/77; PULSE 83; RESP 18; TEMP 36.6; O2SAT 99
[2024-12-27] MEDS: SODIUM CHLORIDE 0.9% IV 1,000 ML 100 ML IV CONT ×2 (02:41→13:15)
[2024-12-27 06:00] VITALS: BP 154/69; PULSE 83; RESP 18; TEMP 36.1; O2SAT 97
[2024-12-27] MEDS: ONDANSETRON INJ 4 MG/2 ML VIAL IV PUSH ×2 (09:03→22:18)
[2024-12-27] MEDS: SUCRALFATE 1 GM TABLET PO ×3 (11:09→21:16)
[2024-12-27] MEDS: HYOSCYAMINE SULFATE 0.125 MG TABLET PO (11:09)
--- NOTE | 2024-12-27 11:42 | PM.IMPN ---
Progress Note: A&P Assessment and Plan (1) Acute kidney injury superimposed on CKD: Code(s): N17.9 - Acute kidney failure, unspecified; N18.9 - Chronic kidney disease, unspecified Status: Acute Plan ZEINA on CKD Cr 3.79 --> 3.14, baseline is normal from dehydration as patient has been vomiting profusely Continue IVF monitor Creatinine Abd pain with intractable vomiting PUD vs Esophageal stricture Patient has a history of esophageal stricture Continue PPI and Sucralfate FOr EGD today GI following HTN Hold Lisinopril, started on Amlodipine monitor and adjust with clinical course HLD continue Crestor DVT prophylaxis on Sq Lovenox Subjective Date/time seen: 12/27/24 11:42 Interval history: Comfortable at bedside for EGD tomorrow Review of Systems Review of Systems: All other systems reviewed and negative except as noted in history above. Exam Narrative: General: alert and comfortable Eyes: EOMI, PERRLA ENNT External ears normal, Neck is supple, no masses, Respiratory systems: Clear to auscultation Cardiovascular S1, S2, normal rhythm, no murmur, rub, or gallop; no thrill or palpable murmurs on palpation. Gastrointestinal: soft, epigastric tenderness, and non-distended abdomen with no masses; BS present Skin: no rash, lesions, ulcerations, subcutaneous nodules or induration Musculoskeletal: no abnormality and no tenderness, normal ROM Neurologic: Alert and oriented x3, non focal Mental Status Exam: normal affect Objective Data Vital Signs Vital Signs: Vital Signs - 24 hr 12/26/24 14:00 12/26/24 21:24 12/26/24 21:41 Temperature 97.1 F L 97.8 F Pulse Rate 80 85 83 Respiratory Rate 12 20 18 Blood Pressure 156/71 H 181/77 H Pulse Oximetry 98 95 99 Oxygen Delivery Room Air Fraction of Inspired Oxygen 21 12/27/24 06:00 Temperature 97.0 F L Pulse Rate 83 Respiratory Rate 18 Blood Pressure 154/69 H Pulse Oximetry 97 Oxygen Delivery Fraction of Inspired Oxygen Intake/Output Intake/Output: Intake & Output 12/24/24 12/25/24 12/26/24 12/27/24 23:59 23:59 23:59 23:59 Intake Total 1000 1914.6 2818 820 Output Total 110 Balance 890 1914.6 2818 820 Meds/Results Medications: Active Medications Generic Name Dose Route Start Last Admin Trade Name Cliffordq PRN Reason Stop Dose Admin Acetaminophen 650 mg 12/26/24 08:24 12/26/24 08:34 Acetaminophen 325 Mg Tablet PO 650 mg Q4H PRN Administration Pain Rated 1-3 Alprazolam 0.5 mg 12/25/24 13:23 12/26/24 20:36 Alprazolam (*Crx) 0.5 Mg Tablet PO 0.5 mg QHS PRN Administration Anxiety Amlodipine Besylate 5 mg 12/25/24 13:35 12/27/24 09:34 Amlodipine Besylate 5 Mg Tablet PO Not Given DAILY EMILIANO Enoxaparin Sodium 30 mg 12/26/24 09:00 12/27/24 09:34 Enoxaparin 30 Mg/0.3 Ml Syringe SUB-Q Not Given DAILY EMILIANO Sodium Chloride 1,000 mls @ 100 mls/hr 12/25/24 13:25 12/27/24 02:41 Normal Saline Iv IV CONT 100 mls/hr .Q10H EMILIANO Administration Olanzapine 2.5 mg 12/25/24 21:00 12/26/24 20:36 Olanzapine 2.5 Mg Tablet PO 2.5 mg QHS EMILIANO Administration Ondansetron HCl 4 mg 12/24/24 17:39 12/27/24 09:03 Ondansetron Inj 4 Mg/2 Ml Vial IV PUSH 4 mg Q4H PRN Administration Nausea Pantoprazole Sodium 40 mg 12/26/24 09:20 12/27/24 09:34 Pantoprazole 40 Mg Tablet PO Not Given Q12HR EMILIANO Ropinirole HCl 0.5 mg 12/25/24 21:00 12/26/24 20:36 Ropinirole Hcl 0.5 Mg Tablet PO 0.5 mg QHS EMILIANO Administration Sucralfate 1 gm 12/25/24 16:30 12/27/24 11:09 Sucralfate 1 Gm Tablet PO 1 gm ACHS EMILIANO Administration Radiology Results: ITS Impressions Abdomen/Pelvis CT 12/25/24 11:03 Impression: No significant abnormality seen.
[2024-12-27 14:00] VITALS: BP 168/76; PULSE 84; RESP 20; TEMP 36.6; O2SAT 98
--- NOTE | 2024-12-27 14:24 | WPDGIPROGNO ---
Progress Note: A&P Assessment and Plan (1) Dysphagia: Qualifiers: Dysphagia type: esophageal phase Qualified Code(s): R13.19 - Other dysphagia Code(s): R13.10 - Dysphagia, unspecified Status: Acute Assessment and Plan: egd tomorrow probably stricture again more recommendations after scope (2) Epigastric pain: Code(s): R10.13 - Epigastric pain Status: Acute (3) History of esophageal stricture: Code(s): Z87.19 - Personal history of other diseases of the digestive system Status: Acute (4) Weight loss: Code(s): R63.4 - Abnormal weight loss Status: Acute (5) Chronic diarrhea: Code(s): K52.9 - Noninfective gastroenteritis and colitis, unspecified Status: Acute Subjective Date/time seen: 12/27/24 14:24 Interval history: still with difficulty swallowing, also lower abdominal cramping Review of Systems Review of Systems: All systems reviewed & are unremarkable except as noted in HPI and below Exam Const: General: comfortable and no acute distress HENMT: Face/Nose/Sinus: Normal nares present Eyes: General: appearance normal, both eyes and all related structures Neck: Neck: supple Resp: Auscultation: clear to auscultation bilaterally Cardio: Rate: regular rate Rhythm: regular rhythm GI: Inspection: non-distended GI Palp: Yes Soft to palpation and No Guarding due to palpation present (GI) Auscultation: normal bowel sounds Skin: General skin exam: normal color Neuro: Speech: normal speech Extrem: General: normal to inspection Psych: Mental Status: mental status grossly normal Objective Data Vital Signs Vital Signs: Vital Signs - 24 hr 12/26/24 21:24 12/26/24 21:41 12/27/24 06:00 Temperature 97.8 F 97.0 F L Pulse Rate 85 83 83 Respiratory Rate 20 18 18 Blood Pressure 181/77 H 154/69 H Pulse Oximetry 95 99 97 Oxygen Delivery Room Air Fraction of Inspired Oxygen 12/27/24 14:00 Temperature 97.8 F Pulse Rate 84 Respiratory Rate 20 Blood Pressure 168/76 H Pulse Oximetry 98 Oxygen Delivery Fraction of Inspired Oxygen Intake/Output Intake/Output: Intake & Output 12/24/24 12/25/24 12/26/24 12/27/24 23:59 23:59 23:59 23:59 Intake Total 1000 1914.6 2818 820 Output Total 110 Balance 890 1914.6 2818 820 Meds/Results Medications: Active Medications Generic Name Dose Route Start Last Admin Trade Name Freq PRN Reason Stop Dose Admin Acetaminophen 650 mg 12/26/24 08:24 12/26/24 08:34 Acetaminophen 325 Mg Tablet PO 650 mg Q4H PRN Administration Pain Rated 1-3 Alprazolam 0.5 mg 12/25/24 13:23 12/26/24 20:36 Alprazolam (*Crx) 0.5 Mg Tablet PO 0.5 mg QHS PRN Administration Anxiety Amlodipine Besylate 5 mg 12/25/24 13:35 12/27/24 09:34 Amlodipine Besylate 5 Mg Tablet PO Not Given DAILY EMILIANO Enoxaparin Sodium 30 mg 12/26/24 09:00 12/27/24 09:34 Enoxaparin 30 Mg/0.3 Ml Syringe SUB-Q Not Given DAILY EMILIANO Sodium Chloride 1,000 mls @ 100 mls/hr 12/25/24 13:25 12/27/24 02:41 Normal Saline Iv IV CONT 100 mls/hr .Q10H EMILIANO Administration Olanzapine 2.5 mg 12/25/24 21:00 12/26/24 20:36 Olanzapine 2.5 Mg Tablet PO 2.5 mg QHS EMILIANO Administration Ondansetron HCl 4 mg 12/24/24 17:39 12/27/24 09:03 Ondansetron Inj 4 Mg/2 Ml Vial IV PUSH 4 mg Q4H PRN Administration Nausea Pantoprazole Sodium 40 mg 12/26/24 09:20 12/27/24 09:34 Pantoprazole 40 Mg Tablet PO Not Given Q12HR EMILIANO Ropinirole HCl 0.5 mg 12/25/24 21:00 12/26/24 20:36 Ropinirole Hcl 0.5 Mg Tablet PO 0.5 mg QHS EMILIANO Administration Sucralfate 1 gm 12/25/24 16:30 12/27/24 11:09 Sucralfate 1 Gm Tablet PO 1 gm ACHS EMILIANO Administration Radiology Results: ITS Impressions Abdomen/Pelvis CT 12/25/24 11:03 Impression: No significant abnormality seen.
[2024-12-27 21:16] VITALS: BP 163/72; PULSE 87; RESP 16; TEMP 37.4; O2SAT 95
[2024-12-27] MEDS: OLANZapine 2.5 MG TABLET PO (21:16)
[2024-12-27] MEDS: rOPINIRole HCL 0.5 MG TABLET PO (21:16)
[2024-12-27] MEDS: PANTOPRAZOLE 40 MG TABLET PO (21:16)
[2024-12-27] MEDS: ALPRAZolam (*CRX) 0.5 MG TABLET PO (21:16)
[2024-12-28] MEDS: SODIUM CHLORIDE 0.9% IV 1,000 ML 100 ML IV CONT (01:59)
[2024-12-28 05:37] VITALS: BP 157/78; PULSE 82; RESP 14; TEMP 37; O2SAT 97
[2024-12-28 06:16] LABS: Alanine Aminotransferase 9 U/L (6-35); Albumin Level 3.4 g/dL (3.5-5.1); Alkaline Phosphatase 115 U/L (38-126); Anion Gap 14 mmol/L (4-12); Aspartate Amino Transferase 23 U/L (14-36); Bilirubin,Total 0.5 mg/dL (0.2-1.3); Blood Urea Nitrogen 12 mg/dL (7-17); Calcium 8.5 mg/dL (8.4-10.2); Carbon Dioxide 21 mmol/L (22-30); Chloride 106 mmol/L (98-107); Estimated CRCL calculation 20 ml/min; Estimated Glomerular Filt Rate 21; Glucose 81 mg/dL (65-110); Magnesium 1.5 mg/dL (1.6-2.3); Potassium 3.5 mmol/L (3.4-5.0); Sodium 141 mmol/L (137-145)
[2024-12-28 06:19] LABS: Basophils Percent Auto 0.3 % (0.2-1.2); Eosinophils Absolute Auto 0.7 K/mm3 (0-0.3); Eosinophils Percent Auto 8.5 % (0-4.4); Hematocrit 34.4 % (37.0-47.0); Hemoglobin 11.1 g/dL (12.0-15.0); Immature Granulocyte Absolute 0.03 K/mm3 (0.00-0.031); Immature Granulocyte Percent A 0.3 % (0-0.5); Lymphocytes Absolute Auto 1.62 K/mm3 (0.9-3.2); Lymphocytes Percent Auto 18.5 % (18.3-44.2); Mean Corpuscular HGB Conc 32.3 g/dl (32-36); Mean Corpuscular Hemoglobin 28.5 pg (26-34); Mean Corpuscular Volume 88.2 fl (80-100); Mean Platelet Volume 10.1 fl (7.4-10.4); Monocytes Absolute Auto 0.7 K/mm3 (0.1-0.6); Monocytes Percent Auto 8.5 % (2.6-8.5); Neutrophils Absolute Auto 5.6 K/mm3 (1.3-6.7); Neutrophils Percent Auto 63.9 % (45.5-73.1); Platelet Count Result 183 k/mm3 (150-375); Red Cell Distribution Width 14.6 % (11.5-14.5); White Blood Count 8.7 K/mm3 (4.5-10.0)
--- NOTE | 2024-12-28 07:04 | P.CDI_ITS ---
CDI Query Clarification Request BMI: 23.0 Nutritional Diagnostic Statement: Please refer to the comprehensive nutrition assessment for further information. If you agree with diagnosis of Severe protein calorie malnutrition related to acute colitis, nausea, vomiting as evidenced by weight loss -6%/2 weeks; intakes <50% needs >1 week; moderate muscle wasting. Please specify severity if known: * Mild * Moderate * Severe * Other/Unknown <Carola Michel RN - Last Filed: 12/28/24 07:05> Clarified Diagnosis Clarified Diagnosis: * Severe <Chucky Benoit MD - Last Filed: 12/28/24 07:52>
[2024-12-28] MEDS: amLODIPine BESYLATE 5 MG TABLET PO (08:42)
[2024-12-28] MEDS: PANTOPRAZOLE 40 MG TABLET PO (08:42)
[2024-12-28 09:30] VITALS: BP 191/90; PULSE 81; RESP 16; TEMP 36.1; O2SAT 100
[2024-12-28] MEDS: LACTATED RINGERS 1,000 ML 150 ML IV CONT (09:46)
--- NOTE | 2024-12-28 10:06 | P.PNAN_ITS ---
Anes - Initial Pre Proc Eval Procedure: Operation Date: 12/28/24 16:00 Proposed Procedures p Esophagogastroduodenoscopy - Richmond Miranda MD Date/Time: 12/28/24 10:06 Surgeon: Chucky Benoit MD Pre Op Diagnosis: Acute kidney injury, n/v Patient Data Age: 74 Gender: F Height: 1.7 m Weight: 66.6 kg Last Vital Signs Temp 36.1 C L 12/28/24 09:30 Pulse 81 12/28/24 09:30 Resp 16 12/28/24 09:30 BP 191/90 H 12/28/24 09:30 Pulse Ox 100 12/28/24 09:30 O2 Del Method Room Air 12/28/24 09:30 FiO2 21 12/26/24 21:24 Allergies Allergy/AdvReac Type Severity Reaction Status Date / Time Sulfa (Sulfonamide Allergy Intermediate Swelling Verified 12/28/24 09:38 Antibiotics) metronidazole (From Flagyl) AdvReac Intermediate Vomiting Verified 12/28/24 09:38 nitrofurantoin (From AdvReac Intermediate Vomiting Verified 12/28/24 09:38 Macrobid) amoxicillin (From Augmentin) AdvReac Mild Vomiting Verified 12/28/24 09:38 clavulanic acid (From AdvReac Mild Vomiting Verified 12/28/24 09:38 Augmentin) Home Medications ?Medication ?Instructions ?Recorded ?Confirmed ?Type loperamide 2 mg tablet (Imodium 2 mg PO QID PRN Diarrhea 02/21/23 12/24/24 History A-D) rosuvastatin 20 mg tablet (Crestor) 20 mg PO DAILY #90 tabs 07/28/24 12/24/24 Rx olanzapine 2.5 mg tablet 2.5 mg PO QHS 08/20/24 12/24/24 History lisinopril 5 mg tablet See Rx Instructions .Route 10/22/24 12/24/24 Rx .COMPLEX #90 tabs ibuprofen 400 mg tablet (IBU) 400 mg PO PRN PAIN 11/09/24 12/24/24 History ropinirole 0.5 mg tablet 0.5 mg PO QHS #90 tabs 11/12/24 12/24/24 Rx ondansetron 4 mg disintegrating 4 mg PO Q6H PRN nausea and 12/19/24 12/24/24 Rx tablet vomiting #30 tabs alprazolam 0.5 mg tablet (Xanax) 0.5 mg PO QHS PRN Anxiety #30 tabs 12/23/24 12/24/24 Rx pantoprazole 40 mg tablet,delayed 40 mg PO BID 1 month #60 tabs 12/24/24 12/24/24 Rx release sucralfate 1 gram tablet (Carafate) 1 g PO QID 1 month #120 tabs 12/24/24 12/24/24 Rx Laboratory Tests 12/28/24 05:32 WBC 8.7 K/mm3 (4.5-10.0) RBC 3.90 L M/mm3 (4.2-5.4) Hgb 11.1 L g/dL (12.0-15.0) Hct 34.4 L % (37.0-47.0) MCV 88.2 fl (80-100) MCH 28.5 pg (26-34) MCHC 32.3 g/dl (32-36) RDW 14.6 H % (11.5-14.5) Plt Count 183 k/mm3 (150-375) MPV 10.1 fl (7.4-10.4) Immature Gran % (Auto) 0.3 % (0-0.5) Neut % (Auto) 63.9 % (45.5-73.1) Lymph % (Auto) 18.5 % (18.3-44.2) [place] % (Auto) 8.5 % (2.6-8.5) Eos % (Auto) 8.5 H % (0-4.4) Baso % (Auto) 0.3 % (0.2-1.2) Lymph # (Auto) 1.62 K/mm3 (0.9-3.2) [place] # (Auto) 0.7 H K/mm3 (0.1-0.6) Eos # (Auto) 0.7 H K/mm3 (0-0.3) Baso # (Auto) 0.0 K/mm3 (0.0-0.1) Abs Immat Gran (auto) 0.03 K/mm3 (0.00-0.031) Absolute Neuts (auto) 5.6 K/mm3 (1.3-6.7) Absolute Nucleated RBC 0.000 K/mm3 (0.0-0.012) Nucleated RBC % 0.0 % (0.0-0.2) Sodium 141 mmol/L (137-145) Potassium 3.5 mmol/L (3.4-5.0) Chloride 106 mmol/L (98-107) Carbon Dioxide 21 L mmol/L (22-30) Anion Gap 14 H mmol/L (4-12) BUN 12 mg/dL (7-17) Creatinine 2.26 H mg/dL (0.7-1.0) Estim Creat Clear Calc 20 ml/min Estimated GFR 21 L (59 - ) Glucose 81 mg/dL (65-110) Calcium 8.5 mg/dL (8.4-10.2) Magnesium 1.5 L mg/dL (1.6-2.3) Total Bilirubin 0.5 mg/dL (0.2-1.3) AST 23 U/L (14-36) ALT 9 U/L (6-35) Alkaline Phosphatase 115 U/L (38-126) Total Protein 6.0 L g/dL (6.3-8.2) Albumin 3.4 L g/dL (3.5-5.1) Patient hx anesthesia problems: none Family hx anesthesia problems: none Results Review: All pre-operative results and documents have been reviewed as part of the pre- operative evaluation. [facility] Past Medical History Medical History Weight loss Dehydration History of esophageal stricture Skin lesion Other spondylosis, lumbosacral region Confusion Contusion of left hip Acute thigh pain Muscle spasm Muscle pain Hip pain Bilateral foot pain Back pain Diverticulitis Gastroparesis Chest pain Weakness generalized Lumbar back pain with radiculopathy affecting right lower extremity Slurred speech Memory loss Vertigo Elevated white blood cell count Elevated liver enzymes CKD (chronic kidney disease) stage 3, GFR 30-59 ml/min Epigastric pain Encounter for Medicare annual wellness exam IBS (irritable bowel syndrome) GERD (gastroesophageal reflux disease) Screening for malignant neoplasm of skin Duodenal diverticulum Functional abdominal pain syndrome RLS (restless legs syndrome) Hyperlipidemia Cholecystectomy planned History of depression Hx of migraines Depression Anxiety Surgical History Surgical History History of total right hip arthroplasty (~12/01/24) w/Abductor Muscle Repair Hx of colonoscopy History of cholecystectomy Family History Family History Father Leukemia Anemia Hypertension Mother Heart disease Leukemia Sibling Heart disease Social History Social History Smoking status: Never smoker Second hand tobacco smoke exposure: No Alcohol intake: never Substance use: never Substance use type: does not use Do You Feel Safe in your Home?: Yes Lack of Transportation: No Lack of Food: Never True Current Housing: I Have Housing Concerned About Future Housing: No Difficulty Paying Gas/Electric Bills: No Difficulty Paying for Meds: No Currently Unemployed: No Education: High School Diploma/GED Difficulty w/ Childcare or Family Care: No Living arrangements: with family Occupation/Education: 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 Informed Consent: The patient's anesthetic plan and its attendant risks and benefits were discussed with the patient/family/POA. Questions were solicited and answers provided to the satisfaction of the patient/family/POA.
[2024-12-28 10:50] VITALS: BP 127/59; PULSE 77; RESP 25; O2SAT 100
--- NOTE | 2024-12-28 10:56 | PCNFU ---
Nutrition Follow-Up Complete: Severe protein calorie malnutrition related to acute colitis, nausea, vomiting as evidenced by weight loss -6%/2 weeks; intakes <50% needs >1 week; moderate muscle wasting Goal:Diet advancement as medically able Improve PO intake when diet is advanced Pt not meeting goals at this time Pt current nutrition is NPO for EGD today. Nutrition recommendation: resume diet post procedure Last recorded weight is 66.6 kg. Bowel Motility: +BM 12/26 Labs Reviewed: Hgb:11.1, HCT:34.4, Alb:3.4, GFR:21, Cr:2.26 Meds Noted: protonix, lovenox Skin: WNL Additional Notes: Pt was on clear liquids, NPO today for EGD. Recommend to resume diet post procedure, advance diet as medically possible. Monitoring diet orders, intakes, weights, labs, plan of care FOllow up in 1 day
[2024-12-28 11:00] VITALS: BP 144/70; PULSE 75; RESP 22; O2SAT 100
[2024-12-28 11:10] VITALS: BP 162/73; PULSE 77; RESP 15; O2SAT 99
[2024-12-28] MEDS: SUCRALFATE 1 GM TABLET PO (12:22)
--- NOTE | 2024-12-28 13:27 | PM.DS ---
DS: Admitting Diagnosis Discharge Date 12/28/2024 Admitting Diagnosis Abdominal pain DS: Discharge Diagnosis Discharge Diagnosis (1) Acute kidney injury superimposed on CKD: Code(s): N17.9 - Acute kidney failure, unspecified; N18.9 - Chronic kidney disease, unspecified Status: Acute DS: Summary Hospital Course Hospital Course: 74-year-old female past medical history of hypertension hyperlipidemia presented to the ER uncomfortable pain. Patient was managed for colitis and discharged from this hospital about 6 days ago however she reported she has been having constant vomiting possibly some, noted about 10 episodes in last 3 days has not able to eat keep anything down 2 per. Noted abdominal pain and described as sharp upper region radiation. Denies any chest pain or shortness of breath no diarrhea no dysuria no focal symptoms or lightheadedness or loss of consciousness. ER evaluation notable vital signs blood pressure 154/65, lateral WBC 10.2, creatinine 3.79, CT abdomen no acute changes. Patient was admitted for further evaluation and care. Patient was made NPO and started on IVF adn Protonix and Sucralfate. GI was consulted. Patient underwent EGD today which showed esophageal ring, hiatal hernia, Gastritis and diverticulosis. Patient underwent balloon dilation of the esophagus. Cr has improved markedly from 3.79 to 2.26, since oral intake has been established renal function will contineu to improve and she will follow up with PCP. F/u with PCP in 3-5 days, f/u [facility] as instructed Time Spent with Patient Time attestation: Total time spent providing and/or coordinating discharge services: DS: Data Data Completed and Pending Pending studies at discharge: Pending at discharge 12/28/24 10:45 Surgical [PTH] Routine Labs on day of discharge: Labs from last 24 hours 12/28/24 05:32 WBC 8.7 RBC 3.90 L Hgb 11.1 L Hct 34.4 L MCV 88.2 MCH 28.5 MCHC 32.3 RDW 14.6 H Plt Count 183 MPV 10.1 Immature Gran % (Auto) 0.3 Neut % (Auto) 63.9 Lymph % (Auto) 18.5 [place] % (Auto) 8.5 Eos % (Auto) 8.5 H Baso % (Auto) 0.3 Lymph # (Auto) 1.62 [place] # (Auto) 0.7 H Eos # (Auto) 0.7 H Baso # (Auto) 0.0 Abs Immat Gran (auto) 0.03 Absolute Neuts (auto) 5.6 Absolute Nucleated RBC 0.000 Nucleated RBC % 0.0 Sodium 141 Potassium 3.5 Chloride 106 Carbon Dioxide 21 L Anion Gap 14 H BUN 12 Creatinine 2.26 H Estim Creat Clear Calc 20 Estimated GFR 21 L Glucose 81 Calcium 8.5 Magnesium 1.5 L Total Bilirubin 0.5 AST 23 ALT 9 Alkaline Phosphatase 115 Total Protein 6.0 L Albumin 3.4 L Discharge Plan Discharge Attending physician on discharge: Chucky Benoit Consulting providers: Richmond Miranda Discharging Clinician: Chucky Benoit Anticipated Discharge Date/Time: 12/28/24 13:10 Patient Disposition: Home Activity: as tolerated Diet: as tolerated Patient Instructions: Antibiotic Form Patient Language: Slovak Stand Alone Forms: General Discharge Information Follow-up/Referrals: Richmond Miranda MD [Physician] - (F/u with GI as instructed ) Bc Barrett MD [Primary Care Provider] - (F/u with PCP in 3-5 days ) Discharge Medications: Continued alprazolam [Xanax] 0.5 mg tablet 0.5 mg PO QHS PRN (Reason: Anxiety) Qty: 30 0RF sucralfate [Carafate] 1 gram tablet 1 g PO QID 30 Days Qty: 120 0RF pantoprazole 40 mg tablet,delayed release (DR/EC) 40 mg PO BID 30 Days Qty: 60 1RF loperamide [Imodium A-D] 2 mg tablet 2 mg PO QID PRN (Reason: Diarrhea) olanzapine 2.5 mg tablet 2.5 mg PO QHS ondansetron 4 mg tablet,disintegrating 4 mg PO Q6H PRN (Reason: nausea and vomiting) Qty: 30 0RF rosuvastatin [Crestor] 20 mg tablet 20 mg PO DAILY Qty: 90 1RF lisinopril 5 mg tablet See Rx Instructions .ROUTE .COMPLEX Qty: 90 0RF Dose Instruction: TAKE 1 TABLET BY MOUTH EVERY DAY FOR HIGH BLOOD PRESSURE Rx Instructions: TAKE 1 TABLET BY MOUTH EVERY DAY FOR HIGH BLOOD PRESSURE ropinirole 0.5 mg tablet 0.5 mg PO QHS Qty: 90 2RF Discontinued ibuprofen [IBU] 400 mg tablet 400 mg PO PRN Date of admission: 12/25/24 12:04 Primary Care Provider: Bc Barrett Admitting Provider: Chucky Benoti Attending physician on admission: Chucky Benoit Condition: Stable
[2024-12-28 14:00] VITALS: BP 165/73; PULSE 80; RESP 18; TEMP 36.4; O2SAT 99
== END 2024-12-28 14:40 | disposition home or self-care (01) | DRG 391 ==
LOC: ANHED 16:17 → ANH3MEDSUR 20:42
PROVIDERS: Internal Medicine Gastroenterology; Admitting Provider Internal Medicine; Emergency Provider Emergency Medicine; PCP Family Medicine; Visit Provider Internal Medicine
PROC: 0DJ08ZZ Inspection of Upper Intestinal Tract, Via Natural or Artificial Opening Endoscopic (ICD-10-PCS; principal; 2024-12-28 16:00)
DX: K22.2 Esophageal obstruction (principal); E43 Unspecified severe protein-calorie malnutrition; N17.9 Acute kidney failure, unspecified; K29.70 Gastritis, unspecified, without bleeding; K52.9 Noninfective gastroenteritis and colitis, unspecified; K57.10 Diverticulosis of small intestine without perforation or abscess without bleeding; K44.9 Diaphragmatic hernia without obstruction or gangrene; N18.30 Chronic kidney disease, stage 3 unspecified; E78.00 Pure hypercholesterolemia, unspecified; E78.5 Hyperlipidemia, unspecified; K57.30 Diverticulosis of large intestine without perforation or abscess without bleeding; K21.9 Gastro-esophageal reflux disease without esophagitis; G25.81 Restless legs syndrome; M47.27 Other spondylosis with radiculopathy, lumbosacral region; F32.A Depression, unspecified; F41.9 Anxiety disorder, unspecified; Z96.641 Presence of right artificial hip joint; Z68.23 Body mass index [BMI] 23.0-23.9, adult
CPT/HCPCS: 36415; 74176; 80053; 81001; 83690; 83735; 85025; 87086; 87186; 88305; 88342; 96361; 96374; 96375; 96376; 99285; A9270; C1726; G0378; J0360; J2003; J2405; J2470; J2704; J7030; J7120

== ENCOUNTER 2025-01-11 12:51 | Outpatient (CLI) | payer MEDICARE, SELFPAY ==
--- OUTSIDE RECORDS SUMMARY | 2025-01-11 13:13 | XMS_ITS | Continuity of Care Document ---
Author Organization [facility] Address [address] [place] [address] Phone Care Team Providers Care Workforce Planning Analyst Name Role Phone Ruiz OD, Zeferino Unavailable Unavailable Advance Directives Directive Yes / No Effective Date File Name No Information Encounters Encounter Description Practice Location Reason(s) For Visit Diagnoses Date Provider Providers Copied on Encounter [facility], [address], [place], [place], [address], [place] tel:[phone] [facility] No Information 1-200 5 Ruiz OD Zeferino. [address] , [address], [place], [address], [place]. tel:[phone] Family History Family Member Type Diagnosis Age At Onset No Information Payers Payer name Insurance type Covered libertarian ID Authoriza tion(s) No Information Social History [...]
--- OUTSIDE RECORDS SUMMARY | 2025-01-11 13:13 | XMS_ITS | Patient Health Record ---
Author Organization [facility] [employer] Address [address] [place] [address] Care Team Providers Care Industrial Controller Name Role Phone Parth Kumar Unavailable [phone] Migration, Provider Unavailable Unavailable Allergies No Known [...] Active Immunizations Vaccine Route Administration Date Status Lucina menard Pfizer Biontech Covid-19 Vac cine 2nd dose Unknown 08/15/2021 Administered Moderna Covid-19 Vaccine 1st dose Unknown 12/06/2020 Ad ministered Moderna Covid-19 Vaccine 1st dose Unknown 01/03/2021 Ad ministered Influenza, unspecified formulation Unknown 07/15/2023 A dministered Social History Sex Assigned At : Social History Observation Description Sex Assigned At Female Problems Problem Type SNOMED Code ICD Code Onset Dates Problem Status W/U Status Risk Notes Problem Major depressive disorder, recurrent, moderate (F33.1) Active confirmed Problem Generalized anxiety disorder (05781591) Generalized anxiety disorder (F41.1) Active confirmed Vital Signs Heart Rate 106 /min 04/27/2024 Height-cm 170.18 cm 04/27/2024 Blood pressure diastolic 96 mm Hg 04/27/2024 Weight-kg 75.48 kg 04/27/2024 Height 67.00 in 04/27/2024 Blood pressure systolic 135 mm Hg 04/27/2024 Weight 166.4 lbs 04/27/2024 BMI 26.06 kg/m2 04/27/2024 Encounters Encounter Location Date Provider Diagnosis [facility] [employer] [address] [address] 04/27/2024 Thena Stacy Generalized anxiety disorder F41.1 ; Major depressive disorder, recurrent, moderate F33.1 and Obsessive-compulsive disorder, unspecified F42.9 [facility] [employer] [address] [address] 01/25/2024 Provider Migration [facility] [employer] [address] [address] 01/26/2024 Provider Migration [facility] [employer] [address] [address] 05/04/2024 Thena Stacy Assessments Encounter Date Diagnosis [...] Medicare Replacement/ Advantage - Hmo [address] [address] [place] [address] [id number] BRANDI VALERO Self - patient is the insured Medical (General) History Medical History History ICD Code Problems: Gastroesophageal reflux diseas e Generalized anxiety disorder Long-term drug therapy Mild memory disturbance Moderate recurrent major depression Severe recurrent major depression withou t psychotic features , Surgical History Surgery Date(Month/Year) Tonsilectomy/adenoids 09/09/1955 Removal of gallbladder (42918) 5
--- OUTSIDE RECORDS SUMMARY | 2025-01-11 13:13 | XMS_ITS | CONTINUITY OF CARE DOCUMENT ---
Author Name reinaldo najera Address Unknown Organization [facility] Address [address] [place] [address] [address] [place] [address] Phone [phone] Care Team Providers Care Tungsten Refiner Name Role Phone LISSETTE HAYNES MD Unavailable [phone] LISSETTE HAYNSE MD Unavailable [phone] INSURANCE PROVIDERS Payer name Policy type / Coverage type [place] red constitution party ID [facility] [id number]
[2025-01-11 13:55] LABS: Anion Gap 9 mmol/L (4-12); Blood Urea Nitrogen 10 mg/dL (7-17); Calcium 9.2 mg/dL (8.4-10.2); Carbon Dioxide 31 mmol/L (22-30); Chloride 103 mmol/L (98-107); Estimated Glomerular Filt Rate 54; Glucose 109 mg/dL (65-110); Potassium 2.8 mmol/L (3.4-5.0); Sodium 143 mmol/L (137-145)
== END 2025-01-11 12:52 | disposition home or self-care (01) ==
PROVIDERS: PCP Family Medicine; Visit Provider Nurse Practitioner Family
DX: N18.9 Chronic kidney disease, unspecified (principal)
CPT/HCPCS: 36415; 80048

== ENCOUNTER 2025-01-14 11:18 | Outpatient (CLI) | payer MEDICARE, SELFPAY ==
--- OUTSIDE RECORDS SUMMARY | 2025-01-14 11:21 | XMS_ITS | CONTINUITY OF CARE DOCUMENT ---
Author Name reinaldo najera Address Unknown Organization [facility] Address [address] [place] [address] [address] [place] [address] Phone [phone] Care Team Providers Care Airconditioning Plant Operator Name Role Phone LISSETTE HAYNES MD Unavailable [phone] LISSETTE HAYNES MD Unavailable [phone] INSURANCE PROVIDERS Payer name Policy type / Coverage type [place] red republican ID [facility] [id number]
--- OUTSIDE RECORDS SUMMARY | 2025-01-14 11:21 | XMS_ITS | Patient Health Record ---
Author Organization [facility] Address [address] [place] [address] Care Team Providers Care Hide Cleaner Name Role Phone Alexy VYAS, Oliver Primary Care Provider Last WEBER STRAIN TECHNICIAN, LISA Unavailable [phone] ALLERGIES Allergen (clinical drug ingredient) Drug/Non [...] [employer] Medicare Advantage HMO-POS [address] [address] [place], [place] [id number] Lucy Peña Self - patient is the insured MEDICAL (GENERAL) HISTORY Medical History History ICD Code anxiety hypercholesterolemia gastroesophageal reflux disease (GERD) gallstones diverticulosis migraine headaches Surgical History Surgery Date(Month/Year) cholecystectomy 1995
--- OUTSIDE RECORDS SUMMARY | 2025-01-14 11:21 | XMS_ITS | Continuity of Care Document ---
Author Organization [facility] Address [address] [place] [address] Phone Care Team Providers Care Rail Car Repairer Name Role Phone Ruiz OD, Zeferino Unavailable Unavailable Advance Directives Directive Yes / No Effective Date File Name No Information Encounters Encounter Description Practice Location Reason(s) For Visit Diagnoses Date Provider Providers Copied on Encounter [facility], [address], [place], [place], [address], [place] tel:[phone] [facility] No Information 1-200 5 Ruiz OD Zeferino. [address] , [address], [place], [address], [place]. tel:[phone] Family History Family Member Type Diagnosis Age [...]
--- OUTSIDE RECORDS SUMMARY | 2025-01-14 11:21 | XMS_ITS | Patient Health Record ---
Author Organization [facility] [employer] Address [address] [place] [address] Care Team Providers Care Public Policy Professor Name Role Phone Parth Kumar Unavailable [phone] Migration, Provider Unavailable Unavailable Allergies No Known [...] Risk Notes Problem Moderate recurrent major depression (12786157) Major depressive disorder, recurrent, moderate (F33.1) Active confirmed Problem Generalized anxiety disorder (49818479) Generalized anxiety disorder (F41.1) Active confirmed Vital Signs Heart Rate 106 /min 04/27/2024 Height-cm 170.18 cm 04/27/2024 Blood pressure diastolic 96 mm Hg 04/27/2024 Weight-kg 75.48 kg 04/27/2024 Height 67.00 in 04/27/2024 Blood pressure systolic 135 mm Hg 04/27/2024 Weight 166.4 lbs 04/27/2024 BMI 26.06 kg/m2 04/27/2024 Encounters Encounter Location Date Provider Diagnosis [facility] [employer] [address] [address] 04/27/2024 Thena Stacy Generalized anxiety disorder F41.1 ; Major depressive disorder, recurrent, moderate F33.1 and Obsessive-compulsive disorder, unspecified F42.9 [facility] [employer] [address] [address] 01/25/2024 Provider Migration [facility] [employer] [address] [address] 01/26/2024 Provider Migration [facility] [employer] [address] [address] 05/04/2024 Thena Stacy Assessments Encounter Date Diagnosis [...] Medicare Replacement/ Advantage - Hmo [address] [address] [place] [id number] BRANDI VALERO Self - patient is the insured Medical (General) History Medical History History ICD Code Problems: Gastroesophageal reflux diseas e Generalized anxiety disorder Long-term drug therapy Mild memory disturbance Moderate recurrent major depression Severe recurrent major depression withou t psychotic features , Surgical History Surgery Date(Month/Year) Tonsilectomy/adenoids 09/09/1955 Removal of gallbladder (95386) 5
[2025-01-14 12:04] LABS: Potassium 3.8 mmol/L (3.4-5.0)
== END 2025-01-14 11:19 | disposition home or self-care (01) ==
PROVIDERS: PCP Family Medicine; Visit Provider Nurse Practitioner Family
DX: E87.6 Hypokalemia (principal)
CPT/HCPCS: 36415; 84132

== ENCOUNTER 2025-01-24 22:04 | Emergency (ER) | payer MEDICARE, SELFPAY ==
--- NOTE | ~2025-01-24 | XR_ITS ---
XR hip RT min 2V Ordering provider: Claritza Becker MD History: . POST-REDUCTION . Comparison: None. FINDINGS: BONES: No acute fracture or dislocation. Status post reduction. HIP JOINT SPACES: Right hip arthroplasty. SACROILIAC JOINT SPACES/LUMBAR SPINE: The sacroiliac joint spaces are normal. Mild degenerative hensley es of the visualized lower lumbar spine. PUBIC SYMPHYSIS: Normal. SOFT TISSUES: Air is projected over the right inguinal area which may indicate inguinal hernia. IMPRESSION: No acute osseous abnormality pelvis and right hip. Status post reduction. Reviewed, dictated and finalized at location A.
--- NOTE | ~2025-01-24 | XR_ITS ---
XR hip RT 2V w AP pelvis Ordering provider: Claritza Becker MD History: . rct R hip surgery, felt pop . Comparison: None. FINDINGS: BONES: No acute fracture.. HIP JOINT SPACES: Superior dislocation of the right hip arthroplasty femoral head. SACROILIAC JOINT SPACES/LUMBAR SPINE: The sacroiliac joint spaces are normal. Mild degenerative hensley es of the visualized lower lumbar spine. PUBIC SYMPHYSIS: Normal. SOFT TISSUES: Normal. IMPRESSION: No acute osseous abnormality pelvis. Dislocated right hip arthroplasty. Reviewed, dictated and finalized at location A.
[2025-01-24 22:07] VITALS: BP 143/72; PULSE 77; RESP 16; TEMP 36.7; O2SAT 100
--- OUTSIDE RECORDS SUMMARY | 2025-01-24 22:23 | XMS_ITS | Continuity of Care Document ---
Author Organization [facility] Address [address] [place] [address] Phone Care Team Providers Care Sports Administrator Name Role Phone Ruiz OD, Zeferino Unavailable Unavailable Advance Directives Directive Yes / No Effective Date File Name No Information Encounters Encounter Description Practice Location Reason(s) For Visit Diagnoses Date Provider Providers Copied on Encounter [facility], [address], [place], [place], [id number], [place] tel:[phone] [facility] No Information 1-200 5 Ruiz OD Zeferino. [address] , [address], [place], [address], [place]. tel:[phone] Family History Family Member Type Diagnosis Age [...]
--- OUTSIDE RECORDS SUMMARY | 2025-01-24 22:23 | XMS_ITS | Patient Health Record ---
Author Organization [facility] As [facility] Address [address] [place] [address] Care Team Providers Care Real Estate Office Manager Name Role Phone Parth Kumar Unavailable [phone] Migration, Provider Unavailable Unavailable Allergies No Known [...] Risk Notes Problem Moderate recurrent major depression (01583496) Major depressive disorder, recurrent, moderate (F33.1) Active confirmed Problem Generalized anxiety disorder (90655642) Generalized anxiety disorder (F41.1) Active confirmed Vital Signs Heart Rate 106 /min 04/27/2024 Height-cm 170.18 cm 04/27/2024 Blood pressure diastolic 96 mm Hg 04/27/2024 Weight-kg 75.48 kg 04/27/2024 Height 67.00 in 04/27/2024 Blood pressure systolic 135 mm Hg 04/27/2024 Weight 166.4 lbs 04/27/2024 BMI 26.06 kg/m2 04/27/2024 Encounters Encounter Location Date Provider Diagnosis [facility] [address] [address] 04/27/2024 Thena Stacy Generalized anxiety disorder F41.1 ; Major depressive disorder, recurrent, moderate F33.1 and Obsessive-compulsive disorder, unspecified F42.9 [facility] [address] [address] 01/25/2024 Provider Migration [facility] [address] [address] 01/26/2024 Provider Migration [facility] [address] [address] 05/04/2024 Thena Stacy Assessments Encounter Date Diagnosis [...] Medicare Replacement/ Advantage - Hmo [address] [address] [place] [address] [id number] BRANDI VALERO Self - patient is the insured Medical (General) History Medical History History ICD Code Problems: Gastroesophageal reflux diseas e Generalized anxiety disorder Long-term drug therapy Mild memory disturbance Moderate recurrent major depression Severe recurrent major depression withou t psychotic features , Surgical History Surgery Date(Month/Year) Tonsilectomy/adenoids 09/09/1955 Removal of gallbladder (08052) 5
--- OUTSIDE RECORDS SUMMARY | 2025-01-24 22:23 | XMS_ITS | Patient Health Record ---
Author Organization [facility] Address [address] [place] [address] Care Team Providers Care Central Office Equipment Installer Name Role Phone Alexy VYAS, Oliver Primary Care Provider Last WEBER CONDITIONER TUMBLER OPERATOR, LISA Unavailable ALLERGIES Allergen (clinical drug ingredient) [...] [employer] Medicare Advantage HMO-POS [address] [address] [place], [place] [phone] [id number] Lucy Peña Self - patient is the insured MEDICAL (GENERAL) HISTORY Medical History History ICD Code anxiety hypercholesterolemia gastroesophageal reflux disease (GERD) gallstones diverticulosis migraine headaches Surgical History Surgery Date(Month/Year) cholecystectomy 1995
--- OUTSIDE RECORDS SUMMARY | 2025-01-24 22:23 | XMS_ITS | CONTINUITY OF CARE DOCUMENT ---
Author Name reinaldo najera Address Unknown Organization [facility] Address [address] [place] [address] [address] [place] [address] Phone [phone] Care Team Providers Care Donkey Doctor Name Role Phone LISSETTE HAYNES MD Unavailable LISSETTE HAYNES MD Unavailable [phone] INSURANCE PROVIDERS Payer name Policy type / Coverage type [place] red libertarian ID [facility] [id number]
[2025-01-24] MEDS: MORPHINE SULFATE (*CRX) 4 MG/ML INJ IV PUSH (22:49)
[2025-01-24 23:01] LABS: Basophils Percent Auto 0.3 % (0.2-1.2); Eosinophils Absolute Auto 0.1 K/mm3 (0-0.3); Eosinophils Percent Auto 1.4 % (0-4.4); Hematocrit 34.9 % (37.0-47.0); Hemoglobin 11.4 g/dL (12.0-15.0); Immature Granulocyte Absolute 0.03 K/mm3 (0.00-0.031); Immature Granulocyte Percent A 0.3 % (0-0.5); Lymphocytes Absolute Auto 2.66 K/mm3 (0.9-3.2); Lymphocytes Percent Auto 26.4 % (18.3-44.2); Mean Corpuscular HGB Conc 32.7 g/dl (32-36); Mean Corpuscular Hemoglobin 28.9 pg (26-34); Mean Corpuscular Volume 88.6 fl (80-100); Mean Platelet Volume 9.4 fl (7.4-10.4); Monocytes Absolute Auto 0.8 K/mm3 (0.1-0.6); Monocytes Percent Auto 7.5 % (2.6-8.5); Neutrophils Absolute Auto 6.5 K/mm3 (1.3-6.7); Neutrophils Percent Auto 64.1 % (45.5-73.1); Platelet Count Result 336 k/mm3 (150-375); Red Blood Count 3.94 M/mm3 (4.2-5.4); Red Cell Distribution Width 13.7 % (11.5-14.5); White Blood Count 10.1 K/mm3 (4.5-10.0)
[2025-01-24 23:13] LABS: Anion Gap 10 mmol/L (4-12); Blood Urea Nitrogen 10 mg/dL (7-17); Calcium 9.8 mg/dL (8.4-10.2); Carbon Dioxide 21 mmol/L (22-30); Chloride 109 mmol/L (98-107); Estimated CRCL calculation 35 ml/min; Estimated Glomerular Filt Rate 42; Glucose 134 mg/dL (65-110); Potassium 4.4 mmol/L (3.4-5.0); Sodium 140 mmol/L (137-145)
[2025-01-24 23:55] VITALS: BP 127/65; PULSE 84; RESP 18; O2SAT 100
[2025-01-25] VITALS (12 sets, daily range): BP systolic 119–149; BP diastolic 66–78; PULSE 76–95; RESP 15–20; TEMP 36.6–37.2; O2SAT 80–100
--- NOTE | 2025-01-25 00:40 | PC.NURSE ---
Pt was given Propofol 10 mg via IV by EDP @ 0006.
--- NOTE | 2025-01-25 00:52 | ED_ITS ---
HPI - Extremity Injury (Lower) General Chief Complaint: Extremity Injury, Lower Stated Complaint: hip pain Time Seen by Provider: 01/24/25 22:07 History of Present Illness HPI Narrative: Patient presenting with pain in right hip after she fell a pop, when she was stepping up to use the toilet. Just had hip surgery with prosthetic hip 1 month ago Related Data Home Medications Medication Instructions Recorded Confirmed Last Taken Type loperamide 2 mg tablet (Imodium 2 mg PO QID PRN Diarrhea 02/21/23 01/06/25 11/03/23 History A-D) olanzapine 2.5 mg tablet 2.5 mg PO QHS 08/20/24 01/06/25 12/16/24 History Allergies Allergy/AdvReac Type Severity Reaction Status Date / Time Sulfa (Sulfonamide Allergy Intermediate Swelling Verified 01/24/25 22:13 Antibiotics) metronidazole (From Flagyl) AdvReac Intermediate Vomiting Verified 01/24/25 22:13 nitrofurantoin (From AdvReac Intermediate Vomiting Verified 01/24/25 22:13 Macrobid) amoxicillin (From Augmentin) AdvReac Mild Vomiting Verified 01/24/25 22:13 clavulanic acid (From AdvReac Mild Vomiting Verified 01/24/25 22:13 Augmentin) Review of Systems 2 Review of Systems: All systems reviewed & are unremarkable except as noted in HPI and below PMFSH Past Medical History Medical History Colitis Mild protein-calorie malnutrition Chronic anxiety Weight loss Dehydration History of esophageal stricture Skin lesion Other spondylosis, lumbosacral region Confusion Contusion of left hip Acute thigh pain Muscle spasm Muscle pain Hip pain Bilateral foot pain Back pain Diverticulitis Gastroparesis Chest pain Weakness generalized Lumbar back pain with radiculopathy affecting right lower extremity Slurred speech Memory loss Vertigo Elevated white blood cell count Elevated liver enzymes CKD (chronic kidney disease) stage 3, GFR 30-59 ml/min Epigastric pain Encounter for Medicare annual wellness exam IBS (irritable bowel syndrome) GERD (gastroesophageal reflux disease) Screening for malignant neoplasm of skin Duodenal diverticulum Functional abdominal pain syndrome RLS (restless legs syndrome) Hyperlipidemia Cholecystectomy planned History of depression Hx of migraines Depression Anxiety Surgical History Surgical History History of total right hip arthroplasty (~12/01/24) w/Abductor Muscle Repair Hx of colonoscopy History of cholecystectomy Family History Family History Father Leukemia Anemia Hypertension Mother Heart disease Leukemia Sibling Heart disease Social History Social History Smoking status: Never smoker Second hand tobacco smoke exposure: No Alcohol intake: never Substance use: never Substance use type: does not use Do You Feel Safe in your Home?: Yes Lack of Transportation: No Lack of Food: Never True Current Housing: I Have Housing Concerned About Future Housing: No Difficulty Paying Gas/Electric Bills: No Difficulty Paying for Meds: No Currently Unemployed: No Education: High School Diploma/GED Difficulty w/ Childcare or Family Care: No Living arrangements: with family Occupation/Education: retired 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 EYES: EOMI, conjunctiva normal ENT: Hearing grossly intact LUNGS: Nonlabored breathing. HEART: [Regular rate and rhythm], DP pulses ABD: [Soft], [nontender to palpation] EXT: RLE foreshortened SKIN: [No rashes or lesions.] NEURO: [Alert and oriented x 3. No gross focal sensory or strength deficits.] PSYCH: Normal affect Course Vital Signs Vital signs: Vital Signs Temperature 98.1 F 01/24/25 22:07 Pulse Rate 77 01/24/25 22:07 Respiratory Rate 16 01/24/25 22:07 Blood Pressure 143/72 H 01/24/25 22:07 Pulse Oximetry 100 01/24/25 22:07 Oxygen Delivery Room Air 01/24/25 22:07 Temperature 98.3 F 01/25/25 00:34 Pulse Rate 82 01/25/25 00:35 Respiratory Rate 19 01/25/25 00:35 Blood Pressure 143/78 H 01/25/25 00:35 Pulse Oximetry 93 01/25/25 00:35 Oxygen Delivery Room Air 01/25/25 00:34 Oxygen Flow Rate 4 01/25/25 00:09 Procedures Orthopedic Joint Reduction Joint #1: Orthopedic Joint Reduction Date: 01/25/25 Orthopedic Joint Reduction Time: 00:10 Side: right Joint Reduction Location: hip Analgesia: procedural sedation Pre-Procedure Neuro Vascular Exam: normal Technique used: traction/counter-traction Post-reduction neuro exam: intact and no change Post-reduction vascular: intact and no change Post Reduction X-Ray Obtained: Yes Post Reduction X-Ray Results: reduced Additional Comments: Patient did become hypoxic after reduction but easily came up with applied O2 and BVM. Procedural Sedation Procedural Sedation #1: Procedural Sedation Date: 01/25/25 Procedure: hip reduction Provider Performed: sedation and procedure Informed Consent Obtained: yes Equipment in Room: bag and mask, capnography, director cardiac, crash cart, oxygen and pulse oximeter Plan for Sedation: moderate sedation ASA Class: II Mallampati Classification: class II Explanation to Patient/Family: Risk/Benefits/Alternatives and Pt/Family agreed with plan Pt. Educated on Procedural Sedation: Yes Re-evaluated immediately prior: Yes Preparation: director cardiac applied, pulse oximeter, capnometry used, supplemental O2 applied, suction/airway equipment at bedside and IV secured IV Propofol dose (mg): 100 Patient Tolerated Procedure: well Complications: hypoxia Interventions: oxygen applied and assist by BVM Total Sedation Time (min): 10 MDM - Extremity Injury (Lower) MDM Narrative Medical decision making narrative: Patient presents with hip pain, but on x-ray on my independent interpretation unfortunately does show dislocation of prosthetic hip. I did leave a message for her orthopedic surgeon, verbal consent obtained for reduction with procedural sedation. With assistance from TAMIKO Sultana, hip reduced easily under propofol sedation, repeat x-ray on my independent interpretation shows successful reduction, patient feeling much better, stable for discharge with strict precautions and instructions to avoid dislocation again. Lab Data 01/24/25 22:56 01/24/25 22:56 Labs: Lab Results 01/24/25 Range/Units 22:56 WBC 10.1 H (4.5-10.0) K/mm3 RBC 3.94 L (4.2-5.4) M/mm3 Hgb 11.4 L (12.0-15.0) g/dL Hct 34.9 L (37.0-47.0) % MCV 88.6 (80-100) fl MCH 28.9 (26-34) pg MCHC 32.7 (32-36) g/dl RDW 13.7 (11.5-14.5) % Plt Count 336 D (150-375) k/mm3 MPV 9.4 (7.4-10.4) fl Immature Gran % (Auto) 0.3 (0-0.5) % Neut % (Auto) 64.1 (45.5-73.1) % Lymph % (Auto) 26.4 (18.3-44.2) % George % (Auto) 7.5 (2.6-8.5) % Eos % (Auto) 1.4 (0-4.4) % Baso % (Auto) 0.3 (0.2-1.2) % Lymph # (Auto) 2.66 (0.9-3.2) K/mm3 George # (Auto) 0.8 H (0.1-0.6) K/mm3 Eos # (Auto) 0.1 (0-0.3) K/mm3 Baso # (Auto) 0.0 (0.0-0.1) K/mm3 Abs Immat Gran (auto) 0.03 (0.00-0.031) K/mm3 Absolute Neuts (auto) 6.5 (1.3-6.7) K/mm3 Absolute Nucleated RBC 0.000 (0.0-0.012) K/mm3 Nucleated RBC % 0.0 (0.0-0.2) % Sodium 140 (137-145) mmol/L Potassium 4.4 (3.4-5.0) mmol/L Chloride 109 H (98-107) mmol/L Carbon Dioxide 21 L (22-30) mmol/L Anion Gap 10 (4-12) mmol/L BUN 10 (7-17) mg/dL Creatinine 1.26 H (0.7-1.0) mg/dL Estim Creat Clear Calc 35 ml/min Estimated GFR 42 L (59 - ) Glucose 134 H (65-110) mg/dL Calcium 9.8 (8.4-10.2) mg/dL Discharge Plan Discharge Clinical Impression: Hip dislocation, right Patient Disposition: Home Condition: Stable Instructions: Hip Dislocation (ED) Additional Instructions: Please follow-up with your orthopedic surgeon, and come back to the hospital for any further issues. DO NOT bend over, cross your legs, lift your knees higher than your hips, sit in a low chair, or any other movements that would cause your hip to pop back out. Patient Language: Cook Islander Prescriptions: No Action alprazolam [Xanax] 0.5 mg tablet 0.5 mg PO QHS PRN (Reason: Anxiety) Qty: 30 0RF pantoprazole 40 mg tablet,delayed release (DR/EC) 40 mg PO BID 30 Days Qty: 60 1RF loperamide [Imodium A-D] 2 mg tablet 2 mg PO QID PRN (Reason: Diarrhea) olanzapine 2.5 mg tablet 2.5 mg PO QHS ondansetron 4 mg tablet,disintegrating 4 mg PO Q6H PRN (Reason: nausea and vomiting) Qty: 30 0RF rosuvastatin [Crestor] 20 mg tablet 20 mg PO DAILY Qty: 90 1RF ropinirole 0.5 mg tablet 0.5 mg PO QHS Qty: 90 2RF losartan 25 mg tablet 25 mg PO DAILY Qty: 30 0RF potassium chloride 20 mEq/15 mL liquid 10 meq PO DAILY Qty: 473 0RF Follow-up/Referrals: Bc Barrett MD [Primary Care Provider] - Nilo Song MD [Physician] - 1 Day
== END 2025-01-25 01:50 | disposition home or self-care (01) ==
PROVIDERS: Emergency Provider Emergency Medicine; PCP Family Medicine
DX: T84.020A Dislocation of internal right hip prosthesis, initial encounter (principal); N18.9 Chronic kidney disease, unspecified; E78.5 Hyperlipidemia, unspecified; K31.84 Gastroparesis; K58.9 Irritable bowel syndrome, unspecified; K21.9 Gastro-esophageal reflux disease without esophagitis; G25.81 Restless legs syndrome; F41.9 Anxiety disorder, unspecified; F32.A Depression, unspecified; Z90.49 Acquired absence of other specified parts of digestive tract; Y83.1 Surgical operation with implant of artificial internal device as the cause of abnormal reaction of the patient, or of later complication, without mention of misadventure at the time of the procedure
CPT/HCPCS: 27265; 36415; 73502; 80048; 85025; 96374; 96375; 99285; J2270; J7030

== ENCOUNTER 2025-02-04 09:58 | Emergency (ER) | payer MEDICARE, SELFPAY ==
--- NOTE | ~2025-02-04 | CT_ITS ---
CLINICAL INDICATION: Abdominal pain COMPARISON: Examination was compared with multiple prior studies performed most recently on 12/25/2024 and dating back to 08/26/2023. TECHNIQUE: Multiple contiguous axial images of the abdomen and pelvis were performed following the ad ministration of with 100 mL Omnipaque-350 intravenous contrast The dose-length product (DLP) was 285.32 mGy-cm. Automated exposure control and iterative reconstruction technique were employed. FINDINGS/OBSERVATIONS: Visualized lower thorax: The bilateral lung bases are clear. The heart is of normal size, without pericardial effusion. Liver: The liver demonstrates homogeneous enhancement and is not enlarged. Gallbladder and biliary system: The gallbladder is surgically absent. Pancreas: Fatty atrophy of the pancreas, without ductal dilatation. The atrophic pancreas enhances homogeneously Spleen: The spleen enhances homogeneously and is not enlarged. Kidneys: The bilateral kidneys enhance symmetrically without hydronephrosis or renal calculi. Adrenal glands: Unremarkable. Gastrointestinal tract: Colonic diverticulosis without surrounding inflammatory change. Fecal stasis within the rectum. Mural thickening within the distal stomach, likely secondary to underdistention. Appendix: The air-filled appendix is of normal caliber (axial series, images 89 through 112) Vasculature: Unremarkable. Lymph nodes: No pathologically enlarged or morphologically suspicious lymph nodes within the retroperitoneum or at the root of the mesentery. Pelvic structures: The bladder is decompressed, limiting its evaluation The uterus is retroverted and antral flexed. Body wall and musculoskeletal: Age appropriate degenerative disease within the lower thoracic and lumbosacral spines. No acute compression fracture. No lytic or blastic lesions. IMPRESSION: No acute findings within the abdomen or pelvis, as detailed above. Reviewed, dictated and finalized at location A.
--- OUTSIDE RECORDS SUMMARY | 2025-02-04 10:03 | XMS_ITS | Patient Health Record ---
Author Organization [facility] Address [address] [place] [address] Care Team Providers Care Tank Truck Driver Name Role Phone Alexy VYAS, Oliver Primary Care Provider Last WEBER PHOTOGRAMMETRIC TECHNICIAN, LISA Unavailable Allergies Allergen (clinical drug ingredient) Drug/Non Drug Allergy documented on EMR Reaction Allergy Type Onset Date Status Substance with sulfonamide structure and antibacterial mechanism of action (substance) Sulfa Antibiotics Unknown Drug Allergy Active Reason For Referral No Information Medications Medication [...] 1 tablet Orally Once a day Active Plan Of Treatment No Information Insurance Providers Payer Name Payer Address Payer Phone Subscriber Number Group Number Insured Name Patient Relationship to Insured Coverage Start Date Coverage End Date [employer] Medicare Advantage HMO-POS [address] [address] [place], [place] [id number] Lucy Peña Self - patient is the insured Medical (General) History Medical History History ICD Code anxiety hypercholesterolemia gastroesophageal reflux disease (GERD) gallstones diverticulosis migraine headaches Surgical History Surgery Date(Month/Year) cholecystectomy 1995
--- OUTSIDE RECORDS SUMMARY | 2025-02-04 10:03 | XMS_ITS | Continuity of Care Document ---
Author Organization [facility] Address [address] [place] [address] Phone Care Team Providers Care Heavy Duty Mechanic Farm Equipment Name Role Phone Ruiz OD, Zeferino Unavailable Unavailable Advance Directives Directive Yes / No Effective Date File Name No Information Encounters Encounter Description Practice Location Reason(s) For Visit Diagnoses Date Provider Providers Copied on Encounter [facility], [address], [place], [place], [id number], [place] tel:[phone] [facility] No Information 1-200 5 Ruiz OD Zeferino. [address] , [address], [place], [address], [place]. tel:[phone] Family History Family Member Type Diagnosis Age [...]
--- OUTSIDE RECORDS SUMMARY | 2025-02-04 10:03 | XMS_ITS | Patient Health Record ---
Author Organization [facility] As [employer] Address [address] [place] [address] Care Team Providers Care Strategic Debriefing Specialist Name Role Phone Parth Kumar Unavailable [phone] Allergies No Known Allergies Reason For Referral [...] (F33.1) Active confirmed Problem Generalized anxiety disorder (80229133) Generalized anxiety disorder (F41.1) Active confirmed Vital Signs Heart Rate 106 /min 04/27/2024 Height-cm 170.18 cm 04/27/2024 Blood pressure diastolic 96 mm Hg 04/27/2024 Weight-kg 75.48 kg 04/27/2024 Height 67.00 in 04/27/2024 Blood pressure systolic 135 mm Hg 04/27/2024 Weight 166.4 lbs 04/27/2024 BMI 26.06 kg/m2 04/27/2024 Encounters Encounter Location Date Provider Diagnosis [facility] [facility] [address] [address] 04/27/2024 Thena Stacy Generalized anxiety disorder F41.1 ; Major depressive disorder, recurrent, moderate F33.1 and Obsessive-compulsive disorder, unspecified F42.9 [facility] [address] [address] 05/04/2024 Thena Stacy Assessments Encounter Date Diagnosis [...] Medicare Replacement/ Advantage - Hmo [address] [address] [place] [address] [id number] BRANDI VALERO Self - patient is the insured Medical (General) History Medical History History ICD Code Problems: Gastroesophageal reflux diseas e Generalized anxiety disorder Long-term drug therapy Mild memory disturbance Moderate recurrent major depression Severe recurrent major depression withou t psychotic features , Surgical History Surgery Date(Month/Year) Tonsilectomy/adenoids 09/09/1955 Removal of gallbladder (04243) 5
[2025-02-04 10:11] VITALS: BP 141/85; PULSE 90; RESP 12; TEMP 36.7; O2SAT 100
[2025-02-04 10:38] LABS: Basophils Absolute Auto 0.1 K/mm3 (0.0-0.1); Basophils Percent Auto 0.6 % (0.2-1.2); Eosinophils Absolute Auto 0.3 K/mm3 (0-0.3); Eosinophils Percent Auto 2.6 % (0-4.4); Hematocrit 38.8 % (37.0-47.0); Hemoglobin 12.4 g/dL (12.0-15.0); Immature Granulocyte Absolute 0.03 K/mm3 (0.00-0.031); Immature Granulocyte Percent A 0.3 % (0-0.5); Lymphocytes Absolute Auto 1.44 K/mm3 (0.9-3.2); Lymphocytes Percent Auto 13.6 % (18.3-44.2); Mean Corpuscular Volume 90.9 fl (80-100); Mean Platelet Volume 9.7 fl (7.4-10.4); Monocytes Absolute Auto 0.6 K/mm3 (0.1-0.6); Neutrophils Absolute Auto 8.1 K/mm3 (1.3-6.7); Neutrophils Percent Auto 76.9 % (45.5-73.1); Platelet Count Result 313 k/mm3 (150-375); Red Blood Count 4.27 M/mm3 (4.2-5.4); Red Cell Distribution Width 13.6 % (11.5-14.5); White Blood Count 10.6 K/mm3 (4.5-10.0)
[2025-02-04 10:47] LABS: Alanine Aminotransferase 17 U/L (6-35); Albumin Level 4.5 g/dL (3.5-5.1); Alkaline Phosphatase 93 U/L (38-126); Anion Gap 13 mmol/L (4-12); Aspartate Amino Transferase 34 U/L (14-36); Blood Urea Nitrogen 13 mg/dL (7-17); Calcium 10.3 mg/dL (8.4-10.2); Carbon Dioxide 24 mmol/L (22-30); Chloride 104 mmol/L (98-107); Estimated Glomerular Filt Rate 53; Glucose 113 mg/dL (65-110); Lipase 26 U/L (23-300); Potassium 3.5 mmol/L (3.4-5.0); Sodium 141 mmol/L (137-145)
[2025-02-04 11:14] LABS: Add Urine Microscopic? YES; Appearance Urine Cloudy (Clear); Bacteria Urine None Seen /hpf; Bilirubin Urine 3+ (Negative); Blood Urine Trace (Negative); Color Urine Dark Yellow (Yellow); Glucose Urine UA Negative (Negative); Hyaline Casts Urine Present /lpf; Ketones Urine 2+ mg/dL (Negative); Leukocyte Esterase Ur 2+ LEU/UL (Negative); Mucus Urine Present /lpf; Need Manual Microscopic Reviewed; Nitrate Urine Negative (Negative); Non Pathogenic Casts >20; Protein Urine 2+ mg/dL (Negative); RBC Urine 21-50 /hpf (0-2); Specific Grav Ur 1.026 (1.001-1.035); Squamous Epithelial Cell Urine Moderate /hpf (Few); WBC Urine 21-50 /hpf (0-3)
[2025-02-04] MEDS: SODIUM CHLORIDE 0.9% IV 1,000 ML 999 ML IV CONT (11:18)
[2025-02-04] MEDS: FAMOTIDINE 20 MG/2 ML VIAL IV PUSH (11:19)
[2025-02-04] MEDS: PROCHLORPERAZINE EDISYLATE 10 MG/2 ML VIAL IV PUSH (11:19)
[2025-02-04] MEDS: PANTOPRAZOLE SODIUM IV 40 MG VIAL IV PUSH (11:19)
--- NOTE | 2025-02-04 12:05 | ED.GENADULT ---
HPI - General Adult General Chief complaint: Nausea/Vomiting/Diarrhea Stated complaint: dry heaves for 2 weeks Time Seen by Provider: 02/04/25 10:27 History of Present Illness HPI narrative: Patient is a 74-year-old female who presents emergency department chief complaint epigastric nausea vomiting patient reports that she had an endoscopy that showed that she had gastritis and is currently on Protonix Carafate the patient reports he has not been able to eat or drink anything Related Data Home Medications ?Medication ?Instructions ?Recorded ?Confirmed ?Last Taken ?Type loperamide 2 mg tablet (Imodium 2 mg PO QID PRN Diarrhea 02/21/23 01/27/25 11/03/23 History A-D) olanzapine 2.5 mg tablet 2.5 mg PO QHS 08/20/24 01/27/25 12/16/24 History Allergies Allergy/AdvReac Type Severity Reaction Status Date / Time Sulfa (Sulfonamide Allergy Intermediate Swelling Verified 01/27/25 14:07 Antibiotics) metronidazole (From Flagyl) AdvReac Intermediate Vomiting Verified 01/27/25 14:07 nitrofurantoin (From AdvReac Intermediate Vomiting Verified 01/27/25 14:07 Macrobid) amoxicillin (From Augmentin) AdvReac Mild Vomiting Verified 01/27/25 14:07 clavulanic acid (From AdvReac Mild Vomiting Verified 01/27/25 14:07 Augmentin) Review of Systems Review of Systems: A 10 system review of systems was completed on the patient and is negative except for what is stated in the HPI. Nursing and ancillary documentation was reviewed. [facility] Past Medical History Medical History RLS (restless legs syndrome) Colitis Mild protein-calorie malnutrition Chronic anxiety Weight loss Dehydration History of esophageal stricture Skin lesion Other spondylosis, lumbosacral region Confusion Contusion of left hip Acute thigh pain Muscle spasm Muscle pain Hip pain Bilateral foot pain Back pain Diverticulitis Gastroparesis Chest pain Weakness generalized Lumbar back pain with radiculopathy affecting right lower extremity Slurred speech Memory loss Vertigo Elevated white blood cell count Elevated liver enzymes CKD (chronic kidney disease) stage 3, GFR 30-59 ml/min Epigastric pain Encounter for Medicare annual wellness exam IBS (irritable bowel syndrome) GERD (gastroesophageal reflux disease) Screening for malignant neoplasm of skin Duodenal diverticulum Functional abdominal pain syndrome Hyperlipidemia Cholecystectomy planned History of depression Hx of migraines Depression Anxiety Surgical History Surgical History History of total right hip arthroplasty (~12/01/24) w/Abductor Muscle Repair Hx of colonoscopy History of cholecystectomy Family History Family History Father Leukemia Anemia Hypertension Mother Heart disease Leukemia Sibling Heart disease Social History Social History Smoking status: Never smoker Second hand tobacco smoke exposure: No Alcohol intake: never Substance use: never Substance use type: does not use Do You Feel Safe in your Home?: Yes Lack of Transportation: No Lack of Food: Never True Current Housing: I Have Housing Concerned About Future Housing: No Difficulty Paying Gas/Electric Bills: No Difficulty Paying for Meds: No Currently Unemployed: No Education: High School Diploma/GED Difficulty w/ Childcare or Family Care: No Living arrangements: with family Occupation/Education: retired 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 HEAD: Normocephalic, atraumatic. EYES: PERRLA and EOMI. ENT: Nares clear, no rhinorrhea or epistaxis. Mucous membranes moist. NECK: Supple. CHEST: Clear to auscultation. No respiratory distress. HEART: Regular rate and rhythm. No murmur heard. Normal peripheral pulses. ABDOMEN: Soft, nontender, nondistended, normal active bowel sounds. EXTREMITIES: Normal range of motion. No edema. SKIN: Warm, dry, no rash. NEURO: No focal deficits. Alert and oriented x3. PSYCH: Normal mood and affect. Course Vital Signs Vital signs: Vital Signs Temperature 36.7 C 02/04/25 10:11 Pulse Rate 90 02/04/25 10:11 Respiratory Rate 12 02/04/25 10:11 Blood Pressure 141/85 H 02/04/25 10:11 Pulse Oximetry 100 02/04/25 10:11 Oxygen Delivery Room Air 02/04/25 10:11 Temperature 36.7 C 02/04/25 10:11 Pulse Rate 89 02/04/25 12:47 Respiratory Rate 18 02/04/25 12:47 Blood Pressure 176/92 H 02/04/25 12:47 Pulse Oximetry 99 02/04/25 12:47 Oxygen Delivery Room Air 02/04/25 10:11 Medical Decision Making MDM Narrative Medical decision making narrative: Differential diagnosis includes gastritis, dehydration electrolyte abnormality, UTI, pyelonephritis CT scan of the abdomen pelvis showed no acute abnormalities urinalysis showed 21-50 white blood cells and 21-50 red blood cells and 2+ leukocyte esterase she also had 2+ ketones electrolytes showed a BUN of 13 and creatinine 1.02 this is actually improved from her previous hospitalization patient hydrated patient is now able to tolerate some p.o. intake without vomiting in the emergency department the patient did have evidence of urinary tract infection and will be started on oral antibiotics Vital Signs Vital Signs: Vital Signs Temperature 36.7 C 02/04/25 10:11 Pulse Rate 90 02/04/25 10:11 Respiratory Rate 12 02/04/25 10:11 Blood Pressure 141/85 H 02/04/25 10:11 Pulse Oximetry 100 02/04/25 10:11 Oxygen Delivery Room Air 02/04/25 10:11 Temperature 36.7 C 02/04/25 10:11 Pulse Rate 89 02/04/25 12:47 Respiratory Rate 18 02/04/25 12:47 Blood Pressure 176/92 H 02/04/25 12:47 Pulse Oximetry 99 02/04/25 12:47 Oxygen Delivery Room Air 02/04/25 10:11 Lab Data 02/04/25 10:31 02/04/25 10:31 Labs: Lab Results 02/04/25 02/04/25 02/04/25 Range/Units 10:31 10:56 12:49 WBC 10.6 H (4.5-10.0) K/mm3 RBC 4.27 (4.2-5.4) M/mm3 Hgb 12.4 (12.0-15.0) g/dL Hct 38.8 (37.0-47.0) % MCV 90.9 (80-100) fl MCH 29.0 (26-34) pg MCHC 32.0 (32-36) g/dl RDW 13.6 (11.5-14.5) % Plt Count 313 (150-375) k/mm3 MPV 9.7 (7.4-10.4) fl Immature Gran % (Auto) 0.3 (0-0.5) % Neut % (Auto) 76.9 H (45.5-73.1) % Lymph % (Auto) 13.6 L (18.3-44.2) % Bledsoe % (Auto) 6.0 (2.6-8.5) % Eos % (Auto) 2.6 (0-4.4) % Baso % (Auto) 0.6 (0.2-1.2) % Lymph # (Auto) 1.44 (0.9-3.2) K/mm3 Bledsoe # (Auto) 0.6 (0.1-0.6) K/mm3 Eos # (Auto) 0.3 (0-0.3) K/mm3 Baso # (Auto) 0.1 (0.0-0.1) K/mm3 Abs Immat Gran (auto) 0.03 (0.00-0.031) K/mm3 Absolute Neuts (auto) 8.1 H (1.3-6.7) K/mm3 Absolute Nucleated RBC 0.000 (0.0-0.012) K/mm3 Nucleated RBC % 0.0 (0.0-0.2) % Sodium 141 (137-145) mmol/L Potassium 3.5 (3.4-5.0) mmol/L Chloride 104 (98-107) mmol/L Carbon Dioxide 24 (22-30) mmol/L Anion Gap 13 H (4-12) mmol/L BUN 13 (7-17) mg/dL Creatinine 1.02 H (0.7-1.0) mg/dL Estim Creat Clear Calc Not Reportable Estimated GFR 53 L (59 - ) Glucose 113 H (65-110) mg/dL Lactic Acid 1.2 (0.7-2.0) mmol/L Calcium 10.3 H (8.4-10.2) mg/dL Magnesium 2.0 (1.6-2.3) mg/dL Total Bilirubin 1.0 (0.2-1.3) mg/dL AST 34 (14-36) U/L ALT 17 (6-35) U/L Alkaline Phosphatase 93 (38-126) U/L Total Protein 8.0 (6.3-8.2) g/dL Albumin 4.5 (3.5-5.1) g/dL Lipase 26 (23-300) U/L Urine Color Dark yellow (Yellow) Urine Appearance Cloudy H (Clear) Urine pH 6.0 (5.0-9.0) Ur Specific Jefferson 1.026 (1.001-1.035) Urine Protein 2+ H (Negative) mg/dL Urine Glucose (UA) Negative (Negative) mg/dL Urine Ketones 2+ H (Negative) mg/dL Ur Blood (Man) Trace (Negative) Urine Nitrate Negative (Negative) Urine Bilirubin 3+ H (Negative) Urine Urobilinogen 1.0 (<2.0) mg/dL Add Ur Microanalysis Reviewed Leukocyte Esterase Rfl 2+ H (Negative) KEVIN/UL Urine RBC 21-50 H (0-2) /hpf Urine WBC 21-50 H (0-3) /hpf Ur Squamous Epith Cells Moderate (Few) /hpf Urine Bacteria None seen /hpf Urine Casts >20 Hyaline Casts Present (None) /lpf Urine Mucus Present /lpf Discharge Plan Discharge Clinical Impression: Nausea and vomiting, Acute UTI Patient Disposition: Home Condition: Stable Instructions: Antibiotic Form, Urinary Tract Infection in Women (ED), Acute Nausea and Vomiting (ED) Patient Language: Australian Prescriptions: New cephalexin 500 mg capsule 500 mg PO Q12H 7 Days Qty: 14 0RF No Action alprazolam [Xanax] 0.5 mg tablet 0.5 mg PO QHS PRN (Reason: Anxiety) Qty: 30 0RF loperamide [Imodium A-D] 2 mg tablet 2 mg PO QID PRN (Reason: Diarrhea) olanzapine 2.5 mg tablet 2.5 mg PO QHS ondansetron 4 mg tablet,disintegrating 4 mg PO Q6H PRN (Reason: nausea and vomiting) Qty: 30 0RF rosuvastatin [Crestor] 20 mg tablet 20 mg PO DAILY Qty: 90 1RF losartan 25 mg tablet 25 mg PO DAILY Qty: 30 0RF pantoprazole 40 mg tablet,delayed release (DR/EC) See Rx Instructions .ROUTE .COMPLEX Qty: 180 3RF Dose Instruction: TAKE 1 TABLET BY MOUTH TWICE DAILY Rx Instructions: TAKE 1 TABLET BY MOUTH TWICE DAILY sucralfate [Carafate] 1 gram tablet 1 g PO QID 30 Days Qty: 120 2RF ropinirole 1 mg tablet 1 mg PO QHS Qty: 30 2RF Follow-up/Referrals: Bc Barrett MD [Primary Care Provider] - Time of Disposition: 13:54
[2025-02-04 12:47] VITALS: BP 176/92; PULSE 89; RESP 18; O2SAT 99
[2025-02-04 13:04] LABS: Lactic Acid Reflex 1.2 mmol/L (0.7-2.0)
[2025-02-04 14:17] VITALS: BP 183/80; PULSE 78; RESP 18; O2SAT 99
== END 2025-02-04 14:18 | disposition home or self-care (01) ==
PROVIDERS: Emergency Provider Emergency Medicine; PCP Family Medicine
DX: N39.0 Urinary tract infection, site not specified (principal); R11.2 Nausea with vomiting, unspecified; N18.30 Chronic kidney disease, stage 3 unspecified; E78.5 Hyperlipidemia, unspecified; K58.9 Irritable bowel syndrome, unspecified; K21.9 Gastro-esophageal reflux disease without esophagitis; G25.81 Restless legs syndrome; F41.9 Anxiety disorder, unspecified; F32.A Depression, unspecified; Z96.641 Presence of right artificial hip joint; Z90.49 Acquired absence of other specified parts of digestive tract; Z79.899 Other long term (current) drug therapy
CPT/HCPCS: 36415; 74177; 80053; 81001; 83605; 83690; 83735; 85025; 96361; 96374; 96375; 99284; J0780; J2470; J7030; Q9967

== ENCOUNTER 2025-02-08 14:26 | Outpatient (CLI) | payer MEDICARE, SELFPAY ==
[2025-02-08 15:27] LABS: Basophils Percent Auto 0.5 % (0.2-1.2); Eosinophils Percent Auto 0.4 % (0-4.4); Hematocrit 36.5 % (37.0-47.0); Hemoglobin 11.6 g/dL (12.0-15.0); Immature Granulocyte Absolute 0.02 K/mm3 (0.00-0.031); Immature Granulocyte Percent A 0.3 % (0-0.5); Lymphocytes Absolute Auto 1.75 K/mm3 (0.9-3.2); Lymphocytes Percent Auto 23.7 % (18.3-44.2); Mean Corpuscular HGB Conc 31.8 g/dl (32-36); Mean Corpuscular Hemoglobin 28.7 pg (26-34); Mean Corpuscular Volume 90.3 fl (80-100); Mean Platelet Volume 10.4 fl (7.4-10.4); Monocytes Absolute Auto 0.6 K/mm3 (0.1-0.6); Monocytes Percent Auto 7.8 % (2.6-8.5); Neutrophils Percent Auto 67.3 % (45.5-73.1); Platelet Count Result 260 k/mm3 (150-375); Red Blood Count 4.04 M/mm3 (4.2-5.4); Red Cell Distribution Width 13.3 % (11.5-14.5); White Blood Count 7.4 K/mm3 (4.5-10.0)
[2025-02-08 15:58] LABS: Vitamin D 25 Hydroxy 26.2 ng/mL
[2025-02-08 16:35] LABS: Alanine Aminotransferase 15 U/L (6-35); Albumin Level 4.1 g/dL (3.5-5.1); Alkaline Phosphatase 99 U/L (38-126); Anion Gap 10 mmol/L (4-12); Aspartate Amino Transferase 28 U/L (14-36); Bilirubin,Total 0.5 mg/dL (0.2-1.3); Blood Urea Nitrogen 8 mg/dL (7-17); Carbon Dioxide 26 mmol/L (22-30); Chloride 104 mmol/L (98-107); Cholesterol 118 mg/dL (0-200); Estimated Glomerular Filt Rate 53; Glucose 113 mg/dL (65-110); HDL Direct 55 mg/dL; Potassium 2.8 mmol/L (3.4-5.0); Sodium 140 mmol/L (137-145); Triglycerides 115 mg/dL (<150)
[2025-02-08 16:38] LABS: LDL Cholesterol Direct 31 mg/dL
== END 2025-02-08 14:27 | disposition home or self-care (01) ==
PROVIDERS: PCP Family Medicine; Referring Provider Nurse Practitioner Family; Visit Provider Nurse Practitioner Adult Health
DX: E78.5 Hyperlipidemia, unspecified (principal); I10 Essential (primary) hypertension; E55.9 Vitamin D deficiency, unspecified; R53.1 Weakness; G25.81 Restless legs syndrome
CPT/HCPCS: 36415; 80053; 80061; 82306; 82607; 83735; 85025

== ENCOUNTER 2025-02-12 12:01 | Outpatient (CLI) | payer MEDICARE, SELFPAY ==
--- OUTSIDE RECORDS SUMMARY | 2025-02-12 12:04 | XMS_ITS | CONTINUITY OF CARE DOCUMENT ---
Author Name reinaldo najera Address Unknown Organization [facility] Address [id number] [place] [address] [address] [place] [address] Phone [phone] Care Team Providers Care Polystyrene Molding Machine Tender Name Role Phone LISSETTE HAYNES MD Unavailable [phone] LISSETTE HAYNES MD Unavailable [phone] INSURANCE PROVIDERS Payer name Policy type / Coverage type Ferdinand red constitution party ID [facility] [id number]
--- OUTSIDE RECORDS SUMMARY | 2025-02-12 12:04 | XMS_ITS | Continuity of Care Document ---
Author Organization [facility] Address [address] [place] [address] Phone Care Team Providers Care Parts Picker Name Role Phone Ruiz OD, Zeferino Unavailable Unavailable Advance Directives Directive Yes / No Effective Date File Name No Information Encounters Encounter Description Practice Location Reason(s) For Visit Diagnoses Date Provider Providers Copied on Encounter [facility], [address], [place], [place], [id number], [place] tel:[phone] [facility] No Information 1-200 5 Ruiz OD Zeferino. [address] , [address], [place], [address], [place]. tel:[phone] Family History Family Member Type Diagnosis Age [...]
[2025-02-12 15:37] LABS: Potassium 3.6 mmol/L (3.4-5.0)
== END 2025-02-12 12:02 | disposition home or self-care (01) ==
PROVIDERS: PCP Family Medicine; Visit Provider Nurse Practitioner Family
DX: E87.6 Hypokalemia (principal)
CPT/HCPCS: 36415; 84132

== ENCOUNTER 2025-03-19 18:09 | Emergency (ER) | payer MEDICARE, SELFPAY ==
--- NOTE | ~2025-03-19 | XR_ITS ---
XR chest 1V Ordering provider: Patricia Cintron MD History: 74 years Female with . infection . Comparison: July 16, 2024 FINDINGS: MEDIASTINUM: The cardiac silhouette is not enlarged. LUNGS: No infiltrates, effusions or pneumothorax. OTHER: No free air under the diaphragm. Degenerative changes of the spine. IMPRESSION: No acute cardiopulmonary pathology. Reviewed, dictated and finalized at location A.
[2025-03-19 18:11] VITALS: BP 149/92; PULSE 107; RESP 16; TEMP 36.4; O2SAT 99
--- OUTSIDE RECORDS SUMMARY | 2025-03-19 18:12 | XMS_ITS | Continuity of Care Document ---
Author Organization [facility] Address [address] [place] [address] Phone Care Team Providers Care Replanting Machine Crew Name Role Phone Ruiz OD, Zeferino Unavailable Unavailable Advance Directives Directive Yes / No Effective Date File Name No Information Encounters Encounter Description Practice Location Reason(s) For Visit Diagnoses Date Provider Providers Copied on Encounter [facility], [address], [place], [place], [id number], [place] tel:[phone] [facility] No Information 1-200 5 Ruiz OD Zeferino. [address] , [address], [place], [address], [place]. tel:[phone] Family History Family Member Type Diagnosis Age [...]
--- OUTSIDE RECORDS SUMMARY | 2025-03-19 18:12 | XMS_ITS ---
Author Organization [facility] Address [address] [facility] [address] [place] [address] Care Team Providers Care Sales Activity Manager Name Role Phone Parth Kumar Unavailable [phone] Selvin Holm Unavailable [phone] Results Component Value Reference Range Notes UDT Reviewed date:03/11/2025 03:27:33 PM Interpretation: Performing Lab: Notes/Report: THC p 0 - 50 ng/ml Cocaine n 0 - 300 ng/ml Amphetamine n 0 - 1000 ng/ml Buprenorphine (BUP) n 0 - 10 ng/ml Secobarbital (Bar) n 0 - 300 ng/ml Oxazepam (BZO) p 0 - 300 ng/ml 8-qcriaupmwv-1,0-knhvhizo-5,3-diphenylpyrrolidine (MITCH P) n 0 - 300 ng/ml Methamphetamine (MET) n 0 - 1000 ng/ml Methylenedioxymethamphetamine (MDMA) n 0 - 500 ng/ml Morphine (MOP 300/RSZ9902) n 0 - 300 ng/ml Methadone (MTD) n 0 - 300 ng/ml Phencyclidine (PCP) n 0 - 25 ng/ml Nortriptyline (TCA) n 0 - 1000 ng/ml Oxycodone n 0 - 300 ng/ml x n 0 - 300 ng/ml REASON FOR VISIT UDS Only Medications Medication SIG (Take, Route, Frequency, Duration) Notes Start Date End Date Status Meclizine HCl 25 MG TAKE 1 TABLET BY VANNESA TH TWICE A DAY NEEDED FOR DIZZINESS Oral; Duration: 30 Days Active Ondansetron HCl 4 MG TAKE 1 TABLET BY MO UTH EVERY 8 HOURS NEEDED FOR NAUSEA AND VOMITING Oral; Duration: 7 Days Active rOPINIRole HCl 0.5 MG 2 tablet Oral Once a day; Duration: 90 days Active Rosuvastatin Calcium 20 MG TAKE 1 TABLET BY MOUTH EVERY DAY Oral Once a day; Duration: 90 days Active Lisinopril 5 MG TAKE 1 TABLET BY VANNESA TH EVERY DAY FOR HIGH BLOOD PRESSURE Oral Once a day; Duration: 90 days Active Escitalopram Oxalate 5 MG 1 tablet Orall y Once a day 03/08/2025 Active hydrOXYzine HCl 10 MG 1 tablet as needed Orally twice a day; Duration: 30 days As needed 03/08/2025 Active Escitalopram Oxalate 5 MG 1 tablet Orall y Once a day; Duration: 30 days 03/08/2025 Active ALPRAZolam 0.25 MG 1 tablet Orally Twice a day; Duration: 15 days As needed Active Social History Sex Assigned At : Social History Observation Description Sex Assigned At Female Encounters [facility] [address] [facility] [address] [place] [address] 03/11/2025 Selvin Holm Plan Of Treatment Next Appt Details Provider Name:Chitra Wang , 04/02/2025 01:15:00 PM, [facility], [facility] [address], [place], [address], Progress Notes * BRANDI VALERO KDOB:1949 (74 yo F)Acc No.[id number]:03/11/2025 Progress Note Patient: Nataliia LEÓNBRANDI KAUR Provider: Jeffrey HOLM MD :1950 A ge:74 Y S ex:Female Date:03/11/2025 [facility] Subjective: * Chief Complaints: * 1 . UDS Only. * HPI: H istory of Presenting Problem: Pt was seen today and Urine drug screen was done. 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 Modified On:02/08/2025U Status:confirmed I10 Essential hypertensi on Modified On:03/17/2025 Status:confirmed * Medical History: * Medications: T aking ALPRAZolam 0.25 MG Tablet 1 tablet Orally Twice a day As needed, Taking Escitalopram Oxalate 5 MG Tablet 1 tablet Orally Once a day , Taking hydrOXYzine HCl 10 MG Tablet 1 tablet as needed Orally twice a day As needed, Taking Escitalopram Oxalate 5 MG Tablet 1 tablet Orally Once a day , Taking Lisinopril 5 MG Tablet TAKE 1 TABLET BY MOUTH EVERY DAY FOR HIGH BLOOD PRESSURE Oral Once a day , Taking Rosuvastatin Calcium 20 MG Tablet TAKE 1 TABLET BY MOUTH EVERY DAY Oral Once a day , Taking rOPINIRole HCl 0.5 MG Tablet 2 tablet Oral Once a day , Taking Ondansetron HCl 4 MG Tablet TAKE 1 TABLET BY MOUTH EVERY 8 HOURS NEEDED FOR NAUSEA AND VOMITING Oral , Taking Meclizine HCl 25 MG Tablet TAKE 1 TABLET BY MOUTH TWICE A DAY NEEDED FOR DIZZINESS Oral Objective: * Vitals: Assessment: Plan: * Treatment: Value Reference Range T HC p 0 - 50 ng/ml * C ocaine n 0 - 300 ng/ml * A mphetamine n 0 - 1000 ng/ml * B uprenorphine (BUP) n 0 - 10 ng/ml * S ecobarbital (Bar) n 0 - 300 ng/ml * O xazepam (BZO) p 0 - 300 ng/ml * 2 -ethylidene-1,8-tkidpzsz-3,3-diphenylpyrrolidine (EDDP) n 0 - 300 ng/ml * M ethamphetamine (MET) n 0 - 1000 ng/ml * M ethylenedioxymethamphetamine (MDMA) n 0 - 500 ng/ml * M orphine (MOP 300/[id number]) n 0 - 300 ng/ml * M ethadone (MTD) n 0 - 300 ng/ml * P hencyclidine (PCP) n 0 - 25 ng/ml * N ortriptyline (TCA) n 0 - 1000 ng/ml * O xycodone n 0 - 300 ng/ml * x n 0 - 300 ng/ml * Labs: * L ab: UDT (Collection Date & Time - 03/11/2025 01:15 PM) Value Reference Range T HC p 0 - 50 ng/ml * C ocaine n 0 - 300 ng/ml * A mphetamine n 0 - 1000 ng/ml * B uprenorphine (BUP) n 0 - 10 ng/ml * S ecobarbital (Bar) n 0 - 300 ng/ml * O xazepam (BZO) p 0 - 300 ng/ml * 2 -ethylidene-1,2-zhudecjg-3,3-diphenylpyrrolidine (EDDP) n 0 - 300 ng/ml * M ethamphetamine (MET) n 0 - 1000 ng/ml * M ethylenedioxymethamphetamine (MDMA) n 0 - 500 ng/ml * M orphine (MOP 300/[id number]) n 0 - 300 ng/ml * M ethadone (MTD) n 0 - 300 ng/ml * P hencyclidine (PCP) n 0 - 25 ng/ml * N ortriptyline (TCA) n 0 - 1000 ng/ml * O xycodone n 0 - 300 ng/ml * x n 0 - 300 ng/ml * Procedure Codes: 8 0306 DRUG TST PRSMV READ INSTRMNT ASSTD DIR OPT OBS * Billing Information: * Visit Code: * Procedure Codes: 62764 DRUG TST PRSMV READ INSTRMNT ASSTD DIR OPT OBS. * Electronic signature of Flex Holm MD on 03/19/2025 at 06:12 PM CDT Sign off status: Pending * Provider: Jeffrey HOLM MD Date: 0 03/11/2025 Generated for Piperi ng/Shekharg/eTransmitting on: 03/19/2025 06:12 PM CDT History and Physical Notes * HPI (History of Present Illness) Category Sub-Category Detail Notes Category Not es History of Presenting Problem Pt was seen today an d Urine drug screen was done
--- OUTSIDE RECORDS SUMMARY | 2025-03-19 18:12 | XMS_ITS | Patient Health Record ---
Author Organization [facility] Address [address] [place] [address] Care Team Providers Care Instructional Technology Instructor Name Role Phone Alexy VYAS, Oliver Primary Care Provider Last WEBER ELEVATOR SUPERVISOR, LISA Unavailable [phone] Allergies Allergen (clinical drug ingredient) Drug/Non Drug [...] [employer]vantage HMO-POS [address] [address] [place], [place] [phone] [id number] Lucy Peña Self - patient is the insured Medical (General) History Medical History History ICD Code anxiety hypercholesterolemia gastroesophageal reflux disease (GERD) gallstones diverticulosis migraine headaches Surgical History Surgery Date(Month/Year) cholecystectomy 1995
--- OUTSIDE RECORDS SUMMARY | 2025-03-19 18:12 | XMS_ITS | Patient Health Record ---
Author Organization [facility] [facility] Address [address] [place] [address] Care Team Providers Care Reheater Name Role Phone Parth Kumar Unavailable [phone] NuraHowardSelvin Unavailable [phone] Sangeeta Melgar Unavailable [phone] Sukumar Carballo Unavailable [phone] Allergies No Known Allergies Results Component Value Reference Range Notes UDT Reviewed date:03/11/2025 03:27:33 PM Interpretation: Performing Lab: Notes/Report: THC p 0 - 50 ng/ml Cocaine n 0 - 300 ng/ml Amphetamine n 0 - 1000 ng/ml Buprenorphine (BUP) n 0 - 10 ng/ml Secobarbital (Bar) n 0 - 300 ng/ml Oxazepam (BZO) p 0 - 300 ng/ml 8-dmgmugzojb-7,6-ftykjxam-3, 3-dipheny lpyrrolidine (EDDP) n 0 - 300 ng/ml Methamphetamine (MET) n 0 - 1000 ng/ml Methylenedioxymethamphetamine (MDMA) n 0 - 500 ng/ml Morphine (MOP 300/VPI6559) n 0 - 300 ng/ml Methadone (MTD) n 0 - 300 ng/ml Phencyclidine (PCP) n 0 - 25 ng/ml Nortriptyline (TCA) n 0 - 1000 ng/ml Oxycodone n 0 - 300 ng/ml x n 0 - 300 ng/ml UDT Reviewed date:02/08/2025 04:20:35 PM Interpretation: Performing Lab: Notes/Report: THC p 0 - 50 ng/ml Cocaine n 0 - 300 ng/ml Amphetamine n 0 - 1000 ng/ml Buprenorphine (BUP) n 0 - 10 ng/ml Secobarbital (Bar) n 0 - 300 ng/ml Oxazepam (BZO) p 0 - 300 ng/ml 9-nxfdtwliam-4,6-rmegqsap-2, 3-dipheny lpyrrolidine (EDDP) n 0 - 300 ng/ml Methamphetamine (MET) n 0 - 1000 ng/ml Methylenedioxymethamphetamine (MDMA) n 0 - 500 ng/ml Morphine (MOP 300/HML9527) n 0 - 300 ng/ml Methadone (MTD) n 0 - 300 ng/ml Phencyclidine (PCP) n 0 - 25 ng/ml Nortriptyline (TCA) n 0 - 1000 ng/ml Oxycodone n 0 - 300 ng/ml x n 0 - 300 ng/ml DRUG MONITOR, BENZO, QN, URI NE ([id number]) Reviewed date:02/24/2025 08:20:49 AM Interpretation: Performing Lab:[facility], [facility] [facility] [place], [id number] Hank Evans Notes/Report: FASTING: UNKNOWN Alphahydroxyalprazolam 135 <25 ng/mL Alphahydroxymidazolam NEGATIVE <50 ng/mL Alphahydroxytriazolam NEGATIVE <50 ng/mL Aminoclonazepam NEGATIVE <25 ng/mL Hydroxyethylflurazepam NEGATIVE <50 ng/mL Lorazepam NEGATIVE <50 ng/mL Nordiazepam NEGATIVE <50 ng/mL Oxazepam NEGATIVE <50 ng/mL Temazepam NEGATIVE <50 ng/mL Benzodiazepines Comments See Benzodiazepines Notes, LDT Notes DRUG MONITOR, MARIJUANA META B, QN, URINE ([id number]) Reviewed date:02/24/2025 08:20:36 AM Interpretation: Performing Lab:[facility] [employer], [employer] [id number] Hank Evans, Director - [address] [facility] Notes/Report: FASTING: UNKNOWN Marijuana Metabolite 1562 <5 ng/mL Marijuana Comments See Alex martinez Notes, LDT Notes Notes and Comments This drug testing is for medical treatment only. Analysis was performed as non-forensic testing and these results should be used only by healthcare providers to render diagnosis or treatment, or to monitor progress of medical conditions. Benzodiazepines Notes: aOH Alprazolam detected is consistent with the use of the drug Alprazolam. Marijuana Notes: Marijuana Metabolite detected is consistent with exposure to Marijuana (THC) and/or hemp derived products. Some jurisdictions do not include hemp within the definition of Marijuana. LDT Notes: Confirmation tests were developed and their analytical performance characteristics have been determined by [facility]. It has not been cleared or approved by the FDA. This assay has been validated pursuant to the CLIA regulations and is used for clinical purposes. Healthcare Providers needing Interpretation assistance, please contact us at [phone] ( ) M-F, 8am to 10pm EST Reason For Referral No Information Medications Medication SIG (Take, Route, Frequency, Duration) Notes Start Date End Date Status ALPRAZolam 0.25 MG 1 tablet Orally Twice a day; Duration: 15 days As needed Active Lisinopril 5 MG TAKE 1 TABLET BY MOUTH EVERY DAY FOR HIGH BLOOD PRESSURE Oral Once a day; Duration: 90 days Active Meclizine HCl 25 MG TAKE 1 TABLET BY MOUTH TWICE A DAY NEEDED FOR DIZZINESS Oral; Duration: 30 Days Active rOPINIRole HCl 0.5 MG 2 tablet Oral Once a day; Duration: 90 days Active Rosuvastatin Calcium 20 MG TAKE 1 TABLET BY MOUTH EVERY DAY Oral Once a day; Duration: 90 days Active Mirtazapine 7.5 MG 0.5 tablet once a day for 15 days, 1 tablet once a day for 15 days Orally daily; Duration: 30 days please cut in half or provide a pill splitter Active Ondansetron HCl 4 MG TAKE 1 TABLET BY MOUTH EVERY 8 HOURS NEEDED FOR NAUSEA AND VOMITING Oral; Duration: 7 Days Active Immunizations Vaccine Route Administration Date Status Comme nts Influenza, unspecified formulation Unknown 07/15/2023 A dministered Moderna Covid-19 Vaccine 1st dose Unknown 12/06/2020 Ad ministered Moderna Covid-19 Vaccine 1st dose Unknown 01/03/2021 Ad ministered Pfizer Biontech Covid-19 Vac cine 2nd dose Unknown 08/15/2021 Administered Social History Tobacco Use: Social History Observation Description Date Details (start date - stop date) Never Smoker NA - NA Sex Assigned At : Social History Observation Description Sex Assigned At Female Household Question Answer Notes Marital status: Number of adults in household: uday de la cruz with Level of education: finished high school Tobacco Control (Standard) Question Answer Notes Tobacco use: Nonsmoker AUDIT (2018 Edition) Question Answer Notes How often do you have a drink containing alcohol ? Never Total Score 0 Interpretation Alcohol Education Problems Problem Type SNOMED Code ICD Code Onset Dates Problem Status W/U Status Risk Notes Problem Moderate recurrent major depression (57057611) Major depressive disorder, recurrent, moderate (F33.1) Active confirmed Problem Severe recurrent major depression without psychotic features (18943283) Major depressive disorder, recurrent severe without psychotic features (F33.2) 01/06/20 24 Active confirmed Problem Generalized anxiety disorder (95551679) Generalized anxiety disorder (F41.1) Active confirmed Problem Insomnia disorder related to another mental disorder (69994700) Insomnia due to other mental disorder (F51.05) Active confirmed Problem Obsessive-compu lsive disorder (626766746) Obsessive-compu lsive disorder, unspecified (F42.9) Active confirmed Problem Essential hypertension (96379476) Essential hypertension (I10) Active confirmed on lisinopril , history of non compliance . Vital Signs Heart Rate 101 /min 03/16/2025 Height-cm 170.18 cm 03/16/2025 Blood pressure diastolic 90 mm Hg 03/16/2025 Weight-kg 59.42 kg 03/16/2025 Height 67.00 in 03/16/2025 Blood pressure systolic 146 mm Hg 03/16/2025 Weight 131 lbs 03/16/2025 BMI 20.52 kg/m2 03/16/2025 Encounters Encounter Location Date Provider Diagnosis [facility] [address] [facility] [place] [address] 03/11/2025 Selvin Lyman [facility] [employer] [address] [place] [address] 04/27/2024 Thena Stacy Generalized anxiety disorder F41.1 ; Major depressive disorder, recurrent, moderate F33.1 and Obsessive-compulsive disorder, unspecified F42.9 [facility] [address] [place] [address] 02/08/2025 Sukumar Clubb Generalized anxiety disorder F41.1 ; Major depressive disorder, recurrent severe without psychotic features F33.2 ; Insomnia due to other mental disorder F51.05 ; History of falling Z91.81 ; Encounter for screening for depression Z13.31 and Benign essential HTN I10 [facility] [employer] [facility], [address] [place] [address] 03/08/2025 Sukumar Clubb Major depressive disorder, recurrent severe without psychotic features F33.2 ; Generalized anxiety disorder F41.1 ; Insomnia due to other mental disorder F51.05 ; History of falling Z91.81 ; Encounter for screening for depression Z13.31 ; Encounter for screening for cardiovascular disorders Z13.6 and Benign essential HTN I10 [facility] [employer] [facility], [address] [place] [address] 03/16/2025 Sukumar Clubb Major depressive disorder, recurrent severe without psychotic features F33.2 ; Generalized anxiety disorder F41.1 ; Insomnia due to other mental disorder F51.05 ; History of falling Z91.81 ; Non-compliance Z91.199 and Essential hypertension I10 [facility] [employer] [facility], [address] [place] [address] 03/18/2025 Sangeeta Melgar [facility] [employer] [facility] [address] [place] [address] 05/04/2024 Parth Kumar [facility], [address] [place] [address] 02/17/2025 Sukumar Clubb Major depressive disorder, recurrent severe without psychotic features F33.2 [facility] [employer] [facility], [address] [place] [address] 02/22/2025 Sukumar Clubb Major depressive disorder, recurrent severe without psychotic features F33.2 and Major depressive disorder, recurrent, moderate F33.1 [facility] [employer] [facility] [address] [place] [address] 03/06/2025 Sukumar Clubb Major depressive disorder, recurrent, moderate F33.1 [facility] [employer] [facility] [address] [place] [address] 03/14/2025 Sukumar Clubb [facility] [employer] [facility], [address] [place] [address] 03/15/2025 Sukumar Clubb [facility] [employer] [facility] [address] [address] 03/17/2025 Sukumar Pierre Part Assessments Encounter Date Diagnosis (ICD Code) Assessment Notes Treatment Notes Treatment Clinical Notes Section Notes 04/27/2024 Generalized anxiety disorder (ICD-10 - F41.1) 02/17/2025 Major depressive disorder, recurrent severe without psychotic features (ICD-10 - F33.2) 02/08/2025 Major depressive disorder, recurrent severe without psychotic features (ICD-10 - F33.2) 02/08/2025 Generalized anxiety disorder (ICD-10 - F41.1) 02/22/2025 Major depressive disorder, recurrent severe without psychotic features (ICD-10 - F33.2) 03/06/2025 Major depressive disorder, recurrent, moderate (ICD-10 - F33.1) 03/08/2025 Major depressive disorder, recurrent severe without psychotic features (ICD-10 - F33.2) 03/08/2025 Generalized anxiety disorder (ICD-10 - F41.1) 03/16/2025 Major depressive disorder, recurrent severe without psychotic features (ICD-10 - F33.2) 04/27/2024 Major depressive disorder, recurrent, moderate (ICD-10 - F33.1) 03/16/2025 Generalized anxiety disorder (ICD-10 - F41.1) provided a list of therapists in the area. provided number to the walk-in clinic for therapy services. 03/16/2025 Insomnia due to other mental disorder (ICD-10 - F51.05) 03/08/2025 Insomnia due to other mental disorder (ICD-10 - F51.05) 02/08/2025 Insomnia due to other mental disorder (ICD-10 - F51.05) 02/22/2025 Major depressive disorder, recurrent, moderate (ICD-10 - F33.1) 04/27/2024 Obsessive-compuls sharon disorder, unspecified (ICD-10 - F42.9) 02/08/2025 History of falling (ICD-10 - Z91.81) 03/16/2025 History of falling (ICD-10 - Z91.81) 03/08/2025 History of falling (ICD-10 - Z91.81) 03/08/2025 Encounter for screening for depression (ICD-10 - Z13.31) 03/16/2025 Non-compliance (ICD-10 - Z91.199) hx of abruptly stopping medications r/t side effects. 02/08/2025 Encounter for screening for depression (ICD-10 - Z13.31) 03/16/2025 Essential hypertension (ICD-10 - I10) on lisinopril, history of non compliance. 03/08/2025 Encounter for screening for cardiovascular disorders (ICD-10 - Z13.6) 02/08/2025 Benign essential HTN (ICD-10 - I10) 03/08/2025 Benign essential HTN (ICD-10 - I10) 02/08/2025 Other Notes: referral to the local chapter or national office of the Alzheimer's Association ( ; http://www.alz.org ), the Alzheimer's Disease Education and Referral Center (ADEAR) ( ; http://www.kayden.nih .gov/Alzheimers/), , Mirtazapine material was printed Major Depressive Disorder Assessment: Patient reports severe depression (05/19) with symptoms including decreased concentration, decreased energy, difficulty sleeping, isolative behavior, and loss of appetite. This depressive episode began in early November, coinciding with her hip replacement surgery. Patient denies suicidal thoughts or history of self-abuse behavior. The severity of symptoms and their impact on daily functioning suggest a diagnosis of Major Depressive Disorder. Plan: - Discontinue olanzapine 2.5mg due to increased fall risk - Start mirtazapine 7.5mg at bedtime for depression, sleep, and appetite improvement - Follow up in 3 weeks to 1 month to assess response to new medication regimen - Provide patient education on mirtazapine (printed information given) Generalized Anxiety Disorder Assessment: Patient reports severe anxiety (9/10) with a lifelong history of anxiety symptoms. Currently experiencing increased anxiety related to recent hip surgery complications and hospitalization . Patient has been taking alprazolam for anxiety management for approximately 10 years but reports recent overuse due to heightened anxiety. 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 This appears to be a new onset of insomnia, likely related to recent medical issues and anxiety. Plan: - Initiate mirtazapine 7.5mg at bedtime to address insomnia symptoms Weight Loss Assessment: Patient reports significant weight loss of approximately 15 pounds following hip replacement surgery. This is likely multifactorial, related to decreased appetite from depression, anxiety, and possible post-surgical complications. Plan: - Initiate mirtazapine 7.5mg at bedtime to help improve appetite - Monitor weight at follow-up appointment Fall Risk Assessment: Patient reports two falls in the past year, both resulting in injury. Recent hip replacement and use of olanzapine increase fall risk. Plan: - Discontinue olanzapine 2.5mg to reduce fall risk - Advise caution and use of assistive devices as needed The note is transcribed using speech recognition software. It is a reflection of a visit with the patient. It might have some inaccuracy, including medication names and transcribing errors, though efforts have been made to correct them. 03/08/2025 Other Escitalopram material was printed, Hydroxyzine material was printed 1. Anxiety and Depression - Patient rates anxiety at 5/10 and depression at 7/10. - Plan: a. Discontinue fluvoxamine b. Start escitalopram (Lexapro) 5 mg PO daily after washout period. - Option to start at half tablet (2.5 mg) for the first week to mitigate side effects. - Informed patient that full effect may take a 6-8 weeks and need dose adjustments. c. Hydroxyzine: - Can be taken twice daily as needed for short-term anxiety management. - Advised to drink plenty of water due to potential dry mouth side effect. d. Continue alprazolam as previously prescribed. - patient wanting a refill, but last UDS + for THC, repeat urine drug screen, if negative, then will send in refill. e. Provided list of therapists accepting new patients in the area, including [place]. f. Follow up as scheduled. 2. Side Effects - Patient reports feeling weird, including dizziness, lightheadedness , and feeling spacey or detached. - Plan: a. Monitor and assess these symptoms during follow-up appointments. b. Adjust medication as needed based on side effect profile. c. discussed the option of decreasing fluvoxamine to 25 mg tablet to mitigate side effects, patient denied. 3. Sleep - Patient denies sleep difficulties. - Plan: a. Continue trazodone 50 mg. b. Monitor sleep patterns and adjust medication if needed. 03/16/2025 Other 1. Major Depressive Disorder with Anxiety - Recent medication trials (olanzapine, mirtazapine, fluvoxamine, escitalopram) unsuccessful due to side effects. - Plan: a. Start mirtazapine (Remeron) 3.75 mg PO at bedtime for 15 days, then increase to 7.5 mg PO at bedtime. b. Discontinue escitalopram (Lexapro). c. Recommend calling for therapy appointment. (provided number for walk in and a packet of local therapists accepting new patients) 2. Gastrointestinal Issues - Patient reports GI issues, including nausea and vomiting, interfering with medication adherence and nutrition. - Plan: a. Advise taking medication with food or Ensure to minimize GI side effects. b. Advise follow-up with gastroenterology for ongoing GI issues. c. Encourage use of meal replacement drinks (e.g., Ensure) to maintain nutrition. Plan Of Treatment Next Appt Details Provider Name:Chitra Wang , 04/02/2025 01:15:00 PM, [address], [place], [address], Insurance Providers Payer Name Payer Address Payer Phone Subscriber Number Group Number Insured Name Patient Relationship to Insured Coverage Start Date Coverage End Date [employer] Medicare Replacement/ Advantage - Hmo [address] [address] [place] [address] [id number] BRANDI VALERO Self - patient is the insured Medical (General) History Medical History History ICD Code Problems: Gastroesophageal reflux diseas e Generalized anxiety disorder Long-term drug therapy Mild memory disturbance Moderate recurrent major depression Severe recurrent major depression withou t psychotic features hyperlipidemia diverticulosis hypertension Surgical History Surgery Date(Month/Year) Tonsilectomy/adenoids 09/09/1955 Removal of gallbladder (76699) 5 hip replacement- right 2024 Hospitalization History Reason Date(Month/Year) abdominal pain, vomiting surgeries
--- OUTSIDE RECORDS SUMMARY | 2025-03-19 18:12 | XMS_ITS ---
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 Name Role Phone Parth Kumar Unavailable [phone] Sangeeta Melgar [phone] REASON FOR VISIT CANCELLED Social History Sex Assigned At : Social History Observation Description Sex Assigned At Female Encounters Encounter Location Date Provider Diagnosis [facility] [employer] [facility], [address] [address] 03/18/2025 Sangeeta Melgar Plan Of Treatment Next Appt Details Provider Name:Chitra Wang , 04/02/2025 01:15:00 PM, [address], [place] [address], [place], [address], Progress Notes * BRANDI VALERO KDOB:1949 (74 yo F)Acc No.[id number]:03/18/2025 Patient: Nataliia BRANDI READ Provider: Daphney Melgar :1950 A ge:74 Y S ex:Female Date:03/18/2025 Address:[address] [facility] Data: * Chief Complaints: * 1 . CANCELLED. * Medical History: * Vitals: Assessment: Plan: * Treatment: * Procedure Codes: N S NO SHOW * Billing Information: * Visit Code: * Procedure Codes: NS NO SHOW. * Sign off status: Completed Signatures: No Ad Hoc Signature Added true * Provider: Daphney Melgar Date: 03/18/2025 Generated for Wiley anglin/Darren/Mian on: 03/19/2025 06:12 PM CDT
[2025-03-19 20:52] LABS: Hematocrit 42.6 % (37.0-47.0); Hemoglobin 13.8 g/dL (12.0-15.0); Immature Granulocyte Percent A 0.3 % (0-0.5); Lymphocytes Absolute Auto 2.67 K/mm3 (0.9-3.2); Mean Corpuscular HGB Conc 32.4 g/dl (32-36); Mean Corpuscular Hemoglobin 28.4 pg (26-34); Mean Corpuscular Volume 87.7 fl (80-100); Nucleated Red Blood Cells Absolute Auto 0.000 K/mm3 (0.0-0.012); Nucleated Red Blood Cells Perc 0.0 % (0.0-0.2); Platelet Count Result 293 k/mm3 (150-375); Red Blood Count 4.86 M/mm3 (4.2-5.4); White Blood Count 11.6 K/mm3 (4.5-10.0)
[2025-03-19 21:16] LABS: Add Urine Microscopic? YES; Appearance Urine Clear (Clear); Glucose Urine UA Negative (Negative); Leukocyte Esterase Ur 1+ LEU/UL (Negative); Need Manual Microscopic Reviewed; Nitrate Urine Negative (Negative); Non Pathogenic Casts 0-2; Specific Grav Ur 1.026 (1.001-1.035)
[2025-03-19 21:19] LABS: Alanine Aminotransferase 21 U/L (6-35); Albumin Level 4.4 g/dL (3.5-5.1); Alkaline Phosphatase 84 U/L (38-126); Anion Gap 14 mmol/L (4-12); Aspartate Amino Transferase 33 U/L (14-36); Bilirubin,Total 0.5 mg/dL (0.2-1.3); Blood Urea Nitrogen 15 mg/dL (7-17); Calcium 10.2 mg/dL (8.4-10.2); Carbon Dioxide 22 mmol/L (22-30); Chloride 104 mmol/L (98-107); Estimated CRCL calculation 50 ml/min; Estimated Glomerular Filt Rate > 60; Glucose 109 mg/dL (65-110); Lipase 38 U/L (23-300); Magnesium 2.2 mg/dL (1.6-2.3); Potassium 2.8 mmol/L (3.4-5.0); Sodium 140 mmol/L (137-145); Total Protein 7.5 g/dL (6.3-8.2)
--- OUTSIDE RECORDS SUMMARY | 2025-03-19 21:54 | XMS_ITS | Continuity of Care Document ---
Author Organization [facility] Address [address] [place] [address] Phone Care Team Providers Care Funder Name Role Phone Ruiz OD, Zeferino Unavailable Unavailable Advance Directives Directive Yes / No Effective Date File Name No Information Encounters Encounter Description Practice Location Reason(s) For Visit Diagnoses Date Provider Providers Copied on Encounter [facility], [address], [place], [place], [id number], [place] tel:[phone] [facility] No Information 1-200 5 Ruiz OD Zeferino. [address] , [address], [place], [address], [place]. tel:[phone] Family History Family Member Type Diagnosis Age [...]
--- NOTE | 2025-03-19 21:59 | ED_ITS ---
HPI - Anxiety General Chief Complaint: Anxiety Stated Complaint: mult complaints Time Seen by Provider: 03/19/25 21:45 History of Present Illness HPI narrative: Patient is a 74-year-old female who presents emergency department this evening complaining generalized weakness. States that she has not been eating for the past 3 weeks as she is scared of getting sick. Patient states that this all started with colitis and even after she resolved the colitis she still was too scared to eat. She has followed up with multiple physicians including her primary care physician and GI and recently had an upper scope which revealed no acute process. She was informed that her fear of eating in the sick is all in head. Patient states that she is going to follow up with psychiatrist on Saturday undergoing start her on a new medication for her severe anxiety. Denies any additional symptoms or concerns at this time. Related Data Home Medications ?Medication ?Instructions ?Recorded ?Confirmed ?Last Taken ?Type loperamide 2 mg tablet (Imodium 2 mg PO QID PRN Diarrhea 02/21/23 02/23/25 11/03/23 History A-D) olanzapine 2.5 mg tablet 2.5 mg PO QHS 08/20/24 02/23/25 12/16/24 History lisinopril 5 mg tablet 5 mg PO BID 02/10/25 02/23/25 Unknown History Allergies Allergy/AdvReac Type Severity Reaction Status Date / Time Sulfa (Sulfonamide Allergy Intermediate Swelling Verified 03/19/25 18:10 Antibiotics) metronidazole (From Flagyl) AdvReac Intermediate Vomiting Verified 03/19/25 18:10 nitrofurantoin (From AdvReac Intermediate Vomiting Verified 03/19/25 18:10 Macrobid) amoxicillin (From Augmentin) AdvReac Mild Vomiting Verified 03/19/25 18:10 clavulanic acid (From AdvReac Mild Vomiting Verified 03/19/25 18:10 Augmentin) Review of Systems 2 Review of Systems: All systems are reviewed and are negative unless stated otherwise in the HPI. [facility] Past Medical History Medical History Hip dislocation, right Abnormal finding on urinalysis Insomnia RLS (restless legs syndrome) Colitis Mild protein-calorie malnutrition Chronic anxiety Weight loss Dehydration History of esophageal stricture Skin lesion Other spondylosis, lumbosacral region Confusion Contusion of left hip Acute thigh pain Muscle spasm Muscle pain Hip pain Bilateral foot pain Back pain Diverticulitis Gastroparesis Chest pain Weakness generalized Lumbar back pain with radiculopathy affecting right lower extremity Slurred speech Memory loss Vertigo Elevated white blood cell count Elevated liver enzymes CKD (chronic kidney disease) stage 3, GFR 30-59 ml/min Epigastric pain Encounter for Medicare annual wellness exam IBS (irritable bowel syndrome) GERD (gastroesophageal reflux disease) Screening for malignant neoplasm of skin Duodenal diverticulum Functional abdominal pain syndrome Hyperlipidemia Cholecystectomy planned History of depression (~01/24/25) Hx of migraines Depression Anxiety Surgical History Surgical History History of total right hip arthroplasty (~12/01/24) w/Abductor Muscle Repair Hx of colonoscopy History of cholecystectomy Family History Family History Father Leukemia Anemia Hypertension Mother Heart disease Leukemia Sibling Heart disease Social History Social History Smoking status: Never smoker Second hand tobacco smoke exposure: No Alcohol intake: never Substance use: never Substance use type: does not use Do You Feel Safe in your Home?: Yes Lack of Transportation: No Lack of Food: Never True Current Housing: I Have Housing Concerned About Future Housing: No Difficulty Paying Gas/Electric Bills: No Difficulty Paying for Meds: No Currently Unemployed: No Education: High School Diploma/GED Difficulty w/ Childcare or Family Care: No Living arrangements: with family Occupation/Education: retired 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 HEENT: PERRL, no rhinorrhea, no post nasal drip, oropharynx clear. Neck: Trachea midline, no JVD, no lymphadenopathy. Cardiovascular: Regular rate and rhythm, no murmurs, rubs or gallops, no peripheral edema. Respiratory: Clear to auscultation bilaterally, no tachypnea, no wheezing, no rhonchi, no rubs, no respiratory distress. Abdomen: Soft, nontender, nondistended, no rebound, no guarding, no peritoneal signs. Musculoskeletal: No joint swelling or deformity, normal muscle tone. Skin: No rashes or petechia, no signs of infection. Psychiatric: Alert and oriented, normal behavior and judgment for situation. Neurological: Alert and oriented to person, place, and time. Follows all commands. No focal deficits, speech is clear and fluent. Course Vital Signs Vital signs: Vital Signs Temperature 97.6 F 03/19/25 18:11 Pulse Rate 107 H 03/19/25 18:11 Respiratory Rate 16 03/19/25 18:11 Blood Pressure 149/92 H 03/19/25 18:11 Pulse Oximetry 99 03/19/25 18:11 Oxygen Delivery Room Air 03/19/25 18:11 Temperature 97.6 F 03/19/25 18:11 Pulse Rate 107 H 03/19/25 18:11 Respiratory Rate 16 03/19/25 18:11 Blood Pressure 149/92 H 03/19/25 18:11 Pulse Oximetry 99 03/19/25 18:11 Oxygen Delivery Room Air 03/19/25 18:11 MDM - Anxiety MDM Narrative Medical decision making narrative: The patient was evaluated by myself in the emergency department. History is obtained from patient who is an independent historian and physical exam was performed. External medical records were reviewed at this time. IV was established and pertinent tests were ordered. Laboratory results obtained revealing a low potassium of 2.8 otherwise unremarkable. Patient was administered 6 mg of oral potassium at this time. She was also administered 4 mg of IV Zofran. Urinalysis did reveal urinary tract infection at this time patient was started on IV antibiotics with Rocephin 1 g IV and informed that she will be sent home on oral antibiotic. Imaging studies obtained included CXR which was independently interpreted by me revealing no acute cardiopulmonary, which is pending final radiology interpretation. Differential diagnosis considerations include hypokalemia/electrolyte derangements, dehydration, acute viral syndrome. Comorbidities impacting this visit include history of severe anxiety. I have evaluated and discussed social determinants of health with the patient that could potentially impact subsequent diagnosis and treatment plans. On repeat assessment of the patient, reevaluation revealed that the patient is doing well and is in no acute distress. Patient symptoms have improved since she arrived to our emergency department. Repeat vital signs were all reviewed and noted to be stable. Differential diagnosis and treatment plan were discussed with the patient at bedside. Patient agrees with discussion and after shared medical decision making agrees with discharge. All questions were answered to the patient's satisfaction. Patient will follow up with her PCP in 3-5 days. A script for cephalexin was sent to patient's pharmacy to take as prescribed for her UTI. Patient was provided with strict return precautions and instructed to return to the emergency department if any new or worsening symptoms develop. The patient was discharged in stable condition. Lab Data 03/19/25 20:41 03/19/25 20:41 Labs: Lab Results 03/19/25 03/19/25 Range/Units 20:41 20:46 WBC 11.6 H (4.5-10.0) K/mm3 RBC 4.86 (4.2-5.4) M/mm3 Hgb 13.8 (12.0-15.0) g/dL Hct 42.6 (37.0-47.0) % MCV 87.7 (80-100) fl MCH 28.4 (26-34) pg MCHC 32.4 (32-36) g/dl RDW 12.3 (11.5-14.5) % Plt Count 293 (150-375) k/mm3 MPV 9.5 (7.4-10.4) fl Immature Gran % (Auto) 0.3 (0-0.5) % Neut % (Auto) 67.9 (45.5-73.1) % Lymph % (Auto) 23.0 (18.3-44.2) % White % (Auto) 7.5 (2.6-8.5) % Eos % (Auto) 0.9 (0-4.4) % Baso % (Auto) 0.4 (0.2-1.2) % Lymph # (Auto) 2.67 (0.9-3.2) K/mm3 White # (Auto) 0.9 H (0.1-0.6) K/mm3 Eos # (Auto) 0.1 (0-0.3) K/mm3 Baso # (Auto) 0.1 (0.0-0.1) K/mm3 Abs Immat Gran (auto) 0.03 (0.00-0.031) K/mm3 Absolute Neuts (auto) 7.9 H (1.3-6.7) K/mm3 Absolute Nucleated RBC 0.000 (0.0-0.012) K/mm3 Nucleated RBC % 0.0 (0.0-0.2) % Sodium 140 (137-145) mmol/L Potassium 2.8 L* (3.4-5.0) mmol/L Chloride 104 (98-107) mmol/L Carbon Dioxide 22 (22-30) mmol/L Anion Gap 14 H (4-12) mmol/L BUN 15 D (7-17) mg/dL Creatinine 0.85 (0.7-1.0) mg/dL Estim Creat Clear Calc 50 ml/min Estimated GFR > 60 (59 - ) Glucose 109 (65-110) mg/dL Calcium 10.2 (8.4-10.2) mg/dL Magnesium 2.2 (1.6-2.3) mg/dL Total Bilirubin 0.5 (0.2-1.3) mg/dL AST 33 (14-36) U/L ALT 21 (6-35) U/L Alkaline Phosphatase 84 (38-126) U/L Total Protein 7.5 (6.3-8.2) g/dL Albumin 4.4 (3.5-5.1) g/dL Lipase 38 (23-300) U/L Urine Color Yellow (Yellow) Urine Appearance Clear (Clear) Urine pH 6.0 (5.0-9.0) Ur Specific [place]uke 1.026 (1.001-1.035) Urine Protein 1+ H (Negative) mg/dL Urine Glucose (UA) Negative (Negative) mg/dL Urine Ketones 2+ H (Negative) mg/dL Ur Blood (Man) Negative (Negative) Urine Nitrate Negative (Negative) Urine Bilirubin Negative (Negative) Urine Urobilinogen 1.0 (<2.0) mg/dL Add Ur Microanalysis Reviewed Leukocyte Esterase Rfl 1+ H (Negative) KEVIN/UL Urine RBC 6-10 H (0-2) /hpf Urine WBC 21-50 H (0-3) /hpf Ur Squamous Epith Cells Occasional (Few) /hpf Calcium Oxalate Crystal Present (None) /hpf Urine Bacteria None seen /hpf Urine Casts 0-2 Urine Mucus Present /lpf Discharge Plan Discharge Clinical Impression: Hypokalemia, Anxiety, Acute UTI Patient Disposition: Home Condition: Improved Instructions: Antibiotic Form, Hypokalemia (ED), Urinary Tract Infection in Older Adults (ED) Additional Instructions: Please follow-up with your family doctor within the next 3-5 days. Take the prescribed antibiotic as instructed for UTI. Return to the ED if any new or worsening symptoms develop. Your structure to continue taking your potassium supplementations at home as a potassium level was noted to be low today. This level will need to be recheck by your primary care physician. You also provided with Patient Language: Syriac Prescriptions: New cephalexin 500 mg capsule 500 mg PO Q12H 5 Days Qty: 10 0RF ondansetron 4 mg tablet,disintegrating 4 mg PO Q8H PRN (Reason: nausea and vomiting) Qty: 10 0RF No Action alprazolam [Xanax] 0.5 mg tablet 0.5 mg PO QHS PRN (Reason: Anxiety) Qty: 30 0RF lisinopril 5 mg tablet 5 mg PO BID gabapentin 300 mg capsule 300 mg PO BID Qty: 60 1RF loperamide [Imodium A-D] 2 mg tablet 2 mg PO QID PRN (Reason: Diarrhea) olanzapine 2.5 mg tablet 2.5 mg PO QHS trazodone 100 mg tablet 100 mg PO QHS PRN (Reason: insomnia) Qty: 30 1RF cephalexin 500 mg capsule 500 mg PO Q12H 7 Days Qty: 14 0RF cephalexin 500 mg capsule 500 mg PO Q12H 7 Days Qty: 14 0RF rosuvastatin [Crestor] 20 mg tablet 20 mg PO DAILY Qty: 90 1RF pantoprazole 40 mg tablet,delayed release (DR/EC) See Rx Instructions .ROUTE .COMPLEX Qty: 180 3RF Dose Instruction: TAKE 1 TABLET BY MOUTH TWICE DAILY Rx Instructions: TAKE 1 TABLET BY MOUTH TWICE DAILY sucralfate [Carafate] 1 gram tablet 1 g PO QID 30 Days Qty: 120 2RF ropinirole 1 mg tablet 1 mg PO QHS Qty: 30 2RF potassium chloride [Klor-Con] 20 mEq packet 20 meq PO BID Qty: 180 0RF ondansetron 4 mg tablet,disintegrating 4 mg PO Q6H PRN (Reason: nausea and vomiting) Qty: 30 0RF Follow-up/Referrals: Bc Barrett MD [Primary Care Provider] - 3 Days Time of Disposition: 22:06
[2025-03-19] MEDS: cefTRIAXone 1 GM in SODIUM CHLORIDE 0.9% IV 50 ML 100 ML IVPB (22:31)
[2025-03-19] MEDS: POTASSIUM CHLORIDE 20 MEQ PACKET (FOR LIQUID) 40 MEQ PO (22:32)
[2025-03-19] MEDS: POTASSIUM CHLORIDE 20 MEQ PACKET (FOR LIQUID) PO (22:32)
[2025-03-19] MEDS: ONDANSETRON INJ 4 MG/2 ML VIAL IV PUSH (22:32)
== END 2025-03-19 23:18 | disposition home or self-care (01) ==
PROVIDERS: Emergency Provider Emergency Medicine; PCP Family Medicine
DX: N39.0 Urinary tract infection, site not specified (principal); E87.6 Hypokalemia; F41.9 Anxiety disorder, unspecified; N18.30 Chronic kidney disease, stage 3 unspecified; E78.5 Hyperlipidemia, unspecified; K58.9 Irritable bowel syndrome, unspecified; K21.9 Gastro-esophageal reflux disease without esophagitis; G25.81 Restless legs syndrome; F32.A Depression, unspecified; Z96.641 Presence of right artificial hip joint; Z90.49 Acquired absence of other specified parts of digestive tract; Z79.899 Other long term (current) drug therapy
CPT/HCPCS: 36415; 71045; 80053; 81001; 83690; 83735; 85025; 87086; 96365; 96375; 99284; A9270; J0696; J2405

== ENCOUNTER 2025-03-22 15:29 | Outpatient (CLI) | payer MEDICARE, SELFPAY ==
--- OUTSIDE RECORDS SUMMARY | 2025-03-22 15:35 | XMS_ITS | Continuity of Care Document ---
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 [address] , [address], [place], [address], [place]. tel:[phone] Family History Family Member Type Diagnosis Age [...]
[2025-03-22 16:55] LABS: Albumin Level 4.8 g/dL (3.5-5.1); Anion Gap 13 mmol/L (4-12); Blood Urea Nitrogen 7 mg/dL (7-17); Calcium 10.7 mg/dL (8.4-10.2); Carbon Dioxide 23 mmol/L (22-30); Chloride 103 mmol/L (98-107); Estimated Glomerular Filt Rate 57; Glucose 134 mg/dL (65-110); Magnesium 2.3 mg/dL (1.6-2.3); Potassium 4.2 mmol/L (3.4-5.0); Sodium 139 mmol/L (137-145)
== END 2025-03-22 15:30 | disposition home or self-care (01) ==
PROVIDERS: PCP Family Medicine; Visit Provider Internal Medicine Nephrology
DX: E87.6 Hypokalemia (principal)
CPT/HCPCS: 36415; 80069; 83735

== ENCOUNTER 2025-03-30 14:55 | Outpatient (CLI) | payer MEDICARE, SELFPAY ==
--- NOTE | ~2025-03-30 | XR_ITS ---
EXAM: XR hip RT 2V w AP pelvis DATE: 03/30/2025 15:18 HISTORY: Z96.641 - Presence of right artificial hip joint . COMPARISON: 02/12/2025, images only. FINDINGS: Degenerative changes in the lumbar spine including a large right lateral bridging osteophy te at L2-3. Decreased mineralization. Mild degenerative changes in the left hip and pubic symphysis. Uncomplicated right hip arthroplasty hardware. No fracture or dislocation. No lytic or blastic lesion . Pelvic phleboliths. IMPRESSION: Osteopenia. Uncomplicated appearing right hip arthroplasty hardware. No acute osseous fin ding in the pelvis or right hip. Reviewed, dictated and finalized at location K. IMPRESSION: Osteopenia. Uncomplicated appearing right hip arthroplasty hardware . No acute osseous finding in the pelvis or right hip.
--- NOTE | ~2025-03-30 | XR_ITS ---
EXAM/PROCEDURE: XR abdomen/kub 1V - 03/30/2025 15:10 CDT HISTORY: 74 years old Female with Calculus of kidney COMPARISON: None available. TECHNIQUE: AP view(s) of the abdomen. FINDINGS: The bowel gas pattern is normal. There is no evidence for obstruction. No free intraperitoneal air is identified on this supine radiograph. The visualized soft tissue shadows are unremarkable. Degenerative changes. Right hip arthroplasty. Cholecystectomy clips. No radiopaque calculus seen. Visualized portions of lung bases are clear. IMPRESSION: No acute process. Reviewed, dictated and finalized at location A. IMPRESSION: No acute process.
--- OUTSIDE RECORDS SUMMARY | 2025-03-30 14:58 | XMS_ITS | Data Portability ---
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 Plan of Treatment Reminders Order Date Submit Date Provider Last Modified By Organization Details Last Modified Time Details Appointments None record ed. Lab None record ed. Referral None record ed. Procedures None record ed. Surgeries None record ed. Imaging None record ed. Medication Orders None record ed. Patient TargetsNo targets recorded. Patient Instructions Encounter Date Encounter Id Patient Instructions Last Modified By Organization Details Last Modified Time 03/25/2025 [id number] Failure to thriv e. Was given some ensure recommended three or four bottles per day. Will also get set up home health gotten evaluate the patient with regards to possible physical therapy. We will also add back on to her regimen Xanax 0.25 mg t.i.d. For anxiety. Check back in two weeks Additional Orders - Directives - Recommendations 1. 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 Keep Appointment: Flores 04 08 2025 01:40 PM Cynthia Portions of record are template driven. When necessary additional context will be provided. Additionally some portions have been created with voice recognition software. Occasional wrong-word or [id number] substitutions may have occurred due to the inherent limitations of voice recognition software. Read the chart carefully and recognize, using context, where substitutions may have occurred. Created: Kang Mackay M.D. 03.25.2025 02:07 PM [email or web address] Not available 03/25/2025 15:07:55 Reason for Referral None Reported. Results Created Date Observation Date Name Description Value Unit Range Abnormal Flag Note LastModifiedBy Organization Detail LastModifiedTime 04/26/20 22 XR, hip + pelvi s, unila teral No observ ation record ed. [id number] [place] [address], [place], [address], 11/07/2022 05:01:07 Result Notes None recorded. 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 Not Available [facility] 3 04:50:03 Abdominal pain 19194420 Active Not Available [facility] 3 04:50:03 Headache 61312943 Active Not Available [facility] 3 04:50:03 Left lower quadrant pain 244417235 Active Not Available [facility] 3 04:50:03 Enthesopat hy of hip region 33160764 Active Not Available [facility] 3 04:50:04 Closed fracture of lateral malleolus 35836687 Active Not Available [facility] 3 04:50:04 Blood in urine 71148780 Active Not Available [facility] 3 04:50:04 Vitamin D deficiency 29057082 Active Not Available [facility] 3 04:50:04 Dyslipidem ia 445486888 Active Not Available [facility] 3 04:50:04 Neuropathy 103616176 Active Not Available [facility] 3 04:50:04 Foot pain 71798000 Active Not Available [facility] 3 04:50:05 Anxiety 47093656 Active ISIAH Schneider [facility] 5 15:28:10 Dysuria 17441159 Active Not Available [facility] 3 04:50:05 Hyperlipid emia 01425342 Active Not Available [facility] 3 04:50:05 Epigastric pain 35568659 Active Not Available [facility] 3 04:50:05 Fatigue 71882442 Active Not Available [facility] 3 04:50:06 Pain in limb 61882154 Active Not Available [facility] 3 04:50:06 Irritable bowel syndrome 75088291 Active 2019 Not Available [facility] 3 04:50:03 Urinary tract infectious disease 25326036 Active 2021 Not Available [facility] 3 04:50:05 Long-term drug therapy Active 2021 Not Available [facility] 3 04:50:03 Low back pain 382465901 Active 2021 Not Available [facility] 3 04:50:03 Pain of right hip joint 9424419040719 02 Active 2021 Not Available [facility] 3 04:50:04 Acute urinary tract infection 419556556 Active 2021 Not Available [facility] 3 04:50:05 Pain in lower limb 71024848 Active 2021 Not Available [facility] 3 04:50:03 Pain of right lower leg 0564840831845 08 Active 2021 Not Available [facility] 3 04:50:04 Diverticul itis 930777431 Active 2021 Not Available [facility] 3 04:50:03 Chondromal acia of right hip 3576431131966 9108 Active 2021 Not Available [facility] 3 04:50:03 Osteoarthr itis 824326078 Active 2021 Not Available [facility] 3 04:50:04 Pain of hip region 76064511 Active 2024 ISIAH Suero Jeffrey [facility] 5 14:52:55 Adult failure to thrive syndrome 770015291 Active 2024 ISIAH Suero Jeffrey [facility] 5 15:14:15 Restless legs 74212903 Active 2024 Kayy pandya [place] [facility] 15:28:57 Problem Notes None recorded. Procedures Surgical History Date Name Laterality Status Provider Name and Address Organization Details Recorded Time 08/15/20 Most Recent Bone Density completed Not Available [facility] 11/07/2022 04:41:55 10/12/19 16 Date of Last Colonoscopy completed Not Available [facility] 11/07/2022 04:41:55 10/12/19 16 Colonoscopy completed Not Available [facility] 11/07/2022 04:41:57 Cholecystectomy completed Not Available [facility] 11/07/2022 04:41:57 tonsilectomy/adeno ids completed Not Available [facility] 11/07/2022 04:41:57 Imaging Results None recorded. Procedure Notes None recorded. Medical Equipment None Reported. Allergies Allergen ID Allergen Name Allergen Category Reaction Reaction Severity Criticality Documentation Date Start Date Code Code System Note Provider Name and Address Organization Details Recorded Time 7413 Augmentin medicatio n vomiting Not available Not available 11/07/2022 77677 2 RxNorm Not Available [facility] 05:00:38 Medications Name Sig Start Date Stop Date Status Note LastModified by Organization Details LastModified Time cyclobenz aprine 10 mg tablet TAKE 1 TABLET BY MOUTH THREE TIMES DAILY NEEDED FOR MUSCLE SPASMS 03/25 completed Not Available Not Available Not Available amoxicill in 500 mg capsule Take 1 capsule 3 times a day by oral route for 10 days. active Not Available Not Available No t Available buspirone 5 mg tablet TAKE 1 TABLET BY MOUTH THREE TIMES A DAY 03/25 completed Not Available Not Available Not Available hydrocodo ne 7.5 mg-ibupro fen 200 mg tablet active Not Available Not Available No t Available bupropion HCl SR 150 mg tablet,12 hr sustained -release TAKE 1 TABLET BY MOUTH TWICE A DAY active Not Available Not Available No t Available ropinirol e 1 mg tablet TAKE 1 TABLET BY MOUTH EVERYDAY AT BEDTIME 03/29 completed Not Available Not Available Not Available Carafate 100 mg/mL oral suspensio n Carafate Slurry. 1 Gram 30 minutes prior to each meal and at bedtime active Not Available Not Available No t Available trazodone 50 mg tablet Take 1 tablet every day by oral route at bedtime. active Not Available Not Available No t Available atorvasta tin 10 mg tablet TAKE 1 TABLET BY MOUTH EVERY DAY 02/01 completed Not Available Not Available Not Available azithromy robinson 250 mg tablet TAKE 2 TABLETS ON DAY 1 THEN 1 TABLET DAILY FOR 4 DAYS UNTIL ALL TAKEN 07/29 completed Not Available Not Available Not Available tizanidin e 4 mg tablet Take 1 tablet every day by oral route at bedtime. active Not Available Not Available No t Available valacyclo vir 1 gram tablet Take 1 tablet 3 times a day by oral route for 7 days. 10/31 completed Not Available Not Available Not Available hydrocodo ne 5 mg-acetam inophen 325 mg tablet 04/03 completed Not Available Not Available Not Available prochlorp erazine maleate 5 mg tablet Take 1 TABLET EVERY 6 HOURS by oral route prn for nausea active Not Available Not Available No t Available meloxicam 15 mg tablet TAKE 1/2 TABLET BY MOUTH IN MORNING AND 1/2 TABLET AT NIGHT. TAKE WITH FOOD. STOP IF STOMACH UPSET. 03/25 completed Not Available Not Available Not Available sucralfat e 1 gram tablet TAKE 1 TABLET BY MOUTH FOUR TIMES A DAY FOR 30 DAYS active Not Available Not Available No t Available ondansetr on HCl 4 mg tablet TAKE 1 TABLET ORALLY EVERY 8 HOURS NEEDED FOR NAUSEA AND VOMITING 03/25 completed Not Available Not Available Not Available famotidin e 40 mg tablet 03/25 completed Not Available Not Available Not Available bupivacai ne HCl 0.5 % (5 mg/mL) injection solution In office injectio n administ ered by the provider 02/26 completed Not Available Not Available Not Available prednison e 20 mg tablet Take 2 tablets every day by oral route for 5 days. active Not Available Not Available No t Available gabapenti n 400 mg capsule TAKE 1 CAPSULE BY MOUTH THREE TIMES A DAY X15 DAYS, THEN 1 CAP 4 TIMES DAILY X15 DAYS 03/25 completed Not Available Not Available Not Available sertralin e 100 mg tablet TAKE 1 TABLET BY MOUTH EVERY DAY 03/25 completed Not Available Not Available Not Available metronida zole 250 mg tablet TAKE 1 TABLET BY MOUTH EVERY 8 HOURS 03/25 completed Not Available Not Available Not Available promethaz ine 6.25 mg-codein e 10 mg/5 mL syrup Take 5 ML EVERY 6 HOURS by oral route PRN for cough active Not Available Not Available No t Available diphenoxy late-atro pine 2.5 mg-0.025 mg tablet TAKE 1 TABLET EVERY FOUR HOURS NEEDED FOR DIARRHEA active Not Available Not Available No t Available penicilli n V potassium 500 mg tablet Take 1 tablet 3 times a day by oral route for 10 days. active Not Available Not Available No t Available metronida zole 500 mg tablet TAKE 1 TABLET BY MOUTH EVERY 8 HOURS FOR 7 DAYS 03/25 completed Not Available Not Available Not Available Klor-Con 20 mEq oral packet Take 2 packets every day by oral route. 2024 active Not Available Not Available Not Avai lable ciproflox acin 250 mg tablet Take 1 tablet every 12 hours by oral route for 10 days. active Not Available Not Available No t Available ciproflox acin 500 mg tablet 500 MG ORALLY EVERY 12 HOURS 03/25 completed Not Available Not Available Not Available olanzapin e 2.5 mg tablet TAKE 1 TABLET BY MOUTH EVERY DAY WITH DINNER 03/25 completed Not Available Not Available Not Available hydrocodo ne 10 mg-acetam inophen 325 mg tablet active Not Available Not Available Not Available amitripty line 50 mg tablet TAKE 1 TABLET BY MOUTH EVERY DAY AT BEDTIME 03/25 completed Not Available Not Available Not Available potassium chloride 20 mEq/15 mL oral liquid TAKE 7.5ML BY MOUTH ONCE DAILY 03/25 completed Not Available Not Available Not Available Macrobid 100 mg capsule Take 1 capsule every 12 hours by oral route for 5 days. 03/25 completed Not Available Not Available Not Available oxycodone -acetamin ophen 5 mg-325 mg tablet TAKE 1 TO 2 TABLETS BY MOUTH EVERY 4 TO 6 HOURS NEEDED FOR PAIN X7 DAYS 03/25 completed Not Available Not Available Not Available alprazola m 0.5 mg tablet TAKE 1 TABLET BY MOUTH EVERY DAY AT BEDTIME NEEDED FOR ANXIETY 03/25 completed Not Available Not Available Not Available amoxicill in 875 mg tablet 04/19 completed Not Available Not Available Not Available alprazola m 0.25 mg tablet Take 1 tablet 3 times a day by oral route. 2024 active Not Available Not Available Not Avai lable potassium chloride ER 20 mEq tablet,ex tended release(p art/cryst ) TAKE 1 TABLET BY MOUTH TWICE A DAY FOR HYPOKALE ADDIS 03/25 completed Not Available Not Available Not Available amitripty line 25 mg tablet TAKE 1 OR 2 TABLETS BY MOUTH DAILY AT BEDTIME 03/25 completed Not Available Not Available Not Available trazodone 100 mg tablet TAKE 1 TABLET BY MOUTH EVERY DAY AT BEDTIME NEEDED FOR INSOMNIA active Not Available Not Available No t Available dicyclomi ne 20 mg tablet TAKE 1 TABLET BY MOUTH EVERY 6 HOURS NEEDED 10/31 completed Not Available Not Available Not Available fluvoxami ne 25 mg tablet TAKE 1 TABLET BY MOUTH EVERY DAY AT BEDTIME 03/25 completed Not Available Not Available Not Available Kenalog 10 mg/mL suspensio n for injection In office injectio n administ ered by the provider 02/26 completed [facility]: [phone] 12-27 Not Available Not Available Not Available amitripty line 10 mg tablet TAKE 1 TABLET BY MOUTH EVERYDAY AT BEDTIME* *needs appt in November active Not Available Not Available No t Available rizatript an 10 mg disintegr ating tablet DISSOLVE 1 TABLET IN MOUTH DIRECTED FOR HEADACHE 03/25 completed Not Available Not Available Not Available fluvoxami ne 100 mg tablet TAKE 1 TAB BY MOUTH ONCE A DAY FOR 15 DAYS, THEN 2 TABS ONCE A DAY FOR 15 DAYS 03/25 completed Not Available Not Available Not Available hydrocodo ne 7.5 mg-acetam inophen 325 mg tablet 03/24 completed Not Available Not Available Not Available ropinirol e 2 mg tablet take one tablet at bedtime 2024 active Not Available Not Available Not Avai lable cephalexi n 500 mg capsule TAKE 1 CAPSULE BY MOUTH EVERY 12 HOURS UNTIL ALL TAKEN 03/25 completed Not Available Not Available Not Available pantopraz ole 40 mg tablet,de layed release TAKE 1 TABLET BY MOUTH EVERY MORNING active Not Available Not Available No t Available oseltamiv ir 75 mg capsule Take 1 capsule twice a day by oral route for 5 days. 09/27 completed Not Available Not Available Not Available esomepraz ole magnesium 40 mg capsule,d elayed release Take 1 capsule every day by oral route. 10/31 completed Not Available Not Available Not Available ropinirol e 0.5 mg tablet TAKE 1 TABLET BY MOUTH DAILY AT BEDTIME 03/25 completed Not Available Not Available Not Available losartan 25 mg tablet TAKE 1 TABLET BY MOUTH DAILY 03/25 completed Not Available Not Available Not Available carbidopa 10 mg-levodo pa 100 mg tablet 07/14 completed Not Available Not Available Not Available gabapenti n 300 mg capsule TAKE 1 CAPSULE BY MOUTH TWICE A DAY 03/25 completed Not Available Not Available Not Available monteluka st 10 mg tablet Take 1 tablet(s ) every day by oral route. 07/29 completed Not Available Not Available Not Available codeine 10 mg-guaife nesin 100 mg/5 mL oral liquid 1 teaspoon tid prn cough 10 day supply active Melissa little AC/mlaave d to pharm Not Available Not Available Not Available lisinopri l 5 mg tablet Take 2 tablets every day by oral route. active Not Available Not Available No t Available mirtazapi ne 15 mg tablet TAKE 1 TABLET BY MOUTH EVERY DAY AT BEDTIME FOR 30 DAYS 10/31 completed Not Available Not Available Not Available gabapenti n 100 mg capsule Take 2 capsules 3 times a day by oral route for 14 days. active Not Available Not Available No t Available ergocalci ferol (vitamin D2) 1,250 mcg (50,000 unit) capsule Take 1 capsule every week by oral route. active Not Available Not Available No t Available levofloxa robinson 500 mg tablet 12/13 completed Not Available Not Available Not Available oxycodone -acetamin ophen 7.5 mg-325 mg tablet 04/19 completed Not Available Not Available Not Available methylpre dnisolone 4 mg tablets in a dose pack TAKE 6 TABLETS ON DAY 1 DIRECTED ON PACKAGE AND DECREASE BY 1 TAB EACH DAY FOR A TOTAL OF 6 DAYS 03/25 completed Not Available Not Available Not Available hydroxyzi ne HCl 10 mg tablet TAKE 1 TABLET BY MOUTH TWICE A DAY NEEDED 03/25 completed Not Available Not Available Not Available ondansetr on 4 mg disintegr ating tablet TAKE 1 TABLET BY MOUTH EVERY 6 HOURS NEEDED FOR NAUSEA AND VOMITING active Not Available Not Available No t Available cefdinir 300 mg capsule Take 1 capsule every 12 hours by oral route. active Not Available Not Available No t Available fluticaso ne propionat e 50 mcg/actua tion nasal spray,chantell pension Inhale 1 spray every day by intranas al route. active Not Available Not Available No t Available colestipo l 1 gram tablet 10/31 completed Not Available Not Available Not Available dicyclomi ne 10 mg capsule TAKE 1 TO 2 CAPSULES BY MOUTH EVERY 6 HOURS 03/25 completed Not Available Not Available Not Available metoclopr amide 10 mg tablet TAKE 1 TABLET BY MOUTH 3 TIMES A DAY BEFORE MEALS NEEDED active Not Available Not Available No t Available amoxicill in 875 mg-potass ium clavulana te 125 mg tablet Take 1 tablet twice a day by oral route for 10 days. 01/29 completed Not Available Not Available Not Available oxycodone 5 mg tablet Take 1 tablet every 4 hours by oral route. active Not Available Not Available No t Available escitalop heidy 20 mg tablet TAKE ONE TABLET DAILY active Not Available Not Available No t Available cholestyr amine (with sugar) 4 gram powder for susp in a packet TAKE CONTENTS OF 1 PACKET IN 2-3 OZ OF WATER ONCE DAILY AT BEDTIME. AVOID MEDS WITHIN 1 HR OF TAKING 06/25 completed Not Available Not Available Not Available rosuvasta tin 20 mg tablet TAKE 1 TABLET BY MOUTH DAILY active Not Available Not Available No t Available potassium chloride ER 10 mEq tablet,ex tended release(p art/cryst ) TAKE 1 TABLET BY MOUTH EVERY DAY 03/25 completed Not Available Not Available Not Available escitalop heidy 5 mg tablet TAKE 1 TABLET BY MOUTH EVERY DAY 03/25 completed Not Available Not Available Not Available mirtazapi ne 7.5 mg tablet Take 1 tablet every day by oral route. active Not Available Not Available No t Available tizanidin e 4 mg capsule Take 1 capsule twice a day by oral route. 11/20 completed Not Available Not Available Not Available fenofibra te 160 mg tablet Take 1 tablet every day by oral route. 04/19 completed Not Available Not Available Not Available Imodium A-D PRN 03/25 completed Not Available Not Available Not Available ProAir HFA 90 mcg/actua tion aerosol inhaler Inhale 2 puffs every 4 hours by inhalati on route. active Not Available Not Available No t Available quetiapin e 50 mg tablet Take 2 tablets every day by oral route at bedtime for 30 days. 10/31 completed Not Available Not Available Not Available fenofibra te nanocryst allized 145 mg tablet TAKE ONE TABLET DAILY 05/17 completed Not Available Not Available Not Available Lipofen 150 mg capsule Take 1 capsule every day by oral route. 04/19 completed Not Available Not Available Not Available Nexium 24HR PRN 11/02 completed Not Available Not Available Not Available bupropion HCl 150 mg tablet,12 hr sustained -release( smoking deterrent ) Take 1 tablet every day by oral route. 07/29 completed entered an error Not Available Not Available Not Available Voquezna 20 mg tablet TAKE 1 TABLET BY MOUTH EVERY DAY 03/25 completed Not Available Not Available Not Available Vitals Date Recorded Body height Body mass index (BMI) Body weight Heart rate Body temperature Oxygen saturation Oxygen saturation in Arterial blood by Pulse oximetry Systolic And Diastolic Provider Name and Address Organization Details Last Updated DateTime 5 165.1 cm 20.5 kg/m2 55953.8 6 g 119 /min 97 [degF] 95 % 95 % 98/60 mm[Hg] Kayy Carr Jeffrey [facility] 5 14:31:18 Date Recorded Body height Provider Name an d Address Organization Details Last Updated DateTime 04/26/2022 165.1 cm Not Available [facility] 3 04:47:56 Date Recorded Body height Provider Name an d Address Organization Details Last Updated DateTime 05/24/2022 165.1 cm Not Available [facility] 3 04:47:56 Date Recorded Body height Provider Name an d Address Organization Details Last Updated DateTime 06/21/2022 165.1 cm Not Available [facility] 3 04:47:56 Date Recorded Body height Heart rate Body temperature Body weight Systolic And Diastolic Provider Name and Address Organization Details Last Updated DateTime 06/25/2022 165.1 cm 94 /min 98 [degF] 43021.3 7 g 122/80 mm[Hg] Not Available [facility] 3 04:47:54 Social History Question Answer Notes LastModified by Organizat ion Details LastModified Time Tobacco Smoking Status Never Smoker Not Available [facility] 11/07/2022 04:40:26 Do You Have An Advance Directive? No [id number] Information not available 11/07/2022 Are You Blind Or Do You Have Difficulty Seeing? No [id number] Information not available 11/07/2022 What Is Your Level Of Caffeine Consumption? Moderate [id number] Information not available 11/07/2022 How Much Tobacco Do You Chew? None [id number] Information not available 11/07/2022 In The 14 Days Before Symptom Onset, Have You Had Close Contact With A Laboratory-confi rmed COVID-19 While That Case Was Ill? No [id number] Information not available 11/07/2022 In The 14 Days Before Symptom Onset, Have You Had Close Contact With A Person Who Is Under Investigation For COVID-19 While That Person Was Ill? No [id number] Information not available 11/07/2022 Are You Deaf Or Do You Have Serious Difficulty Hearing? No [id number] Information not available 11/07/2022 What Type Of Diet Are You Following? VEGETARIAN [id number] Information not available 11/07/2022 Which Illicit Or Recreational Drugs Have You Used? None [id number] Information not available 11/07/2022 What Is The Highest Grade Or Level Of School You Have Completed Or The Highest Degree You Have Received? [id number] [id number] Information not available 11/07/2022 Have There Been Any Changes To Your Family Or Social Situation? No [id number] [id number] Information not available 11/07/2022 What Is The Fluoride Status Of Your Home? Unknown [id number].[id number] Information not available 11/07/2022 Are There Any Guns Present In Your Home? Yes [id number] Information not available 11/07/2022 Do You Use Insect Repellent Routinely? No [id number] [id number] Information not available 11/07/2022 Where Do You Live? [place]House MIGRATION.[id number] Information not available 11/07/2022 Do You Have A Medical Power Of Bladder Blower? No [id number].45351 12189 Information not available 11/07/2022 What Was The Date Of Your Most Recent Tobacco Screening? 06/25/2022 [id number] Information not available 11/07/2022 Do You Have Any Pets? No [id number] Information not available 11/07/2022 What Is Your Relationship Status? [id number] Information not available 11/07/2022 Do You Use Your Seat Belt Or Car Seat Routinely? Yes [id number].75675 [id number] Information not available 11/07/2022 Do You Have Smoke And Carbon Monoxide Detectors In Your Home? Yes [id number].52571 07596 Information not available 11/07/2022 Are You Passively Exposed To Smoke? No MIGRATION.38459 [id number] Information not available 11/07/2022 Are There Any Smokers In Your House? No [id number].24521 [id number] Information not available 11/07/2022 How Much Tobacco Do You Smoke? No MIGRATION.20505 63490 Information not available 11/07/2022 What Types Of Sporting Activities Do You Participate In? None [id number].[id number] Information not available 11/07/2022 Do You Use Sunscreen Routinely? No MIGRATION.80034 07401 Information not available 11/07/2022 Has Tobacco Cessation Counseling Been Provided? No Not Needed-ne chan Smoked [id number].09117 [id number] Information not available 11/07/2022 How Many Years Have You Smoked Tobacco? 0 MIGRATION.20126 60993 Information not available 11/07/2022 Have You Recently Traveled Abroad? No [id number] Information not available 11/07/2022 Do You Have Difficulty Walking Or Climbing Stairs? No MIGRATION.[id number] Information not available 11/07/2022 Do You Have Any Dietary Restrictions? No MIGRATION.41615 32843 Information not available 11/07/2022 Sex: Female Functional Status Question Answer Note LastModified by Organizat ion Details LastModified Time Do you use any illicit or recreational drugs? No MIGRATION.93713 14463 Information not available 11/07/2022 Do you or have you ever used any other forms of tobacco or nicotine? No MIGRATION.83198 66046 Information not available 11/07/2022 What is your level of alcohol consumption? None MIGRATION.72924 48778 Information not available 11/07/2022 Do you or have you ever used smokeless tobacco? Never used smokeless tobacco MIGRATION.80709 58916 Information not available 11/07/2022 Do you have transportation difficulties? No MIGRATION.64765 40043 Information not available 11/07/2022 Are you able to walk? [place]WOREST MIGRATION.21146 27466 Information not available 11/07/2022 Do you have difficulty doing errands alone? Yes doesnt drive MIGRATION.14717 48222 Information not available 11/07/2022 Are you able to care for yourself? Yes MIGRATION.18422 82589 Information not available 11/07/2022 What is your occupation? retired MIGRATION.67298 82705 Information not available 11/07/2022 Do you have difficulty dressing or bathing? No MIGRATION.15641 29429 Information not available 11/07/2022 Do you or have you ever used e-cigarettes or vape? Never used electronic cigarettes MIGRATION.36631 05836 Information not available 11/07/2022 What is your exercise level? None MIGRATION.41762 65139 Information not available 11/07/2022 Mental Status Question Answer Note LastModified by Organizat ion Details LastModified Time Do you feel stressed (tense, restless, nervous, or anxious, or unable to sleep at night)? [id number] MIGRATION.[id number] 26 Information not available 11/07/2022 Do you have difficulty concentrating, remembering or making decisions? No MIGRATION.[id number] 26 Information not available 11/07/2022 Family History Relationship Description Onset Age of this Age Resolved Age Notes LastModified by Organization Details LastModified Time Mother Heart disease 62 MIGRATION.955 [id number] Not available 11/07/2022 04:42:03 Father Leukemia 81 MIGRATION.098 [id number] Not available 11/07/2022 04:42:03 Medical History Condition Response BLINDNESS N NERVE DISEASE Y RHEUMATIC FEVER N BLADDER PROBLEMS N KIDNEY STONES N MRSA N OTHER # 1 Y POLIO N LUNG DISEASE/DISORDER N RADIATION / CHEMOTHERAPY N COPD N Other # 2 N BLOOD DISEASES N SURGERY N EAR OR HEARING PROBLEMS N MUMPS N DEPRESSION (INCLUDING POST ) N BOWEL PROBLEMS Y STROKE/TIA N ULCERS N BENIGN PROSTATIC HYPERPLASIA N MEASLES N MYOCARDIAL INFARCTION N OBESITY N GERD/NAUSEA N ANEURYSM N URINARY/BLADDER/KIDNEY PROBLEMS Y CORONARY ARTERY DISEASE (CAD) N ADDICTION CONCERNS N ENDOMETRIOSIS N Impotence N USE OF BLOOD THINNERS N SKIN PROBLEMS N GASTROINTESTINAL DISORDER N PERIPHERAL VASCULAR DISEASE N MUSCLE,JOINT OR BONE PROBLEMS N GASTROINTESTINAL BLEEDING N BLOOD CLOTS N ASTHMA N CATARACTS N ERECTILE DYSFUNCTION N VARICOSITIES N GI PROBLEMS N Low Testosterone N INFERTILITY N AIDS/HIV N CHEMOTHERAPY / RADIATION N LIVER DISEASE N MALE HYPOGONADISM N HYPERTENSION N Deficiency Y ANXIETY DISORDER Y BLOOD TRANSFUSION N ANEMIA/BLOOD DISORDER N CHRONIC EAR INFECTIONS N BRONCHITIS N TUBERCULOSIS N GLAUCOMA N FOOT PROBLEM N DIVERTICULITIS N SLEEP APNEA N CHICKENPOX N INFECTIOUS DISEASE N HEART ARRHYTHMIA N PROSTATE N INSOMNIA N HIGH CHOLESTEROL / HYPERLIPIDEMIA Y HYPERTHYROIDISM N EYE PROBLEMS N NEUROLOGICAL PROBLEMS N EDEMA N CHRONIC PAIN SYNDROME N HYPOTHYROIDISM N CAROTID BLOCKAGE N CONSTIPATION N BACK / NECK PROBLEMS N HAVE YOU BEEN HOSPITALIZED OR SEEN IN [facility] ER IN THE PAST YEAR ? N ATHEROSCLEROSIS N BREAST PROBLEMS N DIALYSIS N ECZEMA N OSTEOPOROSIS N ARTHRITIS N APPENDICITIS N DIABETES, TYPE N BAD TEETH N ENT N HEARTBURN / REFLUX N AUTISM SPECTRUM DISORDER (ASD) N HEPATITIS / LIVER DISEASE N GOUT N SLEEP DISORDER N ALZHEIMER'S DISEASE N Brain Problems N HERPES N DEMENTIA N HEADACHES/MIGRAINES N SEIZURES/EPILEPSY N VASCULAR DISEASE N PACEMAKER N Blood Disorder N DIZZINESS N HEART DISEASE/HEART PROBLEMS N KIDNEY DISEASE N MULTIPLE SCLEROSIS N CARDIAC ARRHYTHMIA N CANCER: SPECIFY N ATRIAL FIBRILLATION N Gall Stones N PULMONARY EMBOLISM N AUTOIMMUNE DISEASE N Gynecological History Statement/Question Response Abnormal Pap N Date of Last Mammogram 01/30/2022 Date of Last Colonoscopy 10/12/2015 Most Recent Bone Density 08/15/2020 Date of LMP Date of Last Pap 09/23/2004 Current Control Method None Obstetrics History GPAL:G 1 P 1 0 0 0 Type Value Full Term 1 Total 1 Immunizations Vaccine Type Date Status Note Provider Nam e and Address Organization Details Recorded Time COVID-19, mRNA, LNP-S, PF, 100 mcg/0.5mL dose or 50 mcg/0.25mL dose 1 completed Not Available [facility] 11/07/2022 05:00:28 COVID-19, mRNA, LNP-S, PF, 100 mcg/0.5mL dose or 50 mcg/0.25mL dose 1 completed Not Available [facility] 11/07/2022 05:00:28 COVID-19, mRNA, LNP-S, PF, 100 mcg/0.5mL dose or 50 mcg/0.25mL dose 1 completed Not Available [facility] 11/07/2022 05:00:29 Influenza, high-dose, quadrivalent, PF 2 completed Not Available [facility] 11/07/2022 05:00:29 Pneumococcal conjugate PCV 13 0 completed Not Available [facility] 11/07/2022 05:00:29 Influenza, high-dose, quadrivalent, PF 0 completed Not Available [facility] 11/07/2022 05:00:29 Influenza, high-dose, trivalent, PF 9 completed Not Available [facility] 11/07/2022 05:00:29 Influenza, high-dose, trivalent, PF 7 completed Not Available [facility] 11/07/2022 05:00:29 Pneumococcal conjugate PCV 13 7 completed Not Available [facility] 11/07/2022 05:00:29 Past Encounters Encounter ID Performer Location Encounter Start Date Encounter Closed Date Diagnosis/Indication Diagnosis SNOMED-CT Code Diagnosis ICD10 Code Diagnosis Note [id number] Oliver Tracey MD [facility] Internal [facility] [address] [facility] [place] [address] 12/15/2020 00:00:00 12/15/2020 13:17:27 [id number] Oliver Tracey MD [facility] Internal [place] [address] [address], [address] [address] 12/30/2020 00:00:00 01/22/2021 21:00:53 [id number] Oliver Tracey MD [facility] Internal Med [facility] [address] [address] 01/10/2021 00:00:00 01/10/2021 22:53:58 [id number] Oliver Tracey MD [facility] Internal Med [facility] [address] [address] 01/25/2021 00:00:00 01/25/2021 22:05:56 [id number] Oliver Tracey MD [facility] Internal Med [facility] [address] [address] 03/01/2021 00:00:00 03/03/2021 13:34:29 [id number] Oliver Tracey MD [facility] Internal Med [facility] [address] [address] 05/26/2021 00:00:00 05/26/2021 22:41:27 [id number] Oliver Tracey MD [facility] Internal Med [facility] [address] [place], [place] [address]e., [address] [address] 09/11/2021 00:00:00 09/11/2021 22:34:52 [id number] Oliver Tracey MD [facility] Internal Med [facility] [address] [facility] , [facility] [place] [address] 10/31/2021 00:00:00 10/31/2021 23:07:22 [id number] Oliver Tracey MD [facility] Internal Med [facility] [address] [place], [place] [address]., [address] [address] 11/20/2021 00:00:00 11/26/2021 20:38:59 [id number] Oliver Tracey MD [facility] Internal Med [facility] [address] [facility] y , [facility] [place] [address] 12/19/2021 00:00:00 12/19/2021 21:33:38 [id number] Brendon Min MD [facility] [place] [address] [place] [address] 12/29/2021 00:00:00 12/29/2021 14:56:03 [id number] Oliver Tracey MD [facility] Internal [facility] [address] [place] [address] Ave[address] [address] 02/01/2022 00:00:00 02/01/2022 21:54:20 [id number] Brendon Min MD [facility] [place] [address] [place] [address] 02/16/2022 00:00:00 02/16/2022 14:26:27 [id number] Brendon Min MD [facility] [place] [address] [facility] [address] [place] [address] 02/26/2022 00:00:00 02/26/2022 15:00:27 [id number] Oliver Tracey MD [facility] Internal Med [place] [address] , [facility] [address] [place] [address] 03/05/2022 00:00:00 03/05/2022 21:52:31 [id number] Brendon Min MD [facility] [address] [address] 03/29/2022 00:00:00 03/29/2022 14:34:32 [id number] Brendon Min MD [facility] [address] [address] 04/26/2022 00:00:00 04/26/2022 15:02:09 [id number] Brendon Min MD [facility] [address] [address] 05/24/2022 00:00:00 05/24/2022 14:53:40 [id number] Brendon Min MD [facility] [address] [address] 06/21/2022 00:00:00 06/21/2022 12:54:53 [id number] Oliver Tracey MD [facility] Internal [facility] [address], [facility] [address] [place] [address] 06/25/2022 00:00:00 06/25/2022 23:15:51 [id number] Kang Mackay MD [facility] Internal [facility] [address], [facility] [address] [place] [address] 03/25/2025 14:23:25 03/25/2025 15:24:08 Adult failure to thrive syndrome 169598287 R62.7 Health Concerns Section Related Observation LastModified by Organization Detai ls LastModified Time None Recorded Concern Status LastModified by Organization Details LastModified Time None Recorded Advance Directives Directive N: Payers Insurance Date Sequence Insurance Name Policy Number Policy Mccormick Covered Member ID Mccormick Member ID Guarantor Name 03/25/2025 1 [facility] - MEDICARE COMPLETE PLAN 1 (MEDICARE REPLACEMENT HMO) [id number] Lucy Peña [id number] Lucy Morfinley Notes Date Note Type Note Provider Name and Address Organization Details Recorded Time 5 text/html Patient Name: Lucy PeñaDate Of Service: March ( 03.25.2025 ): 1950 Age: 74 Vital Signs:Blood Pressure: Sitting Rt. Arm 98/60Pulse: Sitting 119 /min and RegularRespiratory Rate: 12Height 65 in or 1.7 mWeight 123 lb or 55.8 kgBMI 20.5Temperature: 97.8 F or 36.6 CPulse Oximetry: 95 % at rest on no oxygen Chief Complaint: Addressed in HPI Problems or conditions discussed in the HPI were the only ones reviewed during the encounter.Only social and family history addressed in the HPI were reviewed during this encounter. Attendants(s) + HusbandConstitutional and Systemic Symptoms:anorexia, weight loss and generalized fatigue Medication Reconciliation: from medication list. History of Present Illness #1. Failure to thrive with some 40 lb weight loss over the last several months. Had a right hip replacement back in November. Subsequently fell several weeks later. Injured the hip and dislocated. Had undergo recurrent surgery. He is doing well with regards to this at this time. He is not in a lot of pain or discomfort but has shown progressive weight loss of over 40 lb becoming immobile. Likely more secondary to depression as well as other ongoing psychosocial events. Will increase the Remeron to 15 mg [address]. [address] also place back on some low-dose Xanax 0.25 mg t.i.d. For anxiety. Will also have physical therapy go out and evaluate the patient at home. Check back in two weeks: Active Medication ListRopinirole 1 MG TABLET, FILM COATED One At BedtimeTrazodone 50 MG TABLET 2 Tablets At BedtimeCrestor 20 MG TABLET, FILM COATED Once DailyMirtazapine 15 MG TABLET, ORALLY DISINTEGRATING One Daily In EveningLisinopril 5 MG TABLET 2 Tablets DailyProtonix 40 MG TABLET, DELAYED RELEASE Once DailySucralfate 1 G TABLET One Four Times A DayAlprazolam .25 MG TABLET One Tid Adverse Drug Reactions ReviewedNo Known Adverse Drug Reactions! Social HistoryFamily History Kang Mackay MD [address], [facility] [address], [place], [address], [place] [facility] 03/25/2025 15:08:06 OBGyn Episode No OBEpisode recorded.
--- OUTSIDE RECORDS SUMMARY | 2025-03-30 14:58 | XMS_ITS | Patient Health Record ---
Author Organization [facility] Address [address] [facility] [address] [place] [address] Care Team Providers Care Division Sales Manager Name Role Phone Parth Kumar Unavailable [phone] NuraSelvin faria Unavailable [phone] Chitra Wang Unavailable [phone] Sangeeta Melgar Unavailable [phone] Sukumar Carballo Unavailable [phone] Allergies No Known Allergies Results Component Value Reference Range Notes DRUG MONITOR, BENZO, QN, URI NE (02348) Reviewed date:02/24/2025 08:20:49 AM Interpretation: Performing Lab:[facility], [facility] [facility], CityNews[place]wwfZP[address] Hank Evans Notes/Report: FASTING: UNKNOWN Alphahydroxyalprazolam 135 <25 ng/mL Alphahydroxymidazolam NEGATIVE <50 ng/mL Alphahydroxytriazolam NEGATIVE <50 ng/mL Aminoclonazepam NEGATIVE <25 ng/mL Hydroxyethylflurazepam NEGATIVE <50 ng/mL Lorazepam NEGATIVE <50 ng/mL Nordiazepam NEGATIVE <50 ng/mL Oxazepam NEGATIVE <50 ng/mL Temazepam NEGATIVE <50 ng/mL Benzodiazepines Comments See Benzodiazepines Notes, LDT Notes DRUG MONITOR, MARIJUANA META B, QN, URINE ([id number]) Reviewed date:02/24/2025 08:20:36 AM Interpretation: Performing Lab:[facility], [facility] [id number], [id number] Hank Evans, Director - [address] [address] [facility] Notes/Report: FASTING: UNKNOWN Marijuana Metabolite 1562 <5 [...] analytical performance characteristics have been determined by [facility]. It has not been cleared or approved by the FDA. This assay has been validated pursuant to the CLIA regulations and is used for clinical purposes. Healthcare Providers needing Interpretation assistance, please contact us at [phone] ( ) M-F, 8am to 10pm EST UDT Reviewed date:02/08/2025 04:20:35 PM Interpretation: Performing Lab: Notes/Report: THC p 0 - 50 ng/ml Cocaine n 0 - 300 ng/ml Amphetamine n 0 - 1000 ng/ml Buprenorphine (BUP) n 0 - 10 ng/ml Secobarbital (Bar) n 0 - 300 ng/ml Oxazepam (BZO) p 0 - 300 ng/ml 7-wnupcoozfu-1,7-feqapweu-2, 3-dipheny lpyrrolidine (EDDP) n 0 - 300 ng/ml Methamphetamine (MET) n 0 - 1000 ng/ml Methylenedioxymethamphetamine (MDMA) n 0 - 500 ng/ml Morphine (MOP 300/XUB9897) n 0 - 300 ng/ml Methadone (MTD) n 0 - 300 ng/ml Phencyclidine (PCP) n 0 - 25 ng/ml Nortriptyline (TCA) n 0 - 1000 ng/ml Oxycodone n 0 - 300 ng/ml x n 0 - 300 ng/ml UDT Reviewed date:03/11/2025 03:27:33 PM Interpretation: Performing Lab: Notes/Report: THC p 0 - 50 ng/ml Cocaine n 0 - 300 ng/ml Amphetamine n 0 - 1000 ng/ml Buprenorphine (BUP) n 0 - 10 ng/ml Secobarbital (Bar) n 0 - 300 ng/ml Oxazepam (BZO) p 0 - 300 ng/ml 1-hqfekbbiuz-0,8-scagkhrg-2, 3-dipheny lpyrrolidine (EDDP) n 0 - 300 ng/ml Methamphetamine (MET) n 0 - 1000 ng/ml Methylenedioxymethamphetamine (MDMA) n 0 - 500 ng/ml Morphine (MOP 300/AEH0876) n 0 - 300 ng/ml Methadone (MTD) n 0 - 300 ng/ml Phencyclidine (PCP) n 0 - 25 ng/ml Nortriptyline (TCA) n 0 - 1000 ng/ml Oxycodone n 0 - 300 ng/ml x n 0 - 300 ng/ml Reason For Referral No Information Medications Medication [...] Risk Notes Problem Moderate recurrent major depression (53202349) Major depressive disorder, recurrent, moderate (F33.1) Active confirmed Problem Severe recurrent major depression without psychotic features (77663683) Major depressive disorder, recurrent severe without psychotic features (F33.2) 01/06/20 24 Active confirmed Problem Generalized anxiety disorder (97447633) Generalized anxiety disorder (F41.1) Active confirmed Problem Insomnia disorder related to another mental disorder (55620658) Insomnia due to other mental disorder (F51.05) Active confirmed Problem Obsessive-compu lsive disorder (494658383) Obsessive-compu lsive disorder, unspecified (F42.9) Active confirmed Problem Essential hypertension (05064637) Essential hypertension (I10) Active confirmed on lisinopril , history of non compliance . Vital Signs Heart Rate 101 /min 03/16/2025 Height-cm 170.18 cm 03/16/2025 Blood pressure diastolic 90 mm Hg 03/16/2025 Weight-kg 59.42 kg 03/16/2025 Height 67.00 in 03/16/2025 Blood pressure systolic 146 mm Hg 03/16/2025 Weight 131 lbs 03/16/2025 BMI 20.52 kg/m2 03/16/2025 Encounters Encounter Location Date Provider Diagnosis [facility] [address] [place] [address] 03/11/2025 Selvin Lyman [facility] [address] [place] [address] 04/27/2024 Thena Stacy Generalized anxiety disorder F41.1 ; Major depressive disorder, recurrent, moderate F33.1 and Obsessive-compulsive disorder, unspecified F42.9 [employer] [facility], [facility] [address] [place] [address] 02/08/2025 Sukumar Clubb Generalized anxiety disorder F41.1 ; Major depressive disorder, recurrent severe without psychotic features F33.2 ; Insomnia due to other mental disorder F51.05 ; History of falling Z91.81 ; Encounter for screening for depression Z13.31 and Benign essential HTN I10 [facility], [address] [address] [place] [address] 03/08/2025 Sukumar Clubb Major depressive disorder, recurrent severe without psychotic features F33.2 ; Generalized anxiety disorder F41.1 ; Insomnia due to other mental disorder F51.05 ; History of falling Z91.81 ; Encounter for screening for depression Z13.31 ; Encounter for screening for cardiovascular disorders Z13.6 and Benign essential HTN I10 [facility] [employer] [facility], [address] [address] [place] [address] 03/16/2025 Sukumar Clubb Major depressive disorder, recurrent severe without psychotic features F33.2 ; Generalized anxiety disorder F41.1 ; Insomnia due to other mental disorder F51.05 ; History of falling Z91.81 ; Non-compliance Z91.199 and Essential hypertension I10 [facility] [employer] [facility], [address] [address] [place] [address] 03/18/2025 Sangeeta Melgar [facility] [address] [place] [address] 03/24/2025 Chitra Wang [facility] [address] [place] [address] 05/04/2024 Parth Kumar [facility], [place] [address] [place] [address] 02/17/2025 Sukumar Clubb Major depressive disorder, recurrent severe without psychotic features F33.2 [facility] [employer] [facility], [facility] [address] [place] [address] 02/22/2025 Sukumar Clubb Major depressive disorder, recurrent severe without psychotic features F33.2 and Major depressive disorder, recurrent, moderate F33.1 [facility] [address] [place] [address] 03/06/2025 Sukumar Clubb Major depressive disorder, recurrent, moderate F33.1 [facility] [address] [place] [address] 03/14/2025 Sukumar Clubb [facility], [address] [address] [place] [address] 03/15/2025 Sukumar Clubb [facility] [address] [place] [address] 03/17/2025 Sukumar Clubb 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 This appears to be a new [...] accepting new patients in the area, including [place]. f. Follow up as scheduled. 2. Side [...] Provider Name:Chitra Wang , 04/02/2025 01:15:00 PM, [facility], [place], [address], Insurance Providers Payer Name Payer Address Payer Phone Subscriber Number Group Number Insured Name Patient Relationship to Insured Coverage Start Date Coverage End Date [facility] Medicare Replacement/ Advantage - Hmo [address] [address] [place] [address] [id number] BRANDI VALERO Self - patient is the insured Medical (General) History Medical History History ICD Code Problems: Gastroesophageal reflux diseas e Generalized anxiety disorder Long-term drug therapy Mild memory disturbance Moderate recurrent major depression Severe recurrent major depression withou t psychotic features hyperlipidemia diverticulosis hypertension Surgical History Surgery Date(Month/Year) Tonsilectomy/adenoids 09/09/1955 Removal of gallbladder (16185) 5 hip replacement- right 2024 Hospitalization History Reason Date(Month/Year) abdominal pain, vomiting surgeries
--- OUTSIDE RECORDS SUMMARY | 2025-03-30 14:58 | XMS_ITS | Continuity of Care Document ---
Author Organization [facility] Address [address] [place] [address] Phone Care Team Providers Care Air Drier Machine Operator Name Role Phone Ruiz OD, Zeferino Unavailable Unavailable Advance Directives Directive Yes / No Effective Date File Name No Information Encounters Encounter Description Practice Location Reason(s) For Visit Diagnoses Date Provider Providers Copied on Encounter [facility], [address], [place], [place], [id number], [place] tel:[phone] [facility] No Information 1-200 5 Ruiz OD Zeferino. [address] , [address], [place], [address], [place]. tel:[phone] Family History Family Member Type Diagnosis Age [...]
--- OUTSIDE RECORDS SUMMARY | 2025-03-30 14:59 | XMS_ITS ---
Author Organization [facility] Address [address] [facility] [address] [place] [address] Care Team Providers Care Sheep Or Calf Grader Name Role Phone Parth Kumar Unavailable [phone] Selvin Holm Unavailable [phone] Results Component Value Reference Range Notes UDT Reviewed date:03/11/2025 03:27:33 PM Interpretation: Performing Lab: Notes/Report: THC p 0 - 50 ng/ml Cocaine n 0 - 300 ng/ml Amphetamine n 0 - 1000 ng/ml Buprenorphine (BUP) n 0 - 10 ng/ml Secobarbital (Bar) n 0 - 300 ng/ml Oxazepam (BZO) p 0 - 300 ng/ml 1-uzcyxoqrzo-9,7-hlabmxwk-3,3-diphenylpyrrolidine (MITCH P) n 0 - 300 ng/ml Methamphetamine (MET) n 0 - 1000 ng/ml Methylenedioxymethamphetamine (MDMA) n 0 - 500 ng/ml Morphine (MOP 300/CEV8483) n 0 - 300 ng/ml Methadone (MTD) [...] Female Encounters Encounter [facility] Date [facility] [address] [facility] [address] [place] [address] 03/11/2025 Selvin Holm Plan Of Treatment Next Appt Details Provider Name:Chitra Wang , 04/02/2025 01:15:00 PM, [facility], [facility] [address], [place], [address], Progress Notes * BRANDI VALERO KDOB:1949 (74 yo F)Acc No.[id number]:03/11/2025 Progress Note Patient: Nataliia LEÓNBRANDI KAUR Provider: Jeffrey HOLM MD :1950 A ge:74 Y S ex:Female Date:03/11/2025 Address:[facility] Subjective: * Chief Complaints: * 1 [...] p 0 - 300 ng/ml * 2 -ethylidene-1,6-ykunejsn-9,3-diphenylpyrrolidine (EDDP) n 0 - 300 ng/ml * M ethamphetamine (MET) n 0 - 1000 ng/ml * M ethylenedioxymethamphetamine (MDMA) n 0 - 500 ng/ml * M orphine (MOP 300/SZU8302) n 0 - 300 ng/ml * M [...] p 0 - 300 ng/ml * 2 -ethylidene-1,6-qnctqvel-6,3-diphenylpyrrolidine (EDDP) n 0 - 300 ng/ml * M ethamphetamine (MET) n 0 - 1000 ng/ml * M ethylenedioxymethamphetamine (MDMA) n 0 - 500 ng/ml * M orphine (MOP 300/NDV8445) n 0 - 300 ng/ml * M [...] Information: * Visit Code: * Procedure Codes: 38411 DRUG TST PRSMV READ INSTRMNT ASSTD DIR OPT OBS. * Electronic signature of Flex Holm MD on 03/30/2025 at 02:59 PM CDT Sign off status: Pending * Provider: Jeffrey HOLM MD Date: 0 03/11/2025 Generated for Piperi ng/Falisag/eTransmitting on: 03/30/2025 02:59 PM CDT History and Physical Notes * HPI (History of Present Illness) Category Sub-Category Detail Notes Category Not es History of Presenting Problem Pt was seen today an d Urine drug screen was done
== END 2025-03-30 14:56 | disposition home or self-care (01) ==
PROVIDERS: PCP Internal Medicine; Visit Provider Orthopaedic Surgery
DX: Z96.641 Presence of right artificial hip joint (principal); N20.0 Calculus of kidney
CPT/HCPCS: 73502; 74018

== ENCOUNTER 2025-04-22 15:53 | Outpatient (CLI) | payer MEDICARE, SELFPAY ==
--- OUTSIDE RECORDS SUMMARY | 2025-04-22 15:56 | XMS_ITS | Patient Health Record ---
Author Organization [facility] Address [address] [place] [address] Care Team Providers Care Surveying Teacher Name Role Phone Chitra Wang Unavailable [phone] StacyParth barahona Unavailable [phone] HindersagrarioSangeeta ibarra Unavailable [phone] [address] Unavailable [phone] Allergies No Known Allergies Results Component Value Reference Range Notes DRUG MONITOR, MARIJUANA META B, QN, URINE ([id number]) Reviewed date:02/24/2025 08:20:36 AM Interpretation: Performing Lab:[facility], [employer] [facility] [address] CenterAshvinTagxBA[address] Hank Evans, Director - [address] [place] [facility] [facility] Notes/Report: FASTING: UNKNOWN Marijuana Metabolite 1562 <5 [...] analytical performance characteristics have been determined by [employer]. It has not been cleared or approved by the FDA. This assay has been validated pursuant to the CLIA regulations and is used for clinical purposes. Healthcare Providers needing Interpretation assistance, please contact us at [phone] ( ) M-F, 8am to 10pm EST DRUG MONITOR, MARLEY CARREON URI NE ([id number]) Reviewed date:02/24/2025 08:20:49 AM Interpretation: Performing Lab:CB, [facility] [address], [place] [id number] Hank Evans Notes/Report: FASTING: UNKNOWN Alphahydroxyalprazolam 135 <25 ng/mL Alphahydroxymidazolam NEGATIVE <50 ng/mL Alphahydroxytriazolam NEGATIVE <50 ng/mL Aminoclonazepam NEGATIVE <25 ng/mL Hydroxyethylflurazepam NEGATIVE <50 ng/mL Lorazepam NEGATIVE <50 ng/mL Nordiazepam NEGATIVE <50 ng/mL Oxazepam NEGATIVE <50 ng/mL Temazepam NEGATIVE <50 ng/mL Benzodiazepines Comments See Benzodiazepines Notes, LDT Notes UDT Reviewed date:02/08/2025 04:20:35 PM Interpretation: Performing Lab: Notes/Report: THC p 0 - 50 ng/ml Cocaine n 0 - 300 ng/ml Amphetamine n 0 - 1000 ng/ml Buprenorphine (BUP) n 0 - 10 ng/ml Secobarbital (Bar) n 0 - 300 ng/ml Oxazepam (BZO) p 0 - 300 ng/ml 0-obxeprdnzn-0,3-whbkpmqk-4, 3-dipheny lpyrrolidine (EDDP) n 0 - 300 ng/ml Methamphetamine (MET) n 0 - 1000 ng/ml Methylenedioxymethamphetamine (MDMA) n 0 - 500 ng/ml Morphine (MOP 300/GUB8012) n 0 - 300 ng/ml Methadone (MTD) [...] Oxazepam (BZO) p 0 - 300 ng/ml 8-mysfzcmixd-2,2-gytbmwad-4, 3-dipheny lpyrrolidine (EDDP) n 0 - 300 ng/ml Methamphetamine (MET) n 0 - 1000 ng/ml Methylenedioxymethamphetamine (MDMA) n 0 - 500 ng/ml Morphine (MOP 300/BWC6080) n 0 - 300 ng/ml Methadone (MTD) n 0 - 300 ng/ml Phencyclidine (PCP) n 0 - 25 ng/ml Nortriptyline (TCA) n 0 - 1000 ng/ml Oxycodone n 0 - 300 ng/ml x n 0 - 300 ng/ml Reason For Referral No Information Medications Medication SIG (Take, Route, Frequency, Duration) Notes Start Date End Date Status Ondansetron HCl 4 MG TAKE 1 TABLET BY MOUTH EVERY 8 HOURS NEEDED FOR NAUSEA AND VOMITING Oral; Duration: 7 Days Active rOPINIRole HCl 0.5 MG 2 tablet Oral Once a day; Duration: 90 days Active Meclizine HCl 25 MG TAKE 1 TABLET BY MOUTH TWICE A DAY NEEDED FOR DIZZINESS Oral; Duration: 30 Days Active Mirtazapine 7.5 MG 0.5 tablet once a day for 15 days, 1 tablet once a day for 15 days Orally daily; Duration: 30 days please cut in half or provide a pill splitter Active ALPRAZolam 0.25 MG 1 tablet Orally 3 times a day; Duration: 15 days As needed Active Rosuvastatin Calcium 20 MG TAKE 1 TABLET BY MOUTH EVERY DAY Oral Once a day; Duration: 90 days Active Lisinopril 5 MG TAKE 1 TABLET BY MOUTH EVERY DAY FOR HIGH BLOOD PRESSURE Oral Once a day; Duration: 90 days Active Immunizations Vaccine Route Administration Date Status [...] Risk Notes Problem Moderate recurrent major depression (68596061) Major depressive disorder, recurrent, moderate (F33.1) 09/13/19 24 Active confirmed Problem Severe recurrent major depression without psychotic features (91653359) Major depressive disorder, recurrent severe without psychotic features (F33.2) 01/06/20 24 Active confirmed Problem Generalized anxiety disorder (98529088) Generalized anxiety disorder (F41.1) 10/18/19 24 Active confirmed Problem Insomnia disorder related to another mental disorder (72640104) Insomnia due to other mental disorder (F51.05) Active confirmed Problem Obsessive-compu lsive disorder (757243116) Obsessive-compul sive disorder, unspecified (F42.9) Active confirmed Problem Mild cognitive disorder (943023435) Mild cognitive impairment, so stated (G31.84) 12/29/19 22 Active confirmed Problem Essential hypertension (38050492) Essential hypertension (I10) Active confirmed on lisinopril , history of non compliance . Problem Weight decreased (698873121) Weight loss, unintentional (R63.4) Active confirmed Vital Signs Heart Rate 99 /min 04/02/2025 Respiratory Rate 16 /min 04/02/2025 Height-cm 170.18 cm 04/02/2025 Blood pressure diastolic 77 mm Hg 04/02/2025 Weight-kg 61.24 kg 04/02/2025 Height 67.00 in 04/02/2025 Blood pressure systolic 124 mm Hg 04/02/2025 Weight 135 lbs 04/02/2025 BMI 21.14 kg/m2 04/02/2025 Encounters Encounter Location Date Provider Diagnosis [employer] [address] [facility] [address] [place] [address] 04/27/2024 Thena Stacy Generalized anxiety disorder F41.1 ; Major depressive disorder, recurrent, moderate F33.1 and Obsessive-compulsive disorder, unspecified F42.9 [facility] [address] [place] [address] 02/08/2025 Sukumar Clubb Generalized anxiety disorder F41.1 ; Major depressive disorder, recurrent severe without psychotic features F33.2 ; Insomnia due to other mental disorder F51.05 ; History of falling Z91.81 ; Encounter for screening for depression Z13.31 and Benign essential HTN I10 [facility] [employer] [facility], [facility] [address] [facility] [address] [place] [address] 03/08/2025 Sukumar Clubb Major depressive disorder, recurrent severe without psychotic features F33.2 ; Generalized anxiety disorder F41.1 ; Insomnia due to other mental disorder F51.05 ; History of falling Z91.81 ; Encounter for screening for depression Z13.31 ; Encounter for screening for cardiovascular disorders Z13.6 and Benign essential HTN I10 [facility] [employer] [facility] [address] [address] 03/11/2025 Chitra [employer] [facility] [employer] [facility], [facility] [address] [address] 03/16/2025 Sukumar Clubb Major depressive disorder, recurrent severe without psychotic features F33.2 ; Generalized anxiety disorder F41.1 ; Insomnia due to other mental disorder F51.05 ; History of falling Z91.81 ; Non-compliance Z91.199 and Essential hypertension I10 [facility] [employer] [facility], [facility] [address] [address] 03/18/2025 Sangeeta Melgar [facility] [employer] [facility] [address] [address] 04/02/2025 Chitra Wang Major depressive disorder, recurrent, moderate F33.1 ; Generalized anxiety disorder F41.1 ; Insomnia due to other mental disorder F51.05 ; Mild cognitive impairment, so stated G31.84 and Weight loss, unintentional R63.4 [facility] [employer] [facility] [address] [address] 04/16/2025 Chitra Wang [facility] [employer] [facility] [address] [address] 04/20/2025 Chitra Wang [facility] [employer] [facility] [address] [address] 05/04/2024 Parth Kumar [facility] [employer] [facility] [address] [place] [address] 02/17/2025 Sukumar Clubb Major depressive disorder, recurrent severe without psychotic features F33.2 [facility] [employer] [facility] [address] [place] [address] 02/22/2025 Sukumar Clubb Major depressive disorder, recurrent severe without psychotic features F33.2 and Major depressive disorder, recurrent, moderate F33.1 [facility] [employer] [facility] [address] [place] [address] 03/06/2025 Sukumar Clubb Major depressive disorder, recurrent, moderate F33.1 [facility] [employer] [facility] [address] [place] [address] 03/14/2025 Sukumar Clubb [facility] [employer] [facility] [address] [place] [address] 03/15/2025 Sukumar Clubb [facility] [employer] [facility] [address] [place] [address] 03/17/2025 Sukumar Clubb [facility] [employer] [facility], [facility] [address] [place] [address] 03/23/2025 Sukumar Clubb [facility] [employer] [facility] [address] [place] [address] 03/24/2025 Chitra Wang Assessments Encounter Date Diagnosis (ICD Code) Assessment [...] severe without psychotic features (ICD-10 - F33.2) 04/02/2025 Major depressive disorder, recurrent, moderate (ICD-10 - F33.1) Preventing Depression From Coming Back: Care Instructions material was published, Seasonal Affective Disorder: Care Instructions material was published, Depression Treatment: Care Instructions material was published, Learning About How to Get Help During a Mental Health Crisis material was published, Learning About Depression Screening material was published presently taking- currently taking trazodone 50 mg , ALPRAZolam 0.25 MG Tablet 1 tablet Orally 3 times a day As needed. Mirtazapine 7.5 MG bedtime 1.Depression Mirtazapine 7.5 MG bedtime PCP increased Remeron to 7.5 mg week ago - will plan to increase dose to 15 mg next week- see PCP next week continue this dose at this time until next week when see PCP toelrating rx no s/e schedule therapy RAYMOND 2. Anxiety ALPRAZolam 0.25 MG Tablet 1 tablet Orally 3 times a day As needed- PCP fills 3. Insomnia Trazodone 50 mg bedtime- PCP fills sleep hygeine Sleep Hygeine- - KEEP YOUR BEDROOM DARK - GET LOTS OF NATURAL LIGHT IN THE MORNING. - DON'T WORK ON YOUR COMPUTER OR PHONE LATE AT NIGHT. - AVOID NAPS DURING THE DAY. - NO CAFFEINE 3 HOURS OR MORE AFTER WAKE UP TIME. - ONLY USE YOUR BED FOR SLEEPING - GET A RELAXATION ROUTINE BEFORE BED. - IF YOU CAN'T GET TO SLEEP AFTER 15 TO 30 MINUTES GET OUT OF BED AND DO SOMETHING RELAXING. - DON'T DRINK ALCOHOL IN THE EVENING or limit alcohol to 1 drink 4. Low appetite with weight loss hx nausea and vomiting PCP increased Remeron to 7.5 mg week ago - will plan to increase dose to 15 mg next week- see PCP next week continue this dose at this time until next week when see PCP toelrating rx no s/e Patient educated on all medications including potential benefits, side effects, risks. Educated on proper dosing schedule and importance of compliance educated on all medications, benefits, side effects and risk, and educated on depression, anxiety, and ADHD, mood d/o and educated on compliance of medications, metabolic and movement d/o education appointment's, continue therapy discussion with patient about course of treatment and patient instructions. education on serotonin syndrome Discussed and educated pt regarding benzodiazepines are generally not intended for prolonged use and that use can cause tolerance, dependence, depression, and associated memory issues including dementias (this list is not exhaustive). Benzodiazepine use is generally not recommended concurrently with pain medications and/or other controlled substances educated on all medications, benefits, side effects and risk, and educated on depression, anxiety, and ADHD, mood d/o and educated on compliance of medications, metabolic and movement d/o education appointment is, continue therapy discussion with patient about course of treatment and patient instructions. education on serotonin syndrome SSRI/SNRI side effects discussed including but not limited to, gastric upset, nausea, vomiting, diarrhea and/or constipation, weight changes, sexual side effects including loss of libido, increased suicidal thoughts/behavio rs in children and young adults, and serotonin syndrome. Second generation antipsychotics (SGAs) have metabolic syndrome issues with weight gain, increase in prolactin, increased waist circumference, increased lipids, and increased glucose. Thus routine monitoring of weight, metabolic labs, etc. is indicated. A general rank ordering of antipsychotics that have the greatest to the least risk of metabolic effects is olanzapine, quetiapine, risperidone, ziprasidone, and aripiprazole. However, weight gain can occur with all of these drugs and considerable variability exists among patients receiving the same drug regarding the risk of metabolic effects. Anti-psychotic agents not only increase the risk of metabolic disorder, they also increase the risk of CVA, akathisia, and movement disorders including EPS or tardive dyskinesia (more common with first generation antipsychotics) and more. Elderly- discussed risks, cognition, sedation, falls, metabolic, movement and atypical antipsychotics carry a black-box warning for increased risk of and cerebrovascular events in dementia. NO RX filled today Medication Management and Follow-Up - Plan: - Schedule follow-up appointments every 1-3 months to monitor the patient's response to the medication regimen. - Reinforce the importance of avoiding recreational drug use due to potential neurotoxicity and interactions with prescribed medications. 04/02/2025 Generalized anxiety disorder (ICD-10 - F41.1) Learning About Generalized Anxiety Disorder material was published, Generalized Anxiety Disorder: Care Instructions material was published, Learning About Anxiety Disorders material was published presently taking- currently taking trazodone 50 mg , ALPRAZolam 0.25 MG Tablet 1 tablet Orally 3 times a day As needed. Mirtazapine 7.5 MG bedtime 1.Depression Mirtazapine 7.5 MG bedtime PCP increased Remeron to 7.5 mg week ago - will plan to increase dose to 15 mg next week- see PCP next week continue this dose at this time until next week when see PCP toelrating rx no s/e schedule therapy RAYMOND 2. Anxiety ALPRAZolam 0.25 MG Tablet 1 tablet Orally 3 times a day As needed- PCP fills 3. Insomnia Trazodone 50 mg bedtime- PCP fills sleep hygeine Sleep Hygeine- - KEEP YOUR BEDROOM DARK - GET LOTS OF NATURAL LIGHT IN THE MORNING. - DON'T WORK ON YOUR COMPUTER OR PHONE LATE AT NIGHT. - AVOID NAPS DURING THE DAY. - NO CAFFEINE 3 HOURS OR MORE AFTER WAKE UP TIME. - ONLY USE YOUR BED FOR SLEEPING - GET A RELAXATION ROUTINE BEFORE BED. - IF YOU CAN'T GET TO SLEEP AFTER 15 TO 30 MINUTES GET OUT OF BED AND DO SOMETHING RELAXING. - DON'T DRINK ALCOHOL IN THE EVENING or limit alcohol to 1 drink 4. Low appetite with weight loss hx nausea and vomiting PCP increased Remeron to 7.5 mg week ago - will plan to increase dose to 15 mg next week- see PCP next week continue this dose at this time until next week when see PCP toelrating rx no s/e Patient educated on all medications including potential benefits, side effects, risks. Educated on proper dosing schedule and importance of compliance educated on all medications, benefits, side effects and risk, and educated on depression, anxiety, and ADHD, mood d/o and educated on compliance of medications, metabolic and movement d/o education appointment's, continue therapy discussion with patient about course of treatment and patient instructions. education on serotonin syndrome Discussed and educated pt regarding benzodiazepines are generally not intended for prolonged use and that use can cause tolerance, dependence, depression, and associated memory issues including dementias (this list is not exhaustive). Benzodiazepine use is generally not recommended concurrently with pain medications and/or other controlled substances educated on all medications, benefits, side effects and risk, and educated on depression, anxiety, and ADHD, mood d/o and educated on compliance of medications, metabolic and movement d/o education appointment is, continue therapy discussion with patient about course of treatment and patient instructions. education on serotonin syndrome SSRI/SNRI side effects discussed including but not limited to, gastric upset, nausea, vomiting, diarrhea and/or constipation, weight changes, sexual side effects including loss of libido, increased suicidal thoughts/behavio rs in children and young adults, and serotonin syndrome. Second generation antipsychotics (SGAs) have metabolic syndrome issues with weight gain, increase in prolactin, increased waist circumference, increased lipids, and increased glucose. Thus routine monitoring of weight, metabolic labs, etc. is indicated. A general rank ordering of antipsychotics that have the greatest to the least risk of metabolic effects is olanzapine, quetiapine, risperidone, ziprasidone, and aripiprazole. However, weight gain can occur with all of these drugs and considerable variability exists among patients receiving the same drug regarding the risk of metabolic effects. Anti-psychotic agents not only increase the risk of metabolic disorder, they also increase the risk of CVA, akathisia, and movement disorders including EPS or tardive dyskinesia (more common with first generation antipsychotics) and more. Elderly- discussed risks, cognition, sedation, falls, metabolic, movement and atypical antipsychotics carry a black-box warning for increased risk of and cerebrovascular events in dementia. NO RX filled today Medication Management and Follow-Up - Plan: - Schedule follow-up appointments every 1-3 months to monitor the patient's response to the medication regimen. - Reinforce the importance of avoiding recreational drug use due to potential neurotoxicity and interactions with prescribed medications. 04/27/2024 Major depressive disorder, recurrent, moderate (ICD-10 - F33.1) 04/02/2025 Insomnia due to other mental disorder (ICD-10 - F51.05) presently taking- currently taking trazodone 50 mg , ALPRAZolam 0.25 MG Tablet 1 tablet Orally 3 times a day As needed. Mirtazapine 7.5 MG bedtime 1.Depression Mirtazapine 7.5 MG bedtime PCP increased Remeron to 7.5 mg week ago - will plan to increase dose to 15 mg next week- see PCP next week continue this dose at this time until next week when see PCP toelrating rx no s/e schedule therapy RAYMOND 2. Anxiety ALPRAZolam 0.25 MG Tablet 1 tablet Orally 3 times a day As needed- PCP fills 3. Insomnia Trazodone 50 mg bedtime- PCP fills sleep hygeine Sleep Hygeine- - KEEP YOUR BEDROOM DARK - GET LOTS OF NATURAL LIGHT IN THE MORNING. - DON'T WORK ON YOUR COMPUTER OR PHONE LATE AT NIGHT. - AVOID NAPS DURING THE DAY. - NO CAFFEINE 3 HOURS OR MORE AFTER WAKE UP TIME. - ONLY USE YOUR BED FOR SLEEPING - GET A RELAXATION ROUTINE BEFORE BED. - IF YOU CAN'T GET TO SLEEP AFTER 15 TO 30 MINUTES GET OUT OF BED AND DO SOMETHING RELAXING. - DON'T DRINK ALCOHOL IN THE EVENING or limit alcohol to 1 drink 4. Low appetite with weight loss hx nausea and vomiting PCP increased Remeron to 7.5 mg week ago - will plan to increase dose to 15 mg next week- see PCP next week continue this dose at this time until next week when see PCP toelrating rx no s/e Patient educated on all medications including potential benefits, side effects, risks. Educated on proper dosing schedule and importance of compliance educated on all medications, benefits, side effects and risk, and educated on depression, anxiety, and ADHD, mood d/o and educated on compliance of medications, metabolic and movement d/o education appointment's, continue therapy discussion with patient about course of treatment and patient instructions. education on serotonin syndrome Discussed and educated pt regarding benzodiazepines are generally not intended for prolonged use and that use can cause tolerance, dependence, depression, and associated memory issues including dementias (this list is not exhaustive). Benzodiazepine use is generally not recommended concurrently with pain medications and/or other controlled substances educated on all medications, benefits, side effects and risk, and educated on depression, anxiety, and ADHD, mood d/o and educated on compliance of medications, metabolic and movement d/o education appointment is, continue therapy discussion with patient about course of treatment and patient instructions. education on serotonin syndrome SSRI/SNRI side effects discussed including but not limited to, gastric upset, nausea, vomiting, diarrhea and/or constipation, weight changes, sexual side effects including loss of libido, increased suicidal thoughts/behavio rs in children and young adults, and serotonin syndrome. Second generation antipsychotics (SGAs) have metabolic syndrome issues with weight gain, increase in prolactin, increased waist circumference, increased lipids, and increased glucose. Thus routine monitoring of weight, metabolic labs, etc. is indicated. A general rank ordering of antipsychotics that have the greatest to the least risk of metabolic effects is olanzapine, quetiapine, risperidone, ziprasidone, and aripiprazole. However, weight gain can occur with all of these drugs and considerable variability exists among patients receiving the same drug regarding the risk of metabolic effects. Anti-psychotic agents not only increase the risk of metabolic disorder, they also increase the risk of CVA, akathisia, and movement disorders including EPS or tardive dyskinesia (more common with first generation antipsychotics) and more. Elderly- discussed risks, cognition, sedation, falls, metabolic, movement and atypical antipsychotics carry a black-box warning for increased risk of and cerebrovascular events in dementia. NO RX filled today Medication Management and Follow-Up - Plan: - Schedule follow-up appointments every 1-3 months to monitor the patient's response to the medication regimen. - Reinforce the importance of avoiding recreational drug use due to potential neurotoxicity and interactions with prescribed medications. 03/16/2025 Generalized anxiety disorder (ICD-10 - F41.1) [...] disorder, recurrent, moderate (ICD-10 - F33.1) 04/27/2024 Obsessive-compu lsive disorder, unspecified (ICD-10 - F42.9) 02/08/2025 History of falling (ICD-10 - Z91.81) 03/16/2025 History of falling (ICD-10 - Z91.81) 04/02/2025 Mild cognitive impairment, so stated (ICD-10 - G31.84) Learning About Mild Cognitive Impairment (MCI) material was published presently taking- currently taking trazodone 50 mg , ALPRAZolam 0.25 MG Tablet 1 tablet Orally 3 times a day As needed. Mirtazapine 7.5 MG bedtime 1.Depression Mirtazapine 7.5 MG bedtime PCP increased Remeron to 7.5 mg week ago - will plan to increase dose to 15 mg next week- see PCP next week continue this dose at this time until next week when see PCP toelrating rx no s/e schedule therapy RAYMOND 2. Anxiety ALPRAZolam 0.25 MG Tablet 1 tablet Orally 3 times a day As needed- PCP fills 3. Insomnia Trazodone 50 mg bedtime- PCP fills sleep hygeine Sleep Hygeine- - KEEP YOUR BEDROOM DARK - GET LOTS OF NATURAL LIGHT IN THE MORNING. - DON'T WORK ON YOUR COMPUTER OR PHONE LATE AT NIGHT. - AVOID NAPS DURING THE DAY. - NO CAFFEINE 3 HOURS OR MORE AFTER WAKE UP TIME. - ONLY USE YOUR BED FOR SLEEPING - GET A RELAXATION ROUTINE BEFORE BED. - IF YOU CAN'T GET TO SLEEP AFTER 15 TO 30 MINUTES GET OUT OF BED AND DO SOMETHING RELAXING. - DON'T DRINK ALCOHOL IN THE EVENING or limit alcohol to 1 drink 4. Low appetite with weight loss hx nausea and vomiting PCP increased Remeron to 7.5 mg week ago - will plan to increase dose to 15 mg next week- see PCP next week continue this dose at this time until next week when see PCP toelrating rx no s/e Patient educated on all medications including potential benefits, side effects, risks. Educated on proper dosing schedule and importance of compliance educated on all medications, benefits, side effects and risk, and educated on depression, anxiety, and ADHD, mood d/o and educated on compliance of medications, metabolic and movement d/o education appointment's, continue therapy discussion with patient about course of treatment and patient instructions. education on serotonin syndrome Discussed and educated pt regarding benzodiazepines are generally not intended for prolonged use and that use can cause tolerance, dependence, depression, and associated memory issues including dementias (this list is not exhaustive). Benzodiazepine use is generally not recommended concurrently with pain medications and/or other controlled substances educated on all medications, benefits, side effects and risk, and educated on depression, anxiety, and ADHD, mood d/o and educated on compliance of medications, metabolic and movement d/o education appointment is, continue therapy discussion with patient about course of treatment and patient instructions. education on serotonin syndrome SSRI/SNRI side effects discussed including but not limited to, gastric upset, nausea, vomiting, diarrhea and/or constipation, weight changes, sexual side effects including loss of libido, increased suicidal thoughts/behavio rs in children and young adults, and serotonin syndrome. Second generation antipsychotics (SGAs) have metabolic syndrome issues with weight gain, increase in prolactin, increased waist circumference, increased lipids, and increased glucose. Thus routine monitoring of weight, metabolic labs, etc. is indicated. A general rank ordering of antipsychotics that have the greatest to the least risk of metabolic effects is olanzapine, quetiapine, risperidone, ziprasidone, and aripiprazole. However, weight gain can occur with all of these drugs and considerable variability exists among patients receiving the same drug regarding the risk of metabolic effects. Anti-psychotic agents not only increase the risk of metabolic disorder, they also increase the risk of CVA, akathisia, and movement disorders including EPS or tardive dyskinesia (more common with first generation antipsychotics) and more. Elderly- discussed risks, cognition, sedation, falls, metabolic, movement and atypical antipsychotics carry a black-box warning for increased risk of and cerebrovascular events in dementia. NO RX filled today Medication Management and Follow-Up - Plan: - Schedule follow-up appointments every 1-3 months to monitor the patient's response to the medication regimen. - Reinforce the importance of avoiding recreational drug use due to potential neurotoxicity and interactions with prescribed medications. 03/08/2025 History of falling (ICD-10 - Z91.81) 03/08/2025 Encounter for screening for depression (ICD-10 - Z13.31) 03/16/2025 Non-compliance (ICD-10 - Z91.199) hx of abruptly stopping medications r/t side effects. 04/02/2025 Weight loss, unintentional (ICD-10 - R63.4) Abnormal Weight Loss: Care Instructions material was published presently taking- currently taking trazodone 50 mg , ALPRAZolam 0.25 MG Tablet 1 tablet Orally 3 times a day As needed. Mirtazapine 7.5 MG bedtime 1.Depression Mirtazapine 7.5 MG bedtime PCP increased Remeron to 7.5 mg week ago - will plan to increase dose to 15 mg next week- see PCP next week continue this dose at this time until next week when see PCP toelrating rx no s/e schedule therapy RAYMOND 2. Anxiety ALPRAZolam 0.25 MG Tablet 1 tablet Orally 3 times a day As needed- PCP fills 3. Insomnia Trazodone 50 mg bedtime- PCP fills sleep hygeine Sleep Hygeine- - KEEP YOUR BEDROOM DARK - GET LOTS OF NATURAL LIGHT IN THE MORNING. - DON'T WORK ON YOUR COMPUTER OR PHONE LATE AT NIGHT. - AVOID NAPS DURING THE DAY. - NO CAFFEINE 3 HOURS OR MORE AFTER WAKE UP TIME. - ONLY USE YOUR BED FOR SLEEPING - GET A RELAXATION ROUTINE BEFORE BED. - IF YOU CAN'T GET TO SLEEP AFTER 15 TO 30 MINUTES GET OUT OF BED AND DO SOMETHING RELAXING. - DON'T DRINK ALCOHOL IN THE EVENING or limit alcohol to 1 drink 4. Low appetite with weight loss hx nausea and vomiting PCP increased Remeron to 7.5 mg week ago - will plan to increase dose to 15 mg next week- see PCP next week continue this dose at this time until next week when see PCP toelrating rx no s/e Patient educated on all medications including potential benefits, side effects, risks. Educated on proper dosing schedule and importance of compliance educated on all medications, benefits, side effects and risk, and educated on depression, anxiety, and ADHD, mood d/o and educated on compliance of medications, metabolic and movement d/o education appointment's, continue therapy discussion with patient about course of treatment and patient instructions. education on serotonin syndrome Discussed and educated pt regarding benzodiazepines are generally not intended for prolonged use and that use can cause tolerance, dependence, depression, and associated memory issues including dementias (this list is not exhaustive). Benzodiazepine use is generally not recommended concurrently with pain medications and/or other controlled substances educated on all medications, benefits, side effects and risk, and educated on depression, anxiety, and ADHD, mood d/o and educated on compliance of medications, metabolic and movement d/o education appointment is, continue therapy discussion with patient about course of treatment and patient instructions. education on serotonin syndrome SSRI/SNRI side effects discussed including but not limited to, gastric upset, nausea, vomiting, diarrhea and/or constipation, weight changes, sexual side effects including loss of libido, increased suicidal thoughts/behavio rs in children and young adults, and serotonin syndrome. Second generation antipsychotics (SGAs) have metabolic syndrome issues with weight gain, increase in prolactin, increased waist circumference, increased lipids, and increased glucose. Thus routine monitoring of weight, metabolic labs, etc. is indicated. A general rank ordering of antipsychotics that have the greatest to the least risk of metabolic effects is olanzapine, quetiapine, risperidone, ziprasidone, and aripiprazole. However, weight gain can occur with all of these drugs and considerable variability exists among patients receiving the same drug regarding the risk of metabolic effects. Anti-psychotic agents not only increase the risk of metabolic disorder, they also increase the risk of CVA, akathisia, and movement disorders including EPS or tardive dyskinesia (more common with first generation antipsychotics) and more. Elderly- discussed risks, cognition, sedation, falls, metabolic, movement and atypical antipsychotics carry a black-box warning for increased risk of and cerebrovascular events in dementia. NO RX filled today Medication Management and Follow-Up - Plan: - Schedule follow-up appointments every 1-3 months to monitor the patient's response to the medication regimen. - Reinforce the importance of avoiding recreational drug use due to potential neurotoxicity and interactions with prescribed medications. 02/08/2025 Encounter for screening for depression (ICD-10 - Z13.31) 03/16/2025 Essential hypertension (ICD-10 - I10) on lisinopril, history of non compliance. 03/08/2025 Encounter for screening for cardiovascular disorders (ICD-10 - Z13.6) 02/08/2025 Benign essential HTN (ICD-10 - I10) 03/08/2025 Benign essential HTN (ICD-10 - I10) 02/08/2025 Other Notes: referral to the local chapter or national office of the Alzheimer's Association ( ; http://www.alz.or g), the Alzheimer's Disease [facility] ([facility]) ( ; http://www.[place].gov/Alzheimers/ ),, Mirtazapine material was printed Major Depressive Disorder [...] related to recent hip surgery complications and hospitalizatio n. Patient has been taking alprazolam for anxiety management for approximately 10 years but reports recent overuse due to heightened anxiety. 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 This appears to be a new onset of insomnia, likely related to recent medical issues and anxiety. Plan: - Initiate mirtazapine 7.5mg at bedtime to address insomnia symptoms Weight Loss Assessment: Patient reports significant weight loss of approximately 15 pounds following hip replacement surgery. This is likely multifactorial , related to decreased appetite from depression, anxiety, [...] - Patient reports feeling weird, including dizziness, lightheadednes s, and feeling spacey or detached. - Plan: [...] Ensure) to maintain nutrition. 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
--- OUTSIDE RECORDS SUMMARY | 2025-04-22 15:57 | XMS_ITS | Patient Health Record ---
Author Organization [facility] Address [address] [place] [address] Care Team Providers Care Dial Mounter Name Role Phone Alexy VYAS, Oliver Primary Care Provider Last WEBER LIGHT COIL WINDER, LISA Unavailable Allergies Allergen (clinical drug ingredient) [...] 1 TABLET BY VANNESA TH EVERYDAY AT BEDTIME; Duration: 90 Active Colestipol HCl 1 GM TAKE 2 TABLETS BY ON CE DAILY FOR 30 DAYS; Duration: 90 Active Imodium A-D Active NexIUM Active [...] [employer] Advantage HMO-POS [address] [address] [place], [place] [id number] Lucy Peña Self - patient is the insured Medical (General) History Medical History History ICD Code anxiety hypercholesterolemia gastroesophageal reflux disease (GERD) gallstones diverticulosis migraine headaches Surgical History Surgery Date(Month/Year) cholecystectomy 1995
--- OUTSIDE RECORDS SUMMARY | 2025-04-22 15:57 | XMS_ITS | Continuity of Care Document ---
Author Organization [facility] Address [address] [place] [address] Phone Care Team Providers Care Teacher Dancing Name Role Phone Ruiz OD, Zeferino Unavailable Unavailable Advance Directives Directive Yes / No Effective Date File Name No Information Encounters Encounter Description Practice Location Reason(s) For Visit Diagnoses Date Provider Providers Copied on Encounter [facility], [address], [place], [place], [id number], [place] tel:[phone] [facility] No Information 1-200 5 Ruiz OD Zeferino. [address] , [address], [place], [address], [place]. tel:[phone] Family History Family Member Type Diagnosis Age [...]
[2025-04-22 16:18] LABS: Hematocrit 42.2 % (37.0-47.0); Hemoglobin 13.4 g/dL (12.0-15.0); Immature Granulocyte Percent A 0.4 % (0-0.5); Lymphocytes Absolute Auto 2.07 K/mm3 (0.9-3.2); Mean Corpuscular HGB Conc 31.8 g/dl (32-36); Mean Corpuscular Hemoglobin 28.3 pg (26-34); Mean Corpuscular Volume 89.0 fl (80-100); Nucleated Red Blood Cells Absolute Auto 0.000 K/mm3 (0.0-0.012); Nucleated Red Blood Cells Perc 0.0 % (0.0-0.2); Platelet Count Result 284 k/mm3 (150-375); Red Blood Count 4.74 M/mm3 (4.2-5.4); White Blood Count 7.1 K/mm3 (4.5-10.0)
[2025-04-22 16:24] LABS: Add Urine Microscopic? YES; Appearance Urine Clear (Clear); Glucose Urine UA Negative (Negative); Leukocyte Esterase Ur Trace LEU/UL (Negative); Nitrate Urine Negative (Negative); Non Pathogenic Casts 0-2; Specific Grav Ur 1.013 (1.001-1.035)
[2025-04-22 16:34] LABS: Alanine Aminotransferase 20 U/L (6-35); Albumin Level 4.5 g/dL (3.5-5.1); Alkaline Phosphatase 86 U/L (38-126); Anion Gap 9 mmol/L (4-12); Aspartate Amino Transferase 39 U/L (14-36); Bilirubin,Total 0.4 mg/dL (0.2-1.3); Blood Urea Nitrogen 13 mg/dL (7-17); Calcium 11.1 mg/dL (8.4-10.2); Carbon Dioxide 26 mmol/L (22-30); Chloride 102 mmol/L (98-107); Cholesterol 124 mg/dL (0-200); Estimated Glomerular Filt Rate 56; Glucose 108 mg/dL (65-110); HDL Direct 59 mg/dL; Potassium 5.2 mmol/L (3.4-5.0); Sodium 137 mmol/L (137-145); Total Protein 7.8 g/dL (6.3-8.2); Triglycerides 121 mg/dL (<150)
[2025-04-22 16:54] LABS: Free T4 Free Thyroxine 1.41 ng/dL (0.78-2.19)
[2025-04-22 17:10] LABS: Thyroid Stimulating Hormone 1.670 uIU/mL (0.465-4.680)
== END 2025-04-22 15:54 | disposition home or self-care (01) ==
LOC: ANHLAB 15:54
PROVIDERS: PCP Internal Medicine; Visit Provider Internal Medicine
DX: E78.5 Hyperlipidemia, unspecified (principal); N39.0 Urinary tract infection, site not specified; R62.7 Adult failure to thrive
CPT/HCPCS: 36415; 80053; 80061; 81001; 84439; 84443; 85025

== ENCOUNTER 2025-05-19 15:30 | Outpatient (CLI) | payer MEDICARE, SELFPAY ==
--- OUTSIDE RECORDS SUMMARY | 2005-04-19 12:00 | XMS_ITS | Continuity of Care Document ---
Author Organization [facility] Address [address] [place] [address] Phone Care Team Providers Care Olericulture Teacher Name Role Phone Ruiz OD, Zeferino Unavailable Unavailable Advance Directives Directive Yes / No Effective Date File Name No Information Encounters Encounter Description Practice Location Reason(s) For Visit Diagnoses Date Provider Providers Copied on Encounter [facility], [address], [place], [place], [id number], [place] tel:[phone] [facility] No Information 1-200 5 Ruiz OD Zeferino. [address] , [address], [place], [address], [place]. tel:[phone] Family History Family Member Type Diagnosis Age At Onset No Information Payers Payer name Insurance type Covered democrat ID Authoriza tion(s) No Information Social History [...]
[2025-05-19 17:26] LABS: Add Urine Microscopic? YES; Appearance Urine Clear (Clear); Glucose Urine UA Negative (Negative); Leukocyte Esterase Ur Negative LEU/UL (Negative); Nitrate Urine Negative (Negative); Non Pathogenic Casts 0-2; Specific Grav Ur 1.024 (1.001-1.035)
== END 2025-05-19 15:31 | disposition home or self-care (01) ==
PROVIDERS: PCP Internal Medicine; Visit Provider Internal Medicine
DX: N39.0 Urinary tract infection, site not specified (principal); I10 Essential (primary) hypertension
CPT/HCPCS: 81001

== ENCOUNTER 2025-05-28 09:46 | Outpatient (NON) | payer MEDICARE, SELFPAY ==
[2025-05-28 11:46] LABS: Toxigenic C. Diff POSITIVE (NEGATIVE)
[2025-06-01 02:07] LABS: Pancreatic Elastase, Fecal 351 (>200)
== END 2025-05-28 09:47 | disposition home or self-care (01) ==
PROVIDERS: PCP Internal Medicine; Visit Provider Internal Medicine
DX: K52.89 Other specified noninfective gastroenteritis and colitis (principal); R19.7 Diarrhea, unspecified
CPT/HCPCS: 82653; 87045; 87046; 87177; 87427; 87493

== ENCOUNTER 2025-06-08 12:06 | Outpatient (CLI) | payer MEDICARE, SELFPAY ==
--- OUTSIDE RECORDS SUMMARY | 2005-04-19 12:00 | XMS_ITS | Continuity of Care Document ---
Author Organization [facility] Address [address] [place] [address] Phone Care Team Providers Care Sr. Manager Name Role Phone Ruiz OD, Zeferino Unavailable Unavailable Advance Directives Directive Yes / No Effective Date File Name No Information Encounters Encounter Description Practice Location Reason(s) For Visit Diagnoses Date Provider Providers Copied on Encounter [facility], [address], [place], [place], [id number], [place] tel:[phone] [facility] No Information 1-200 5 Ruiz OD Zeferino. [address] , [address], [place], [address], [place]. tel:[phone] Family History Family Member Type Diagnosis Age [...]
--- OUTSIDE RECORDS SUMMARY | 2025-06-08 12:11 | XMS_ITS | Patient Health Record ---
Author Organization [facility] Address [address] [place] [address] Care Team Providers Care Industrial Cafeteria Manager Name Role Phone Alexy VYAS, Oliver Primary Care Provider Last WEBER HOSIERY PAIRER, LISA Unavailable Allergies Allergen (clinical drug ingredient) [...] [employer] Advantage HMO-POS [address] [address] [place], [place] [id number] Lucy Peña Self - patient is the insured Medical (General) History Medical History History ICD Code anxiety hypercholesterolemia gastroesophageal reflux disease (GERD) gallstones diverticulosis migraine headaches Surgical History Surgery Date(Month/Year) cholecystectomy 1995
[2025-06-08 13:58] LABS: Toxigenic C. Diff NEGATIVE (NEGATIVE)
== END 2025-06-08 12:07 | disposition home or self-care (01) ==
LOC: ANHLAB 12:07
PROVIDERS: PCP Internal Medicine; Visit Provider Internal Medicine
DX: K82.9 Disease of gallbladder, unspecified (principal); I10 Essential (primary) hypertension
CPT/HCPCS: 87493

== ENCOUNTER 2025-06-11 13:54 | Outpatient (CLI) | payer MEDICARE, SELFPAY ==
--- OUTSIDE RECORDS SUMMARY | 2005-04-19 12:00 | XMS_ITS | Continuity of Care Document ---
Author Organization [facility] Address [address] [place] [address] Phone Care Team Providers Care Pan Washer Name Role Phone Ruiz OD, Zefeirno Unavailable Unavailable Advance Directives Directive Yes / No Effective Date File Name No Information Encounters Encounter Description Practice Location Reason(s) For Visit Diagnoses Date Provider Providers Copied on Encounter [facility], [address], [place], [place], [id number], [place] tel:[phone] [facility] No Information 1-200 5 Ruiz OD Zeferino. [address] , [address], [place], [address], [place]. tel:[phone] Family History Family Member Type Diagnosis Age At Onset No Information Payers Payer name Insurance type Covered republican ID Authoriza tion(s) No Information Social History [...]
--- OUTSIDE RECORDS SUMMARY | 2025-06-11 13:57 | XMS_ITS | Patient Health Record ---
Author Organization [facility] Address [address] [place] [address] Care Team Providers Care Bicycle Inspector Name Role Phone Alexy VYAS, Oliver Primary Care Provider Last WEBER MACHINIST, LISA Unavailable Allergies Allergen (clinical drug ingredient) [...] [employer]vantage HMO-POS [address] [address] [place], [place] [id number] Lucy Peña Self - patient is the insured Medical (General) History Medical History History ICD Code anxiety hypercholesterolemia gastroesophageal reflux disease (GERD) gallstones diverticulosis migraine headaches Surgical History Surgery Date(Month/Year) cholecystectomy 1995
[2025-06-11 14:36] LABS: Hematocrit 43.5 % (37.0-47.0); Hemoglobin 13.6 g/dL (12.0-15.0); Immature Granulocyte Percent A 0.3 % (0-0.5); Lymphocytes Absolute Auto 1.83 K/mm3 (0.9-3.2); Mean Corpuscular HGB Conc 31.3 g/dl (32-36); Mean Corpuscular Hemoglobin 27.3 pg (26-34); Mean Corpuscular Volume 87.3 fl (80-100); Nucleated Red Blood Cells Absolute Auto 0.000 K/mm3 (0.0-0.012); Nucleated Red Blood Cells Perc 0.0 % (0.0-0.2); Platelet Count Result 275 k/mm3 (150-375); Red Blood Count 4.98 M/mm3 (4.2-5.4); White Blood Count 7.8 K/mm3 (4.5-10.0)
[2025-06-11 14:48] LABS: Alanine Aminotransferase 21 U/L (6-35); Albumin Level 4.4 g/dL (3.5-5.1); Alkaline Phosphatase 71 U/L (38-126); Amylase 70 U/L (30-110); Aspartate Amino Transferase 34 U/L (14-36); Bilirubin,Total 0.3 mg/dL (0.2-1.3); Lipase 44 U/L (23-300); Total Protein 7.4 g/dL (6.3-8.2)
== END 2025-06-11 13:55 | disposition home or self-care (01) ==
PROVIDERS: PCP Internal Medicine; Visit Provider Internal Medicine
DX: A04.72 Enterocolitis due to Clostridium difficile, not specified as recurrent (principal)
CPT/HCPCS: 36415; 80076; 82150; 83690; 85025

== ENCOUNTER 2025-07-23 13:29 | Outpatient (CLI) | payer MEDICARE, SELFPAY ==
--- OUTSIDE RECORDS SUMMARY | 2005-04-19 11:00 | XMS_ITS | Continuity of Care Document ---
Author Organization [facility] Address [address] [place] [address] Phone Care Team Providers Care Hvac Controls Technician Name Role Phone Ruiz OD, Zeferino Unavailable Unavailable Advance Directives Directive Yes / No Effective Date File Name No Information Encounters Encounter Description Practice Location Reason(s) For Visit Diagnoses Date Provider Providers Copied on Encounter [facility], [address], [place], [place], [id number], [place] tel:[phone] [facility] No Information 1-200 5 Ruiz OD Zeferino. [address] , [address], [place], [address], [place]. tel:[phone] Family History Family Member Type Diagnosis Age At Onset No Information Payers Payer name Insurance type Covered alliance party ID Authoriza tion(s) No Information Social History Type Description Quantity Date Captured Comments Sex Female Smoking Status No Information Chief Complaint And Reason For Visit No Information Reason For Referral Reason For Referral No Information History Of Present Illness Encounter Date Complaint History Of Prese nt Illness No Information Functional Status Date Functional Assessmen t No Information Instructions Date Instruction Additional Infor mation No Information Assessments Type Assessment Date No Information Patient Care Teams Name Effective Dates (start - stop) Status Members No Information
--- OUTSIDE RECORDS SUMMARY | 2005-04-19 11:00 | XMS_ITS | Continuity of Care Document ---
Author Organization [facility] Address [address] [place] [address] Phone Care Team Providers Care Doll Wigs Hackler Name Role Phone Ruiz OD, Zeferino Unavailable Unavailable Advance Directives Directive Yes / No Effective Date File Name No Information Encounters Encounter Description Practice Location Reason(s) For Visit Diagnoses Date Provider Providers Copied on Encounter [facility], [address], [place], [place], [id number], [place] tel:[phone] [facility] No Information 1-200 5 Ruiz OD Zeferino. [address] , [address], [place], [address], [place]. tel:[phone] Family History Family Member Type Diagnosis Age [...]
--- OUTSIDE RECORDS SUMMARY | 2005-04-19 11:00 | XMS_ITS | Continuity of Care Document ---
Author Organization [facility] Address [address] [place] [address] Phone Care Team Providers Care Solar Project Engineer Name Role Phone Ruiz OD, Zeferino Unavailable Unavailable Advance Directives Directive Yes / No Effective Date File Name No Information Encounters Encounter Description Practice Location Reason(s) For Visit Diagnoses Date Provider Providers Copied on Encounter [facility], [address], [place], [place], [address], [place] tel:[phone] [facility] No Information 1-200 5 Ruiz OD Zeferino. [address] , [address], [place], [address], [place]. tel:[phone] Family History Family Member Type Diagnosis Age At Onset No Information Payers Payer name Insurance type Covered green party ID Authoriza tion(s) No Information Social [...]
[2025-07-23 14:00] LABS: Albumin Level 4.6 g/dL (3.5-5.1); Anion Gap 8 mmol/L (4-12); Blood Urea Nitrogen 18 mg/dL (7-17); Calcium 10.3 mg/dL (8.4-10.2); Carbon Dioxide 29 mmol/L (22-30); Chloride 102 mmol/L (98-107); Estimated Glomerular Filt Rate 48; Glucose 95 mg/dL (65-110); Magnesium 2.3 mg/dL (1.6-2.3); Potassium 4.8 mmol/L (3.4-5.0); Sodium 139 mmol/L (137-145)
--- OUTSIDE RECORDS SUMMARY | 2025-07-23 17:50 | XMS_ITS | Patient Health Record ---
Author Organization [facility] Address [address] [place] [address] Care Team Providers Care Network Systems Analyst Name Role Phone Alexy VYAS, Oliver Primary Care Provider Last WEBER ENGINE DISPATCHER, LISA Unavailable [phone] Allergies Allergen (clinical drug ingredient) Drug/Non [...] [employer] Advantage HMO-POS [address] [address] [place], [place] [id number] Lucy Peña Self - patient is the insured Medical (General) History Medical History History ICD Code anxiety hypercholesterolemia gastroesophageal reflux disease (GERD) gallstones diverticulosis migraine headaches Surgical History Surgery Date(Month/Year) cholecystectomy 1995
== END 2025-07-23 13:30 | disposition home or self-care (01) ==
LOC: ANHLAB 13:30
PROVIDERS: PCP Internal Medicine; Visit Provider Internal Medicine Nephrology
DX: E87.6 Hypokalemia (principal)
CPT/HCPCS: 36415; 80069; 83735